=== PATIENT | female | born 1960 | race Caucasian/White ===

== ENCOUNTER 2019-02-22 15:35 | Emergency (ER) | payer BC ==
[2019-02-22] MEDS ORDERED: HYDROCODONE/APAP 5/325 MG TAB ONE (17:30)
[2019-02-22] MEDS ORDERED: DEXAMETHASONE 10 MG/ML VIAL ONE (17:30)
[2019-02-22] MEDS ORDERED: CYCLOBENZAPRINE 10 MG TAB ONE (17:30)
--- NOTE | 2019-02-22 18:08 | ER ---
Nurse's Notes [facility] Name: Nolberto Pérez Age: 58 yrs Sex: Female : 1960 Arrival Date: 02/22/2019 Time: 15:37 Bed 26 Private MD: Higinio Watters Diagnosis: Strain of muscle, fascia and tendon at neck level Presentation: 02/22 15:48 Presenting complaint: Patient states: i have a pain on my neck for few months now; hj denies trauma to the area; pain R now is getting worse and pain is shooting on the back of my skull;. Transition of care: patient was not received from another setting of care. Onset of symptoms was February 22, 2019. Risk Assessment: Do you want to hurt yourself or someone else? Patient reports no desire to harm self or others. Initial Sepsis Screen: Does the patient meet any 2 criteria? No. Patient's initial sepsis screen is negative. Does the patient have a suspected source of infection? No. Patient's initial sepsis screen is negative. Care prior to arrival: None. 15:48 Method Of Arrival: Ambulatory 15:48 Acuity: TIFFANIE 4 hj Historical: - Allergies: 15:50 No Known Drug Allergies; hj - PMHx: 15:50 Diabetes - NIDDM; Anxiety; hj - PSHx: 15:50 Appendectomy; Tubal ligation; hj - Immunization history:: Adult Immunizations up to date. - Social history:: Smoking status: Patient/guardian denies using tobacco. - Ebola Screening: : No symptoms or risks identified at this time. Screenin:00 Abuse screen: Denies threats or abuse. Denies injuries from another. Nutritional ca1 screening: No deficits noted. Tuberculosis screening: No symptoms or risk factors identified. Fall Risk None identified. Assessment: 17:00 General: Appears in no apparent distress. uncomfortable, Behavior is calm, cooperative, ca1 appropriate for age. Pain: Complains of pain in left trapezius and right trapezius Pain currently is 0 out of 10 on a pain scale. at worst was 10 out of 10 on a pain scale. Quality of pain is described as aching, Aggravated by repositioning, Noted to be refuses to move neck, and reports stiffness on neck. Neuro: Level of Consciousness is awake, alert, obeys commands, Oriented to person, place, time, situation. Cardiovascular: Heart tones S1 S2 present Capillary refill < 3 seconds Patient's skin is warm and dry. Respiratory: Airway is patent Respiratory effort is even, unlabored, Respiratory pattern is regular, symmetrical, Breath sounds are clear bilaterally. GI: No deficits noted. No signs and/or symptoms were reported involving the gastrointestinal system. : No deficits noted. No signs and/or symptoms were reported regarding the genitourinary system. EENT: No deficits noted. No signs and/or symptoms were reported regarding the EENT system. Derm: Skin is intact, is healthy with good turgor, Skin is pink, warm \T\ dry. Musculoskeletal: Circulation, motion, and sensation intact. Capillary refill < 3 seconds. 18:06 Reassessment: Patient appears in no apparent distress at this time. Patient and/or ca1 family updated on plan of care and expected duration. Pain level reassessed. Patient is alert, oriented x 3, equal unlabored respirations, skin warm/dry/pink. Pt reports feeling better. Pt able to turn head side to side, up and down and doesn't feel very stiff on her neck anymore. Patient states feeling better. Vital Signs: 15:51 BP 120 / 68; Pulse 76; Resp 18; Temp 97.8(TE); Pulse Ox 98% on R/A; Weight 91.63 kg; hj Height 5 ft. 6 in. (167.64 cm); Pain 8/10; 17:00 BP 110 / 68; Pulse 86; Resp 17 S; Temp 98(O); Pulse Ox 94% on R/A; ca1 18:06 BP 109 / 65; Pulse 86; Resp 17 S; Temp 98(O); Pulse Ox 94% on R/A; ca1 15:51 Body Mass Index 32.60 (91.63 kg, 167.64 cm) ED Course: 15:37 Patient arrived in ED. as 15:38 Higinio Watters DO is Private Physician. as 15:49 Triage completed. hj 15:51 Arm band placed on right wrist. hj 16:33 [facility] pm1 16:33 Jose Bloom MD is Attending Physician. pm1 17:00 Patient has correct armband on for positive identification. Placed in gown. Bed in low ca1 position. Call light in reach. Side rails up X 1. Pulse ox on. NIBP on. Warm blanket given. 17:14 Randa Durán, RN is Primary Nurse. ca1 18:09 No provider procedures requiring assistance completed. Patient did not have IV access ca1 during this emergency room visit. Administered Medications: 17:14 Drug: [place] 5 mg-325 mg 1 tabs Route: PO; ca1 18:08 Follow up: Response: No adverse reaction; Pain is decreased ca1 17:15 Drug: Flexeril 10 mg Route: PO; ca1 18:08 Follow up: Response: No adverse reaction; Pain is decreased ca1 17:20 Drug: Decadron 10 mg Route: IM; Site: right deltoid; ca1 18:08 Follow up: Response: No adverse reaction; Pain is decreased ca1 Outcome: 18:07 Discharge ordered by . pm1 18:18 Discharged to home ambulatory, with significant other. ca1 18:18 Condition: stable 18:18 Discharge instructions given to patient, Instructed on discharge instructions, follow up and referral plans. medication usage, Demonstrated understanding of instructions, follow-up care, medications, Prescriptions given X 3. 18:18 Patient left the ED. ca1 Signatures: Pebbles Bourgeois Henry, RN RN Bishop Godoy, [employer]CH[employer]ICIAN pm1 Randa Durán, LURDES RN ca1 Corrections: (The following items were deleted from the chart) 15:52 15:51 Resp 18bpm; Pulse Ox 98% RA; Temp 97.8F Temporal; 91.63 kg; Height 5 ft. 6 in.; hj BMI: 32.6; Pain 8/10; hj 15:52 15:51 Pulse 76bpm; Resp 18bpm; Pulse Ox 98% RA; Temp 97.8F Temporal; 91.63 kg; Height 5 hj ft. 6 in.; BMI: 32.6; Pain 8/10; hj
--- NOTE | 2019-02-22 18:08 | EDPHYS ---
Physician Documentation [facility] Name: Nolberto Pérez Age: 58 yrs Sex: Female : 1960 Arrival Date: 02/22/2019 Time: 15:37 Bed 26 Private MD: Higinio Watters ED Physician Jose Bloom HPI: 02/22 17:34 This 58 yrs old Female presents to ER via Ambulatory with complaints of Neck pm1 Pain, <24hrs Old. 17:34 The patient or guardian complains of pain, that is acute. The symptoms are located on pm1 the left trapezius. Onset: The symptoms/episode began/occurred On and of for the past three months but worse today. Usually resolves with the use of NSAIDs. Context: The problem was sustained at home, The neck injury/problem resulted from from unknown cause. Associated signs and symptoms: Pertinent negatives: fever, headache, nausea, numbness, tingling, vomiting, weakness. The pain does not radiate. Modifying factors: The symptoms are alleviated by OTC meds, remaining still, the symptoms are aggravated by movement. Severity of symptoms: in the emergency department the symptoms are actually worse. The patient has not experienced similar symptoms in the past. The patient has not recently seen a physician. Historical: - Allergies: 15:50 No Known Drug Allergies; hj - PMHx: 15:50 Diabetes - NIDDM; Anxiety; hj - PSHx: 15:50 Appendectomy; Tubal ligation; hj - Immunization history:: Adult Immunizations up to date. - Social history:: Smoking status: Patient/guardian denies using tobacco. - Ebola Screening: : No symptoms or risks identified at this time. ROS: 17:34 Constitutional: Negative for fever, chills, and weight loss, Eyes: Negative for injury, pm1 pain, redness, and discharge, ENT: Negative for injury, pain, and discharge, Cardiovascular: Negative for chest pain, palpitations, and edema, Respiratory: Negative for shortness of breath, cough, wheezing, and pleuritic chest pain, Abdomen/GI: Negative for abdominal pain, nausea, vomiting, diarrhea, and constipation, Back: Negative for injury and pain. 17:34 : Negative for injury, bleeding, discharge, and swelling, MS/Extremity: Negative for injury and deformity, Skin: Negative for injury, rash, and discoloration, Neuro: Negative for headache, weakness, numbness, tingling, and seizure. 17:34 Neck: Positive for pain with movement, Negative for mass, swollen nodes. Exam: 17:34 Constitutional: This is a well developed, well nourished patient who is awake, alert, pm1 and in no acute distress. Head/Face: Normocephalic, atraumatic. Eyes: Pupils equal round and reactive to light, extra-ocular motions intact. Lids and lashes normal. Conjunctiva and sclera are non-icteric and not injected. Cornea within normal limits. Periorbital areas with no swelling, redness, or edema. ENT: Nares patent. No nasal discharge, no septal abnormalities noted. Tympanic membranes are normal and external auditory canals are clear. Oropharynx with no redness, swelling, or masses, exudates, or evidence of obstruction, uvula midline. Mucous membranes moist. 17:34 Chest/axilla: Normal chest wall appearance and motion. Nontender with no deformity. No lesions are appreciated. Cardiovascular: Regular rate and rhythm with a normal S1 and S2. No gallops, murmurs, or rubs. Normal PMI, no JVD. No pulse deficits. Respiratory: Lungs have equal breath sounds bilaterally, clear to auscultation and percussion. No rales, rhonchi or wheezes noted. No increased work of breathing, no retractions or nasal flaring. Abdomen/GI: Soft, non-tender, with normal bowel sounds. No distension or tympany. No guarding or rebound. No evidence of tenderness throughout. Back: No spinal tenderness. No costovertebral tenderness. Full range of motion. Skin: Warm, dry with normal turgor. Normal color with no rashes, no lesions, and no evidence of cellulitis. MS/ Extremity: Pulses equal, no cyanosis. Neurovascular intact. Full, normal range of motion. 17:34 Neck: External neck: crepitus, is not appreciated, tenderness, of the left trapezius, C-spine: vertebral tenderness, is not appreciated. 17:34 Neuro: Orientation: is normal, Motor: is normal, moves all fours. Vital Signs: 15:51 BP 120 / 68; Pulse 76; Resp 18; Temp 97.8(TE); Pulse Ox 98% on R/A; Weight 91.63 kg; hj Height 5 ft. 6 in. (167.64 cm); Pain 8/10; 17:00 BP 110 / 68; Pulse 86; Resp 17 S; Temp 98(O); Pulse Ox 94% on R/A; ca1 18:06 BP 109 / 65; Pulse 86; Resp 17 S; Temp 98(O); Pulse Ox 94% on R/A; ca1 15:51 Body Mass Index 32.60 (91.63 kg, 167.64 cm) hj MDM: 16:50 Patient medically screened. pm1 17:14 Data reviewed: vital signs. Data interpreted: Pulse oximetry: on room air is 98 %. pm1 Interpretation: normal. Counseling: I had a detailed discussion with the patient and/or guardian regarding: the historical points, exam findings, and any diagnostic results supporting the discharge/admit diagnosis. Administered Medications: 17:14 Drug: [place] 5 mg-325 mg 1 tabs Route: PO; ca1 18:08 Follow up: Response: No adverse reaction; Pain is decreased ca1 17:15 Drug: Flexeril 10 mg Route: PO; ca1 18:08 Follow up: Response: No adverse reaction; Pain is decreased ca1 17:20 Drug: Decadron 10 mg Route: IM; Site: right deltoid; ca1 18:08 Follow up: Response: No adverse reaction; Pain is decreased ca1 Disposition: 02/23 06:56 Co-signature as Attending Physician, Jose Bloom MD I agree with the assessment and kdr plan of care. Disposition: 02/22/19 18:07 Discharged to Home. Impression: Strain of muscle, fascia and tendon at neck level. - Condition is Stable. - Discharge Instructions: Muscle Strain, Acute Torticollis, Adult. - Prescriptions for Tylenol- Codeine #3 300-30 mg Oral Tablet - take 2 tablets by ORAL route every 6 hours As needed; 20 tablet. Cyclobenzaprine 10 mg Oral Tablet - take 1 tablet by ORAL route every 8 hours As needed; 30 tablet. Medrol ([place]) 4 mg Oral Tablets, Dose Pack - take 1 tablet by ORAL route as directed - follow package instructions; 1 packet. - Medication Reconciliation Form, Thank You Letter, Antibiotic Education, Prescription Opioid Use form. - Follow up: Emergency Department; When: As needed; Reason: Worsening of condition. Follow up: Private Physician; When: 2 - 3 days; Reason: Recheck today's complaints, Continuance of care, Re-evaluation by your physician. - Problem is new. - Symptoms have improved. Signatures: Jose Bloom MD MD kdr Carrington Goodman, RN RN hj Bishop Godoy NP [employer] pm1 Leeanna, Randa RN RN ca1 Corrections: (The following items were deleted from the chart) 02/22 18:18 18:07 02/22/2019 18:07 Discharged to Home. Impression: Strain of muscle, fascia and ca1 tendon at neck level. Condition is Stable. Forms are Medication Reconciliation Form, Thank You Letter, Antibiotic Education, Prescription Opioid Use. Follow up: Emergency Department; When: As needed; Reason: Worsening of condition. Follow up: Private Physician; When: 2 - 3 days; Reason: Recheck today's complaints, Continuance of care, Re-evaluation by your physician. Problem is new. Symptoms have improved. pm1
[2019-02-22 18:50] VITALS: TEMP 98; O2SAT 94
[2019-02-22 18:52] VITALS: BP 109/65
== END 2019-02-22 18:18 | disposition home or self-care (01) ==
LOC: ER 15:35
DX: S16.1XXA Strain of muscle, fascia and tendon at neck level, initial encounter (principal); E11.9 Type 2 diabetes mellitus without complications; F41.9 Anxiety disorder, unspecified
CPT/HCPCS: 96372; 99283; J1100

== ENCOUNTER 2019-12-16 09:52 | Observation (INO) | payer BC ==
--- OUTSIDE RECORDS SUMMARY | 2019-12-16 09:55 | XMS REPORT ---
:1960 Author Organization [employer] Care Team Providers Name Role Phone Conor Danielle Provider Role Unavailable Allergies, Adverse Reactions, Alerts Substance Reaction Event Type N.K.D.A. Info Not Available Non Drug Allergy Problems Problem Type Condition Code Onset Dates Condition Status Problem Restless leg syndrome G25.81 Active Problem Environmental allergies Z91.09 Active Problem Facet hypertrophy of cervical M47.812 Active region Problem Chronic obstructive pulmonary J44.9 Active disease, unspecified COPD type Assessment Obesity (BMI 30.0-34.9) E66.9 Active Problem Hyperlipidemia, unspecified E78.5 Active hyperlipidemia type Assessment Urinary incontinence, unspecified R32 Active type Assessment Left leg pain M79.605 Active Problem Obesity (BMI 30.0-34.9) E66.9 Active Problem Uncontrolled type 2 diabetes E11.65 Active mellitus with hyperglycemia Problem Glaucoma of both eyes, unspecified H40.9 Active glaucoma type Problem Depression, unspecified depression F32.9 Active type Problem Urinary incontinence, unspecified R32 Active type Assessment Uncontrolled type 2 diabetes E11.65 Active mellitus with hyperglycemia Assessment Chronic obstructive pulmonary J44.9 Active disease, unspecified COPD type Assessment Hyperlipidemia, unspecified E78.5 Active hyperlipidemia type Problem COPD (chronic obstructive pulmonary J44.9 Active disease) with chronic bronchitis Problem Right kidney stone N20.0 Active Assessment Restless leg syndrome G25.81 Active Problem Pure hypercholesterolemia E78.00 Active Problem Neuropathy G62.9 Active Assessment Depression, unspecified depression F32.9 Active type Problem Depression F32.9 Active Problem Type 2 diabetes mellitus with E11.40 Active diabetic neuropathy, without long-term current use of insulin Medications Medication Code Code Instructions Start End Status Dosage System Date Date Albuterol [facility] [place] 46834482913 0.63 MG/3ML Active 3 ml as Sulfate Inhalation needed every 6 hrs Atorvastatin [facility] [place] 34123694200 10 mg Orally Active 1 tablet Calcium Once daily in evening Claritin [facility] [place] [address]-11 Active not defined Metformin HCl [facility] [place] 49925440199 1000 MG Orally Oct 18, Active 1 tablet Once daily 2018 with a meal Glucose testing [facility] [place] [id number] n/s Nov 07, Active as directed strips subcutaneous 2019 (dispense Test BS once testing daily strips formulary to insurance) Paxil [facility] [place] 86953989091 20 MG Orally Active 1 tablet in Once a day the morning Ropinirole HCl [facility] [place] [id number] 1 MG Orally Active 1 tablet 1 Once a day to 3 hours before bedtime Trelegy Ellipta [facility] [place] [id number] 100-62.5-25 Active 1 puff MCG/INH Inhalation Once a day ProAir HFA [facility] [place] [id number] 108 (90 Base) Active 1 puff as MCG/ACT needed Inhalation every 4 hrs Blood Glucose ND 0 as directed Nov 07, Active as directed Monitor Test BS once 2019 (DISPENSE daily BLOOD GLUCOSE MONITOR FORMULARY TO INSURANCE) Lancets [facility] [place] [id number] - as directed Nov 07, Active as directed Test BS once 2019 (dispense daily lancets formulary to insurance) Symbicort [facility] [place] [id number] 80-4.5 MCG/ACT Active 2 puffs Inhalation Twice a day Results No Known Results Summary Purpose [employer] Submission
--- NOTE | 2019-12-16 10:49 | EDPHYS ---
Physician Documentation [facility] Name: Nolberto Pérez Age: 59 yrs Sex: Female : 1960 Arrival Date: 12/16/2019 Time: 09:54 Bed 15 Private MD: Danielle Perdomo ED Physician Ceasar Yarbrough HPI: 12/15 10:44 This 59 yrs old Female presents to ER via Wheelchair with complaints of bre Shortness Of Breath. 10:44 The patient has shortness of breath at rest, with light activity. Onset: The bre symptoms/episode began/occurred 2 day(s) ago. Duration: The symptoms are continuous, and are steadily getting worse. The patient's shortness of breath has no apparent modifying factors. Associated signs and symptoms: Pertinent positives: non-productive cough, dizziness, fever. Severity of symptoms: At their worst the symptoms were. The patient has experienced similar episodes in the past, several times. Historical: - Allergies: 10:02 No Known Allergies; iw - Home Meds: 10:02 Claritin Oral once daily [Active]; Paxil 20 mg Oral tab 1 tab once daily [Active]; iw metformin 1,000 mg Oral TG24 1 tab 2 times per day [Active]; ropinirole oral oral once daily [Active]; atorvastatin oral oral [Active]; ProAir HFA inhalation inhalation [Active]; Albuterol Nebulizer [Active]; - PMHx: 10:02 Anxiety; Diabetes - NIDDM; COPD; Hyperlipidemia; iw - PSHx: 10:02 Appendectomy; Tubal ligation; iw - Immunization history:: Adult Immunizations up to date. - Social history:: Smoking status: Patient reports the use of cigarette tobacco products, smokes one pack cigarettes per day. ROS: 10:45 Constitutional: Negative for fever, chills, and weight loss, Eyes: Negative for injury, bre pain, redness, and discharge, ENT: Negative for injury, pain, and discharge, Neck: Negative for injury, pain, and swelling, Cardiovascular: Negative for chest pain, palpitations, and edema, Abdomen/GI: Negative for abdominal pain, nausea, vomiting, diarrhea, and constipation, Back: Negative for injury and pain, : Negative for injury, bleeding, discharge, and swelling, MS/Extremity: Negative for injury and deformity, Skin: Negative for injury, rash, and discoloration, Neuro: Negative for headache, weakness, numbness, tingling, and seizure, Psych: Negative for depression, anxiety, suicide ideation, homicidal ideation, and hallucinations, Allergy/Immunology: Negative for hives, rash, and allergies, Endocrine: Negative for neck swelling, polydipsia, polyuria, polyphagia, and marked weight changes, Hematologic/Lymphatic: Negative for swollen nodes, abnormal bleeding, and unusual bruising. 10:45 Respiratory: Positive for cough, shortness of breath, at rest. wheezing. Exam: 10:45 Constitutional: This is a well developed, well nourished patient who is awake, alert, bre and in no acute distress. Head/Face: Normocephalic, atraumatic. Eyes: Pupils equal round and reactive to light, extra-ocular motions intact. Lids and lashes normal. Conjunctiva and sclera are non-icteric and not injected. Cornea within normal limits. Periorbital areas with no swelling, redness, or edema. ENT: Nares patent. No nasal discharge, no septal abnormalities noted. Tympanic membranes are normal and external auditory canals are clear. Oropharynx with no redness, swelling, or masses, exudates, or evidence of obstruction, uvula midline. Mucous membranes moist. Neck: Trachea midline, no thyromegaly or masses palpated, and no cervical lymphadenopathy. Supple, full range of motion without nuchal rigidity, or vertebral point tenderness. No Meningismus. Chest/axilla: Normal chest wall appearance and motion. Nontender with no deformity. No lesions are appreciated. Cardiovascular: Regular rate and rhythm with a normal S1 and S2. No gallops, murmurs, or rubs. Normal PMI, no JVD. No pulse deficits. Abdomen/GI: Soft, non-tender, with normal bowel sounds. No distension or tympany. No guarding or rebound. No evidence of tenderness throughout. Back: No spinal tenderness. No costovertebral tenderness. Full range of motion. Female : Normal external genitalia. Skin: Warm, dry with normal turgor. Normal color with no rashes, no lesions, and no evidence of cellulitis. MS/ Extremity: Pulses equal, no cyanosis. Neurovascular intact. Full, normal range of motion. Neuro: Awake and alert, GCS 15, oriented to person, place, time, and situation. Cranial nerves II-XII grossly intact. Motor strength 5/5 in all extremities. Sensory grossly intact. Cerebellar exam normal. Normal gait. Psych: Awake, alert, with orientation to person, place and time. Behavior, mood, and affect are within normal limits. 10:45 Respiratory: mild respiratory distress is noted, Respirations: labored breathing, that is mild, Breath sounds: decreased breath sounds, rhonchi, wheezing: inspiratory expiratory Vital Signs: 09:58 BP 104 / 61; Pulse 92; Resp 22 S; Temp 98.9; Pulse Ox 94% on R/A; Weight 89.81 kg; iw Height 5 ft. 6 in. (167.64 cm); 10:30 Pulse Ox 86% on R/A; ca1 10:33 BP 92 / 56; Pulse 86; Resp 14; Pulse Ox 97% on 2 lpm NC; ca1 11:17 BP 104 / 47; Pulse 95; Resp 19; Temp 97.9(TE); Pulse Ox 94% on R/A; ca1 12:00 BP 101 / 58; Pulse 97; Resp 17 S; Pulse Ox 92% on 2 lpm NC; ca1 13:00 BP 105 / 52; Pulse 91; Resp 15 S; Pulse Ox 98% on 2 lpm NC; ca1 14:07 BP 96 / 59; Pulse 104; Resp 20; Temp 97.1(TE); Pulse Ox 95% on 2 lpm NC; ca1 09:58 Body Mass Index 31.96 (89.81 kg, 167.64 cm) iw MDM: 10:04 Patient medically screened. [facility] 10:46 Data reviewed: vital signs, nurses notes, lab test result(s), EKG, radiologic studies, [facility] CT scan, plain films. 12/15 10:44 Order name: Basic Metabolic Panel; Complete Time: 12:32 [facility] 12/15 10:44 Order name: CBC with Diff; Complete Time: 11:13 [facility] 12/15 10:44 Order name: LFT's; Complete Time: 12:32 [facility] 12/15 10:44 Order name: Magnesium; Complete Time: 12:32 [facility] 12/15 10:44 Order name: NT PRO-BNP; Complete Time: 12:32 [facility] 12/15 10:44 Order name: PT-INR; Complete Time: 11:13 [facility] 12/15 10:44 Order name: Troponin (emerg Dept Use Only); Complete Time: 12:32 [facility] 12/15 10:44 Order name: XRAY Chest (1 view); Complete Time: 12:32 [facility] 12/15 10:44 Order name: Blood Culture Adult (2) 12/15 10:44 Order name: Lactate; Complete Time: 12:32 [facility] 12/15 10:44 Order name: Procalcitonin; Complete Time: 12:32 [facility] 12/15 10:46 Order name: Flu; Complete Time: 12:32 [facility] 12/15 10:44 Order name: EKG; Complete Time: 10:45 [facility] 12/15 10:44 Order name: Cardiac monitoring; Complete Time: 10:55 [facility] 12/15 10:44 Order name: EKG - Nurse/Tech; Complete Time: 10:55 [facility] 12/15 10:44 Order name: IV Saline Lock; Complete Time: 10:55 [facility] 12/15 10:44 Order name: Labs collected and sent; Complete Time: 10:55 [facility] 12/15 10:44 Order name: O2 Per Protocol; Complete Time: 10:55 [facility] 12/15 10:44 Order name: O2 Sat Monitoring; Complete Time: 10:55 [facility] Administered Medications: 11:00 Drug: Albuterol - atroVENT (3:1) (2.5 mg - 0.5 mg) 3 ml Route: Nebulizer; ca1 12:09 Follow up: Response: No adverse reaction; Marked relief of symptoms ca1 11:00 Drug: NS 0.9% 1000 ml Route: IV; Rate: 1 bolus; Site: right antecubital; ca1 12:08 Follow up: Response: No adverse reaction; IV Status: Completed infusion ca1 11: Drug: SOLU-Medrol 125 mg Route: IVP; Site: right antecubital; ca1 12:09 Follow up: Response: No adverse reaction; Marked relief of symptoms ca1 11:03 Drug: Pepcid 20 mg Route: IVP; Site: right antecubital; ca1 12:09 Follow up: Response: No adverse reaction ca1 11:05 Drug: levofloxacin 750 mg Volume: 150 ml; Route: IVPB; Infused Over: 90 mins; Site: ca1 right antecubital; 12:35 Follow up: Response: No adverse reaction; IV Status: Completed infusion ca1 12: Drug: NS 0.9% 1000 ml Route: IV; Rate: 125 ml/hr; Site: right antecubital; ca1 12:10 Follow up: Response: No adverse reaction; IV Status: Infusion continued upon admission ca1 13:14 Drug: Albuterol 2.5 mg Route: Inhalation; ca1 Disposition: 12/16/19 10:49 Hospitalization ordered by Alcides Lam for Inpatient Admission. Preliminary diagnosis are Dyspnea, Chronic obstructive pulmonary disease with (acute) exacerbation, Hypoxemia, Elevated white blood cell count. - Bed requested for Telemetry/MedSurg (Inpatient). - Status is Inpatient Admission. ca1 - Condition is Fair. - Problem is new. - Symptoms have improved. Signatures: Dispatcher [employer] EDCeasar Witt MD MD cha Williams, Irene RN Gi Montero ms, Jose, RN RN ja1 Randa Durán RN RN ca1 Corrections: (The following items were deleted from the chart) 12:33 10:49 Hospitalization Ordered by Alcides Lam DO for Inpatient Admission. Preliminary [facility] diagnosis is Dyspnea; Chronic obstructive pulmonary disease with (acute) exacerbation; Hypoxemia. Bed requested for Telemetry/MedSurg (Inpatient). Status is Inpatient Admission. Condition is Fair. Problem is new. Symptoms have improved. [facility] 12:56 12:33 12/16/2019 10:49 Hospitalization Ordered by Alcides Lam DO for Inpatient ja1 Admission. Preliminary diagnosis is Dyspnea; Chronic obstructive pulmonary disease with (acute) exacerbation; Hypoxemia; Elevated white blood cell count. Bed requested for Telemetry/MedSurg (Inpatient). Status is Inpatient Admission. Condition is Fair. Problem is new. Symptoms have improved. [facility] 13:31 12:56 12/16/2019 10:49 Hospitalization Ordered by Alcides Lam DO for Inpatient ms Admission. Preliminary diagnosis is Dyspnea; Chronic obstructive pulmonary disease with (acute) exacerbation; Hypoxemia; Elevated white blood cell count. Bed requested for Telemetry/MedSurg (Inpatient). Status is Inpatient Admission. Condition is Fair. Problem is new. Symptoms have improved. ja1 14:17 13:31 12/16/2019 10:49 Hospitalization Ordered by Alcides Lam DO for Inpatient ca1 Admission. Preliminary diagnosis is Dyspnea; Chronic obstructive pulmonary disease with (acute) exacerbation; Hypoxemia; Elevated white blood cell count. Bed requested for Telemetry/MedSurg (Inpatient). Status is Inpatient Admission. Condition is Fair. Problem is new. Symptoms have improved. ms
--- NOTE | 2019-12-16 10:49 | ER ---
Nurse's Notes [facility] Name: Nolberto Pérez Age: 59 yrs Sex: Female : 1960 Arrival Date: 12/16/2019 Time: 09:54 Bed 15 Private MD: Danielle Perdomo Diagnosis: Dyspnea;Chronic obstructive pulmonary disease with (acute) exacerbation;Hypoxemia;Elevated white blood cell count Presentation: 12/15 09:58 Chief complaint: Patient states: difficulty breathing X 2-3 day, hx of COPD, O2 was low iw this morning was 74%, gave a breathing treatment up to 90's , does not use home O2 normally . + cough and low grade temp. Coronavirus screen: The patient has NOT traveled to [place] in the past 14 days. Proceed with normal triage procedures. Ebola Screen: Patient negative for fever greater than or equal to 101.5 degrees Fahrenheit, and additional compatible Ebola Virus Disease symptoms Patient denies exposure to infectious person. Patient denies travel to an Ebola-affected area in the 21 days before illness onset. No symptoms or risks identified at this time. Initial Sepsis Screen: Does the patient meet any 2 criteria? No. Patient's initial sepsis screen is negative. Does the patient have a suspected source of infection? No. Patient's initial sepsis screen is negative. Risk Assessment: Do you want to hurt yourself or someone else? Patient reports no desire to harm self or others. 09:58 Method Of Arrival: Wheelchair iw 09:58 Acuity: TIFFANIE 3 iw 10:30 Onset of symptoms was December 16, 2019. ca1 Triage Assessment: 14:10 Respiratory: Onset: The symptoms/episode began/occurred ca1 Historical: - Allergies: 10:02 No Known Allergies; iw - Home Meds: 10:02 Claritin Oral once daily [Active]; Paxil 20 mg Oral tab 1 tab once daily [Active]; iw metformin 1,000 mg Oral TG24 1 tab 2 times per day [Active]; ropinirole oral oral once daily [Active]; atorvastatin oral oral [Active]; ProAir HFA inhalation inhalation [Active]; Albuterol Nebulizer [Active]; - PMHx: 10:02 Anxiety; Diabetes - NIDDM; COPD; Hyperlipidemia; iw - PSHx: 10:02 Appendectomy; Tubal ligation; iw - Immunization history:: Adult Immunizations up to date. - Social history:: Smoking status: Patient reports the use of cigarette tobacco products, smokes one pack cigarettes per day. Screenin:30 Abuse screen: Denies threats or abuse. Denies injuries from another. Nutritional ca1 screening: No deficits noted. Tuberculosis screening: No symptoms or risk factors identified. Fall Risk IV access (20 points). Assessment: 10:30 General: Appears in no apparent distress. comfortable, Behavior is calm, cooperative, ca1 appropriate for age. Pain: Denies pain. Neuro: Level of Consciousness is awake, alert, obeys commands, Oriented to person, place, time, situation, Appropriate for age. Cardiovascular: Heart tones S1 S2 present Capillary refill < 3 seconds Patient's skin is warm and dry. Rhythm is sinus rhythm. Respiratory: Reports shortness of breath at rest since 2 days Airway is patent Respiratory effort is even, unlabored, Respiratory pattern is regular, symmetrical, Breath sounds with wheezes bilaterally. GI: Abdomen is round non-distended, Bowel sounds present X 4 quads. Abd is soft and non tender X 4 quads. : No signs and/or symptoms were reported regarding the genitourinary system. EENT: No signs and/or symptoms were reported regarding the EENT system. Derm: Skin is intact, is healthy with good turgor, Skin is pink, warm \T\ dry. Musculoskeletal: Circulation, motion, and sensation intact. Capillary refill < 3 seconds. 11:17 Reassessment: Patient appears in no apparent distress at this time. Patient and/or ca1 family updated on plan of care and expected duration. Pain level reassessed. Patient is alert, oriented x 3, equal unlabored respirations, skin warm/dry/pink. Dr. Lam at bedside. 12:30 Reassessment: Patient appears in no apparent distress at this time. Patient and/or ca1 family updated on plan of care and expected duration. Pain level reassessed. Patient is alert, oriented x 3, equal unlabored respirations, skin warm/dry/pink. 13:30 Reassessment: Patient appears in no apparent distress at this time. Patient and/or ca1 family updated on plan of care and expected duration. Pain level reassessed. Patient is alert, oriented x 3, equal unlabored respirations, skin warm/dry/pink. 13:49 Reassessment: Called for report. Was put on hold. Reassessment: Called for report. ca1 Nurse will call back. 14:07 Reassessment: Patient appears in no apparent distress at this time. Patient and/or ca1 family updated on plan of care and expected duration. Pain level reassessed. Patient is alert, oriented x 3, equal unlabored respirations, skin warm/dry/pink. Vital Signs: 09:58 BP 104 / 61; Pulse 92; Resp 22 S; Temp 98.9; Pulse Ox 94% on R/A; Weight 89.81 kg; iw Height 5 ft. 6 in. (167.64 cm); 10:30 Pulse Ox 86% on R/A; ca1 10:33 BP 92 / 56; Pulse 86; Resp 14; Pulse Ox 97% on 2 lpm NC; ca1 11:17 BP 104 / 47; Pulse 95; Resp 19; Temp 97.9(TE); Pulse Ox 94% on R/A; ca1 12:00 BP 101 / 58; Pulse 97; Resp 17 S; Pulse Ox 92% on 2 lpm NC; ca1 13:00 BP 105 / 52; Pulse 91; Resp 15 S; Pulse Ox 98% on 2 lpm NC; ca1 14:07 BP 96 / 59; Pulse 104; Resp 20; Temp 97.1(TE); Pulse Ox 95% on 2 lpm NC; ca1 09:58 Body Mass Index 31.96 (89.81 kg, 167.64 cm) iw ED Course: 09:54 Patient arrived in ED. rg4 09:55 Danielle Perdomo MD is Private Physician. rg4 10:00 Triage completed. iw 10:02 Patient placed. Arm band placed on right wrist. iw 10:04 Ceasar Yarbrough MD is Attending Physician. bre 10:05 Randa Durán, LURDES is Primary Nurse. ca1 10:20 EKG done, by ED staff, reviewed by Ceasar Yarbrough MD. kj1 10:30 Patient has correct armband on for positive identification. Placed in gown. Bed in low ca1 position. Call light in reach. Side rails up X2. crna on. Pulse ox on. NIBP on. Warm blanket given. 10:30 No provider procedures requiring assistance completed. Inserted saline lock: 20 gauge ca1 in right antecubital area, using aseptic technique. Blood collected. 10:30 Initial lab(s) drawn, by me, held in ED. First set of blood cultures drawn by me. ca1 10:46 Alcides Lam DO is Hospitalizing Provider. bre 10:54 Initial lab(s) drawn, sent to lab. ca1 11:00 Second set of blood cultures drawn by ED staff. ca1 11:10 XRAY Chest (1 view) In Process Unspecified. EDMS 14:09 Patient admitted, IV remains in place. ca1 Administered Medications: 11:00 Drug: Albuterol - atroVENT (3:1) (2.5 mg - 0.5 mg) 3 ml Route: Nebulizer; ca1 12:09 Follow up: Response: No adverse reaction; Marked relief of symptoms ca1 11:00 Drug: NS 0.9% 1000 ml Route: IV; Rate: 1 bolus; Site: right antecubital; ca1 12:08 Follow up: Response: No adverse reaction; IV Status: Completed infusion ca1 11:01 Drug: SOLU-Medrol 125 mg Route: IVP; Site: right antecubital; ca1 12:09 Follow up: Response: No adverse reaction; Marked relief of symptoms ca1 11:03 Drug: Pepcid 20 mg Route: IVP; Site: right antecubital; ca1 12:09 Follow up: Response: No adverse reaction ca1 11:05 Drug: levofloxacin 750 mg Volume: 150 ml; Route: IVPB; Infused Over: 90 mins; Site: ca1 right antecubital; 12:35 Follow up: Response: No adverse reaction; IV Status: Completed infusion ca1 12:09 Drug: NS 0.9% 1000 ml Route: IV; Rate: 125 ml/hr; Site: right antecubital; ca1 12:10 Follow up: Response: No adverse reaction; IV Status: Infusion continued upon admission ca1 13:14 Drug: Albuterol 2.5 mg Route: Inhalation; ca1 Outcome: 10:49 Decision to Hospitalize by Provider. bre 14:09 Admitted to Tele accompanied by tech, via wheelchair, room 430, with oxygen, with ca1 chart, Report called to LURDES Ruiz 14:10 Condition: stable ca1 14:10 Instructed on the need for admit. 14:17 Patient left the ED. ca1 Signatures: Dispatcher [employer] EDPA Ceasar Yarbrough MD MD cha Williams, Irene, RN RN iw Garcia, Rubi rg4 Randa Durán RN RN ca1 Aayush, Celina kj1
[2019-12-16 11:02] LABS: Basophils % 0.6 % (0-1.3); Hematocrit 42.5 % (36.0-45.0); Lymphocytes % 16.2 % (15.3-44.8); MPV 8.4 fL (7.6-11.3); RBC Red Blood Cell Count 4.59 M/uL (3.86-4.86)
[2019-12-16] MEDS ORDERED: METHYLPREDNISOLONE 125 MG INJ ONE (11:02)
[2019-12-16] MEDS ORDERED: IPRATROPIUM BROM 0.5MG/2.5ML ONE (11:03)
[2019-12-16] MEDS ORDERED: ALBUTEROL 2.5 MG/3 ML NEB SOL ONE ×2 (11:03→13:18)
[2019-12-16] MEDS ORDERED: FAMOTIDINE 20 MG/2 ML VIAL IV ONE (11:03)
[2019-12-16] MEDS ORDERED: NA CHLORIDE 0.9% 2,000 ML ONE (11:03)
[2019-12-16] MEDS ORDERED: Levofloxacin 750mg IV 750 MG/150 ML BAG IV ONE (11:03)
[2019-12-16 11:33] LABS: ALT/SGPT 12 U/L (12-78); AST/SGOT 10 U/L (15-37); Albumin 3.2 g/dL (3.4-5.0); Alkaline Phosphatase 81 U/L (45-117); BUN Blood Urea Nitrogen 11 mg/dL (7-18); Bicarbonate 28 mmol/L (21-32); Bilirubin Direct 0.1 mg/dL (0-0.2); Bilirubin Total 0.3 mg/dL (0.2-1.0); Glucose Level 103 mg/dL (74-106); Magnesium 1.9 mg/dL (1.8-2.4); NT PRO-BNP 175 pg/mL (<125); Potassium 3.7 mmol/L (3.5-5.1); Protein, Total 7.1 g/dL (6.4-8.2); Sodium Level 142 mmol/L (136-145); Troponin (Emerg Dept Use Only) < 0.02 ng/mL (0.0-0.045)
--- NOTE | 2019-12-16 11:48 | P.HP ---
Certification for Inpatient Patient admitted to: Observation With expected LOS: <2 Midnights Patient will require the following post-hospital care: Other (May require home O2) Practitioner: I am a practitioner with admitting privileges, knowledge of patient current condition, hospital course, and medical plan of care. Services: Services provided to patient in accordance with Admission requirements found in Title 42 Section 412.3 of the Code of Federal Regulations Patient History Date of Service: 12/16/19 Primary Care Provider: Dr. Perdomo; Pulmonary-Dr. Doran Reason for admission: Shortness of breath, cough History of Present Illness: 59-year-old female with history of COPD, diabetes, restless leg syndrome, hyperlipidemia, depression and tobacco abuse. Patient presented with increasing cough, shortness of breath and fever. Patient reported symptoms over the last 3 days. She called her traveling accountant yesterday who called in a prescription for prednisone. Overnite she continued to have fever, chills. Cough and congestion persisted. She came to the ER for further evaluation. She denied any sick contacts. No recent travel. In the ER patient was evaluated. Patient slightly tachypneic with mild hypoxia. White count 12.6, hemoglobin 11.9. Sodium 142, potassium 3.7. Troponin unremarkable. Flu unremarkable. Chest x-ray shows COPD changes no definitive pneumonia noted. Patient admitted for observation. When I saw the patient ER, she appeared much improved. Patient receiving breathing treatment. Patient also getting IV fluids. Allergies No Known Drug Allergies Allergy (Verified 04/13/16 06:51) none No Known Allergies Allergy (Uncoded 10/18/17 03:14) Unknown Home medications list reviewed: Yes Home Medications: ARIPiprazole [Abilify*] 2 mg PO DAILY 10/18/17 Mometasone/Formoterol [Dulera 200 Mcg/5 Mcg Inhaler] 2 puff IH BID #30 inhaler 10/18/17 PARoxetine HCl [Paxil*] 20 mg PO DAILY 10/18/17 Prednisone [Sterapred Ds] 10 mg PO BID #20 tab.ds.pk 10/18/17 - Past Medical/Surgical History Diabetic: Yes -: Diabetes mellitus type 2 [id number] -: Depression -: COPD -: Tobacco abuse -: Restless leg syndrome -: Hyperlipidemia -: Urinary incontinence -: Tubal ligation -: Appendectomy -: scar tissue removed abdomen Psychosocial/ Personal History: Patient is - Family History Father -: Cancer Notes: lung cancer Mother -: Hypertension, Diabetes Brother -: Cancer Notes: lung cancer - Social History Smoking Status: Heavy Tobacco smoker (>10 cigarettes/day) Counseled patient to stop smoking for: less than 10 minutes Smoking therapy provided: Yes Patient receptive to therapy: Yes Alcohol use: No CD- Drugs: No Caffeine use: Yes Place of Residence: Home Review of Systems General: Fever, Chills, As per HPI Eyes: Unremarkable ENT: Nose Congestion, As per HPI Respiratory: Cough, Shortness of Breath, Wheezing, As per HPI Cardiovascular: Unremarkable Gastrointestinal: Unremarkable Genitourinary: Incontinence, As per HPI Musculoskeletal: Unremarkable Integumentary: Unremarkable Neurological: Unremarkable Lymphatics: Unremarkable Physical Examination - Physical Exam General: Alert, In no apparent distress, Oriented x3, Cooperative HEENT: Atraumatic, Normocephalic, Other (Dry mucous membranes), EOMI Neck: Supple Respiratory: Expiratory wheezes (Wheezing bilateral) Cardiovascular: Normal pulses, Regular rate/rhythm Gastrointestinal: Normal bowel sounds, Soft and benign, Non-distended, No tenderness, No masses, No rebound, No guarding Musculoskeletal: No erythema, No tenderness, No warmth Integumentary: No tenderness/swelling, No erythema, No warmth, No cyanosis Neurological: Normal speech, Normal strength at 5/5 x4 extr, Normal tone, Normal affect - Studies Laboratory Data (last 24 hrs) 12/16/19 10:30: PT 11.8, INR 1.00 12/16/19 10:30: WBC 12.6 H, Hgb 13.9, Hct 42.5, Plt Count 286 12/16/19 10:30: Sodium 142, Potassium 3.7, BUN 11, Creatinine 0.58, Glucose 103 , Magnesium 1.9, Total Bilirubin 0.3, AST 10 L, ALT 12, Alkaline Phosphatase 81 Microbiology Data (last 24 hrs): 12/16/19 10:51 Nasopharnyx Influenza Type A Antigen Screen - Final 12/16/19 10:51 Nasopharnyx Influenza Type B Antigen Screen - Final Assessment and Plan - Plan Impression: Shortness of breath, cough secondary to COPD exacerbation Mild dehydration Diabetes mellitus type 2 [id number] Tobacco abuse Hyperlipidemia Restless leg syndrome Depression Urinary incontinence Chronic seasonal allergies Plan: Shortness of breath, cough secondary to COPD exacerbation: Patient admitted for further evaluation and observation. Will start prednisone, COPD medication. Maintain sats above 93%. Will wean off oxygen. Will reassess for possible home oxygen at discharge. Will provide IV fluids due to mild dehydration. Will provide medication for cough, congestion. Recheck chest x- ray tomorrow. Will consult her traveling accountant to further evaluate. Anticipate discharge tomorrow with clinical improvement. Mild dehydration: Continue IV fluids. Will monitor adjust closely. Electrolyte protocol in place. Diabetes mellitus type 2 [id number]: Will check A1c. Continue to monitor Accu-Cheks and provide sliding scale. Tobacco abuse: Tobacco cessation addressed in detail. Will provide nicotine patch. Hyperlipidemia: Restart home medication. Restless leg syndrome: Obtain and restart home medication. Depression: Obtain and restart home medication. Urinary incontinence: Patient has appointment to see gynecology to further evaluate on Tuesday. Chronic seasonal allergies: Restart Claritin. Will provide Flonase. Discharge Plan: Home Plan to discharge in: 24 Hours - Advance Directives Does patient have a Living Will: No Does patient have a Durable POA for Healthcare: No - Code Status/Comfort Care Code Status Assessed: Yes (Patient is full code) Time Spent Managing Pts Care (In Minutes): 55
--- NOTE | 2019-12-16 12:21 | RAD REPORT ---
EXAM DESCRIPTION: RAD - Chest Single View - 12/16/2019 11:09 am CLINICAL HISTORY: COPD;Cough Chest pain. COMPARISON: Chest Pa And Lat (2 Views) dated 10/02/2019; Chest Pa And Lat (2 Views) dated 07/13/2018; Chest Single View dated 10/17/2017; CHEST PA AND LAT 2 VIEW dated 07/16/2014; Lung Cancer Screening CT W/O dated 10/11/2019 FINDINGS: Portable technique limits examination quality. The lungs are grossly clear. The heart is normal in size. No displaced fractures. IMPRESSION: No acute intrathoracic process suspected.
[2019-12-16] MEDS ORDERED: ALBUTEROL 2.5 MG/3 ML NEB SOL NEB PRN (14:13)
[2019-12-16] MEDS ORDERED: BENZONATATE 100 MG CAP PO PRN (14:13)
[2019-12-16] MEDS ORDERED: ACETAMINOPHEN 500 MG TAB PO PRN (14:13)
[2019-12-16] MEDS ORDERED: IPRATROPIUM BROM 0.5MG/2.5ML NEB PRN (14:13)
[2019-12-16] MEDS ORDERED: ONDANSETRON 4 MG/2 ML VIAL IV PRN (14:13)
[2019-12-16 14:40] VITALS: BMI 31.9
[2019-12-16] MEDS: NICOTINE 21 MG/PAT TD SCH (15:15)
[2019-12-16] MEDS: NACHLORIDE 0.45% 1,000 ML IV SCH (15:15)
[2019-12-16] MEDS: INSULIN -REGULAR HUMAN 50 UNIT/0.5 ML ML SQ SCH ×2 (15:31→21:00)
[2019-12-16] MEDS: ENOXAPARIN 40 MG/0.4 ML SQ SCH (15:31)
[2019-12-16] MEDS ORDERED: ALBUTEROL 2.5 MG/3 ML NEB SOL IH PRN (19:32)
[2019-12-16] MEDS ORDERED: TEMAZEPAM 15 MG CAP PO PRN (20:29)
[2019-12-16] MEDS ORDERED: ATORVASTATIN 20 MG TAB PO SCH (21:00)
[2019-12-16] MEDS ORDERED: ROPINIROLE HCL 1 MG TAB PO SCH (21:00)
[2019-12-16] MEDS ORDERED: POTASSIUM CL SA 10 MEQ TAB PO ONE (21:00)
[2019-12-16] MEDS ORDERED: ATORVASTATIN 10 MG TAB PO SCH (21:00)
[2019-12-16] MEDS: DULERA 100/5 (MOMETASONE/FORMOTEROL) INHALER IH SCH (21:31)
[2019-12-16] MEDS: GUAIFENESIN 600 MG SA TAB PO SCH (21:33)
[2019-12-16] MEDS: predniSONE 20 MG TAB PO SCH (21:33)
[2019-12-17] MEDS: NACHLORIDE 0.45% 1,000 ML IV SCH ×2 (01:18→10:13)
[2019-12-17 05:09] LABS: Absolute Lymphocytes (CBC) 1.2 K/uL (0.7-4.9); Basophils % 0.3 % (0-1.3); Hematocrit 37.5 % (36.0-45.0); Lymphocytes % 9.3 % (15.3-44.8); MPV 8.1 fL (7.6-11.3); RBC Red Blood Cell Count 4.08 M/uL (3.86-4.86)
[2019-12-17 05:25] LABS: BUN Blood Urea Nitrogen 8 mg/dL (7-18); Bicarbonate 30 mmol/L (21-32); Glucose Level 132 mg/dL (74-106); Magnesium 2.2 mg/dL (1.8-2.4); Phosphorus 2.9 mg/dL (2.5-4.9); Potassium 4.4 mmol/L (3.5-5.1); Sodium Level 143 mmol/L (136-145)
[2019-12-17 06:50] LABS: Blood Morphology Comment NOT SEEN (NOT SEEN); Platelet Estimate ADEQ
--- NOTE | 2019-12-17 06:59 | RAD REPORT ---
EXAM DESCRIPTION: RAD - Chest Pa And Lat (2 Views) - 12/17/2019 6:16 am CLINICAL HISTORY: Follow up COPD Chest pain. COMPARISON: Chest Single View dated 12/16/2019; Chest Pa And Lat (2 Views) dated 10/02/2019; Chest Pa And Lat (2 Views) dated 07/13/2018; Chest Single View dated 10/17/2017 FINDINGS: The lungs are diffusely emphysematous but clear. The heart is normal in size. No displaced fractures. IMPRESSION: Mild diffuse COPD.
[2019-12-17] MEDS ORDERED: PANTOPRAZOLE 40MG TABLET PO SCH (07:30)
[2019-12-17] MEDS: INSULIN -REGULAR HUMAN 50 UNIT/0.5 ML ML SQ SCH ×2 (07:30→11:30)
[2019-12-17] MEDS: DULERA 100/5 (MOMETASONE/FORMOTEROL) INHALER IH SCH (07:51)
[2019-12-17] MEDS: ENOXAPARIN 40 MG/0.4 ML SQ SCH (07:52)
[2019-12-17] MEDS: NICOTINE 21 MG/PAT TD SCH (07:53)
[2019-12-17] MEDS: GUAIFENESIN 600 MG SA TAB PO SCH (07:53)
[2019-12-17] MEDS: predniSONE 20 MG TAB PO SCH (07:53)
[2019-12-17] MEDS ORDERED: ALBUTEROL INHALER 60 PUFF/8 GM IH PRN (08:00)
[2019-12-17] MEDS ORDERED: ASPIRIN EC 81 MG TAB PO SCH (09:00)
[2019-12-17] MEDS ORDERED: LORATADINE 10 MG TAB PO SCH ×2 (09:00)
[2019-12-17] MEDS ORDERED: PARoxetine HCL 10 MG TAB PO SCH ×2 (09:00→21:00)
[2019-12-17] MEDS ORDERED: METFORMIN ER 500 MG TAB PO SCH (09:00)
--- NOTE | 2019-12-17 09:21 | P.DS ---
Admission Date: 12/16/19 Discharge Date: 12/17/19 Primary Care Provider: Dr. Perdomo; Pulmonary-Dr. Doran Disposition: ROUTINE DISCHARGE Discharge Condition: GOOD Reason for Admission: Shortness of breath, cough Consultations: Pulmonary-Dr. Doran Procedures: CXR: FINDINGS: The lungs are diffusely emphysematous but clear. The heart is normal in size. No displaced fractures. IMPRESSION: Mild diffuse COPD. Medical Problem List: Shortness of breath, cough secondary to COPD exacerbation Mild dehydration Diabetes mellitus type 2 [id number] Tobacco abuse Hyperlipidemia Restless leg syndrome Depression Urinary incontinence Chronic seasonal allergies Brief History of Present Illness: 59-year-old female with history of COPD, diabetes, restless leg syndrome, hyperlipidemia, depression and tobacco abuse. Patient presented with increasing cough, shortness of breath and fever. Patient reported symptoms over the last 3 days. She called her swaging machine operator yesterday who called in a prescription for prednisone. Overnite she continued to have fever, chills. Cough and congestion persisted. She came to the ER for further evaluation. She denied any sick contacts. No recent travel. In the ER patient was evaluated. Patient slightly tachypneic with mild hypoxia. White count 12.6, hemoglobin 11.9. Sodium 142, potassium 3.7. Troponin unremarkable. Flu unremarkable. Chest x-ray shows COPD changes no definitive pneumonia noted. Patient admitted for observation. When I saw the patient ER, she appeared much improved. Patient receiving breathing treatment. Patient also getting IV fluids. Hospital Course: Patient presented with shortness of breath, cough secondary to COPD exacerbation. Strep test negative. Influenza test negative. Patient received COPD treatment with improvement. Patient seen by pulmonology. No further intervention was required. Patient also with mild dehydration. She did receive some fluids. Overall stable at discharge. At discharge she will finish with prednisone taper that was given by pulmonology the other day. She will also be provided Tessalon Perles 1 pill 3 times a day as needed for cough and Mucinex 600 mg twice daily as needed for congestion. Patient will continue with her COPD medication of Vescipi 2 puffs twice daily, Pro air 2 puffs 3 times a day as needed for shortness of breath. Flovent 1 puff twice daily will be added. Recommend follow up with pulmonology in 1-2 weeks to follow up this hospitalization. Patient with chronic allergies. At discharge she will continue with Flonase 1 spray per nostril twice daily and Claritin 10 mg daily. Patient with diabetes mellitus type 2 non-insulin dependent. This has remained stable. At discharge she will continue with metformin ER 1000 mg daily. Recommend to maintain blood sugars less 140 fasting and less than 200 after meals. Further adjustment can be done by her PCP. Patient with hyperlipidemia. At discharge she will continue with Lipitor 10 mg daily. Patient with tobacco abuse. Tobacco cessation addressed in detail. Will provide nicotine patch daily. Recommend follow up with pulmonology to help with cessation therapy. Patient with restless leg syndrome. This has remained stable. At discharge she will continue with Requip 2 mg at bedtime. Patient with depression. She will continue with Paxil 20 mg daily. Patient with urinary incontinence. Patient has appointment to see gynecology tomorrow to further monitor and address. Vital Signs/Physical Exam: Temp Pulse Resp BP Pulse Ox 98.0 F 73 18 145/68 H 98 12/17/19 08:00 12/17/19 08:00 12/17/19 08:00 12/17/19 08:00 12/17/19 08:00 General: Alert, In no apparent distress, Oriented x3, Cooperative HEENT: Atraumatic Neck: Supple Respiratory: Clear to auscultation bilaterally, Normal air movement Cardiovascular: Normal pulses, Regular rate/rhythm Gastrointestinal: Normal bowel sounds, Soft and benign, Non-distended, No tenderness, No masses, No rebound, No guarding Musculoskeletal: No erythema, No tenderness, No warmth Integumentary: No tenderness/swelling, No erythema, No warmth, No cyanosis Neurological: Normal speech, Normal strength at 5/5 x4 extr, Normal tone, Normal affect Laboratory Data at Discharge: WBC 12.4 K/uL (4.3-10.9) H 12/17/19 04:36 Hgb 12.5 g/dL (12.0-15.0) 12/17/19 04:36 Hct 37.5 % (36.0-45.0) 12/17/19 04:36 Plt Count 304 K/uL (152-406) 12/17/19 04:36 PT 11.8 SECONDS (9.5-12.5) 12/16/19 10:30 INR 1.00 12/16/19 10:30 Sodium 143 mmol/L (136-145) 12/17/19 04:36 Potassium 4.4 mmol/L (3.5-5.1) 12/17/19 04:36 BUN 8 mg/dL (7-18) 12/17/19 04:36 Creatinine 0.50 mg/dL (0.55-1.3) L 12/17/19 04:36 Glucose 132 mg/dL (74-106) H 12/17/19 04:36 Phosphorus Cancelled 12/17/19 05:00 Magnesium 2.2 mg/dL (1.8-2.4) 12/17/19 04:36 Total Bilirubin 0.3 mg/dL (0.2-1.0) 12/16/19 10:30 AST 10 U/L (15-37) L 12/16/19 10:30 ALT 12 U/L (12-78) 12/16/19 10:30 Alkaline Phosphatase 81 U/L (45-117) 12/16/19 10:30 Home Medications: RX: PARoxetine HCl [Paxil*] 20 mg PO DAILY 10/18/17 RX: Atorvastatin Calcium 10 mg PO BEDTIME 12/16/19 RX: Loratadine [Claritin*] 1 tab PO DAILY 12/16/19 RX: Metformin ER [Glucophage ER*] 1,000 mg PO DAILY 12/16/19 RX: Ropinirole HCl [Requip*] 2 mg PO BEDTIME 12/16/19 Fluticasone Propionate [Flovent Hfa] 1 puff IH BID #1 aer.w.adap 12/17/19 Fluticasone [Flonase 50mcg Nasal [place]] 1 sprays NS BID #1 btl 12/17/19 Guaifenesin [Mucinex] 600 mg PO BID PRN #15 tab.er.12h 12/17/19 RX: Albuterol Neb [Proventil 0.083% Neb Soln] 3 ml IH Q6HP PRN #90 amp 12/17/19 RX: Albuterol Sulfate [Proair Hfa] 2 puff IH TID PRN #1 hfa.aer.ad 12/17/19 RX: Benzonatate [Tessalon Perle*] 100 mg PO TID PRN #15 cap 12/17/19 RX: Nicotine [Nicoderm*] 21 mg TD DAILY #30 patch.td24 12/17/19 New Medications: Fluticasone Propionate [Flovent Hfa] 1 puff IH BID #1 aer.w.adap Fluticasone [Flonase 50mcg Nasal [place]] 1 sprays NS BID #1 btl Guaifenesin [Mucinex] 600 mg PO BID PRN #15 tab.er.12h PRN Reason: Cough RX: Albuterol Neb [Proventil 0.083% Neb Soln] 3 ml IH Q6HP PRN #90 amp PRN Reason: Shortness Of Breath RX: Albuterol Sulfate [Proair Hfa] 2 puff IH TID PRN #1 hfa.aer.ad PRN Reason: Shortness Of Breath RX: Benzonatate [Tessalon Perle*] 100 mg PO TID PRN #15 cap PRN Reason: Cough RX: Nicotine [Nicoderm*] 21 mg TD DAILY #30 patch.td24 Patient Discharge Instructions: 1. Recommend follow up with PCP in 1 week to follow up this hospitalization. 2. Patient presented with shortness of breath , cough secondary to COPD exacerbation. Strep test negative. Influenza test negative. Patient received COPD treatment with improvement. Patient seen by pulmonology. No further intervention was required. Patient also with mild dehydration. She did receive some fluids. Overall stable at discharge. At discharge she will finish with prednisone taper that was given by pulmonology the other day. She will also be provided Tessalon Perles 1 pill 3 times a day as needed for cough and Mucinex 600 mg twice daily as needed for congestion. Patient will continue with her COPD medication of Vescipi 2 puffs twice daily, Pro air 2 puffs 3 times a day as needed for shortness of breath. Flovent 1 puff twice daily will be added. Recommend follow up with pulmonology in 1-2 weeks to follow up this hospitalization. 3. Patient with chronic allergies. At discharge she will continue with Flonase 1 spray per nostril twice daily and Claritin 10 mg daily. 4. Patient with diabetes mellitus type 2 non-insulin dependent. This has remained stable. At discharge she will continue with metformin ER 1000 mg daily. Recommend to maintain blood sugars less 140 fasting and less than 200 after meals. Further adjustment can be done by her PCP. 5. Patient with hyperlipidemia. At discharge she will continue with Lipitor 10 mg daily. 6. Patient with tobacco abuse. Tobacco cessation addressed in detail. Will provide nicotine patch daily. Recommend follow up with pulmonology to help with cessation therapy. 7. Patient with restless leg syndrome. This has remained stable. At discharge she will continue with Requip 2 mg at bedtime. 8. Patient with depression. She will continue with Paxil 20 mg daily. 9. Patient with urinary incontinence. Patient has appointment to see gynecology tomorrow to further monitor and address. Diet: ADA Activity: Ad curt Time spent managing pt's care (in minutes): 55
[2019-12-17 11:36] VITALS: BP 106/42; TEMP 98.5; O2SAT 93
--- NOTE | 2019-12-17 12:19 | P.CNS ---
Date of Consult: 12/17/19 Primary Care Provider: Dr. Perdomo; Pulmonary-Dr. Doran Chief Complaint: Shortness of breath, cough History of Present Illness: Patient is 59 years of age with a history of COPD admitted with increasing cough congestion shortness of breath about 2 3 days continue to worsen despite taking higher doses steroids ended up in the hospital here is compliant with it inhalers doing much better since admission denies any fever chills Allergies No Known Drug Allergies Allergy (Verified 04/13/16 06:51) none No Known Allergies Allergy (Uncoded 10/18/17 03:14) Unknown Home Medications: PARoxetine HCl [Paxil*] 20 mg PO DAILY 10/18/17 Atorvastatin Calcium 10 mg PO BEDTIME 12/16/19 Loratadine [Claritin*] 1 tab PO DAILY 12/16/19 Metformin ER [Glucophage ER*] 1,000 mg PO DAILY 12/16/19 Ropinirole HCl [Requip*] 2 mg PO BEDTIME 12/16/19 Albuterol Neb [Proventil 0.083% Neb Soln] 3 ml IH Q6HP PRN #90 amp 12/17/19 Albuterol Sulfate [Proair Hfa] 2 puff IH TID PRN #1 hfa.aer.ad 12/17/19 Benzonatate [Tessalon Perle*] 100 mg PO TID PRN #15 cap 12/17/19 Fluticasone Propionate [Flovent Hfa] 1 puff IH BID #1 aer.w.adap 12/17/19 Fluticasone [Flonase 50mcg Nasal [place]] 1 sprays NS BID #1 btl 12/17/19 Glycopyrrolate/Formoterol Fum [Bevespi Aerosphere Inhaler] 2 puff IH BID Guaifenesin [Mucinex] 600 mg PO BID PRN #15 tab.er.12h 12/17/19 Nicotine [Nicoderm*] 21 mg TD DAILY #30 patch.td24 12/17/19 - Past Medical/Surgical History Diabetic: Yes -: Diabetes mellitus type 2 [id number] -: Depression -: COPD -: Tobacco abuse -: Restless leg syndrome -: Hyperlipidemia -: Urinary incontinence -: Tubal ligation -: Appendectomy -: scar tissue removed abdomen Psychosocial/ Personal History: Patient is - Family History Father Medical History: Cancer Notes: lung cancer Mother Medical History: Hypertension, Diabetes Brother Medical History: Cancer Notes: lung cancer - Social History Smoking Status: Current every day smoker Alcohol use: No CD- Drugs: No Caffeine use: Yes Place of Residence: Home Review of Systems Unremarkable Physical Examination Temp Pulse Resp BP Pulse Ox 98.5 F 83 18 106/42 L 93 12/17/19 11:34 12/17/19 11:34 12/17/19 11:34 12/17/19 11:34 12/17/19 11:34 General: Alert, Oriented x3 Respiratory: Expiratory wheezes Cardiovascular: No edema, Normal pulses, Regular rate/rhythm Gastrointestinal: Normal bowel sounds, Soft and benign - Problems (1) COPD with acute exacerbation Onset Date: 10/18/17 Status: Acute Plan: Patient is 59 years of age admitted with an exacerbation of COPD no evidence of infection chest x-ray COPD changes labs reviewed mildly elevated white count patient has Dulera and I recommend prescribing inhale steroids in addition to prednisone 10 mg twice a day vital signs satisfactory patient is stable for discharge follow up with me in 2 weeks patient was doing much better on trilogy
--- NOTE | 2019-12-17 15:35 | EKG ---
Test Date: 2019-12-16 Test Time: 10:21:50 Kerfer Machine Operator: JASVIR MEASUREMENT RESULTS: Intervals: Rate: 96 KS: 144 QRSD: 76 QT: 350 QTc: 442 [place]: P: 76 KS: 144 QRS: 94 T: 85 INTERPRETIVE STATEMENTS: Normal sinus rhythm Rightward axis Borderline ECG Compared to ECG 10/17/2017 23:46:23 Right-axis deviation now present Sinus tachycardia no longer present Electronically Signed On 12-17-19 15:35:03 FISH MACHINE FEEDER by Raheel Wellington
== END 2019-12-17 11:41 | disposition home or self-care (01) ==
LOC: ER 09:52 → ERHOLD 11:35 → 4TH 14:10
PROVIDERS: ADMIT Family Medicine; ATTEND Family Medicine
DX: J44.1 Chronic obstructive pulmonary disease with (acute) exacerbation (principal); E78.5 Hyperlipidemia, unspecified; E11.9 Type 2 diabetes mellitus without complications; G25.81 Restless legs syndrome; F17.200 Nicotine dependence, unspecified, uncomplicated; E86.0 Dehydration; R32 Unspecified urinary incontinence; F32.9 Major depressive disorder, single episode, unspecified; J30.2 Other seasonal allergic rhinitis
CPT/HCPCS: 96365; 93005; 87040 ×2; 87070; 85025 ×2; 80048 ×2; 36415; 83735 ×2; 84100; 85610; 82947 ×4; 80076; 87081; 83605; 83036; 84484; 84145; 83880; 87804 ×2; 71045; 71046; 94640 ×2; 96375; 99285; J1650 ×2; J7030; J2930; G0378 ×3; J7512; J7606

== ENCOUNTER 2020-12-07 02:58 | Emergency (ER) | payer BC ==
--- OUTSIDE RECORDS SUMMARY | 2020-12-07 03:02 | XMS REPORT | Clinical Summary ---
:1960 Author Organization [facility] Address [address] [place] [address] Care Team Providers Name Role Phone Asked, Pcp Primary Care Provider Unavailable Allergies No Known Active Allergies Medications Medication Sig Dispensed Refills Start Date End Date Status meloxicam (MOBIC) 15 Take 1 tablet (15 30 tablet 2 11/25/2020 11/25/2021 Active mg tablet mg total) by mouth daily. Take with food. Active Problems No known active problems Encounters Date Type Specialty Care Team Description 11/28/2020 Documentation Sports Medicine Valeriy Jones MD 11/25/2020 Office Visit Sports Medicine Valeriy Jones, Strain of gluteus medius of left lower extremity, initial encounter (Primary Dx); Pain in both lo wer extremities 11/25/2020 Travel 11/21/2020 Travel after 12/07/2019 Medical History Medical History Date Comments Arthritis 2016 COPD (chronic obstructive pulmonary disease) ([facility]) 2016 Diabetes ([facility]) 2016 Family History Medical History Relation Name Comments Cancer Brother Dannie Hurt Heart attack Brother Dannie Hurt Cancer Father Melvin Aguilera Diabetes Mother Shalini Espinosa Relation Name Status Comments Brother Dannie Hurt Father Melvin Aguilera Mother Shalini Espinosa Social History Tobacco Use Types Packs/Day Years Used Date Current Every Day Smoker Cigarettes 1 30 10/1976 - 11/17/2019 Smokeless Tobacco: Never Used Comments: I have quit on my own for a ye ar and 5 months. Alcohol Use Drinks/Week oz/Week Comments Not Currently 0 Glasses of wine 0.0 0 Cans of beer 0 Shots of liquor 0 Standard drinks or equivalent Sex Assigned at Date Recorded Female 11/24/2020 11:22 AM INTERN Job Start Date Occupation Industry Not on file Not on file Not on file COVID-19 Exposure Response Date Recorded In the last month, have you been in contact with No / Unsure 11/25/2020 9:17 AM INTERN someone who was confirmed or suspected to have Coronavirus / COVID-19? Last Filed Vital Signs Not on file Plan of Treatment Health Maintenance Due Date Last Done Comments DIABETES: RETINAL EYE EXAM 1970 DIABETIC FOOT EXAM 1970 URINE MICROALBUMIN 1970 COVID-19 VACCINE (1 of 2) 1976 HEPATITIS C SCREENING 1978 CERVICAL CANCER SCREENING 1981 BREAST CANCER SCREENING 2010 COLONOSCOPY SCREENING 2010 SHINGLES VACCINES (#1) 2010 INFLUENZA VACCINE 05/17/2020 10/18/2017, 10/13/2013 Procedures Procedure Name Priority Date/Time Associated Diagnosis Comme nts XR LUMBAR SPINE 2 Routine 11/25/2020 9:47 AM Pain in both low er Results for this OR 3 VW INTERN extremities procedure are i n the results section. after 12/07/2019 Results XR Lumbar Spine 2 Or 3 Vw (11/25/2020 9:47 AM INTERN) Specimen Narrative Performed At This result has an attachment that is no t available. 2 views of the lumbar spine show well-preserved disc spaces through the [facility] lumbar spine although there is endplate osteophytes an d disc space narrowing seen at T11/T12. There is grade 1 anteroli sthesis of L4. Normal lordosis is present. No fractures are seen. Impression: Grade 1 anterolisthesis of L4. 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 Performing Organization Address City/State/ZIP Code Phon e Number [facility] [id number] [facility] [place] [address] after 12/07/2019 Advance Directives For more information, please contact: [phone] Type Date Recorded Patient Reamer Hand Explanati on Advance Directives, Living Will and Medical Power of Lap Checker
--- OUTSIDE RECORDS SUMMARY | 2020-12-07 03:02 | XMS REPORT | Continuity of Care Document ---
:1960 Author Organization [facility] t Address [address] [place] [address] 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 [facility] Clinics Environmen Environmen Problem Active [facility] amrik amrik [facility] - allergies allergies Adair stephanie l Outpati ent Clinics Facet Facet Problem Active [facility] hypertroph hypertroph Kya kes - y of y of Memoria cervical cervical l region region Outpati ent Clinics COPD COPD Problem Active [facility] (chronic (chronic [facility] - obstructiv obstructiv Me moria e e l pulmonary pulmonary Outp ati disease) disease) ent with with Clinics chronic chronic bronchitis bronchitis Obesity Obesity Problem Active [facility] (BMI (BMI [facility] - 30.0-34.9) 30.0-34.9) Me moria l Outpati ent Clinics Hyperlipid Hyperlipid Problem Active [facility] emia, emia, Lukes - unspecifie unspecifie Me moria d d l hyperlipid hyperlipid Ou tpati emia type emia type ent Clinics Urinary Urinary Problem Active [facility] incontinen incontinen Kya kes - ce, ce, Memoria unspecifie unspecifie l d type d type Outpati ent Clinics Uncontroll Uncontroll Problem Active [facility] ed type 2 ed type 2 Luke s - diabetes diabetes Memori a mellitus mellitus l with with Outpati hyperglyce hyperglyce en t [facility] Clinics Glaucoma Glaucoma Problem Active [facility] of both of both [facility] - eyes, eyes, Memoria unspecifie unspecifie l d glaucoma d glaucoma Ou tpati type type ent Clinics Depression Depression Problem Active [facility] - Memoria l Outpati [facility] Clinics Right Right Problem Active [facility] kidney kidney [facility] - [place] Mem[facility] l Outpati ent Clinics Pure Pure Problem Active [facility] St hyperchole hyperchole Kya kes - sterolemia sterolemia Me moria l Outpati ent Clinics Neuropathy Neuropathy Problem Active [facility] - Mem[facility] l Out[facility]i ent Clinics Type 2 Type [address] [facility] [address] diabetes diabetes [facility] - mellitus mellitus Memori a with with l diabetic diabetic Outpat i neuropathy neuropathy en t , without , without Clin ics long-term long-term current current use of use of insulin insulin Breast Breast Diagnosis Active [facility] St cancer cancer [facility] - screening screening Adair stephanie by by l mammogram mammogram Outp at ent Clinics Allergies, Adverse Reactions, Alerts This patient has no known allergies or adverse reactions. Family History Family Member Diagnosis Comments Start Date Stop Date Source Natural brother Cancer Timi Ward ethodist Natural brother Heart attack Timi Lees Natural father Cancer [facility] thodi [facility] mother [facility] Social History Social Habit Start Date Stop Date Quantity Comments Source Sex Assigned At F Capellan ethodist Exposure to Not sure [facility] Metho dist SARS-CoV-2 (event) Cigarettes smoked 2020-11-25 2020-11-25 Timi Lees current (pack per 00:00:00 00:00:00 day) - Reported Cigarette 2020-11-25 2020-11-25 Timi Method ist pack-years 00:00:00 00:00:00 Tobacco use and 2020-11-25 2020-11-25 Never used Timi Ward ethodist exposure 00:00:00 00:00:00 Alcohol intake 2020-11-25 2020-11-25 Ex-drinker Capellan De thodist 00:00:00 00:00:00 (finding) Tobacco Comment 2020-11-25 2020-11-25 I have quit on [place] 00:00:00 00:00:00 my own for a year and 5 months. History of tobacco 1976-11-17 2019-11-17 Current every Carlos ston Bahai use 00:00:00 00:00:00 day smoker Smoking Status Start Date Stop Date Source Current every day smoker 2020-11-25 00:00:00 Carlos stogarcia Bahai Medications Ordered Filled Start Stop Current Ordering Indication Dosage Frequency Signature Comments Components Source Medication Medication Date Date Medication? Clinician (SIG) Name Name meloxicam 2021- Yes 15mg QD Take 1 [place] (MOBIC) 15 11-25 tablet (15 Me thodi mg tablet 00:00: 23:59 mg total) st 00 :00 by mouth daily. Take with food. Ondansetron Ondansetron Yes Danielle [address] [facility] HCl HCl 6-05 Millender as needed [facility] - 00:00: for Memoria 00 nausea[facility] l [facility] Meclizine Meclizine Yes Danielle [address] [facility] [address] HCl HCl 6-05 Millender as needed [facility] - 00:00: for Memoria 00 dizziness l [facility] Glucose Glucose 2019- Yes Danielle as [facility] testing testing 1-22 Millender directed [facility] - strips strips 00:00: (dispense Adair stephanie 00 testing l strips Outpati formulary ent to Clinics insurance) Blood Blood 2019- Yes Danielle as [facility] Glucose Glucose 1-22 Millender directed [facility] - Monitor Monitor 00:00: (DISPENSE Me moria 00 BLOOD l GLUCOSE Outpati MONITOR ent FORMULARY Clinics TO INSURANCE) Lancets Lancets 2019-0 Yes Danielle as [facility] 1-22 Millender directed [facility] - 00:00: (dispense Memoria 00 lancets l formulary Outpati to ent insurance) Clinics Metformin Metformin 2018-10 Yes Danielle [address] [facility] HCl HCl 0-18 Millender with a [facility] - 00:00: meal Memoria 00 l [facility] Albuterol Albuterol Yes Danielle 3 ml as [facility] Sulfate Sulfate Millender needed Kya kes - Memoria l [facility] Atorvastati Atorvastati Yes Danielle [address] [facility] n Calcium n Calcium Millender [facility] - Memoria l [facility] Claritin Claritin Yes Danielle not [facility] Millender defined [facility] - Memoria l [facility] Trelegy Trelegy Yes Danielle [address] [facility] Ellipta Ellipta [place] - Memoria l [facility] ProAir HFA ProAir HFA Yes Danielle [address] [facility] Millender needed [facility] - Memoria l [facility] Symbicort Symbicort Yes Danielle [address] Millender kes - Memoria l [facility] Ropinirole Ropinirole Yes Danielle as [facility] HCl HCl Millender directed [facility] - Memoria l [facility] Paxil Paxil Yes Danielle [address] [facility] Millender in the [facility]ukes - morning Memoria l [facility] Procedures Procedure Date / Time Performed Performing Clinician Sourc e XR LUMBAR SPINE 2 OR 3 2020-11-25 09:47:56 Vivian Jones Bahai VW Plan of Care Planned Activity Planned Date Details Comments Source Future Scheduled 2020-05-17 INFLUENZA VACCINE [place] [facility] Test 00:00:00 [code = INFLUENZA VACCINE] Future Scheduled 2010 BREAST CANCER [facility] Me thodist Test 00:00:00 SCREENING [code = BREAST CANCER SCREENING] Future Scheduled 2010 COLONOSCOPY SCREENING [place] Test 00:00:00 [code = COLONOSCOPY SCREENING] Future Scheduled 2010 SHINGLES VACCINES (#1) [place] Test 00:00:00 [code = SHINGLES VACCINES (#1)] Future Scheduled 1981 Screening for [facility]ist Test 00:00:00 malignant neoplasm of cervix (procedure) [code = 664118011] Future Scheduled 1978 Hepatitis C screening [place] Test 00:00:00 (procedure) [code = 958583178] Future Scheduled 1976 COVID-19 VACCINE (1 of [place] [facility] Test 00:00:00 2) [code = COVID-19 VACCINE (1 of 2)] Future Scheduled 1970 DIABETES: RETINAL EYE [place] Test 00:00:00 EXAM [code = DIABETES: RETINAL EYE EXAM] Future Scheduled 1970 DIABETIC FOOT EXAM [place] Test 00:00:00 [code = DIABETIC FOOT EXAM] Future Scheduled 1970 URINE MICROALBUMIN [place] Test 00:00:00 [code = URINE MICROALBUMIN] Encounters Start End Encounter Admission Attending Care Care Encounter Source Date/Time Date/Time Type Type Clinicians Facility Department ID 2020-11-25 2020-11-25 Outpatient [facility] [id number] [facility] 00:00:00 00:00:00 VIVIAN [address] 2020-11-25 2020-11-25 Outpatient [facility] [id number] [facility] 00:00:00 00:00:00 VIVIAN [address] 2020-06-17 2020-06-17 [facility] [id number] [facility] [address] 09:31:00 09:31:00 [facility] [place] [facility] Medicine Outpati ent Clinics 2020-05-14 2020-05-14 [facility] [id number] 10:00:00 10:00:00 [facility] Medicine Outpati ent Clinics 2020-03-24 2020-03-24 [facility] [id number] 00:38:00 00:38:00 [facility] l Medicine Outpati ent Clinics 2020-03-21 2020-03-21 [facility] [id number] 10:20:00 10:20:00 [facility] Medicine Outpati ent Clinics 2020-02-05 2020-02-05 [facility] [id number] 08:30:00 08:30:00 [facility] Medicine Outpati ent Clinics 2019-11-07 2019-11-07 [facility] [id number] [address] 09:00:00 09:00:00 [facility] Medicine Outpati ent Clinics Results This patient has no known results.
[2020-12-07 03:44] LABS: Absolute Lymphocytes (CBC) 2.7 K/uL (0.7-4.9); Basophils % 0.8 % (0-1.3); Hematocrit 41.6 % (36.0-45.0); MPV 8.4 fL (7.6-11.3); RBC Red Blood Cell Count 4.52 M/uL (3.86-4.86)
[2020-12-07] MEDS ORDERED: NA CHLORIDE 0.9% 1,000 ML ONE (03:47)
[2020-12-07] MEDS ORDERED: MORPHINE 2 MG/ML SYR ONE ×2 (03:47→05:56)
[2020-12-07] MEDS ORDERED: ONDANSETRON 4 MG/2 ML VIAL ONE (03:47)
[2020-12-07 04:14] LABS: ALT/SGPT 15 U/L (12-78); AST/SGOT 14 U/L (15-37); Albumin 3.2 g/dL (3.4-5.0); Alkaline Phosphatase 70 U/L (45-117); BUN Blood Urea Nitrogen 17 mg/dL (7-18); Bicarbonate 27 mmol/L (21-32); Bilirubin Direct < 0.1 mg/dL (0-0.2); Bilirubin Total 0.1 mg/dL (0.2-1.0); Glucose Level 109 mg/dL (74-106); Lipase 166 U/L (73-393); Potassium 4.5 mmol/L (3.5-5.1); Protein, Total 6.5 g/dL (6.4-8.2); Sodium Level 139 mmol/L (136-145)
[2020-12-07 04:37] LABS: Urine Blood TRACE (NEG); Urine Glucose NEGATIVE (NEG); Urine Protein NEGATIVE (NEG); Urine pH 5.5 (5.0-7.0)
--- NOTE | 2020-12-07 06:13 | EDPHYS ---
Physician Documentation [facility] Name: Nolberto Pérez Age: 60 yrs Sex: Female : 1960 Arrival Date: 12/07/2020 Time: 02:59 Bed 3 Private MD: ED Physician Finn Hough HPI: 12/07 03:31 This 60 yrs old Female presents to ER via Ambulatory with complaints of Lower mh7 LT Abdominal Pain, . 03:31 The patient presents with abdominal pain in the lower abdomen. Onset: The mh7 symptoms/episode began/occurred yesterday. The symptoms do not radiate. Associated signs and symptoms: Pertinent positives: nausea, Pertinent negatives: anorexia, blood in stools, chest pain, constipation, diarrhea, dysuria, fever, headache, hematuria, palpitations, shortness of breath, vaginal discharge, vomiting, vomiting blood. The symptoms are described as intermittent, vague, waxing/waning. Modifying factors: The symptoms are alleviated by nothing, the symptoms are aggravated by nothing. Severity of pain: At its worst the pain was moderate yesterday, in the emergency department the pain is unchanged. Historical: - Allergies: 03:14 No Known Allergies; rr5 - Home Meds: 03:14 Abilify 2 mg Oral tab [Active]; Albuterol Inhl [Active]; atorvastatin Oral [Active]; rr5 Claritin Oral once daily [Active]; metformin 1,000 mg Oral TG24 1 tab 2 times per day [Active]; ProAir HFA inhalation [Active]; Paxil 20 mg Oral tab 1 tab once daily [Active]; ropinirole Oral once daily [Active]; - PMHx: 03:14 Anxiety; COPD; Diabetes - NIDDM; Hyperlipidemia; rr5 - PSHx: 03:14 tubes tide; Appendectomy; throat surgery; rr5 - Immunization history:: Adult Immunizations up to date. - Social history:: Smoking status: Patient reports the use of cigarette tobacco products, smokes one-half pack cigarettes per day, Patient uses street drugs, marijuana, Patient/guardian denies using alcohol. ROS: 03:31 Constitutional: Negative for fever, chills, and weight loss, Eyes: Negative for injury, mh7 pain, redness, and discharge, ENT: Negative for injury, pain, and discharge, Neck: Negative for injury, pain, and swelling, Cardiovascular: Negative for chest pain, palpitations, and edema, Respiratory: Negative for shortness of breath, cough, wheezing, and pleuritic chest pain, Back: Negative for injury and pain, : Negative for injury, bleeding, discharge, and swelling, MS/Extremity: Negative for injury and deformity, Skin: Negative for injury, rash, and discoloration, Neuro: Negative for headache, weakness, numbness, tingling, and seizure, Psych: Negative for depression, anxiety, suicide ideation, homicidal ideation, and hallucinations, Allergy/Immunology: Negative for hives, rash, and allergies, Endocrine: Negative for neck swelling, polydipsia, polyuria, polyphagia, and marked weight changes, Hematologic/Lymphatic: Negative for swollen nodes, abnormal bleeding, and unusual bruising. Exam: 03:31 Head/Face: Normocephalic, atraumatic. Eyes: Pupils equal round and reactive to light, mh7 extra-ocular motions intact. Lids and lashes normal. Conjunctiva and sclera are non-icteric and not injected. Cornea within normal limits. Periorbital areas with no swelling, redness, or edema. Neck: Trachea midline, no thyromegaly or masses palpated, and no cervical lymphadenopathy. Supple, full range of motion without nuchal rigidity, or vertebral point tenderness. No Meningismus. Chest/axilla: Normal chest wall appearance and motion. Nontender with no deformity. No lesions are appreciated. Cardiovascular: Regular rate and rhythm with a normal S1 and S2. No gallops, murmurs, or rubs. Normal PMI, no JVD. No pulse deficits. Respiratory: Lungs have equal breath sounds bilaterally, clear to auscultation and percussion. No rales, rhonchi or wheezes noted. No increased work of breathing, no retractions or nasal flaring. 03:31 Back: No spinal tenderness. No costovertebral tenderness. Full range of motion. Skin: Warm, dry with normal turgor. Normal color with no rashes, no lesions, and no evidence of cellulitis. MS/ Extremity: Pulses equal, no cyanosis. Neurovascular intact. Full, normal range of motion. Neuro: Awake and alert, GCS 15, oriented to person, place, time, and situation. Cranial nerves II-XII grossly intact. Motor strength 5/5 in all extremities. Sensory grossly intact. Cerebellar exam normal. Normal gait. Psych: Awake, alert, with orientation to person, place and time. Behavior, mood, and affect are within normal limits. 03:31 Constitutional: The patient appears in no acute distress, alert, awake, uncomfortable. 03:31 Abdomen/GI: Inspection: abdomen appears normal, Bowel sounds: normal, in all quadrants, Palpation: moderate abdominal tenderness, in the suprapubic area, right lower quadrant and left lower quadrant, Rectal exam: the exam is deferred, because of patient request, Indicators: McBurney's point is not tender, Patton's sign is negative, Rovsing's sign is negative, Obturator sign is negative, Psoas sign is negative, Liver: no appreciated palpable abnormalities, Hernia: not appreciated. Vital Signs: 03:10 BP 107 / 75; Pulse 94; Resp 19; Temp 97.9; Pulse Ox 98% ; Weight 78.93 kg; Height 5 ft. rr5 6 in. (167.64 cm); Pain 8/10; 04:28 BP 105 / 67; Pulse 90; Resp 17; Pulse Ox 99% ; rr5 05:35 BP 109 / 66; Pulse 85; Resp 16; Pulse Ox 99% ; Pain 7/10; rr5 06:24 BP 110 / 60; Pulse 80; Resp 18; Temp 98; Pulse Ox 100% on R/A; mg2 03:10 Body Mass Index 28.08 (78.93 kg, 167.64 cm) rr5 MDM: 06:09 Differential diagnosis: bowel obstruction, diverticulitis, non-specific abd pain, mh7 pancreatitis, Ureterolithiasis, urinary tract infection. Data reviewed: vital signs, nurses notes, EMS record, lab test result(s), CBC, electrolytes, urinalysis, EKG, radiologic studies, CT scan. Data interpreted: Pulse oximetry: on room air is 99 %. Interpretation: normal. Counseling: I had a detailed discussion with the patient and/or guardian regarding: the historical points, exam findings, and any diagnostic results supporting the discharge/admit diagnosis, lab results, radiology results, the need for outpatient follow up, to return to the emergency department if symptoms worsen or persist or if there are any questions or concerns that arise at home. Response to treatment: the patient's symptoms have resolved after treatment, the patient's blood pressure is in an acceptable range, mental status has returned to baseline, the patient no longer shows bradycardia, the patient is not short of breath, the patient is not tachycardic, the patient's pain is gone, the patient's temperature has normalized. 06:12 Patient medically screened. [facility] 12/07 03:24 Order name: Basic Metabolic Panel; Complete Time: 05:21 [facility] 12/07 03:24 Order name: CBC with Diff; Complete Time: 04:03 [facility] 12/07 03:24 Order name: Hepatic Function; Complete Time: 05:21 [facility] 12/07 03:24 Order name: Lipase; Complete Time: 05:21 [facility] 12/07 04:35 Order name: Urine Dipstick--Ancillary (enter results) [facility] 12/07 04:36 Order name: Urine Dipstick-Ancillary; Complete Time: 05:21 [facility] 12/07 03:24 Order name: IV Saline Lock; Complete Time: 03:27 [facility] 12/07 03:24 Order name: Labs collected and sent; Complete Time: 03:27 [facility] 12/07 04:03 Order name: CT Abd/Pelvis - IV Contrast Only [facility] 12/07 03:24 Order name: Urine Dipstick-Ancillary (obtain specimen); Complete Time: 04:28 [facility] 12/07 03:27 Order name: EKG - Nurse/Tech; Complete Time: 03:27 mg2 Administered Medications: 03:30 Drug: NS 0.9% 1000 ml Route: IV; Rate: 1000 ml; Site: right forearm; rr5 05:00 Follow up: Response: No adverse reaction; IV Status: Completed infusion; IV Intake: rr5 1000ml 03:30 Drug: Zofran (Ondansetron) 4 mg Route: IVP; Site: right forearm; rr5 04:30 Follow up: Response: No adverse reaction rr5 03:32 Drug: morphine 2 mg {Note: rass 0.} Route: IVP; Site: right forearm; rr5 04:30 Follow up: Response: No adverse reaction; Pain is decreased; RASS: Alert and Calm (0) rr5 05:41 Drug: morphine 2 mg {Note: rass 0.} Route: IVP; Site: right forearm; rr5 06:24 Follow up: Response: No adverse reaction mg2 06:23 Drug: Ciprofloxacin 500 mg Route: PO; mg2 06:24 Follow up: Response: No adverse reaction; Medication administered at discharge. mg2 Disposition: 12/07/20 06:12 Discharged to Home. Impression: Lower abdominal pain, unspecified, Enteritis. - Condition is Stable. - Discharge Instructions: Viral Gastroenteritis, Adult, [id number], Abdominal Pain, Adult, [id number]. - Prescriptions for Zofran ODT 4 mg Oral tablet,disintegrating - place 1 tablet by TRANSLINGUAL route every 8 hours As needed; 6 tablet. Bentyl 20 mg Oral Tablet - take 1 tablet by ORAL route every 6 hours As needed; 20 tablet. Cipro 500 mg Oral Tablet - take 1 tablet by ORAL route every 12 hours for 5 days; 10 tablet. - Medication Reconciliation Form, Thank You Letter, Antibiotic Education, Prescription Opioid Use form. - Follow up: Private Physician; When: 1 - 2 days; Reason: Worsening of condition, Recheck today's complaints, Continuance of care, Re-evaluation by your physician. - Problem is new. - Symptoms have improved. Signatures: Dispatcher [employer] EDMS Igor Skinner RN RN mg2 Poncho Duncan RN RN rr5 Finn Hough MD MD mh7 Corrections: (The following items were deleted from the chart) 06:25 06:12 12/07/2020 06:12 Discharged to Home. Impression: Lower abdominal pain, mg2 unspecified; Enteritis. Condition is Stable. Forms are Medication Reconciliation Form, Thank You Letter, Antibiotic Education, Prescription Opioid Use. Follow up: Private Physician; When: 1 - 2 days; Reason: Worsening of condition, Recheck today's complaints, Continuance of care, Re-evaluation by your physician. Problem is new. Symptoms have improved. mh7
--- NOTE | 2020-12-07 06:13 | ER ---
Nurse's Notes [facility] Name: Nolberto Pérez Age: 60 yrs Sex: Female : 1960 Arrival Date: 12/07/2020 Time: 02:59 Bed 3 Private MD: Diagnosis: Lower abdominal pain, unspecified;Enteritis Presentation: 12/07 03:10 Chief complaint: Patient states: my right lower abdomen started to hurt around 4AM rr5 today and i feel nauseous. Coronavirus screen: Client denies travel out of the [place] in the last 14 days. At this time, the client does not indicate any symptoms associated with coronavirus-19. Ebola Screen: Patient negative for fever greater than or equal to 101.5 degrees Fahrenheit, and additional compatible Ebola Virus Disease symptoms Patient denies exposure to infectious person. Patient denies travel to an Ebola-affected area in the 21 days before illness onset. Initial Sepsis Screen: Does the patient meet any 2 criteria? No. Patient's initial sepsis screen is negative. Does the patient have a suspected source of infection? No. Patient's initial sepsis screen is negative. Risk Assessment: Do you want to hurt yourself or someone else? Patient reports no desire to harm self or others. Onset of symptoms was December 06, 2020 at 04:00. 03:10 Method Of Arrival: Ambulatory rr5 03:10 Acuity: TIFFANIE 3 rr5 Historical: - Allergies: 03:14 No Known Allergies; rr5 - Home Meds: 03:14 Abilify 2 mg Oral tab [Active]; Albuterol Inhl [Active]; atorvastatin Oral [Active]; rr5 Claritin Oral once daily [Active]; metformin 1,000 mg Oral TG24 1 tab 2 times per day [Active]; ProAir HFA inhalation [Active]; Paxil 20 mg Oral tab 1 tab once daily [Active]; ropinirole Oral once daily [Active]; - PMHx: 03:14 Anxiety; COPD; Diabetes - NIDDM; Hyperlipidemia; rr5 - PSHx: 03:14 tubes tide; Appendectomy; throat surgery; rr5 - Immunization history:: Adult Immunizations up to date. - Social history:: Smoking status: Patient reports the use of cigarette tobacco products, smokes one-half pack cigarettes per day, Patient uses street drugs, marijuana, Patient/guardian denies using alcohol. Screenin:31 Abuse screen: Denies threats or abuse. Denies injuries from another. Nutritional rr5 screening: No deficits noted. Tuberculosis screening: No symptoms or risk factors identified. Fall Risk IV access (20 points). Total Casas Fall Scale indicates No Risk (0-24 pts). Assessment: 03:20 General: Appears in no apparent distress. uncomfortable, ill, Behavior is calm, rr5 cooperative, appropriate for age. Pain: Complains of pain in right lower quadrant Pain does not radiate. Pain currently is 8 out of 10 on a pain scale. Quality of pain is described as aching, Pain began gradually. Neuro: Level of Consciousness is awake, alert, obeys commands, Oriented to person, place, time. Cardiovascular: Capillary refill < 3 seconds Patient's skin is warm and dry. Respiratory: Airway is patent Respiratory effort is even, unlabored, Respiratory pattern is regular, symmetrical. GI: Abdomen is round non-distended, Reports lower abdominal pain, nausea. : Denies pain. EENT: No signs and/or symptoms were reported regarding the EENT system. Derm: Skin is intact, is healthy with good turgor, Skin temperature is warm. Musculoskeletal: Capillary refill < 3 seconds. 04:00 Reassessment: Patient appears in no apparent distress at this time. Patient is alert, rr5 oriented x 3, equal unlabored respirations, skin warm/dry/pink. Patient states feeling better. Patient states symptoms have improved. 04:28 Reassessment: patient sent to ct via stretcher. mg2 05:40 Reassessment: Patient appears in no apparent distress at this time. complaints that the rr5 pain on her RLQ came back and legs, ED provider aware with order made and carried out. 06:25 Reassessment: Patient appears in no apparent distress at this time. Patient is alert, rr5 oriented x 3, equal unlabored respirations, skin warm/dry/pink. discharge instruction given and explained without complaints made. Vital Signs: 03:10 BP 107 / 75; Pulse 94; Resp 19; Temp 97.9; Pulse Ox 98% ; Weight 78.93 kg; Height 5 ft. rr5 6 in. (167.64 cm); Pain 8/10; 04:28 BP 105 / 67; Pulse 90; Resp 17; Pulse Ox 99% ; rr5 05:35 BP 109 / 66; Pulse 85; Resp 16; Pulse Ox 99% ; Pain 7/10; rr5 06:24 BP 110 / 60; Pulse 80; Resp 18; Temp 98; Pulse Ox 100% on R/A; mg2 03:10 Body Mass Index 28.08 (78.93 kg, 167.64 cm) rr5 ED Course: 02:59 Patient arrived in ED. cf2 03:03 Finn Hough MD is Attending Physician. mh7 03:10 Poncho Duncan RN is Primary Nurse. rr5 03:12 Triage completed. rr5 03:14 Arm band placed on right wrist. rr5 03:20 EKG done, by ED staff, reviewed by Finn Hough MD. rr5 03:26 Inserted saline lock: 20 gauge in right forearm, using aseptic technique. ,using rr5 aseptic technique. inserted by mya payne Blood collected. 03:31 Patient has correct armband on for positive identification. Placed in gown. Bed in low rr5 position. Call light in reach. Side rails up X2. classroom monitor on. Pulse ox on. NIBP on. 04:28 Urine collected: clean catch specimen, clear. rr5 04:50 CT Abd/Pelvis - IV Contrast Only In Process Unspecified. EDMS 06:25 No provider procedures requiring assistance completed. IV discontinued, intact, mg2 bleeding controlled, No redness/swelling at site. Pressure dressing applied. 06:25 Patient maintains SpO2 saturation greater than 95% on room air. mg2 Administered Medications: 03:30 Drug: NS 0.9% 1000 ml Route: IV; Rate: 1000 ml; Site: right forearm; rr5 05:00 Follow up: Response: No adverse reaction; IV Status: Completed infusion; IV Intake: rr5 1000ml 03:30 Drug: Zofran (Ondansetron) 4 mg Route: IVP; Site: right forearm; rr5 04:30 Follow up: Response: No adverse reaction rr5 03:32 Drug: morphine 2 mg {Note: rass 0.} Route: IVP; Site: right forearm; rr5 04:30 Follow up: Response: No adverse reaction; Pain is decreased; RASS: Alert and Calm (0) rr5 05:41 Drug: morphine 2 mg {Note: rass 0.} Route: IVP; Site: right forearm; rr5 06:24 Follow up: Response: No adverse reaction mg2 06:23 Drug: Ciprofloxacin 500 mg Route: PO; mg2 06:24 Follow up: Response: No adverse reaction; Medication administered at discharge. mg2 Intake: 05:00 IV: 1000ml; Total: 1000ml. rr5 Outcome: 06:12 Discharge ordered by . mh7 06:25 Discharged to home ambulatory. mg2 06:25 Condition: stable 06:25 Discharge instructions given to patient, Instructed on discharge instructions, follow up and referral plans. medication usage, Demonstrated understanding of instructions, follow-up care, medications, Prescriptions given X 3. 06:25 Patient left the ED. mg2 Signatures: Dispatcher [employer] EDMS Igor Skinner RN RN mg2 Poncho Duncan RN RN rr5 Jacob [place] 2 Finn Hough MD MD 7
[2020-12-07 06:36] VITALS: BP 110/60; TEMP 98; O2SAT 100
[2020-12-07] MEDS ORDERED: CIPROFLOXACIN HCL 500 MG TAB ONE (06:42)
--- NOTE | 2020-12-07 20:46 | RAD REPORT ---
EXAM DESCRIPTION: CT - Abdomen Pelvis W Contrast - 12/07/2020 6:12 am CLINICAL HISTORY: 60 years Female right lower abdominal pain with nausea for 24 hours, history of ap pendectomy and tubal ligation TECHNIQUE: Axial CT imaging of the abdomen and pelvis was performed following the administration of intravenous contrast.. Oral contrast was not administered. Sagittal and coronal reconstructed image s were then performed. The CT study is performed according to ALARA (as low as reasonably achievabl e) or ALARA/IMAGE GENTLY, with automatic adjustment of mA and/or kV according to patient size. Performed on: 12/07/2020 at 4:39 AM. COMPARISON: 01/21/2012 FINDINGS: Lung bases: The lung bases are clear. Liver: The liver is normal in size and configuration. No focal hepatic abnormalities are identified. Liver attenuation is within normal limits. The hepatic and portal veins are patent. Spleen: The spleen is normal is size, configuration and attenuation. Gallbladder and bile duct: The gallbladder is well distended and unremarkable. There is no biliary ductal dilatation. Pancreas: The pancreas is grossly normal in size and configuration. Adrenal Glands: The adrenal glands are normal in size and configuration. Kidneys: The kidneys are normal in size and configuration. There is no evidence of hydronephrosis. Th ere is no evidence of nephrolithiasis. No definite solid or cystic renal mass lesions are identified. Stomach: The stomach is grossly normal. There is no definite hiatal hernia. Bowel: The bowel gas pattern is non specific and non obstructive. There appears to be mild bowel wall thickening involving several small bowel loops in the left hemiabdomen. This finding is nonspecific. Inflammatory bowel disease is not entirely excluded. Appendix: The appendix is surgically absent. Free air: There is no evidence of free air. Free fluid: There is no evidence of free fluid. Vasculature: The aorta is normal in caliber and contour. The visceral branches are patent. The inferi or vena cava is grossly unremarkable. Lymphadenopathy: No pathologic lymphadenopathy is identified. Bladder: The bladder is well distended and smooth in contour. Reproductive: The uterus is grossly within normal limits. There has been prior tubal ligation. Bones: No acute osseous abnormalities are identified. There is stable trace anterolisthesis of L4-L5. Soft tissues: No acute soft tissue abnormalities are identified. IMPRESSION: 1. No evidence of acute intra-abdominal or intrapelvic pathology. There is no evidence o f acute gallbladder pathology or urinary tract obstruction. 2. There appears to be mild bowel wall thickening involving several small bowel loops in the left hem iabdomen. This finding is nonspecific. Inflammatory bowel disease is not entirely excluded. 3. Remote appendectomy and tubal ligation. Electronically signed by: Nurys Hargrove DO 12/07/2020 5:29 AM GENERAL PRACTICE Due to temporary technical issues with the PACS/Fluency reporting system, reports are being signed by the in house radiologists without review as a courtesy to insure prompt reporting. The interpreting radiologist is fully responsible for the content of the report.
== END 2020-12-07 06:25 | disposition home or self-care (01) ==
LOC: ER 02:58
DX: K52.9 Noninfective gastroenteritis and colitis, unspecified (principal); E11.9 Type 2 diabetes mellitus without complications; E78.5 Hyperlipidemia, unspecified; F41.9 Anxiety disorder, unspecified; F17.210 Nicotine dependence, cigarettes, uncomplicated
CPT/HCPCS: 96361; 93005; 85025; 80048; 36415; 80076; 81003; 83690; 74177; 96375; 96374; 99285; Q9967; J2270 ×2; J7030; J2405

== ENCOUNTER 2021-02-14 04:39 | Observation (INO) | payer BC ==
--- OUTSIDE RECORDS SUMMARY | 2021-02-14 04:42 | XMS REPORT | Continuity of Care Document ---
:1960 Author Organization [facility] t Address [address] [place] [address] Care Team Providers Name Role Phone Dawson BROWNING Primary Care Physician Mikayla Dimas MD Attending Clinician Jozef Mao MD Attending Clinician Rayshawn Kearney APRN Attending Clinician Zeus JAMES Attending Clinician Unavailable Mikayla BURDEN-Asa QUINTANILLA Attending Clinician Robert JOHNS, MRegine Attending Clinician BELINDA Admitting Clinician Unavailable Payers Payer Name Policy Type Policy Effective Date Expiration Date [facility] Number BCBSBCBS CHOICE [id number] 2020 [place] PPO/FEDERAL 00:00:00 [employer] EMPL [id number] 2020-Presen tPPO Problems Condition Condition Condition Status [...] chronic bronchitis bronchitis Obesity Obesity Problem Active [facility] (BMI (BMI [facility] - 30.0-34.9) 30.0-34.9) Me moria l Outpati ent Clinics Hyperlipid Hyperlipid Problem Active [facility] emia, emia, [facility] - unspecifie unspecifie Me moria d d l hyperlipid hyperlipid Ou tpati emia type emia type ent Clinics Urinary Urinary Problem Active [facility] St incontinen incontinen Kya kes - ce, ce, Memoria unspecifie unspecifie l d type d type Outpati ent Clinics Uncontroll Uncontroll Problem Active [facility] ed type 2 ed type 2 Luke s - diabetes diabetes Memori a mellitus mellitus l with with Outpati hyperglyce hyperglyce en t apple apple Clinics Glaucoma Glaucoma Problem [facility] - eyes, eyes, Memoria unspecifie unspecifie l d glaucoma d glaucoma Ou tpati type type ent Clinics Depression Depression Problem Active [facility] Clin[facility] Right Right Problem Active [facility] kidney kidney [facility] - [place] Mem[facility] l Out[facility] ent Clinics Pure Pure Problem Active [facility] St hyperchole hyperchole Kya kes - sterolemia sterolemia Me moria l Outpati ent Clinics Neuropathy Neuropathy Problem Active [facility] Type 2 Type 2 Problem Active [facility] diabetes diabetes [facility]ukes - mellitus mellitus Memori a with with l diabetic diabetic Outpat i neuropathy neuropathy en t , without , without Clin ics long-term long-term current current use of use of insulin insulin Breast Breast Diagnosis Active [facility] cancer cancer [facility] - screening screening [place] stephanie by by l mammogram mammogram Outp ati ent Clinics Allergies, Adverse Reactions, Alerts This patient has no known allergies or adverse reactions. Family History Family Member Diagnosis Comments Start Date Stop Date Source Natural brother Cancer [facility] M ethodist Natural brother Heart attack [facility] Natural father Cancer [place] [facility] thodist Natural father Heart attack [facility] Natural mother Asthma [place] [facility] Natural mother Diabetes [place] [facility] Natural mother Heart failure [facility] Social History Social Habit Start Date Stop Date Quantity Comments Source Exposure to Not sure [place] Metho dist SARS-CoV-2 (event) Cigarettes smoked 2021-02-04 2021-02-04 Timi Izquierdoist current (pack per 00:00:00 00:00:00 day) - Reported Cigarette 2021-02-04 2021-02-04 Timi Izquierdo ist pack-years 00:00:00 00:00:00 Tobacco use and 2021-02-04 2021-02-04 Never used Timi Ward ethodist exposure 00:00:00 00:00:00 Alcohol intake 2021-02-04 2021-02-04 Ex-drinker Timi Patrick thodist 00:00:00 00:00:00 (finding) Tobacco Comment 2020-11-25 2020-11-25 I have quit on [place] [facility] 00:00:00 00:00:00 my own for a year and 5 months. History of tobacco 1976-11-17 2019-11-17 Current every Carlos felix [facility] use 00:00:00 00:00:00 day smoker Sex [birth year] At [birth year] F Timi salas 00:00:00 00:00:00 Smoking Status Start Date Stop Date Source Current every day smoker 2021-02-04 00:00:00 [place] felix [facility] Medications Ordered Filled Start Stop Current Ordering Indication Dosage Frequency Signature Comments Components Source Medication Medication Date Date Medication? Clinician (SIG) Name Name ARIPiprazol Yes 2mg QD Take 2 mg [place] e (ABILIFY) 4-29 by mouth Meth dahlia 2 MG tablet 10:44: daily. st 03 ALPRAZolam 2020- No .5mg QD Take 1 [place] (Xanax) 0.5 4-20 04-27 tablet Metho di MG tablet 00:00: 23:59 (0.[address] 00 :00 total) by mouth nightly as needed for anxiety for up to 7 days. Trelegy Yes [facility] Ellipta 4-13 Methodi 100-62.5-25 00:00: st mcg blister 00 with device powder for inhalation meloxicam 2020- No 15mg QD Take 1 [place] (MOBIC) 15 2-09 03-09 tablet (15 Me thodi mg tablet 00:00: 00:00 mg total) st 00 :00 by mouth daily. Take with food. oxybutynin Yes 10mg Take 10 mg [place] XL 1-20 by mouth. [facility] (DITROPAN-X 00:00: st L) 10 MG 24 00 hr tablet aspirin 2019-10 No 81mg 81 mg. [facility] (Kelsie 2-02-12 [facility] Chewable 00:00: 00:00 st Aspirin) 81 00 :00 mg chewable tablet Ondansetron Ondansetron Yes Danielle [address] [facility] HCl HCl 6-05 [place] as needed [facility] - 00:00: for Memoria nausea/vom l iting Outpati ent Clinics Meclizine Meclizine Yes Danielle [address] [facility] [address] HCl HCl 6-05 [place] as needed [facility] - 00:00: for Memoria dizziness l Outpati ent Clinics PARoxetine Yes 15mg Take 15 mg [place] (PAXIL) 30 5-01 by mouth. Meth dahlia MG tablet 00:00: st 00 Glucose Glucose Yes Danielle as [facility] testing testing 1-22 [place] directed [facility] - strips strips 00:00: (dispense [place] stephanie 00 testing l strips Outpati formulary ent to Clinics insurance) Blood Blood 2019- Yes Danielle as [facility] Glucose Glucose 1-22 [place] directed [facility] - Monitor Monitor 00:00: (DISPENSE Me moria 00 BLOOD l GLUCOSE Outpati MONITOR ent FORMULARY Clinics TO INSURANCE) Lancets Lancets Yes Danielle as [facility] 1-22 [place] directed [facility] - 00:00: (dispense Memoria 00 lancets l formulary Outpati to ent insurance) Clinics atorvastati Yes 10mg Take 10 mg [facility] n (LIPITOR) 1- by mouth. Met hodi 10 mg 00:00: st tablet 00 Metformin Metformin 2018-10 Yes Danielle [address] [facility] HCl HCl 0-18 Millender with a Lukes - 00:00: meal Memoria 00 l Outpati ent Clinics ALBUTEROL, Yes [facility] BULK, MISC 8- [facility] 00:00: st 00 metFORMIN Yes 1000mg Take 1,000 [facility] (GLUCOPHAGE 2-01 mg by [facility] ) 1,000 mg 00:00: mouth. st tablet 00 loratadine 2016-0 Yes 1{tbl} 1 tablet. Timi (CLARITIN) 10-17 [facility] 10 mg 00:00: st tablet 00 Albuterol Albuterol Yes Danielle 3 ml as [facility] Sulfate Sulfate Millender needed Kya kes - [facility] Atorvastati Atorvastati Yes Danielle [address] [facility] n Calcium n Calcium Millender [facility] Claritin Claritin Yes Danielle not [facility] Millender defined [facility] Trelegy Trelegy Yes Danielle [address] [facility] Ellipta Ellipta Millender Luke s - [facility] ProAir HFA ProAir HFA Yes Danielle [address] [facility] Millender needed [facility] - [facility] Symbicort Symbicort Yes Danielle [address] Millender [facility] Ropinirole Ropinirole Yes Danielle as [facility] HCl HCl Millender directed [facility] Paxil Paxil Yes Danielle [address] Millender in the [facility]ukes - morning Memoria l [facility] ent Clinics Vital Signs Vital Name Observation Time Observation Value Comments Source Body height 2021-02-12 10:44:00 167.6 cm Timi Lees Body weight 2021-02-12 10:44:00 77.111 kg Timi Lees BMI 2021-02-12 10:44:00 27.44 kg/m2 Timi Lees Systolic blood 2021-02-02 09:08:00 112 mm[Hg] Sydto n [facility] pressure Diastolic blood 2021-02-02 09:08:00 55 mm[Hg] Sydt on [facility] pressure Heart rate 2021-02-02 09:08:00 89 /min Tmii Lees Body temperature 2021-02-02 09:08:00 36.5 Cheyanne Syd ton [facility] Respiratory rate 2021-02-02 09:08:00 15 /min Syd Lees Oxygen saturation in 2021-02-02 09:08:00 94 /min Timi Lees Arterial blood by Pulse oximetry Procedures Procedure Date / Time Performing Clinician Source Performed SURGICAL PATHOLOGY REQUEST 2021-02-02 10:29:00 Lobo Dimas POC GLUCOSE 2021-02-02 08:12:00 Lobo Dimas Md thodist MI AN ELECTIVE 2021-02-02 07:38:00 Devyn Koehler Meth odist ENDOTRACHEAL AIRWAY LARYNGOSCOPY, DIRECT 2021-02-02 07:26:00 Lobo Dimas on [facility] POC GLUCOSE 2021-02-02 06:39:00 Lobo Dimas Md thodist COVID-19 QUALITATIVE PCR 2021-01-28 14:28:00 Lobo Dimas ECG PRE/POST OP 2021-01-13 11:40:21 Karen Kearney HEMOGLOBIN A1C 2021-01-13 11:21:00 Karen Kearney PARTIAL THROMBOPLASTIN 2021-01-13 11:21:00 Karen Kearney TIME (PTT) PROTHROMBIN TIME WITH INR 2021-01-13 11:21:00 Karen Kearney COMPREHENSIVE METABOLIC 2021-01-13 11:21:00 Karen Kearney PANEL HC COMPLETE BLD COUNT 2021-01-13 11:21:00 Karen Kearney W/AUTO DIFF ESTIMATED GFR 2021-01-13 11:21:00 Karen Kearney XR LUMBAR SPINE 2 OR 3 VW 2020-11-25 09:47:56 Vivian Jones Plan of Care Planned Activity Planned Date Details Comments Source Future Scheduled 2021-05-17 INFLUENZA VACCINE Cristiano zelaya [facility] Test 00:00:00 [code = INFLUENZA VACCINE] Future Scheduled [address] [facility] thodist Test 00:00:00 SCREENING [code = BREAST CANCER SCREENING] Future Scheduled 2010 COLONOSCOPY SCREENING Ovidio Lees Test 00:00:00 [code = COLONOSCOPY SCREENING] Future Scheduled 2010 SHINGLES VACCINES (#1) Francia josue [facility] Test 00:00:00 [code = SHINGLES VACCINES (#1)] Future Scheduled [address] [facility] thodist Test 00:00:00 malignant neoplasm of cervix (procedure) [code = 793286946] Future Scheduled 1978 Hepatitis C screening [place] [facility] Test 00:00:00 (procedure) [code = 318455024] Future Scheduled 1976 COVID-19 VACCINE (1) Carlos ston [facility] Test 00:00:00 [code = COVID-19 VACCINE (1)] Future Scheduled 1970 DIABETES: RETINAL EYE [place] [facility] Test 00:00:00 EXAM [code = DIABETES: RETINAL EYE EXAM] Future Scheduled 1970 DIABETIC FOOT EXAM [place] [facility] Test 00:00:00 [code = DIABETIC FOOT EXAM] Future Scheduled 1970 URINE MICROALBUMIN [place] [facility] Test 00:00:00 [code = URINE MICROALBUMIN] Encounters Start End Encounter Admission Attending Care Care Encounter Source Date/Time Date/Time Type Type Clinicians Facility Department ID 2021-02-12 2021-02-12 Outpatient [facility] [id number] [place] 00:00:00 00:00:00 LOBO 629 Method i 2021-02-02 2021-02-02 [place] [id number] [place] 00:00:00 00:00:00 LOBO 583 Method i 2021-01-28 2021-01-28 Outpatient [facility] [id number] [place] 00:00:00 00:00:00 LOBO 964 Method i 2021-01-28 2021-01-28 Outpatient [facility] [id number] [place] 00:00:00 00:00:00 LOBO 033 Method i 2021-01-13 2021-01-13 Outpatient [facility] [id number] [place] 00:00:00 00:00:00 LOBO 863 Method i 2020-12-23 2020-12-23 Outpatient [facility] [id number] [place] 00:00:00 00:00:00 LOBO 028 Method i 2020-12-23 2020-12-23 Outpatient [facility] [id number] [place] 00:00:00 00:00:00 029 Method i 2020-11-25 2020-11-25 Outpatient [facility]ERT [facility] [id number] [place] 00:00:00 00:00:00 VIVIAN [address] 2020-11-25 2020-11-25 Outpatient ROBERT [facility] [id number] [place] 00:00:00 00:00:00 VIVIAN [address] 2020-06-17 2020-06-17 [facility] [id number] [facility] 09[facility]31:00 09:31:00 t Jim[facility] Medicine Outpati ent Clinics 2020-05-14 2020-05-14 [facility] [id number] [address] 10:00:00 10:00:00 [facility] Medicine Outpati ent Clinics 2020-03-24 2020-03-24 [facility] [id number] 00:38:00 00:38:00 [facility] Medicine Outpati ent Clinics 2020-03-21 2020-03-21 [facility] [id number] 10:20:00 10:20:00 [facility] Medicine Outpati ent Clinics 2020-02-05 2020-02-05 [facility] [id number] 08:30:00 08:30:00 [facility] Medicine Outpati ent Clinics 2019-11-07 2019-11-07 [facility] [id number] 09:00:00 09:00:00 [facility] Medicine Outpati ent Clinics Results Test Description Test Time Test Comments Results Result Comments Source Surgical pathology request 2021-02-03 21:14:54 Test Item Value Reference Range Interpretation Comme nts Case number (test code = [id number]) [id number] Surgical pathology report (test code = See link below for PDF Lab R eport 6563) Result status (test code = 9788130) This is Final Report for [id number] [id number] 07:38:00Devyn Koehler CRNA 02/02/2021 7:42 AMAirway Date/Time: 02/02/2021 7:38 AM Location: OR Performed by: SANDRO/AAAuthorized by: Robbie Mao MD Urgency: ElectiveDifficult Airway: No Preoxygenated with 100% O2: Yes C-spine Precautions Maintained Throughout: Yes Mask Ventilation: EasymaskFinal Airway Type: Endotracheal airwayFinal Endotracheal Airway: ETTCuffed: Yes Technique Used: Direct laryngoscopyDevices/Methods Used in Placement: Intubating styletInsertion Site: OralBlade Type: MillerLaryngoscope Blade/Videolaryngoscope Blade Size: 2ETT Size (mm): 5.0Cuff at minimum occlusion pressure: Yes Measured from: LipsETT to Lips (cm): 21Placement Verified by: CO2 detection, direct visualization and equal breath sounds Laryngoscopic view: Grade I - full view of glottisRapid Sequence Induction (RSI): No Modified RSI: No Number of Attempts at [facility]esCOVID-19 qualitative [id number] 19:26:42 Test Item Value Reference Range Interpretation Comments Interpretation (test Negative results do code = 7122008) not preclude 2019-nCoV infection and should not be used as the sole basis for treatment or other patient management decisions. Negative results must be combined with clinical observations, patient history, and epidemiological information. COVID-19 qualitative Not-Detected Not-Detected PCR result (test code = 78197-8) COVID-19 qualitative See link below for C ase Number: PCR (test code = PDF Lab Report [id number]) Timi Moreno Pre/Post [id number] 15:06:23 Test Item Value Reference Range Interpretation Comments Ventricular rate (test 67 code = 253) Atrial rate (test code = 67 255) MI interval (test code = 156 266) QRSD interval (test code 86 = 260) QT interval (test code = 394 264) QTC interval (test code 416 = 265) P axis 1 (test code = 75 267) QRS axis 1 (test code = 87 268) T wave axis (test code = 78 270) EKG impression (test Normal sinus code = 273) rhythm-Normal ECG-No previous ECGs available-Electronica lly Signed By Faza MD, Vivi ([id number]) on 01/13/2021 3:06:18 PM Timi Lees
[2021-02-14 05:18] LABS: Absolute Lymphocytes (CBC) 2.5 K/uL (0.7-4.9); Basophils % 1.1 % (0-1.3); Hematocrit 42.4 % (36.0-45.0); Lymphocytes % 30.2 % (15.3-44.8); MPV 7.8 fL (7.6-11.3); RBC Red Blood Cell Count 4.58 M/uL (3.86-4.86)
[2021-02-14] MEDS ORDERED: METHYLPREDNISOLONE 125 MG INJ ONE (05:18)
[2021-02-14] MEDS ORDERED: IPRATROPIUM BROM 0.5MG/2.5ML ONE ×2 (05:18→07:16)
[2021-02-14] MEDS ORDERED: ALBUTEROL 2.5 MG/3 ML NEB SOL ONE ×2 (05:18→07:16)
[2021-02-14 05:21] LABS: Protime INR 0.81
[2021-02-14 05:34] LABS: ALT/SGPT 22 U/L (12-78); AST/SGOT 14 U/L (15-37); Albumin 3.1 g/dL (3.4-5.0); Alkaline Phosphatase 84 U/L (45-117); BUN Blood Urea Nitrogen 20 mg/dL (7-18); Bicarbonate 29 mmol/L (21-32); Bilirubin Direct < 0.1 mg/dL (0-0.2); Bilirubin Total 0.2 mg/dL (0.2-1.0); Glucose Level 93 mg/dL (74-106); Magnesium 2.1 mg/dL (1.8-2.4); NT PRO-BNP 63 pg/mL (<125); Protein, Total 6.8 g/dL (6.4-8.2); Sodium Level 143 mmol/L (136-145); Troponin (Emerg Dept Use Only) < 0.02 ng/mL (0.0-0.045)
[2021-02-14 07:12] LABS: Arterial Blood Carboxyhemoglob 3.2 % (0-1.5); Blood Gas Oxyhemoglobin 84.7 % (94-97); Blood O2 Saturation 88.5 % (92-98.5)
--- NOTE | 2021-02-14 07:12 | EDPHYS ---
Physician Documentation [facility] Name: Nolberto Pérez Age: 60 yrs Sex: Female : 1960 Arrival Date: 02/14/2021 Time: 04:43 Bed 5 Private MD: ED Physician Fnin Hough HPI: 02/14 05:05 This 60 yrs old Female presents to ER via Wheelchair with complaints of mh7 Breathing Difficulty. 05:05 The patient has shortness of breath at rest. Onset: The symptoms/episode began/occurred mh7 2 day(s) ago. Duration: The symptoms are continuous, and are steadily getting worse. The patient's shortness of breath is aggravated by coughing, light activity, is alleviated by nebulizer treatment. Associated signs and symptoms: Pertinent positives: productive cough, fever, Pertinent negatives: chest pain, non-productive cough, diaphoresis, dizziness, hemoptysis, loss of consciousness, nausea, numbness in extremities, visual changes, vomiting. Severity of symptoms: At their worst the symptoms were moderate last night, in the emergency department the symptoms are unchanged. Historical: - Allergies: 05:00 No Known Allergies; iw - Home Meds: 05:00 trelegy [Active]; Albuterol Nebulizer [Active]; Abilify 2 mg Oral tab daily [Active]; iw aspirin 81 mg Oral TbEC 1 tab once daily [Active]; Claritin 10 mg oral tab once daily [Active]; Paxil 15 mg Oral tab 1 tab once daily [Active]; oxybutynin chloride 10 mg Oral tr24 1 tab once daily [Active]; metformin 1,000 mg Oral tab 1 tab 2 times per day [Active]; atorvastatin 10 mg oral tab once daily [Active]; 05:00 Albuterol Inhl [Active]; metformin 1,000 mg Oral TG24 1 tab 2 times per day [Active]; rr5 - PMHx: 05:00 Anxiety; COPD; Diabetes - NIDDM; Hyperlipidemia; iw - PSHx: 05:00 Appendectomy; throat biopsy; Tubal ligation; iw - Immunization history:: Adult Immunizations up to date, Client reports receiving the 2nd dose of the Covid vaccine. - Social history:: Smoking status: Patient reports the use of cigarette tobacco products, smokes one pack cigarettes per day. ROS: 05:05 Eyes: Negative for injury, pain, redness, and discharge, Neck: Negative for injury, mh7 pain, and swelling, Cardiovascular: Negative for chest pain, palpitations, and edema, Abdomen/GI: Negative for abdominal pain, nausea, vomiting, diarrhea, and constipation, Back: Negative for injury and pain, : Negative for injury, bleeding, discharge, and swelling, MS/Extremity: Negative for injury and deformity, Skin: Negative for injury, rash, and discoloration, Neuro: Negative for headache, weakness, numbness, tingling, and seizure, Psych: Negative for depression, anxiety, suicide ideation, homicidal ideation, and hallucinations, Allergy/Immunology: Negative for hives, rash, and allergies, Endocrine: Negative for neck swelling, polydipsia, polyuria, polyphagia, and marked weight changes, Hematologic/Lymphatic: Negative for swollen nodes, abnormal bleeding, and unusual bruising. Exam: 05:05 Head/Face: Normocephalic, atraumatic. Eyes: Pupils equal round and reactive to light, mh7 extra-ocular motions intact. Lids and lashes normal. Conjunctiva and sclera are non-icteric and not injected. Cornea within normal limits. Periorbital areas with no swelling, redness, or edema. Neck: Trachea midline, no thyromegaly or masses palpated, and no cervical lymphadenopathy. Supple, full range of motion without nuchal rigidity, or vertebral point tenderness. No Meningismus. Chest/axilla: Normal chest wall appearance and motion. Nontender with no deformity. No lesions are appreciated. Cardiovascular: Regular rate and rhythm with a normal S1 and S2. No gallops, murmurs, or rubs. Normal PMI, no JVD. No pulse deficits. 05:05 Abdomen/GI: Soft, non-tender, with normal bowel sounds. No distension or tympany. No guarding or rebound. No evidence of tenderness throughout. Back: No spinal tenderness. No costovertebral tenderness. Full range of motion. Skin: Warm, dry with normal turgor. Normal color with no rashes, no lesions, and no evidence of cellulitis. MS/ Extremity: Pulses equal, no cyanosis. Neurovascular intact. Full, normal range of motion. Neuro: Awake and alert, GCS 15, oriented to person, place, time, and situation. Cranial nerves II-XII grossly intact. Motor strength 5/5 in all extremities. Sensory grossly intact. Cerebellar exam normal. Normal gait. Psych: Awake, alert, with orientation to person, place and time. Behavior, mood, and affect are within normal limits. 05:05 Constitutional: The patient appears in no acute distress, alert, awake, comfortable, uncomfortable. 05:05 Respiratory: the patient does not display signs of respiratory distress, Respirations: prolonged exhalation, that is moderate, Breath sounds: rhonchi, that are mild, are scattered, wheezing: expiratory that is moderate, is heard diffusely, Respiratory rate: 20 Vital Signs: 04:55 BP 109 / 72; Pulse 83; Resp 20 S; Temp 98.2(O); Pulse Ox 89% on R/A; iw 05:30 Pulse Ox 96% on 2 lpm NC; rr5 06:30 BP 116 / 75; Pulse 80; Resp 19; Pulse Ox 95% on 2 lpm NC; rr5 11:46 BP 103 / 54; Pulse 82; Resp 16; Temp 98.4(O); Pulse Ox 93% on 2 lpm NC; mh5 MDM: 07:09 Differential diagnosis: Anemia Anxiety Reaction asthma, Bronchitis CHF exacerbation, mh7 Chronic Obstructive Pulmonary Disease Myocardial Infarction pneumonia, Pneumothorax Psychogenic pulmonary edema, reactive airway disease. Data reviewed: vital signs, nurses notes, old medical records, lab test result(s), cardiac enzymes, CBC, electrolytes, EKG, radiologic studies, plain films. Data interpreted: Pulse oximetry: on 4L(s) per nasal canula, is 92 %. Interpretation: normal. Counseling: I had a detailed discussion with the patient and/or guardian regarding: the historical points, exam findings, and any diagnostic results supporting the discharge/admit diagnosis, lab results, radiology results, the need for further work-up and treatment in the hospital. 07:11 Patient medically screened. [facility] 02/14 04:53 Order name: Basic Metabolic Panel [facility] 02/14 04:53 Order name: CBC with Diff 02/14 04:53 Order name: LFT's [facility] 02/14 04:53 Order name: Magnesium [facility] 02/14 04:53 Order name: NT PRO-BNP; Complete Time: 06:18 [facility] 02/14 04:53 Order name: PT-INR; Complete Time: 06:18 [facility] 02/14 04:53 Order name: Troponin (emerg Dept Use Only); Complete Time: 06:18 [facility] 02/14 04:53 Order name: Basic Metabolic Panel; Complete Time: 06:18 [facility] 02/14 04:53 Order name: CBC with Automated Diff; Complete Time: 06:18 [facility] 02/14 04:53 Order name: Liver (Hepatic) Function; Complete Time: 06:18 [facility] 02/14 04:53 Order name: Magnesium; Complete Time: 06:18 [facility] 02/14 04:56 Order name: Blood Culture Adult (2) [facility] 02/14 06:42 Order name: Arterial Blood Gas [facility] 02/14 06:42 Order name: ABG Arterial Blood Gas [facility] 02/14 04:53 Order name: XRAY Chest (1 view) [facility] 02/14 04:53 Order name: EKG; Complete Time: 04:53 [facility] 02/14 04:53 Order name: Cardiac monitoring; Complete Time: 05:01 [facility] 02/14 04:53 Order name: EKG - Nurse/Tech; Complete Time: 05:01 [facility] 02/14 04:53 Order name: IV Saline Lock; Complete Time: 05:08 [facility] 02/14 04:53 Order name: Labs collected and sent; Complete Time: 05:08 [facility] 02/14 04:53 Order name: O2 Per Protocol; Complete Time: 05:09 [facility] 02/14 04:53 Order name: O2 Sat Monitoring; Complete Time: 05:09 [facility] 02/14 08:51 Order name: COVID-19 : Document "Date of Symptom Onset" if Symptomatic. 5 02/14 09:01 Order name: Diet Regular; Complete Time: 09: 02/14 11:10 Order name: CORONAVIRUS [facility] 02/14 11:50 Order name: SARS-COV-2 RT PCR EDMS Administered Medications: 05:08 Drug: Albuterol - atroVENT (ipratropium) (3:1) (2.5 mg - 0.5 mg) 3 ml Route: Nebulizer; rr5 06:00 Follow up: Response: No adverse reaction rr5 05:08 Drug: SOLU-Medrol (methylPrednisoLONE) 125 mg Route: IVP; Site: right forearm; rr5 06:00 Follow up: Response: No adverse reaction rr5 07:52 Drug: AtroVENT (ipratropium) Aerosol 0.5 mg Route: Inhalation; 07:53 Drug: Albuterol 2.5 mg Route: Inhalation; Disposition: 02/14/21 07:11 Hospitalization ordered by Alcides Lam for Inpatient Admission. Preliminary diagnosis is COPD Exacerbation. - Bed requested for Telemetry/MedSurg (Inpatient). - Status is Inpatient Admission. ca1 - Condition is Stable. - Problem is an acute exacerbation. - Symptoms have improved. Signatures: Dispatcher [employer] EDMS Annika Braun, RN RN Dorota Almaraz RN RN Charlotte Caldwell Raymond, RN RN rr5 Randa Durán RN RN ca1 Finn Hough MD MD 7 Corrections: (The following items were deleted from the chart) 12:04 07:11 Hospitalization Ordered by Alcides Lam DO for Inpatient Admission. Preliminary eb diagnosis is COPD Exacerbation. Bed requested for Telemetry/MedSurg (Inpatient). Status is Inpatient Admission. Condition is Stable. Problem is an acute exacerbation. Symptoms have improved. [facility] 13:07 12:04 02/14/2021 07:11 Hospitalization Ordered by Alcides Lam DO for Inpatient ca1 Admission. Preliminary diagnosis is COPD Exacerbation. Bed requested for Telemetry/MedSurg (Inpatient). Status is Inpatient Admission. Condition is Stable. Problem is an acute exacerbation. Symptoms have improved. eb
--- NOTE | 2021-02-14 07:12 | ER ---
Nurse's Notes [facility] Name: Nolberto Pérez Age: 60 yrs Sex: Female : 1960 Arrival Date: 02/14/2021 Time: 04:43 Bed 5 Private MD: Diagnosis: COPD Exacerbation Presentation: 02/14 04:55 Chief complaint: Patient states: has been SOB for past 2 days, recently diagnosed with iw sinus infection, has a lot of congestion , O2 sat was in 80's at home, hx of COPD, had low grade fever earlier this week, has been on steroids for 5 days and using her inhaler and neb treatments , sees Dr. Doran, does not normally use home O2. Coronavirus screen: congestion, cough unrelated to allergies. Ebola Screen: Patient negative for fever greater than or equal to 101.5 degrees Fahrenheit, and additional compatible Ebola Virus Disease symptoms Patient denies exposure to infectious person. Patient denies travel to an Ebola-affected area in the 21 days before illness onset. No symptoms or risks identified at this time. Initial Sepsis Screen: Does the patient meet any 2 criteria? No. Patient's initial sepsis screen is negative. Does the patient have a suspected source of infection? No. Patient's initial sepsis screen is negative. Risk Assessment: Do you want to hurt yourself or someone else? Patient reports no desire to harm self or others. Onset of symptoms was February 12, 2021. 04:55 Method Of Arrival: Wheelchair 04:55 Acuity: TIFFANIE 3 iw Historical: - Allergies: 05:00 No Known Allergies; iw - Home Meds: 05:00 trelegy [Active]; Albuterol Nebulizer [Active]; Abilify 2 mg Oral tab daily [Active]; iw aspirin 81 mg Oral TbEC 1 tab once daily [Active]; Claritin 10 mg oral tab once daily [Active]; Paxil 15 mg Oral tab 1 tab once daily [Active]; oxybutynin chloride 10 mg Oral tr24 1 tab once daily [Active]; metformin 1,000 mg Oral tab 1 tab 2 times per day [Active]; atorvastatin 10 mg oral tab once daily [Active]; 05:00 Albuterol Inhl [Active]; metformin 1,000 mg Oral TG24 1 tab 2 times per day [Active]; rr5 - PMHx: 05:00 Anxiety; COPD; Diabetes - NIDDM; Hyperlipidemia; iw - PSHx: 05:00 Appendectomy; throat biopsy; Tubal ligation; iw - Immunization history:: Adult Immunizations up to date, Client reports receiving the 2nd dose of the Covid vaccine. - Social history:: Smoking status: Patient reports the use of cigarette tobacco products, smokes one pack cigarettes per day. Screenin:10 Abuse screen: Denies threats or abuse. Denies injuries from another. Nutritional rr5 screening: No deficits noted. Tuberculosis screening: No symptoms or risk factors identified. Fall Risk IV access (20 points). Total Casas Fall Scale indicates No Risk (0-24 pts). Assessment: 05:00 General: Appears in no apparent distress. uncomfortable, Behavior is calm, cooperative, rr5 appropriate for age. Pain: Denies pain. Neuro: Level of Consciousness is awake, alert, obeys commands, Oriented to person, place, time, situation. Cardiovascular: Reports shortness of breath, Capillary refill < 3 seconds Patient's skin is warm and dry. Rhythm is regular. Respiratory: Reports shortness of breath cough that is Airway is patent Respiratory effort is even, unlabored, Respiratory pattern is regular, symmetrical, tachypnea the patient has mild shortness of breath. GI: No signs and/or symptoms were reported involving the gastrointestinal system. : No signs and/or symptoms were reported regarding the genitourinary system. EENT: No signs and/or symptoms were reported regarding the EENT system. Derm: Skin is intact, is healthy with good turgor, Skin temperature is warm. Musculoskeletal: Capillary refill < 3 seconds. 06:05 Reassessment: Patient appears in no apparent distress at this time. Patient is alert, rr5 oriented x 3, equal unlabored respirations, skin warm/dry/pink. Patient states symptoms have improved. 07:15 General: Appears comfortable, Behavior is calm, cooperative, Reports feeling better/ ss symptoms improved. Pain: Denies pain. Neuro: Level of Consciousness is awake, alert, obeys commands, Oriented to person, place, time, situation. Respiratory: Airway is patent Respiratory effort is even, unlabored, Respiratory pattern is regular, symmetrical, Breath sounds are clear bilaterally. Derm: Skin is intact, is healthy with good turgor, Skin is dry, Skin is pink, warm \T\ dry. normal. 08:00 Reassessment: Dr. Lam at bedside assessing patient at this time. Pt is aware of ss admission for further evaluation and treatment. 09:30 Reassessment: Diet tray ordered. Pt ambulated to restroom with steady gait. Denies SOB ss at this time. Awaiting COVID results prior to receiving room assignment. Pt verbalizes understanding. 10:43 Reassessment: Patient appears in no apparent distress at this time. Patient and/or ss family updated on plan of care and expected duration. Pain level reassessed. Awaiting for COVID results prior to receiving room assignment. Pt is resting at this time. Eyes closed. Respirations remain even and unlabored. 12:07 Reassessment: Spoke with LURDES Jimenez on second floor. Attempted to call report. Nurse ss unavailable and will call back soon. 12:31 Reassessment: Report given to LURDES Vargas. Vital Signs: 04:55 BP 109 / 72; Pulse 83; Resp 20 S; Temp 98.2(O); Pulse Ox 89% on R/A; iw 05:30 Pulse Ox 96% on 2 lpm NC; rr5 06:30 BP 116 / 75; Pulse 80; Resp 19; Pulse Ox 95% on 2 lpm NC; rr5 11:46 BP 103 / 54; Pulse 82; Resp 16; Temp 98.4(O); Pulse Ox 93% on 2 lpm NC; mh5 ED Course: 04:43 Patient arrived in ED. es 04:44 Poncho Duncan RN is Primary Nurse. rr5 04:47 Finn Hough MD is Attending Physician. mh7 04:55 Inserted saline lock: 18 gauge in right forearm, using aseptic technique. Blood rr5 collected. 04:55 First set of blood cultures drawn by il. rr5 04:57 Triage completed. iw 05:00 Arm band placed on. iw 05:00 EKG done, by ED staff, reviewed by Finn Hough MD. rr5 05:10 Patient has correct armband on for positive identification. Placed in gown. Bed in low rr5 position. Call light in reach. Side rails up X2. media monitor on. Pulse ox on. NIBP on. 05:44 XRAY Chest (1 view) In Process Unspecified. EDMS 06:15 No provider procedures requiring assistance completed. rr5 06:15 Second set of blood cultures drawn by me. rr5 07:10 Alcides Lam DO is Hospitalizing Provider. 7 11:52 Warm blanket given. Pillow given. Diet: Patient given a regular meal tray. Tolerated mh5 well. 13:06 Patient admitted, IV remains in place. ca1 Administered Medications: 05:08 Drug: Albuterol - atroVENT (ipratropium) (3:1) (2.5 mg - 0.5 mg) 3 ml Route: Nebulizer; rr5 06:00 Follow up: Response: No adverse reaction rr5 05:08 Drug: SOLU-Medrol (methylPrednisoLONE) 125 mg Route: IVP; Site: right forearm; rr5 06:00 Follow up: Response: No adverse reaction rr5 07:52 Drug: AtroVENT (ipratropium) Aerosol 0.5 mg Route: Inhalation; ss 07:53 Drug: Albuterol 2.5 mg Route: Inhalation; Outcome: 07:11 Decision to Hospitalize by Provider. [facility] 13:06 Admitted to Med/surg via wheelchair, room 206, with chart. ca1 13:06 Condition: stable 13:06 Instructed on the need for admit. 13:07 Patient left the ED. ca1 Signatures: Dispatcher [employer] Deyanira Ingram Irene, RN RN iw Smirch, Shelby, RN RN ss Martinez, [facility] Poncho Duncan RN RN rr5 Acob, Cheryl, RN RN ca1 Finn Hough MD MD [facility]
--- NOTE | 2021-02-14 07:49 | P.HP ---
Certification for Inpatient Patient admitted to: Observation With expected LOS: <2 Midnights Patient will require the following post-hospital care: None Practitioner: I am a practitioner with admitting privileges, knowledge of patient current condition, hospital course, and medical plan of care. Services: Services provided to patient in accordance with Admission requirements found in Title 42 Section 412.3 of the Code of Federal Regulations Patient History Date of Service: 02/14/21 Primary Care Provider: None; Pulmonary-Dr. Doran Reason for admission: Shortness of breath History of Present Illness: 60-year-old female with history of COPD, tobacco abuse, diabetes mellitus type 2, hyperlipidemia, and depression with anxiety. Patient reports increasing shortness of breath over the past week. Over the last 2 days she has been having increasing wheezing, cough and shortness of breath. She was given prednisone 10 mg daily by her director of curriculum and instruction recently for COPD flareups. She recently started to use the medication without any relief. Patient had a procedure to her voicebox at [facility] recently. Since that time she is not been able to use her COPD medicationTrelegy due to irritation. In the ER patient was evaluated. Oxygen saturations were in the low 80s on room air. Patient required neb treatments. Chest x-ray showed COPD changes. CBC, BMP unremarkable. Patient admitted for observation. Allergies No Known Drug Allergies Allergy (Verified 04/13/16 06:51) none No Known Allergies Allergy (Uncoded 10/18/17 03:14) Unknown Home medications list reviewed: Yes Home Medications: PARoxetine HCL [Paxil*] 20 mg PO DAILY 10/18/17 Atorvastatin Calcium 10 mg PO BEDTIME 12/16/19 Loratadine [Claritin*] 1 tab PO DAILY 12/16/19 Metformin ER [Glucophage ER*] 1,000 mg PO DAILY 12/16/19 Ropinirole HCl [Requip*] 2 mg PO BEDTIME 12/16/19 Albuterol Neb [Proventil 0.083% Neb Soln] 3 ml IH Q6HP PRN #90 amp 12/17/19 Albuterol Sulfate [Proair Hfa] 2 puff IH TID PRN #1 hfa.aer.ad 12/17/19 Benzonatate [Tessalon Perle*] 100 mg PO TID PRN #15 cap 12/17/19 Fluticasone Propionate [Flovent Hfa] 1 puff IH BID #1 aer.w.adap 12/17/19 Fluticasone [Flonase 50mcg Nasal Lehr] 1 sprays NS BID #1 btl 12/17/19 Glycopyrrolate/Formoterol Fum [Bevespi Aerosphere Inhaler] 2 puff IH BID 12/17/19 Guaifenesin [Mucinex] 600 mg PO BID PRN #15 tab.er.12h 12/17/19 Nicotine [Nicoderm*] 21 mg TD DAILY #30 patch.td24 12/17/19 - Past Medical/Surgical History Diabetic: Yes -: Diabetes mellitus type 2 [id number] -: Depression -: COPD -: Tobacco abuse -: Restless leg syndrome -: Hyperlipidemia -: Urinary incontinence -: Tubal ligation -: Appendectomy -: scar tissue removed abdomen Psychosocial/ Personal History: Patient is - Family History Father -: Cancer Notes: lung cancer Mother -: Hypertension, Diabetes Brother -: Cancer Notes: lung cancer - Social History Smoking Status: Light Tobacco smoker (1-9 cigarettes/day) Counseled patient to stop smoking for: less than 10 minutes Smoking therapy provided: Yes Patient receptive to therapy: Yes Alcohol use: No CD- Drugs: No Caffeine use: Yes Place of Residence: Home Review of Systems General: As per HPI Eyes: Unremarkable ENT: Nose Congestion, Other (Throat irritation with her COPD medication) Respiratory: Shortness of Breath, SOB with Excertion, Wheezing, As per HPI Cardiovascular: Unremarkable Gastrointestinal: Unremarkable Genitourinary: Unremarkable Musculoskeletal: Unremarkable Integumentary: Unremarkable Neurological: Unremarkable Lymphatics: Unremarkable Physical Examination - Physical Exam General: Alert, In no apparent distress, Oriented x3, Cooperative HEENT: Atraumatic, Normocephalic, Mucous membr. moist/pink Neck: Supple Respiratory: Expiratory wheezes (Mild wheezing bilateral) Cardiovascular: Normal pulses, Regular rate/rhythm Gastrointestinal: Normal bowel sounds, Soft and benign, Non-distended, No tenderness, No masses, No rebound, No guarding Musculoskeletal: No erythema, No tenderness, No warmth Integumentary: No tenderness/swelling, No erythema, No warmth, No cyanosis Neurological: Normal speech, Normal strength at 5/5 x4 extr, Normal tone, Normal affect - Studies Laboratory Data (last 24 hrs) 02/14/21 04:55: PT 9.3 L, INR 0.81 02/14/21 04:55: WBC 8.30, Hgb 14.0, Hct 42.4, Plt Count 272 02/14/21 04:55: Sodium 143, Potassium 4.0, BUN 20 H, Creatinine 0.48 L, Glucose 93, Magnesium 2.1, Total Bilirubin 0.2, AST 14 L, ALT 22, Alkaline Phosphatase 84 Assessment and Plan - Plan Impression: Dyspnea secondary to COPD exacerbation with hypoxia Diabetes mellitus type 2 [id number] Hyperlipidemia Depression with anxiety Urinary incontinence Seasonal allergies Plan: Dyspnea secondary to COPD exacerbation with hypoxia: Patient will be admitted for further evaluation and treatment. We will start IV Solu-Medrol and COPD medication. Patient reports not been able to use her medicationtrilogy due to throat irritation. Patient recently had biopsy of her voicebox at [facility]. Patient prefers other medication. Patient requiring oxygen. We will continue to wean off. We will have respiratory evaluate for home oxygen. Stephy ent also desires new nebulizer machine. We will try to arrange for home oxygen, new nebulizer machine, and medicationBrovana, albuterol, and Atrovent nebs at discharge. Will discuss with pulmonology who will be consulted and who currently sees patient as an outpatient. Anticipate discharge in the next 24 hours. Diabetes mellitus type 2 [id number]: Restart Metformin. Accu-Cheks in place. Hyperlipidemia: Continue Lipitor Depression with anxiety: Continue Paxil and Abilify Urinary incontinence: Continue oxybutynin Seasonal allergies: Continue Claritin Discharge Plan: Home Plan to discharge in: 24 Hours - Advance Directives Does patient have a Living Will: No Does patient have a Durable POA for Healthcare: No - Code Status/Comfort Care Code Status Assessed: Yes (Patient is full code) Time Spent Managing Pts Care (In Minutes): 55
--- NOTE | 2021-02-14 10:44 | RAD REPORT ---
EXAM DESCRIPTION: RAD - Chest Single View - 02/14/2021 5:44 am CLINICAL HISTORY: Cough;SOB COMPARISON: December 2019 TECHNIQUE: AP portable chest image was obtained 02/14/2021 5:44 am . FINDINGS: No peripheral mass or consolidation. Interstitial pattern is prominent but not clearly dif ferent from comparison. Heart and vasculature are normal. No measurable pleural effusion and no pneum othorax. No acute bony abnormality seen. No acute aortic findings suspected. IMPRESSION: No acute cardiopulmonary process. Chronic interstitial pattern matches the December 2019 study.
[2021-02-14] MEDS: ARFORMOTEROL TARTRATE 15 MCG/2 ML VIAL.NEB NEB SCH ×2 (13:27→20:20)
[2021-02-14] MEDS ORDERED: ACETAMINOPHEN 500 MG TAB PO PRN (13:27)
[2021-02-14] MEDS ORDERED: ALBUTEROL 2.5 MG/3 ML NEB SOL NEB PRN (13:27)
[2021-02-14] MEDS ORDERED: ONDANSETRON 4 MG/2 ML VIAL IV PRN (13:27)
[2021-02-14] MEDS ORDERED: IPRATROPIUM BROM 0.5MG/2.5ML NEB PRN (13:27)
[2021-02-14] MEDS: INSULIN -REGULAR HUMAN 50 UNIT/0.5 ML ML SQ SCH ×3 (13:27→20:36)
[2021-02-14 14:34] VITALS: BMI 27.6
[2021-02-14] MEDS: ASPIRIN EC 81 MG TAB PO SCH (14:48)
[2021-02-14] MEDS: METHYLPREDNISOLONE 125 MG INJ IV SCH (14:49)
[2021-02-14] MEDS: LORATADINE 10 MG TAB PO SCH (14:49)
[2021-02-14] MEDS: NICOTINE 21 MG/PAT TD SCH (14:50)
[2021-02-14] MEDS: ENOXAPARIN 40 MG/0.4 ML SQ SCH (14:50)
[2021-02-14] MEDS: OXYBUTYNIN ER 5 MG TAB PO SCH (14:50)
[2021-02-14] MEDS: PARoxetine HCL 10 MG TAB PO SCH (14:54)
[2021-02-14] MEDS ORDERED: METFORMIN HCL 500 MG TAB PO SCH ×2 (17:00)
[2021-02-14] MEDS: BENZONATATE 100 MG CAP PO PRN (20:37)
[2021-02-14] MEDS ORDERED: ATORVASTATIN 10 MG TAB PO SCH (21:00)
[2021-02-14] MEDS ORDERED: ARIPiprazole 5 MG TAB PO SCH (21:00)
[2021-02-14 21:05] VITALS: O2SAT 96
[2021-02-14] MEDS ORDERED: MELATONIN 5 MG TABLET PO PRN (22:21)
[2021-02-14 23:49] LABS: Urine Appearance CLEAR (Clear); Urine Bilirubin NEGATIVE (Negataive); Urine Blood NEGATIVE (Negative); Urine Color YELLOW (Yellow); Urine Glucose 1+ (Negative); Urine Protein NEGATIVE (Negative); Urine Urobilinogen 0.2 mg/dL (0.2-1.0); Urine pH 6.5 (5.0-7.0)
[2021-02-14 23:50] LABS: Urine Microscopic Reflex NO UMIC
[2021-02-15] MEDS: METHYLPREDNISOLONE 125 MG INJ IV SCH ×2 (00:35→07:56)
[2021-02-15] MEDS: BENZONATATE 100 MG CAP PO PRN (05:58)
--- NOTE | 2021-02-15 07:05 | P.DS ---
Admission Date: 02/14/21 Discharge Date: 02/15/21 Primary Care Provider: None; Rex Doran Disposition: ROUTINE DISCHARGE Discharge Condition: GOOD Reason for Admission: Shortness of breath Consultations: Pulmonary-Dr. Doran Procedures: COVID: Negative CXR: COMPARISON: December 2019 TECHNIQUE: AP portable chest image was obtained 02/14/2021 5:44 am . FINDINGS: No peripheral mass or consolidation. Interstitial pattern is prominent but not clearly different from comparison. Heart and vasculature are normal. No measurable pleural effusion and no pneumothorax. No acute bony abnormality seen. No acute aortic findings suspected. IMPRESSION: No acute cardiopulmonary process. Chronic interstitial pattern matches the December 2019 study. Medical Problem List: Dyspnea secondary to COPD exacerbation with hypoxia Diabetes mellitus type 2 [id number] Hyperlipidemia Depression with anxiety Urinary incontinence Seasonal allergies Brief History of Present Illness: 60-year-old female with history of COPD, tobacco abuse, diabetes mellitus type 2, hyperlipidemia, and depression with anxiety. Patient reports increasing shortness of breath over the past week. Over the last 2 days she has been having increasing wheezing, cough and shortness of breath. She was given prednisone 10 mg daily by her water analyst recently for COPD flareups. She recently started to use the medication without any relief. Patient had a procedure to her voicebox at [facility] recently. Since that time she is not been able to use her COPD medicationTrelegy due to irritation. In the ER patient was evaluated. Oxygen saturations were in the low 80s on room air. Patient required neb treatments. Chest x-ray showed COPD changes. CBC, BMP unremarkable. Patient admitted for observation. Hospital Course: Patient presented with dyspnea secondary to COPD exacerbation with hypoxia. Patient responded well to IV steroids and breathing treatments. Patient currently takes Trelegy at home. She has not been able to use it due to throat irritation after recent biopsy of her voicebox at [facility]. Patient did well during the course of her stay. No significant chest pain, shortness of breath at discharge. Chest x-ray shows no pneumonia. At discharge the patient will continue with prednisone 20 mg 1 pill twice daily for 7 days then 1 pill once daily for 7 days. Patient qualified for home oxygen. Currently on 2 L per nasal cannula. At discharge she will continue with oxygen to maintain sats above 93%. At discharge we will recommend the patient to continue with Trelegy 1 puff daily and albuterol 2 puffs 3 times a day as needed for shortness of breath. I sent information to [employer] to arrange for her to get a new nebulizer machine. Recommend follow-up with pulmonology early this week to consider switching her from Trelogy to Brovana 1 unit dose twice daily and albuterol/Atrovent nebs. COPD education provided. As mentioned above recommend follow-up with pulmonology to further address her condition. Patient with diabetes mellitus type 2. At discharge she may continue with her medication Metformin. Recommend to maintain blood sugars less than 140 fasting and less than 200 after meals. Further adjustment can be done by her PCP. Recommend recheck A1c every 3 months to monitor her progress. Recommend follow- up with her PCP to further monitor and adjust medication. Patient with hyperlipidemia. At discharge patient will continue with Lipitor. Patient with depression with anxiety. At discharge patient will continue with Paxil and Abilify. Patient with urinary incontinence. At discharge patient will continue with oxybutynin as directed. Patient with seasonal allergies. Recommend to continue with Claritin daily. Also recommend Flonase 1 spray per nostril twice daily. Vital Signs/Physical Exam: Temp Pulse Resp BP Pulse Ox 97.2 F 68 18 111/60 94 02/15/21 04:00 02/15/21 04:00 02/15/21 04:00 02/15/21 04:00 02/15/21 04:00 General: Alert, In no apparent distress, Oriented x3, Cooperative HEENT: Atraumatic Neck: Supple Respiratory: Clear to auscultation bilaterally, Normal air movement Cardiovascular: Normal pulses, Regular rate/rhythm Gastrointestinal: Normal bowel sounds, No tenderness, No masses, No rebound, No guarding Integumentary: No tenderness/swelling Neurological: Normal speech, Normal strength at 5/5 x4 extr, Normal tone, Normal affect Laboratory Data at Discharge: WBC 8.30 K/uL (4.3-10.9) 02/14/21 04:55 Hgb 14.0 g/dL (12.0-15.0) 02/14/21 04:55 Hct 42.4 % (36.0-45.0) 02/14/21 04:55 Plt Count 272 K/uL (152-406) 02/14/21 04:55 PT 9.3 SECONDS (9.5-12.5) L 02/14/21 04:55 INR 0.81 02/14/21 04:55 Sodium 143 mmol/L (136-145) 02/14/21 04:55 Potassium 4.0 mmol/L (3.5-5.1) 02/14/21 04:55 BUN 20 mg/dL (7-18) H 02/14/21 04:55 Creatinine 0.48 mg/dL (0.55-1.3) L 02/14/21 04:55 Glucose 93 mg/dL (74-106) 02/14/21 04:55 Magnesium 2.1 mg/dL (1.8-2.4) 02/14/21 04:55 Total Bilirubin 0.2 mg/dL (0.2-1.0) 02/14/21 04:55 AST 14 U/L (15-37) L 02/14/21 04:55 ALT 22 U/L (12-78) 02/14/21 04:55 Alkaline Phosphatase 84 U/L (45-117) 02/14/21 04:55 Home Medications: Atorvastatin Calcium 10 mg PO BEDTIME 12/16/19 Aripiprazole [Abilify] 2 mg PO BEDTIME 02/14/21 Metformin HCl 1,000 mg PO BEDTIME 02/14/21 Oxybutynin Chloride [Oxybutynin Chloride ER] 10 mg PO BEDTIME 02/14/21 PARoxetine HCL [Paxil*] 15 mg PO BEDTIME 02/14/21 Albuterol Inhaler [Ventolin Inhaler*] 2 puff IH Q6H PRN #1 hfa.aer.ad 02/15/21 Fluticasone/Umeclidin/Vilanter [Trelegy Ellipta 100-62.5-25] 1 each IH DAILY #1 blst.w.dev 02/15/21 predniSONE [Prednisone*] 20 mg PO SEECOM #21 tab 02/15/21 New Medications: predniSONE [Prednisone*] 20 mg PO SEECOM #21 tab Fluticasone/Umeclidin/Vilanter [Trelegy Ellipta 100-62.5-25] 1 each IH DAILY #1 blst.w.dev Albuterol Inhaler [Ventolin Inhaler*] 2 puff IH Q6H PRN #1 hfa.aer.ad PRN Reason: Shortness Of Breath Physician Discharge Instructions: Patient presented with dyspnea secondary to COPD exacerbation with hypoxia. Patient responded well to IV steroids and breathing treatments. Patient currently takes Trelegy at home. She has not been able to use it due to throat irritation after recent biopsy of her voicebox at [facility]. Patient did well during the course of her stay. No significant chest pain, shortness of breath at discharge. Chest x-ray shows no pneumonia. At discharge the patient will continue with prednisone 20 mg 1 pill twice daily for 7 days then 1 pill once daily for 7 days. Patient qualified for home oxygen. Currently on 2 L per nasal cannula. At discharge she will continue with oxygen to maintain sats above 93%. At discharge we will recommend the patient to continue with Trelegy 1 puff daily and albuterol 2 puffs 3 times a day as needed for shortness of breath. I sent information to [employer] to arrange for her to get a new nebulizer machine. Recommend follow-up with pulmonology early this week to consider switching her from Trelogy to Brovana 1 unit dose twice daily and albuterol/Atrovent nebs. COPD education provided. As mentioned above recommend follow-up with pulmonology to further address her condition. Patient with diabetes mellitus type 2. At discharge she may continue with her m edication Metformin. Recommend to maintain blood sugars less than 140 fasting and less than 200 after meals. Further adjustment can be done by her PCP. Recommend recheck A1c every 3 months to monitor her progress. Recommend follow- up with her PCP to further monitor and adjust medication. Patient with hyperlipidemia. At discharge patient will continue with Lipitor. Patient with depression with anxiety. At discharge patient will continue with Paxil and Abilify. Patient with urinary incontinence. At discharge patient will continue with oxybutynin as directed. Patient with seasonal allergies. Recommend to continue with Claritin daily. Also recommend Flonase 1 spray per nostril twice daily. Diet: ADA Activity: Ad curt Followup: NONE,NONE [Primary Care Provider] - Time spent managing pt's care (in minutes): 55
[2021-02-15] MEDS: INSULIN -REGULAR HUMAN 50 UNIT/0.5 ML ML SQ SCH (07:30)
[2021-02-15] MEDS: ASPIRIN EC 81 MG TAB PO SCH (07:55)
[2021-02-15] MEDS: PARoxetine HCL 10 MG TAB PO SCH (07:55)
[2021-02-15] MEDS: LORATADINE 10 MG TAB PO SCH (07:56)
[2021-02-15] MEDS: NICOTINE 21 MG/PAT TD SCH (07:56)
[2021-02-15] MEDS: ENOXAPARIN 40 MG/0.4 ML SQ SCH (07:57)
[2021-02-15] MEDS: OXYBUTYNIN ER 5 MG TAB PO SCH (07:57)
[2021-02-15 14:18] VITALS: BP 103/55; TEMP 98.7
--- NOTE | 2021-02-16 09:23 | EKG ---
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
== END 2021-02-15 08:39 | disposition home or self-care (01) ==
LOC: ER 04:39 → ERHOLD 07:33 → 2ND 12:36
PROVIDERS: ADMIT Family Medicine; ATTEND Family Medicine
DX: J44.1 Chronic obstructive pulmonary disease with (acute) exacerbation (principal); R09.02 Hypoxemia; E11.9 Type 2 diabetes mellitus without complications; E78.5 Hyperlipidemia, unspecified; F41.8 Other specified anxiety disorders; R32 Unspecified urinary incontinence; J30.2 Other seasonal allergic rhinitis; G25.81 Restless legs syndrome; F17.210 Nicotine dependence, cigarettes, uncomplicated; Z20.822 Contact with and (suspected) exposure to COVID-19; Z98.51 Tubal ligation status; Z80.1 Family history of malignant neoplasm of trachea, bronchus and lung; Z82.49 Family history of ischemic heart disease and other diseases of the circulatory system; Z83.3 Family history of diabetes mellitus
CPT/HCPCS: 93005; 87040 ×2; 85025; 80048; 36415; 83735; 85610; 82947 ×4; 80076; 81003; 84484; 83880; 71045; 94640; 82805; 96374; 99285; U0003; J1650; J7605; J2930 ×4; G0378 ×3

== ENCOUNTER 2021-02-28 08:39 | Observation (INO) | payer BC ==
--- OUTSIDE RECORDS SUMMARY | 2021-02-28 08:43 | XMS REPORT | Continuity of Care Document ---
:[address] [facility] t Address [address] [place] [address] Care Team Providers Name Role Phone Dawson BROWNING Primary Care Physician Mikayla Dimas MD Attending Clinician Jozef Mao MD Attending Clinician Rayshawn Kearney APRN Attending Clinician Zeus JAMES Attending Clinician Unavailable Mikayla BURDEN-Asa QUINTANILLA Attending Clinician Robert JOHNS, MRegine Attending Clinician BELINDA Admitting Clinician Unavailable Payers Payer Name Policy Type Policy Effective Date Expiration Date [facility] Number BCBSBCBS CHOICE [id number] 2020 [place] PPO/FEDERAL 00:00:00 [employer] EMPL [id number] 2020-Presen tPPO Problems Condition Condition Condition Status [...] chronic bronchitis bronchitis Obesity Obesity Problem Active [facility] (BMI (BMI [facility] - 30.0-34.9) 30.0-34.9) Me moria l Outpati ent Clinics Hyperlipid Hyperlipid Problem Active [facility] emia, emia, [facility] - unspecifie unspecifie Me moria d d l hyperlipid hyperlipid Ou tpati emia type emia type ent Clinics Urinary Urinary Problem Active [facility] St incontinen incontinen Kya kes - ce, [...] Outpati ent Clinics Right Right Problem Active [facility] kidney kidney [facility]ics Pure Pure Problem Active [facility] St hyperchole hyperchole Kya kes - sterolemia sterolemia Me moria l Outpati ent Clinics Neuropathy Neuropathy Problem Active [facility] Type 2 Type 2 Problem Active [facility] diabetes diabetes [facility] - mellitus mellitus Memori a with with l diabetic diabetic Outpat i neuropathy neuropathy en t , without , without Clin ics long-term long-term current current use of use of insulin insulin Breast Breast Diagnosis Active [facility] cancer cancer [facility] - screening screening Adair stephanie by by l mammogram mammogram Outp ati ent Clinics Allergies, Adverse Reactions, Alerts This patient has no known allergies or adverse reactions. Family History Family Member Diagnosis Comments Start Date Stop Date Source Natural brother Cancer [place] M ethodist Natural brother Heart attack [facility] Natural father Cancer [place] [facility]ist Natural father Heart attack [facility] Natural mother Asthma [place] [facility] Natural mother Diabetes [place] [facility] Natural mother Heart failure [facility] Social History Social Habit Start Date Stop Date Quantity Comments Source Exposure to Not sure [place] [facility] dist SARS-CoV-2 (event) Cigarettes smoked 2021-02-04 2021-02-04 Timi Izquierdoist current (pack per 00:00:00 00:00:00 day) - Reported Cigarette 2021-02-04 2021-02-04 Timi Izquierdo ist pack-years 00:00:00 00:00:00 Tobacco use and 2021-02-04 2021-02-04 Never used Timi Ward ethodist exposure 00:00:00 00:00:00 Alcohol intake 2021-02-04 2021-02-04 Ex-drinker Timi Patrick thodist 00:00:00 00:00:00 (finding) Tobacco Comment 2020-11-25 2020-11-25 I have quit on [place] [facility] 00:00:00 00:00:00 my own for a year and 5 months. History of tobacco 1976-11-17 2019-11-17 Current every Carlos felix [facility] use 00:00:00 00:00:00 day smoker Sex [birth year] At [birth year] F Timi salas 00:00:00 00:00:00 Smoking Status Start Date Stop Date Source Current every day smoker 2021-02-04 00:00:00 Carlos felix [facility] Medications Ordered Filled Start Stop Current Ordering [...] Millender needed Kya kes [facility] Atorvastati Atorvastati Yes Danielle [address] [facility] Calcium n Calcium Millender [facility] Claritin Claritin Yes Danielle not [facility] Millender defined [facility] Trelegy Trelegy Yes Danielle [address] [facility] Ellipta Ellipta Millender [facility] ProAir HFA ProAir HFA Yes Danielle [address] [facility] [address] Millender needed [facility] Symbicort Symbicort Yes Danielle [address] Millender [facility] Ropinirole Ropinirole Yes Danielle as [facility] HCl HCl Millender directed [facility] Paxil Paxil Yes Danielle [address] [facility] Millender in the [facility] - morning [facility]oria l [facility] ent Clinics Vital Signs Vital Name Observation Time Observation Value Comments Source Body height 2021-02-12 10:44:00 167.6 cm Timi Lees Body weight 2021-02-12 10:44:00 77.111 kg Timi Lees BMI 2021-02-12 10:44:00 27.44 kg/m2 Timi Lees Systolic blood 2021-02-02 09:08:00 112 mm[Hg] Sydto n Y[facility]ism pressure Diastolic blood 2021-02-02 09:08:00 55 mm[Hg] ySdt on Yazdanism pressure Heart rate 2021-02-02 09:08:00 89 /min Timi Lees Body temperature 2021-02-02 09:08:00 36.5 [place] ton [facility] Respiratory rate 2021-02-02 09:08:00 15 /min Syd Lees Oxygen saturation in 2021-02-02 09:08:00 94 /min Timi Lees Arterial blood by Pulse oximetry Procedures Procedure Date / Time Performing Clinician Source Performed SURGICAL PATHOLOGY REQUEST 2021-02-02 10:29:00 Lobo Dimas POC GLUCOSE 2021-02-02 08:12:00 Lobo Dimas Id thodist [place] AN ELECTIVE 2021-02-02 07:38:00 Devyn Koehler Meth odist ENDOTRACHEAL AIRWAY LARYNGOSCOPY, DIRECT 2021-02-02 07:26:00 Lobo Dimas on [facility] POC GLUCOSE 2021-02-02 06:39:00 Lobo Dimas Id thodist COVID-19 QUALITATIVE PCR 2021-01-28 14:28:00 Lobo [...] Future Scheduled 2021-05-17 INFLUENZA VACCINE Cristiano zelaya [facility] Test 00:00:00 [code = INFLUENZA VACCINE] Future Scheduled 2010 BREAST CANCER [facility] thodist Test 00:00:00 SCREENING [code = BREAST CANCER SCREENING] Future Scheduled 2010 COLONOSCOPY SCREENING Ovidio Lees Test 00:00:00 [code = COLONOSCOPY SCREENING] Future Scheduled 2010 SHINGLES VACCINES (#1) Francia josue [facility] Test 00:00:00 [code = SHINGLES VACCINES (#1)] Future Scheduled 1981 Screening for [facility] thodist Test 00:00:00 malignant neoplasm of cervix (procedure) [code = 530046937] Future Scheduled 1978 Hepatitis C screening [place] [facility] Test 00:00:00 (procedure) [code = 983192552] Future Scheduled 1976 COVID-19 VACCINE (1) Carlos ston [facility] Test 00:00:00 [code = COVID-19 VACCINE (1)] Future Scheduled 1970 DIABETES: RETINAL EYE [place] [facility] Test 00:00:00 EXAM [code = DIABETES: RETINAL EYE EXAM] Future Scheduled 1970 DIABETIC FOOT EXAM [place] [facility] Test 00:00:00 [code = DIABETIC FOOT EXAM] Future Scheduled 1970 URINE MICROALBUMIN [place] [facility] Test 00:00:00 [code = URINE MICROALBUMIN] Encounters Start End Encounter Admission Attending Care Care Encounter Source Date/Time Date/Time Type Type Clinicians Facility Department ID 2021-02-12 2021-02-12 Outpatient [facility] [id number] [place] 00:00:00 00:00:00 LOBO 629 Method i 2021-02-02 2021-02-02 [place] [id number] [place] 00:00:00 00:00:00 LOBO 583 Method i 2021-01-28 2021-01-28 [facility] [id number] [place] 00:00:00 00:00:00 LOBO 964 Method i 2021-01-28 2021-01-28 [facility] [id number] [place] 00:00:00 00:00:00 LOBO 033 Method i 2021-01-13 2021-01-13 [facility] [id number] [place] 00:00:00 00:00:00 LOBO 863 Method i 2020-12-23 2020-12-23 [facility] [id number] [place] 00:00:00 00:00:00 LOBO 028 Method i 2020-12-23 2020-12-23 Outpatient [facility] [id number] [place] 00:00:00 00:00:00 029 Method i 2020-11-25 2020-11-25 Outpatient ROBERT [facility] [id number] 1960 [place] 00:00:00 00:00:00 VIVIAN [address] 2020-11-25 2020-11-25 Outpatient ROBERT [facility] [id number] [place] 00:00:00 00:00:[address] VIVIAN [address] 2020-06-17 2020-06-17 [facility] [id number] [facility] 09[facility]31:00 09:31:00 t Flipiture [facility] Medicine Outpati ent Clinics 2020-05-14 2020-05-14 [facility] [id number] 10:00:00 10:00:00 [facility] Medicine Outpati ent Clinics 2020-03-24 2020-03-24 [facility] [id number] 00:38:00 00:38:00 [facility] Medicine Outpati ent Clinics 2020-03-21 2020-03-21 [facility] [id number] 10:20:00 10:20:00 [facility] Medicine Outpati ent Clinics 2020-02-05 2020-02-05 [facility] [id number] 08:30:00 08:30:00 [facility] Medicine Outpati ent Clinics 2019-11-07 2019-11-07 [facility] [id number] [address] 09:00:00 09:00:00 [facility] Medicine Outpati ent Clinics Results Test Description Test Time Test Comments Results Result Comments Source Surgical pathology request 2021-02-03 21:14:54 Test Item Value Reference Range Interpretation Comme nts Case number (test code = 8605616) [id number] Surgical pathology report (test code = See link below for PDF Lab R eport 0599) Result status (test code = 5905087) This is Final Report for [id number] [id number] 07:38:00Devyn Koehler CRNA 02/02/2021 7:42 AMAirway Date/Time: [...] RSI: No Number of Attempts at [facility] Lees[facility]OVID-19 qualitative [id number] 19:26:42 Test Item Value Reference Range Interpretation Comments Interpretation (test Negative results do code = 7556976) not preclude 2019-nCoV infection and should not be used as the sole basis for treatment or other patient management decisions. Negative results must be combined with clinical observations, patient history, and epidemiological information. COVID-19 qualitative Not-Detected Not-Detected PCR result (test code = 31318-8) COVID-19 qualitative See link below for C ase Number: PCR (test code = PDF Lab Report [id number]) Timi Moreno Pre/Post [id number] 15:06:23 Test Item Value Reference Range Interpretation Comments Ventricular rate (test 67 code = 253) Atrial rate (test code = 67 255) [place] interval (test code = 156 266) QRSD [...] available-Electronica lly Signed By Faza MD, Vivi ([id number]) on 01/13/2021 3:06:18 PM Timi Lees
[2021-02-28] MEDS ORDERED: NA CHLORIDE 0.9% 1,000 ML ONE (09:25)
[2021-02-28 09:35] LABS: Absolute Lymphocytes (CBC) 1.1 K/uL (0.7-4.9); Basophils % 0.4 % (0-1.3); Hematocrit 44.1 % (36.0-45.0); MPV 7.7 fL (7.6-11.3); RBC Red Blood Cell Count 4.83 M/uL (3.86-4.86)
[2021-02-28 09:37] LABS: Protime INR 1.02
--- NOTE | 2021-02-28 09:50 | RAD REPORT ---
EXAM DESCRIPTION: Lillian Single View02/28/2021 9:28 am CLINICAL HISTORY: Cough COMPARISON: February 14, 2021 FINDINGS: The lungs are mildly to moderately hyperaerated. The lungs appear clear of acute infiltrate. The heart is normal size IMPRESSION: No acute abnormalities displayed
[2021-02-28] MEDS ORDERED: NA CHLORIDE 0.9% 2,000 ML ONE (10:00)
[2021-02-28] MEDS ORDERED: ACETAMINOPHEN 325 MG TABLET ONE (10:00)
[2021-02-28] MEDS ORDERED: METHYLPREDNISOLONE 125 MG INJ ONE (10:00)
[2021-02-28] MEDS ORDERED: IPRATROPIUM BROM 0.5MG/2.5ML ONE (10:00)
[2021-02-28] MEDS ORDERED: FAMOTIDINE 20 MG/2 ML VIAL IV ONE (10:01)
[2021-02-28] MEDS ORDERED: PIPER/TAZO/NS 3.375gm 3.375 GM/100 ML BAG ONE (10:01)
--- NOTE | 2021-02-28 10:01 | EDPHYS ---
Physician Documentation [facility] Name: Nolberto Pérez Age: 60 yrs Sex: Female : 1960 Arrival Date: 02/28/2021 Time: 08:41 Bed 7 Private MD: ED Physician Ceasar Yarbrough HPI: 02/28 09:20 This 60 yrs old Female presents to ER via Unassigned with complaints of bre Palpitations, Shortness Of Breath, Cough, Headache, Fever. 09:20 The patient presents with a history of irregular heart beat, heart racing. Context: The bre symptoms occur at rest. - Immunization history:: Adult Immunizations up to date. - Family history:: not pertinent. - Social history:: Smoking status: unknown. ROS: 09:22 Eyes: Negative for injury, pain, redness, and discharge, ENT: Negative for injury, bre pain, and discharge, Neck: Negative for injury, pain, and swelling, Cardiovascular: Negative for chest pain, palpitations, and edema, Abdomen/GI: Negative for abdominal pain, nausea, vomiting, diarrhea, and constipation, Back: Negative for injury and pain, : Negative for injury, bleeding, discharge, and swelling, MS/Extremity: Negative for injury and deformity, Skin: Negative for injury, rash, and discoloration, Psych: Negative for depression, anxiety, suicide ideation, homicidal ideation, and hallucinations, Allergy/Immunology: Negative for hives, rash, and allergies, Endocrine: Negative for neck swelling, polydipsia, polyuria, polyphagia, and marked weight changes, Hematologic/Lymphatic: Negative for swollen nodes, abnormal bleeding, and unusual bruising. 09:22 Constitutional: Positive for fatigue, fever, malaise. 09:22 Respiratory: Positive for cough, shortness of breath, wheezing, expiratory. 09:22 Neuro: Positive for weakness. Exam: 09:22 Constitutional: This is a well developed, well nourished patient who is awake, alert, bre and in no acute distress. Head/Face: Normocephalic, atraumatic. Eyes: Pupils equal round and reactive to light, extra-ocular motions intact. Lids and lashes normal. Conjunctiva and sclera are non-icteric and not injected. Cornea within normal limits. Periorbital areas with no swelling, redness, or edema. ENT: Nares patent. No nasal discharge, no septal abnormalities noted. Tympanic membranes are normal and external auditory canals are clear. Oropharynx with no redness, swelling, or masses, exudates, or evidence of obstruction, uvula midline. Mucous membranes moist. Neck: Trachea midline, no thyromegaly or masses palpated, and no cervical lymphadenopathy. Supple, full range of motion without nuchal rigidity, or vertebral point tenderness. No Meningismus. Chest/axilla: Normal chest wall appearance and motion. Nontender with no deformity. No lesions are appreciated. Abdomen/GI: Soft, non-tender, with normal bowel sounds. No distension or tympany. No guarding or rebound. No evidence of tenderness throughout. Back: No spinal tenderness. No costovertebral tenderness. Full range of motion. Female : Normal external genitalia. Skin: Warm, dry with normal turgor. Normal color with no rashes, no lesions, and no evidence of cellulitis. MS/ Extremity: Pulses equal, no cyanosis. Neurovascular intact. Full, normal range of motion. Neuro: Awake and alert, GCS 15, oriented to person, place, time, and situation. Cranial nerves II-XII grossly intact. Motor strength 5/5 in all extremities. Sensory grossly intact. Cerebellar exam normal. Normal gait. Psych: Awake, alert, with orientation to person, place and time. Behavior, mood, and affect are within normal limits. 09:22 Cardiovascular: Rate: tachycardic, Rhythm: regular, Pulses: Pulses are 4+ in bilateral radial, brachial, femoral, popliteal, posterior tibial and and dorsalis pedis arteries.. Heart sounds: murmur, not appreciated, Edema: is not appreciated, JVD: is not appreciated. 09:22 ECG was reviewed by the Attending Physician. 09:22 Respiratory: mild respiratory distress is noted, Respirations: labored breathing, that is mild, Breath sounds: bronchial sounds, that are mild, are scattered, decreased breath sounds, that are mild, are located in both bases, rhonchi, that are mild, are scattered, wheezing: expiratory is heard diffusely. 09:22 Musculoskeletal/extremity: DVT Exam: No signs of deep vein thrombosis. no pain, no swelling, no tenderness, negative Homans' sign noted on exam, no appreciated bluish discoloration, no erythema, no increased warmth. Vital Signs: 10:26 BP 95 / 55; Pulse 90; Resp 18; Temp 98.7; Pulse Ox 98% on 2 lpm NC; tr6 11:19 BP 100 / 87; Pulse 86; Resp 18; Pulse Ox 95% 2 lpm ; tr6 MDM: 08:59 Patient medically screened. [facility] 09:25 Differential diagnosis: asthma, Bronchitis CHF exacerbation, Chronic Obstructive bre Pulmonary Disease bronchitis, flu, URI. Antibiotic administration: zithromax/zosyn. The patient's Wells Deep Vein Thrombosis Score was calculated as follows: Heart Rate >100 BPM (1.5 Pts) Total Score: 0-2 Pts- Low Risk. The patient's pulmonary embolism risk score was calculated as follows: the patients heart rate is greater than 100 beats per minute (1.5 Pts) Total Score: 0-2 points. This patient was found to be at low risk for a pulmonary embolism by using the Well's assessment criteria. Immunization status: Influenza vaccine: Data reviewed: vital signs, nurses notes, lab test result(s), EKG, radiologic studies, plain films. Data interpreted: potline monitor: rate is 104 beats/min, rhythm is regular. Test interpretation: by ED physician or midlevel provider: ECG, plain radiologic studies. Counseling: I had a detailed discussion with the patient and/or guardian regarding: the historical points, exam findings, and any diagnostic results supporting the discharge/admit diagnosis, lab results, radiology results, the need for further work-up and treatment in the hospital. 02/28 09:18 Order name: Basic Metabolic Panel; Complete Time: 11:41 [facility] 02/28 09:18 Order name: CBC with Diff; Complete Time: 09:54 [facility] 02/28 09:18 Order name: LFT's; Complete Time: 11:41 [facility] 02/28 09:18 Order name: Magnesium; Complete Time: 11:41 [facility] 02/28 09:18 Order name: NT PRO-BNP; Complete Time: 11:41 [facility] 02/28 09:18 Order name: PT-INR; Complete Time: 10:09 [facility] 02/28 09:18 Order name: Troponin (emerg Dept Use Only); Complete Time: 11:41 [facility] 02/28 09:18 Order name: Lipase; Complete Time: 11:41 [facility] 02/28 09:18 Order name: Blood Culture Adult (2) [facility] 02/28 09:18 Order name: Influenza Screen (a \\T\\ B) [facility] 02/28 09:18 Order name: COVID-19 : Document "Date of Symptom Onset" if Symptomatic. [facility] 02/28 09:18 Order name: Lactate; Complete Time: 10:09 [facility] 02/28 12:57 Order name: COVID-19/FLU A+B [facility] 02/28 13:01 Order name: Procalcitonin [facility] 02/28 09:18 Order name: XRAY Chest (1 view); Complete Time: 09:54 [facility] 02/28 09:18 Order name: EKG; Complete Time: 09:19 [facility] 02/28 09:18 Order name: Cardiac monitoring; Complete Time: 10:04 [facility] 02/28 09:18 Order name: EKG - Nurse/Tech; Complete Time: 10:40 [facility] 02/28 13:31 Order name: Blood Culture [facility] 02/28 14:40 Order name: Group A Streptococcus Rapid Sc [facility] 02/28 15:13 Order name: Urinalysis [facility] 02/28 09:18 Order name: IV Saline Lock; Complete Time: 09:21 [facility] 02/28 09:18 Order name: Labs collected and sent; Complete Time: 09:21 [facility] 02/28 09:18 Order name: O2 Per Protocol; Complete Time: 10:04 [facility] 02/28 09:18 Order name: O2 Sat Monitoring; Complete Time: 10:04 [facility] EC:22 Rate is 104 beats/min. Rhythm is regular. QRS [place] is Normal. MA interval is normal. [facility] QRS interval is normal. QT interval is normal. No Q waves. T waves are Normal. No ST changes noted. Clinical impression: Sinus tachycardia and No evidence of ischemia. Interpreted by me. Reviewed by me. Administered Medications: 10:02 Drug: SOLU-Medrol (methylPrednisoLONE) 125 mg Route: IVP; Site: right antecubital; tr6 10:26 Follow up: Response: No adverse reaction tr6 10:03 Drug: NS 0.9% 1000 ml Route: IV; Rate: 1 bolus; Site: right antecubital; tr6 10:40 Follow up: Response: No adverse reaction; IV Status: Completed infusion; IV Intake: tr6 1000ml 10:03 Drug: Pepcid (famotidine) 20 mg Route: IVP; Site: right antecubital; tr6 10:26 Follow up: Response: No adverse reaction tr6 10:03 Drug: Zosyn (piperacillin-tazobactam) 3.375 grams Route: IVPB; Infused Over: 60 mins; tr6 Site: right antecubital; 10:25 Follow up: Response: No adverse reaction; IV Status: Completed infusion; IV Intake: tr6 250ml 10:19 Drug: Zithromax (azithromycin) 500 mg Route: IVPB; Infused Over: 1 hrs; Site: right tr6 antecubital; 10:20 Drug: Tylenol 650 mg Route: PO; tr6 10:26 Follow up: Response: No adverse reaction; Pain is decreased tr6 12:57 Drug: NS 0.9% 1000 ml Route: IV; Rate: 125 ml/hr; Site: right antecubital; tr6 12:59 Drug: AtroVENT (ipratropium) Aerosol 0.5 mg Route: Inhalation; tr6 Disposition: 02/28/21 10:00 Hospitalization ordered by Alcides Lam for Inpatient Admission. Preliminary diagnosis are Palpitations, Fever, unspecified, Chronic obstructive pulmonary disease with (acute) exacerbation, Hypoxemia, Hypotension - resolved. - Bed requested for Telemetry/MedSurg (Inpatient). - Status is Inpatient Admission. tr6 - Condition is Fair. - Problem is new. - Symptoms have improved. Signatures: Dispatcher [employer] EDMS Ceasar Yarbrough MD MD cha Martinez, Eric em1 Tiffani Dotson RN RN tr6 Corrections: (The following items were deleted from the chart) 13:58 10:00 Hospitalization Ordered by Alcides Lam DO for Inpatient Admission. Preliminary em1 diagnosis is Palpitations; Fever, unspecified; Chronic obstructive pulmonary disease with (acute) exacerbation; Hypoxemia; Hypotension - resolved. Bed requested for Telemetry/MedSurg (Inpatient). Status is Inpatient Admission. Condition is Fair. Problem is new. Symptoms have improved. bre 16:07 13:58 02/28/2021 10:00 Hospitalization Ordered by Alcides Lam DO for Inpatient tr6 Admission. Preliminary diagnosis is Palpitations; Fever, unspecified; Chronic obstructive pulmonary disease with (acute) exacerbation; Hypoxemia; Hypotension - resolved. Bed requested for Telemetry/MedSurg (Inpatient). Status is Inpatient Admission. Condition is Fair. Problem is new. Symptoms have improved. em1
--- NOTE | 2021-02-28 10:01 | ER ---
Nurse's Notes [facility] Name: Nolberto Pérez Age: 60 yrs Sex: Female : 1960 Arrival Date: 02/28/2021 Time: 08:41 Bed 7 Private MD: Diagnosis: Palpitations;Fever, unspecified;Chronic obstructive pulmonary disease with (acute) exacerbation;Hypoxemia;Hypotension-resolved Presentation: 02/28 10:27 Acuity: TIFFANIE 2 tr6 10:41 Risk Assessment: Do you want to hurt yourself or someone else? Patient reports no tr6 desire to harm self or others. 10:42 Chief complaint: Patient states: fever, headache, productive cough, and increase O2 use tr6 at home x2days. Coronavirus screen: Client denies travel out of the [place] in the last 14 days. Ebola Screen: Patient negative for fever greater than or equal to 101.5 degrees Fahrenheit, and additional compatible Ebola Virus Disease symptoms Patient denies exposure to infectious person. Patient denies travel to an Ebola-affected area in the 21 days before illness onset. Initial Sepsis Screen: Does the patient meet any 2 criteria? Temp <36.0*C (96.8*F)) or > 38.3*C (100.9*F). Systolic BP < 90 mmHg. Mean Arterial Pressure (MAP) < 65. HR > 90 bpm. Initial Sepsis Screen: Does the patient have a suspected source of infection? No. Patient's initial sepsis screen is negative. Onset of symptoms was February 26, 2021. 10:42 Method Of Arrival: Ambulatory tr6 Triage Assessment: 10:40 General: Appears see initial assessment. tr6 10:41 General: Behavior is calm, cooperative, appropriate for age. tr6 10:44 Respiratory: Reports cough that is Onset: The symptoms/episode began/occurred tr6 gradually, the patient has moderate shortness of breath. - Immunization history:: Adult Immunizations up to date. - Family history:: not pertinent. - Social history:: Smoking status: unknown. Screenin:27 Abuse screen: Denies threats or abuse. Denies injuries from another. Nutritional tr6 screening: No deficits noted. Tuberculosis screening: No symptoms or risk factors identified. Fall Risk None identified. Assessment: 09:11 Reassessment: MD Yarbrough at bedside. tr6 10:22 Reassessment: MD Lam at bedside. tr6 10:27 Pain: Complains of pain in pt c/o generalized body aches. Cardiovascular: Rhythm is tr6 initial assessment pt was ST. currently pt is NSR 80s. Respiratory: Airway. Respiratory: Airway is patent Trachea midline Respiratory effort is even, unlabored, Respiratory pattern is regular, RLL rhonchi. Respiratory: Parent/caregiver reports the patient having cough that is productive, persistent pain with cough pt normally wear 2L NC O2 at home. GI: No deficits noted. : No deficits noted. EENT:. Derm: No deficits noted. Musculoskeletal: No deficits noted. 10:39 Neuro: No deficits noted. tr6 Vital Signs: 10:26 BP 95 / 55; Pulse 90; Resp 18; Temp 98.7; Pulse Ox 98% on 2 lpm NC; tr6 11:19 BP 100 / 87; Pulse 86; Resp 18; Pulse Ox 95% 2 lpm ; tr6 ED Course: 08:41 Patient arrived in ED. as 08:59 Ceasar Yarbrough MD is Attending Physician. bre 09:11 Tiffani Dotson, LURDES is Primary Nurse. tr6 09:20 Inserted saline lock: 20 gauge in right antecubital area, using aseptic technique. mt Blood collected. 09:28 XRAY Chest (1 view) In Process Unspecified. EDMS 09:55 Alcides Lam DO is Hospitalizing Provider. bre 10:04 COVID-19 : Document "Date of Symptom Onset" if Symptomatic. Sent. tr6 10:27 Triage completed. tr6 10:41 No provider procedures requiring assistance completed. tr6 10:41 Inserted saline lock: 20 gauge in right wrist, using aseptic technique. ,using aseptic tr6 technique. BY RN Blood collected. 10:41 Arm band placed on right wrist. tr6 10:43 Patient has correct armband on for positive identification. Fall risk band placed. Bed tr6 in low position. Call light in reach. Side rails up X 1. cardiac monitor on. Pulse ox on. NIBP on. 16:06 Inserted Accessed Missed attempt(s): Patient admitted, IV remains in place. tr6 Administered Medications: 10:02 Drug: SOLU-Medrol (methylPrednisoLONE) 125 mg Route: IVP; Site: right antecubital; tr6 10:26 Follow up: Response: No adverse reaction tr6 10:03 Drug: NS 0.9% 1000 ml Route: IV; Rate: 1 bolus; Site: right antecubital; tr6 10:40 Follow up: Response: No adverse reaction; IV Status: Completed infusion; IV Intake: tr6 1000ml 10:03 Drug: Pepcid (famotidine) 20 mg Route: IVP; Site: right antecubital; tr6 10:26 Follow up: Response: No adverse reaction tr6 10:03 Drug: Zosyn (piperacillin-tazobactam) 3.375 grams Route: IVPB; Infused Over: 60 mins; tr6 Site: right antecubital; 10:25 Follow up: Response: No adverse reaction; IV Status: Completed infusion; IV Intake: tr6 250ml 10:19 Drug: Zithromax (azithromycin) 500 mg Route: IVPB; Infused Over: 1 hrs; Site: right tr6 antecubital; 10:20 Drug: Tylenol 650 mg Route: PO; tr6 10:26 Follow up: Response: No adverse reaction; Pain is decreased tr6 12:57 Drug: NS 0.9% 1000 ml Route: IV; Rate: 125 ml/hr; Site: right antecubital; tr6 12:59 Drug: AtroVENT (ipratropium) Aerosol 0.5 mg Route: Inhalation; tr6 Intake: 10:25 IV: 250ml; Total: 250ml. tr6 10:40 IV: 1000ml; Total: 1250ml. tr6 Outcome: 10:00 Decision to Hospitalize by Provider. bre 16:04 Admitted to Med/surg accompanied by edwina, via wheelchair, room 215, with oxygen, with tr6 chart, Report called to colt CHATMAN 16:04 Condition: good 16:07 Patient left the ED. tr6 Signatures: Dispatcher [employer] EDCeasar Witt MD MD cha Martinez, Amelia as Thompson, Moriah mt Ramnanan, Tiffany, RN RN tr6 Corrections: (The following items were deleted from the chart) 10:50 10:26 BP 95 / 55; Pulse 90bpm; Pulse Ox 98% 2 lpm Nasal Cannula; Temp 98.7F; tr6 tr6
[2021-02-28] MEDS ORDERED: NA CHLORIDE 0.9% 250 ML ONE (10:04)
[2021-02-28] MEDS ORDERED: AZITHROMYCIN 500 MG INJ IVPB ONE (10:04)
[2021-02-28] MEDS ORDERED: LEVALBUTEROL 1.25 MG/3 ML NEB ONE (10:04)
--- NOTE | 2021-02-28 11:05 | P.HP ---
Certification for Inpatient Patient admitted to: Observation With expected LOS: <2 Midnights Patient will require the following post-hospital care: None Practitioner: I am a practitioner with admitting privileges, knowledge of patient current condition, hospital course, and medical plan of care. Services: Services provided to patient in accordance with Admission requirements found in Title 42 Section 412.3 of the Code of Federal Regulations Patient History Date of Service: 02/28/21 Primary Care Provider: Mtizy Osman NP; Pulmonary-Dr. Doran Reason for admission: Fever, cough and shortness of breath History of Present Illness: 60-year-old female with history of COPD on chronic oxygen, hyperlipidemia, bipolar disorder and diabetes. Patient presented with increased fever, cough and shortness of breath. Patient takes her COPD medication. She was recently discharged for COPD exacerbation. Patient admits not using her oxygen at times. She denied any nausea, vomiting. Some headaches noted. Over the last day she has not been eating very well. Poor oral intake noted. She reports last week she did have a viral gastroenteritis. In the ER patient was evaluated. Chest x-ray unremarkable. Patient on 2 L per nasal cannula. White count 11.4, hemoglobin 14.6. Lactic acid normal. Lab-BMP pending. Patient admitted for observation. When I saw the patient ER, patient appeared stable. Blood pressures were low but she normally runs low blood pressures. She was given IV fluid bolus in the emergency room. No sick contacts noted. Allergies No Known Drug Allergies Allergy (Verified 04/13/16 06:51) none Home medications list reviewed: Yes Home Medications: Atorvastatin Calcium 10 mg PO BEDTIME 12/16/19 Aripiprazole [Abilify] 2 mg PO BEDTIME 02/14/21 Metformin HCl 1,000 mg PO BEDTIME 02/14/21 Oxybutynin Chloride [Oxybutynin Chloride ER] 10 mg PO BEDTIME 02/14/21 PARoxetine HCL [Paxil*] 15 mg PO BEDTIME 02/14/21 Albuterol Inhaler [Ventolin Inhaler*] 2 puff IH Q6H PRN #1 hfa.aer.[email or web address] 02/15/21 Fluticasone/Umeclidin/Vilanter [Trelegy Ellipta 100-62.5-25] 1 each IH DAILY #1 blst.w.dev 05/02/21 predniSONE [Prednisone*] 20 mg PO SEECOM #21 tab 02/15/21 - Past Medical/Surgical History Diabetic: Yes -: Diabetes mellitus type 2 [id number] -: Depression -: COPD -: Tobacco abuse -: Restless leg syndrome -: Hyperlipidemia -: Urinary incontinence -: Tubal ligation -: Appendectomy -: scar tissue removed abdomen -: voice box biopsy Psychosocial/ Personal History: Patient is - Family History Father -: Cancer Notes: lung cancer Mother -: Hypertension, Diabetes Brother -: Heart disease, Cancer Notes: lung cancer - Social History Smoking Status: Former smoker Alcohol use: No CD- Drugs: No Caffeine use: Yes Place of Residence: Home Review of Systems General: Fever, Weakness, Malaise, As per HPI Eyes: Unremarkable ENT: Unremarkable Respiratory: Cough, Shortness of Breath, As per HPI Cardiovascular: Unremarkable Gastrointestinal: As per HPI Genitourinary: Unremarkable Musculoskeletal: Unremarkable Integumentary: Unremarkable Neurological: Unremarkable Lymphatics: Unremarkable Physical Examination - Physical Exam General: Alert, In no apparent distress, Oriented x3, Cooperative HEENT: Atraumatic Neck: Supple Respiratory: Clear to auscultation bilaterally, Normal air movement Cardiovascular: Normal pulses, Regular rate/rhythm Gastrointestinal: Normal bowel sounds, Soft and benign, Non-distended Integumentary: Other (Dry scan) Neurological: Normal speech, Normal strength at 5/5 x4 extr, Normal tone, Normal affect - Studies Laboratory Data (last 24 hrs) 02/28/21 09:15: PT 11.7, INR 1.02 02/28/21 09:15: WBC 11.40 H, Hgb 14.6, Hct 44.1, Plt Count 297 Assessment and Plan - Plan Impression: Fever, cough suspect viral bronchitis with underlying COPD Dehydration with recent viral gastroenteritis Diabetes mellitus type 2 Hyperlipidemia Bipolar disorder Plan: Fever, cough suspect viral bronchitis with underlying COPD: Patient admitted for further evaluation and treatment. Will check coded tests an for influenza, strep. Will start Rocephin and Zithromax empirically. Continue IV fluids. Patient given IV fluid bolus in the emergency room. DVT prophylaxis in place- Lovenox. Continue COPD medication. Will recheck chest x-ray tomorrow. Recheck again tomorrow. Patient uses home oxygen, compliance addressed in detail. Anticipate improvement with possible discharge. Dehydration with recent viral gastroenteritis: Patient given IV fluid bolus. Continue IV fluids. Electrolyte protocol in place. Diabetes mellitus type 2: Continue Accu-Cheks. Sliding scale in place. Hyperlipidemia: Continue home medication Bipolar disorder: continue home medication. Discharge Plan: Home Plan to discharge in: 48 Hours - Advance Directives Does patient have a Living Will: No Does patient have a Durable POA for Healthcare: No - Code Status/Comfort Care Code Status Assessed: Yes (Patient is full code) Time Spent Managing Pts Care (In Minutes): 55
[2021-02-28 11:20] LABS: ALT/SGPT 13 U/L (12-78); AST/SGOT 9 U/L (15-37); Albumin 2.7 g/dL (3.4-5.0); Alkaline Phosphatase 54 U/L (45-117); BUN Blood Urea Nitrogen 15 mg/dL (7-18); Bicarbonate 29 mmol/L (21-32); Bilirubin Direct 0.1 mg/dL (0-0.2); Bilirubin Total 0.5 mg/dL (0.2-1.0); Glucose Level 114 mg/dL (74-106); Lipase 83 U/L (73-393); Magnesium 2.2 mg/dL (1.8-2.4); NT PRO-BNP 65 pg/mL (<125); Potassium 3.6 mmol/L (3.5-5.1); Protein, Total 6.2 g/dL (6.4-8.2); Sodium Level 138 mmol/L (136-145); Troponin (Emerg Dept Use Only) < 0.02 ng/mL (0.0-0.045)
[2021-02-28 12:57] LABS: SARS-COV-2 RT PCR NEGATIVE (NEGATIVE)
[2021-02-28 13:19] VITALS: BMI 27.4
[2021-02-28] MEDS: NA CHLORIDE 0.9% 1,000 ML IV SCH ×2 (13:27→16:06)
[2021-02-28] MEDS ORDERED: ONDANSETRON 4 MG/2 ML VIAL IV PRN (13:27)
[2021-02-28] MEDS ORDERED: ACETAMINOPHEN 500 MG TAB PO PRN (13:27)
[2021-02-28 14:52] LABS: Urine Appearance CLEAR (Clear); Urine Bilirubin NEGATIVE (Negataive); Urine Blood 1+ (Negative); Urine Color YELLOW (Yellow); Urine Glucose NEGATIVE (Negative); Urine Protein NEGATIVE (Negative); Urine Specific Gravity <=1.005 (1.005-1.030); Urine Urobilinogen 0.2 mg/dL (0.2-1.0); Urine pH 5.5 (5.0-7.0)
[2021-02-28 15:13] LABS: Urine Microscopic Reflex ORDER UMIC
[2021-02-28 15:14] LABS: Urine Bacteria <20 /HPF (<20); Urine RBC <5 /HPF (NONE SEEN)
[2021-02-28] MEDS ORDERED: POTASSIUM CL SA 10 MEQ TAB PO ONE (17:00)
[2021-02-28] MEDS ORDERED: ATORVASTATIN 10 MG TAB PO SCH (21:00)
[2021-02-28] MEDS ORDERED: ARIPiprazole 5 MG TAB PO SCH (21:00)
[2021-02-28] MEDS: ALBUTEROL 2.5 MG/3 ML NEB SOL NEB PRN (21:25)
[2021-02-28] MEDS: IPRATROPIUM BROM 0.5MG/2.5ML NEB PRN (21:25)
[2021-02-28] MEDS: ARFORMOTEROL TARTRATE 15 MCG/2 ML VIAL.NEB NEB SCH (21:25)
[2021-02-28] MEDS ORDERED: D50W 25 GM/50 ML SYRINGE IV PRN (22:53)
[2021-02-28] MEDS ORDERED: GLUCAGON 1 MG/VIAL IM PRN (22:53)
[2021-02-28] MEDS ORDERED: METFORMIN HCL 500 MG TAB PO SCH (23:45)
[2021-03-01] MEDS: NA CHLORIDE 0.9% 1,000 ML IV SCH (02:34)
[2021-03-01] MEDS ORDERED: LORazepam 2 MG/ML VIAL IV ONE (02:51)
[2021-03-01 05:01] LABS: Absolute Lymphocytes (CBC) 0.9 K/uL (0.7-4.9); Basophils % 0.4 % (0-1.3); Lymphocytes % 10.8 % (15.3-44.8); RBC Red Blood Cell Count 4.13 M/uL (3.86-4.86)
[2021-03-01 05:24] LABS: BUN Blood Urea Nitrogen 11 mg/dL (7-18); Bicarbonate 28 mmol/L (21-32); Glucose Level 130 mg/dL (74-106); Sodium Level 138 mmol/L (136-145)
[2021-03-01 05:27] LABS: Magnesium 2.3 mg/dL (1.8-2.4); Potassium 4.6 mmol/L (3.5-5.1)
[2021-03-01] MEDS ORDERED: INSULIN -REGULAR HUMAN 50 UNIT/0.5 ML ML SQ SCH (07:30)
--- NOTE | 2021-03-01 07:52 | RAD REPORT ---
EXAM DESCRIPTION: RAD - Chest Pa And Lat (2 Views) - 03/01/2021 6:02 am CLINICAL HISTORY: follow up COPD/Bronchitis COMPARISON: Portable February 28 move, two view chest December 16 TECHNIQUE: Frontal and lateral views of the chest were obtained. FINDINGS: The lungs are fibrotic as a baseline. Interstitial pattern is increased slightly from comp arison but no consolidation is seen. Diaphragm is flattened. No focal mass or consolidations seen. Heart size is normal and central vasculature is within normal limits. No pleural effusion or pneumot horax seen. No acute bony finding noted. No aortic abnormality. IMPRESSION: Increased interstitial opacification above the baseline fibrotic appearance. Finding is consistent with the bronchitis history. No finding to suggest bacterial pneumonia. Pattern appear slightly worse than February 28 study. Follow-up can be obtained as warranted.
--- NOTE | 2021-03-01 07:53 | P.DS ---
Admission Date: 02/28/21 Discharge Date: 03/01/21 Primary Care Provider: Mitzy Osman NP; Pulmonary-Dr. Doran Disposition: ROUTINE DISCHARGE Discharge Condition: GOOD Reason for Admission: Fever, cough and shortness of breath Consultations: none Procedures: COVID: Negative CXR: COMPARISON: Portable February 28 move, two view chest December 16 TECHNIQUE: Frontal and lateral views of the chest were obtained. FINDINGS: The lungs are fibrotic as a baseline. Interstitial pattern is increased slightly from comparison but no consolidation is seen. Diaphragm is flattened. No focal mass or consolidations seen. Heart size is normal and central vasculature is within normal limits. No pleural effusion or pneumothorax seen. No acute bony finding noted. No aortic abnormality. IMPRESSION: Increased interstitial opacification above the baseline fibrotic appearance. Finding is consistent with the bronchitis history. No finding to suggest bacterial pneumonia. Pattern appear slightly worse than February 28 study. Follow-up can be obtained as warranted. Medical Problem List: Fever, cough suspect bronchitis complicated with COPD on chronic oxygen and sinusitis Dehydration with recent viral gastroenteritis Diabetes mellitus type 2 Hyperlipidemia Bipolar disorder Urinary incontinence Chronic seasonal allergies Brief History of Present Illness: 60-year-old female with history of COPD on chronic oxygen, hyperlipidemia, bipolar disorder and diabetes. Patient presented with increased fever, cough and shortness of breath. Patient takes her COPD medication. She was recently discharged for COPD exacerbation. Patient admits not using her oxygen at times. She denied any nausea, vomiting. Some headaches noted. Over the last day she has not been eating very well. Poor oral intake noted. She reports last week she did have a viral gastroenteritis. In the ER patient was evaluated. Chest x-ray unremarkable. Patient on 2 L per nasal cannula. White count 11.4, hemoglobin 14.6. Lactic acid normal. Lab-BMP pending. Patient admitted for observation. When I saw the patient ER, patient appeared stable. Blood pressures were low but she normally runs low blood pressures. She was given IV fluid bolus in the emergency room. No sick contacts noted. Hospital Course: Patient presented with fever, cough. This x-ray unremarkable. Over the past several weeks patient has been hospitalized for COPD exacerbation. She also had a recent biopsy of the voicebox at [facility]. This was benign and thought to have been viral related. The patient also reported an episode of viral gastroenteritis last week. The patient was admitted for further evaluation and treatment of suspected bronchitis, sinusitis and dehydration. This was complicated with her underlying COPD on chronic oxygen. Patient received IV fluids with empiric antibiotics. Patient has improved. Chest x-ray shows no evidence of bacterial pneumonia but bronchitis noted with COPD. At discharge patient has done well. She is back to her baseline. No significant shortness of breath noted. At discharge she will continue with oxygen to maintain sats above 93%. Currently patient on 2 L per nasal cannula. At discharge the patient will continue with Augmentin 500 mg twice daily for 7 days. She will also be provided lactobacillus 1 pill 3 times a day and Diflucan 100 mg 1 pill x 1. At discharge she will continue with Trelegy 1 puff daily and albuterol 2 puffs 3 times a day as needed for shortness of breath for her COPD. As for her sinusitis patient will also continue with Flonase 1 sprays per nostril twice daily. Patient may do some Netipot sinus flushes with normal saline at home to help relieve some of the congestion in her sinuses. Recommend follow-up with pulmonology to further address her COPD. Recommend follow-up with ENT in the next week to follow-up her sinusitis and recent biopsy of the voicebox. Recommend to follow-up with PCP within 1 week to follow-up hospitalization and continued care. Patient with diabetes mellitus type 2. This has remained stable. Recent A1c in December was 5.9. Blood sugars are well controlled. At discharge she may continue with her medication Metformin. Recommend to maintain blood sugars less than 140 fasting and less than 200 after meals. Further adjustment can be done by her PCP. Recommend recheck A1c every 3 months to monitor her progress. Recommend follow-up with her PCP to further monitor and adjust medication. Patient with hyperlipidemia. At discharge patient will continue with Lipitor. Patient with depression with anxiety. At discharge patient will continue with P axil and Abilify. Patient with urinary incontinence. At discharge patient will continue with oxybutynin as directed. Vital Signs/Physical Exam: Temp Pulse Resp BP Pulse Ox 97.3 F 81 18 103/55 L 96 03/01/21 04:00 03/01/21 04:00 03/01/21 04:00 03/01/21 04:00 03/01/21 04:00 General: Alert, In no apparent distress, Oriented x3, Cooperative HEENT: Atraumatic, Mucous membr. moist/pink, Other (some sinus congestion to the left max. sinus) Neck: Supple Respiratory: Clear to auscultation bilaterally, Normal air movement Cardiovascular: Normal pulses, Regular rate/rhythm Gastrointestinal: Normal bowel sounds, No tenderness, No masses, No rebound, No guarding Musculoskeletal: No erythema, No tenderness, No warmth Integumentary: No tenderness/swelling Neurological: Normal speech, Normal strength at 5/5 x4 extr, Normal tone, Normal affect Laboratory Data at Discharge: WBC 8.10 K/uL (4.3-10.9) D 03/01/21 04:19 Hgb 13.0 g/dL (12.0-15.0) 03/01/21 04:19 Hct 38.0 % (36.0-45.0) 03/01/21 04:19 Plt Count 271 K/uL (152-406) 03/01/21 04:19 PT 11.7 SECONDS (9.5-12.5) 02/28/21 09:15 INR 1.02 02/28/21 09:15 Sodium 138 mmol/L (136-145) 03/01/21 04:19 Potassium 4.6 mmol/L (3.5-5.1) 03/01/21 04:19 BUN 11 mg/dL (7-18) 03/01/21 04:19 Creatinine 0.48 mg/dL (0.55-1.3) L 03/01/21 04:19 Glucose 130 mg/dL (74-106) H 03/01/21 04:19 Magnesium 2.3 mg/dL (1.8-2.4) 03/01/21 04:19 Total Bilirubin 0.5 mg/dL (0.2-1.0) 02/28/21 10:52 AST 9 U/L (15-37) L 02/28/21 10:52 ALT 13 U/L (12-78) 02/28/21 10:52 Alkaline Phosphatase 54 U/L (45-117) 02/28/21 10:52 Lipase 83 U/L (73-393) 02/28/21 10:52 Home Medications: Atorvastatin Calcium 10 mg PO BEDTIME 12/16/19 Aripiprazole [Abilify] 2 mg PO BEDTIME 02/14/21 Metformin HCl 1,000 mg PO BEDTIME 02/14/21 Oxybutynin Chloride [Oxybutynin Chloride ER] 10 mg PO BEDTIME 02/14/21 PARoxetine HCL [Paxil*] 15 mg PO BEDTIME 02/14/21 Albuterol Inhaler [Ventolin Inhaler*] 2 puff IH Q6H PRN #1 hfa.aer.ad 02/15/21 Fluticasone/Umeclidin/Vilanter [Trelegy Ellipta 100-62.5-25] 1 each IH BID 02/28/21 Amoxicillin/Potassium Clav [Augmentin 500-125 Tablet] 1 each PO BID #14 tablet 03/01/21 Fluconazole [Diflucan] 100 mg PO DAILY #1 tablet 03/01/21 Fluticasone [Flonase 50mcg Nasal [place]] 1 sprays NS BID #1 btl 03/01/21 Lactobacillus Acidophilus [Acidophilus Lactobacilli] 1 each PO TID #30 capsule 03/01/21 New Medications: Lactobacillus Acidophilus [Acidophilus Lactobacilli] 1 each PO TID #30 capsule Amoxicillin/Potassium Clav [Augmentin 500-125 Tablet] 1 each PO BID #14 tablet Fluconazole [Diflucan] 100 mg PO DAILY #1 tablet Fluticasone [Flonase 50mcg Nasal [place]] 1 sprays NS BID #1 btl Physician Discharge Instructions: Patient presented with fever, cough. This x-ray unremarkable. Over the past several weeks patient has been hospitalized for COPD exacerbation. She also had a recent biopsy of the voicebox at [facility]. This was benign and thought to have been viral related. The patient also reported an episode of viral gastroenteritis last week. The patient was admitted for further evaluatio n and treatment of suspected bronchitis, sinusitis and dehydration. This was complicated with her underlying COPD on chronic oxygen. Patient received IV fluids with empiric antibiotics. Patient has improved. Chest x-ray shows no evidence of bacterial pneumonia but bronchitis noted with COPD. At discharge patient has done well. She is back to her baseline. No significant shortness of breath noted. At discharge she will continue with oxygen to maintain sats above 93%. Currently patient on 2 L per nasal cannula. At discharge the patient will continue with Augmentin 500 mg twice daily for 7 days. She will also be provided lactobacillus 1 pill 3 times a day and Diflucan 100 mg 1 pill x 1. At discharge she will continue with Trelegy 1 puff daily and albuterol 2 puffs 3 times a day as needed for shortness of breath for her COPD. As for her sinusitis patient will also continue with Flonase 1 sprays per nostril twice daily. Patient may do some Netipot sinus flushes with normal saline at home to help relieve some of the congestion in her sinuses. Recommend follow-up with pulmonology to further address her COPD. Recommend follow-up with ENT in the next week to follow-up her sinusitis and recent biopsy of the voicebox. Recommend to follow-up with PCP within 1 week to follow-up hospitalization and continued care. Patient with diabetes mellitus type 2. This has remained stable. Recent A1c in December was 5.9. Blood sugars are well controlled. At discharge she may continue with her medication Metformin. Recommend to maintain blood sugars less than 140 fasting and less than 200 after meals. Further adjustment can be done by her PCP. Recommend recheck A1c every 3 months to monitor her progress. Recommend follow-up with her PCP to further monitor and adjust medication. Patient with hyperlipidemia. At discharge patient will continue with Lipitor. Patient with depression with anxiety. At discharge patient will continue with Paxil and Abilify. Patient with urinary incontinence. At discharge patient will continue with oxybutynin as directed. Diet: ADA Activity: Ad curt Followup: Sondra Topete PAC [Primary Care Provider] - Time spent managing pt's care (in minutes): 55
[2021-03-01] MEDS: ARFORMOTEROL TARTRATE 15 MCG/2 ML VIAL.NEB NEB SCH (08:20)
[2021-03-01] MEDS: ALBUTEROL 2.5 MG/3 ML NEB SOL NEB PRN (08:20)
[2021-03-01] MEDS: IPRATROPIUM BROM 0.5MG/2.5ML NEB PRN (08:20)
[2021-03-01] MEDS ORDERED: PARoxetine HCL 10 MG TAB PO SCH (09:00)
[2021-03-01] MEDS ORDERED: CEFTRIAXONE/SWI 1gm 1 GM/10 ML SYR IVP SCH (09:00)
[2021-03-01] MEDS ORDERED: OXYBUTYNIN ER 5 MG TAB PO SCH (09:00)
[2021-03-01] MEDS ORDERED: ASPIRIN EC 81 MG TAB PO SCH (09:00)
[2021-03-01] MEDS ORDERED: ENOXAPARIN 40 MG/0.4 ML SQ SCH (09:00)
[2021-03-01] MEDS ORDERED: AZITHROMYCIN IV 500 MG in NA CHLORIDE 0.9% 250 ML IVPB SCH (09:00)
[2021-03-01 09:08] VITALS: BP 102/61; TEMP 97.8
[2021-03-01 09:37] VITALS: O2SAT 95
[2021-03-01] MEDS ORDERED: HOME MED 1 EA UNK (Metformin Hcl [Metformin Hcl] 1,000 MG Tablet) PO SCH (21:00)
[2021-03-01] MEDS ORDERED: METFORMIN HCL 500 MG TAB PO SCH (21:00)
== END 2021-03-01 09:00 | disposition home or self-care (01) ==
LOC: ER 08:39 → ERHOLD 10:35 → 2ND 15:11
PROVIDERS: ADMIT Family Medicine; ATTEND Family Medicine
DX: R50.9 Fever, unspecified (principal); J44.9 Chronic obstructive pulmonary disease, unspecified; Z99.81 Dependence on supplemental oxygen; Z20.822 Contact with and (suspected) exposure to COVID-19; E86.0 Dehydration; E11.9 Type 2 diabetes mellitus without complications; E78.5 Hyperlipidemia, unspecified; F31.9 Bipolar disorder, unspecified; R32 Unspecified urinary incontinence; J30.2 Other seasonal allergic rhinitis; Z79.84 Long term (current) use of oral hypoglycemic drugs; F41.8 Other specified anxiety disorders; G25.81 Restless legs syndrome; Z87.891 Personal history of nicotine dependence
CPT/HCPCS: 0240U; 36415; 71045; 71046; 80048; 80076; 81003; 81015; 82947; 83605; 83690; 83735; 83880; 84145; 84484; 85025; 85610; 87040; 87070; 87081; 93005; 96365; 96375; 99285; G0378; J0456; J0696; J1650; J2543; J2930; J7030; J7050; J7605

== ENCOUNTER 2021-12-10 10:19 | Inpatient (IN) | payer BC ==
--- OUTSIDE RECORDS SUMMARY | 2021-12-10 10:23 | XMS REPORT | Continuity of Care Document ---
:1960 Author Organization [facility] t Address [address] [place] [address] [address] [place] [address] Care Team Providers Name Role Phone Wade Attending Clinician Unavailable Conor Attending Clinician Unavailable BELINDA Attending Clinician Unavailable MD Mikayla TREVINO Attending Clinician Unavailable SHRAVAN Attending Clinician Unavailable BELINDA Admitting Clinician Unavailable MD Mikayla TREVINO Admitting Clinician Unavailable Problems Condition Condition Condition Status Onset Resolution [...] with Outpati hyperglyce hyperglyce en t [facility] Clinics Glaucoma Glaucoma Problem [facility] Clinics Pure Pure Problem Active [facility] hyperchole hyperchole Kya kes - sterolemia sterolemia [facility] Neuropathy Neuropathy Problem [facility] Type 2 Type [address] [facility] diabetes diabetes [facility] mellitus mellitus [facility] a with with l diabetic diabetic Outpat i neuropathy neuropathy en t , without , without Clin ics long-term long-term current current use of use of insulin insulin Breast Breast Diagnosis Active [facility] St cancer cancer [facility] - screening screening Adair stephanie by by l mammogram mammogram Outp at ent Clinics Allergies, Adverse Reactions, Alerts This patient has no known allergies or adverse reactions. Medications Ordered Filled Start Stop Current Ordering Indication Dosage Frequency Signature Comments Components Source Medication Medication Date Date Medication? Clinician (SIG) Name Name Ondansetron Ondansetron 0 Yes Danielle [address] [facility] HCl HCl 6-05 [place] as needed [facility]: for [facility] nausea/vom l [facility]ing [facility] Meclizine Meclizine 2019- Yes Danielle [address] [facility] HCl HCl 6-05 [place] as needed [facility] - [facility]: for [facility] 00 dizziness l Outpati ent Clinics Glucose Glucose 2019- Yes Danielle [...] ent FORMULARY Clinics TO INSURANCE) Lancets Lancets 2019- Yes Danielle as [facility] 1-22 [facility] directed [facility] - [facility]: (dispense Memoria 00 lancets l formulary Outpati to ent insurance) Clinics Metformin Metformin 2018-10 Yes Danielle [address] [facility] HCl HCl 0-18 [place] with a [facility] - 00:[facility]: meal [facility] 00 l [facility] Albuterol Albuterol Yes Danielle [address] ml [address] [facility] Sulfate Sulfate Mill[place] needed Kya kes - [facility]oria l Outpati ent Clinics Atorvastati Atorvastati Yes Danielle [address] [facility] n Calcium n Calcium Millender [facility] Claritin Claritin Yes Danielle not [facility] Millender defined [facility] Trelegy Trelegy Yes Danielle [address] [facility] Ellipta Ellipta Millender [facility] ent Clinics ProAir HFA ProAir HFA Yes Danielle [address] [facility] Millender needed [facility] Symbicort Symbicort Yes Danielle [address] [facility] Ropinirole Ropinirole Yes Danielle as [facility] HCl HCl [facility] directed [facility] Paxil Paxil Yes Danielle [address] [facility] Millender in the [facility] morning [facility] Out[facility] ent Clinics Procedures This patient has no known procedures. Encounters Start End Encounter Admission Attending Care Care Encounter Source Date/Time Date/Time Type Type Clinicians Facility Department ID 2021-11-11 Outpatient Alex Wade [facility] [id number] [facility] 11:58:51 [id number] [facility] 2021-11-11 Outpatient MADAY Perdomo [facility] [id number] 11:[facility] Danielle [id number] [facility] 2021-11-11 Outpatient Conor [facility] [id number] 11:[facility]:09 Danielle [id number] [facility] 2021-11-11 Outpatient Conor [facility] [id number] 11:[facility]18 Danielle [id number] [facility] 2021-02-12 2021-02-12 [facility] [id number] [place] 00:00:00 00:00:00 LOBO [address] 2021-02-02 2021-02-02 Outpatient [facility] [id number] [place] 00:00:00 00:00:00 LOBO [address] 2021-01-28 2021-01-28 Outpatient LEONIDI, [facility] [id number] [place] 00:00:00 00:00:00 LOBO 964 [facility] 2021-01-28 2021-01-28 Outpatient BELINDA, [facility] [id number] [place] 00:00:00 00:00:00 LOBO 033 [facility] 2021-01-13 2021-01-13 Outpatient LEONIDI, [facility] [id number] [place] 00:00:00 00:00:00 LOBO 863 [facility] 2020-12-23 2020-12-23 Outpatient BELINDA, [facility] [id number] [place] 00:00:00 00:00:00 LOBO 028 [facility] 2020-12-23 2020-12-23 Outpatient [facility] [id number] [place] 00:00:00 00:00:00 029 [facility] 2020-11-25 2020-11-25 Outpatient SHRAVAN, [facility] [id number] [place] 00:00:00 00:00:00 VIVIAN 660 [facility] 2020-11-25 2020-11-25 Outpatient SHRAVAN, [facility] [id number] [place] 00:00:00 00:00:00 VIVIAN 059 [facility] 2020-06-17 2020-06-17 [facility] [id number] [address] 09:31:00 09:31:00 t [facility] Medicine l Medicine Outpati ent Clinics 2020-05-14 2020-05-14 [facility] [id number] [address] 10:00:00 10:00:[address] [facility] Medicine l Medicine Outpati ent Clinics 2020-03-24 2020-03-24 [facility] [id number] 00:38:00 00:38:00 t [employer] [facility] Medicine l Medicine Outpati ent Clinics 2020-03-21 2020-03-21 [facility] [id number] 10:20:00 10:20:[address] [facility] 2020-02-05 2020-02-05 [facility] [id number] [address] 08:30:00 08:30:00 [facility] 2019-11-07 2019-11-07 [facility] [id number] 09:00:00 09:00:00 [facility] ent Clinics Results Test Description Test Time Test Comments Results Result Comments Source SARS-CoV-2 (COVID-19) RNA [Presence] in Respiratory sp ecimen by 2021-01-28 19:25:56 HANNAH with probe detection Test Item Value Reference Range Interpretation Comme nts SARS-CoV-2 (COVID-19) RNA [Presence] in Respiratory Not detected No t-Detected specimen by HANNAH with probe detection (test code = 02370-5)
[2021-12-10] MEDS ORDERED: IPRATROPIUM BROM 0.5MG/2.5ML ONE (12:01)
[2021-12-10] MEDS ORDERED: ALBUTEROL 2.5 MG/3 ML NEB SOL ONE ×2 (12:02→12:09)
[2021-12-10 12:04] LABS: Absolute Lymphocytes (CBC) 2.4 K/uL (0.7-4.9); Hematocrit 42.7 % (36.0-45.0); Lymphocytes % 35.2 % (15.3-44.8); MPV 7.1 fL (7.6-11.3); RBC Red Blood Cell Count 4.61 M/uL (3.86-4.86)
[2021-12-10 12:32] LABS: ALT/SGPT 13 U/L (12-78); AST/SGOT 9 U/L (15-37); Albumin 3.2 g/dL (3.4-5.0); Alkaline Phosphatase 72 U/L (45-117); BUN Blood Urea Nitrogen 13 mg/dL (7-18); Bicarbonate 33 mmol/L (21-32); Bilirubin Total 0.2 mg/dL (0.2-1.0); Glucose Level 98 mg/dL (74-106); Magnesium 2.3 mg/dL (1.8-2.4); NT PRO-BNP 48 pg/mL (<125); Protein, Total 6.7 g/dL (6.4-8.2); Sodium Level 139 mmol/L (136-145)
[2021-12-10 12:33] LABS: Bilirubin Direct < 0.1 mg/dL (0-0.2)
[2021-12-10 12:36] LABS: Protime INR 0.89
--- NOTE | 2021-12-10 12:40 | RAD REPORT ---
EXAM DESCRIPTION: RAD - Chest Single View - 12/10/2021 12:29 pm CLINICAL HISTORY: SOB COMPARISON: Chest Pa And Lat (2 Views) dated 03/01/2021; Chest Single View dated 02/28/2021; Chest Sin gle View dated 02/14/2021; Chest Pa And Lat (2 Views) dated 12/17/2019 FINDINGS: Lines: None. Lungs: No evidence of edema or pneumonia. Pleural: No significant pleural effusions or pneumothorax. Cardiac: The heart size is within normal limits. Bones: No acute fractures. Other: IMPRESSION: No acute cardiopulmonary disease.
--- NOTE | 2021-12-10 14:25 | EDPHYS ---
Physician Documentation [facility] Name: Nolberto Pérez Age: 61 yrs Sex: Female : 1960 Arrival Date: 12/10/2021 Time: 10:21 Bed 6 Private MD: Sondra Osman; Danis Doran K ED Physician Jose Bloom HPI: 12/10 17:58 This 61 yrs old Female presents to ER via Ambulatory with complaints of COPD kdr Exacerbation. 17:53 The patient has shortness of breath at rest, with light activity. Onset: The kdr symptoms/episode began/occurred gradually, 2 week(s) ago. Duration: The symptoms are continuous, and are steadily getting worse. The patient's shortness of breath is aggravated by coughing, exertion, light activity, walking. Associated signs and symptoms: Pertinent positives: non-productive cough, diaphoresis, fever, nausea. Severity of symptoms: At their worst the symptoms were moderate severe just prior to arrival, in the emergency department the symptoms are unchanged. The patient has experienced similar episodes in the past, multiple times. The patient has been recently seen by a physician: Dr. Doran. Patient has had upper respiratory illness for about 2 weeks. She has been following with Dr. Nielsen who has had her on multiple treatments as an outpatient. Patient despite this continues to not improve. Patient complains of persistent and significant shortness of breath with palpitations and cough.. Historical: - Allergies: 10:35 No Known Allergies; ab2 - Home Meds: 14:19 Abilify 2 mg Oral tab daily [Active]; Albuterol Inhl [Active]; aspirin 81 mg Oral TbEC burt 1 tab once daily [Active]; atorvastatin 10 mg Oral tab once daily [Active]; Claritin 10 mg Oral tab once daily [Active]; metformin 1,000 mg Oral TG24 1 tab 2 times per day [Active]; metformin 1,000 mg Oral tab 1 tab 2 times per day [Active]; oxybutynin chloride 10 mg Oral tr24 1 tab once daily [Active]; Paxil 15 mg Oral tab 1 tab once daily [Active]; ProAir HFA inhalation [Active]; ropinirole Oral once daily [Active]; trelegy [Active]; - PMHx: 10:35 Anxiety; COPD; Diabetes - NIDDM; Hyperlipidemia; ab2 - PSHx: 10:35 Appendectomy; ab2 - Immunization history:: Adult Immunizations up to date. - Social history:: Smoking status: Patient/guardian denies using tobacco, Stopped _ months ago 3. ROS: 17:53 Constitutional: Negative for fever, chills, and weight loss, Eyes: Negative for injury, kdr pain, redness, and discharge, ENT: Negative for injury, pain, and discharge, Neck: Negative for injury, pain, and swelling, Cardiovascular: Negative for chest pain, palpitations, and edema, Abdomen/GI: Negative for abdominal pain, nausea, vomiting, diarrhea, and constipation, Back: Negative for injury and pain, : Negative for injury, bleeding, discharge, and swelling, MS/Extremity: Negative for injury and deformity, Skin: Negative for injury, rash, and discoloration, Neuro: Negative for headache, weakness, numbness, tingling, and seizure activity. Psych: Negative for depression, anxiety, suicide ideation, homicidal ideation, and hallucinations, Allergy/Immunology: Negative for hives, rash, and allergies, Endocrine: Negative for neck swelling, polydipsia, polyuria, polyphagia, and marked weight changes, Hematologic/Lymphatic: Negative for swollen nodes, abnormal bleeding, and unusual bruising. 17:53 Respiratory: Positive for cough, "sounds productive", dyspnea on exertion, orthopnea, pleurisy, shortness of breath. Exam: 12:26 ECG was reviewed by the Attending Physician. kdr 17:53 Constitutional: This is a well developed, well nourished patient who is awake, alert, kdr and in no acute distress. Head/Face: Normocephalic, atraumatic. Eyes: Pupils equal round and reactive to light, extra-ocular motions intact. Lids and lashes normal. Conjunctiva and sclera are non-icteric and not injected. Cornea within normal limits. Periorbital areas with no swelling, redness, or edema. Neck: Trachea midline, no thyromegaly or masses palpated, and no cervical lymphadenopathy. Supple, full range of motion without nuchal rigidity, or vertebral point tenderness. No Meningismus. Chest/axilla: Normal chest wall appearance and motion. Nontender with no deformity. No lesions are appreciated. Cardiovascular: Regular rate and rhythm with a normal S1 and S2. No gallops, murmurs, or rubs. Normal PMI, no JVD. No pulse deficits. Abdomen/GI: Soft, non-tender, with normal bowel sounds. No distension or tympany. No guarding or rebound. No evidence of tenderness throughout. Back: No spinal tenderness. No costovertebral tenderness. Full range of motion. Skin: Warm, dry with normal turgor. Normal color with no rashes, no lesions, and no evidence of cellulitis. MS/ Extremity: Pulses equal, no cyanosis. Neurovascular intact. Full, normal range of motion. Neuro: Awake and alert, GCS 15, oriented to person, place, time, and situation. Cranial nerves II-XII grossly intact. Motor strength 5/5 in all extremities. Sensory grossly intact. Cerebellar exam normal. Normal gait. Psych: Awake, alert, with orientation to person, place and time. Behavior, mood, and affect are within normal limits. 17:53 Respiratory: mild respiratory distress is noted, moderate respiratory distress is noted, Respirations: no acute changes, Breath sounds: rales, bronchial sounds, rhonchi. Vital Signs: 10:31 BP 104 / 64; Pulse 89; Resp 22; Temp 99.0(TE); Pulse Ox 93% on R/A; Weight 82.55 kg; ab2 Height 5 ft. 6 in. (167.64 cm); Pain 2/10; 12:04 BP 110 / 73; Pulse 83; Resp 20; Pulse Ox 100% on R/A; burt 13:00 BP 108 / 62; Pulse 77; Resp 20 S; Pulse Ox 93% on 2 lpm NC; jg9 13:30 BP 106 / 59; Pulse 74; Resp 20 S; Pulse Ox 92% on 2 lpm NC; jg9 14:04 BP 97 / 64; Pulse 96; Resp 18; Pulse Ox 95% on 2 lpm NC; burt 15:00 BP 103 / 68; Pulse 72; Resp 17 S; Pulse Ox 97% on R/A; jg9 10:31 Body Mass Index 29.38 (82.55 kg, 167.64 cm) ab2 MDM: 14:24 Patient medically screened. kdr 17:53 Data reviewed: vital signs, nurses notes, EMS record. Counseling: I had a detailed kdr discussion with the patient and/or guardian regarding: the historical points, exam findings, and any diagnostic results supporting the discharge/admit diagnosis, radiology results, the need for outpatient follow up, the need to transfer to another facility. 12/10 11:50 Order name: Basic Metabolic Panel; Complete Time: 14: 12/10 11:50 Order name: CBC with Diff; Complete Time: 14: 12/10 11:50 Order name: LFT's; Complete Time: 14: 12/10 11:50 Order name: Magnesium; Complete Time: 14: 12/10 11:50 Order name: NT PRO-BNP; Complete Time: 14: 12/10 11:50 Order name: PT-INR; Complete Time: 14: 12/10 11:50 Order name: Troponin HS; Complete Time: : 12/10 11:50 Order name: XRAY Chest (1 view); Complete Time: : 12/10 11:54 Order name: SARS-COV-2 RT PCR (Document "Date of Onset" if Symptomatic); Complete Time: 12/10 14:26 Order name: Sputum Culture [facility] 12/10 14:27 Order name: Chest Single View [facility] 12/10 14:28 Order name: ABG Arterial Blood Gas [facility] 12/10 11:50 Order name: EKG; Complete Time: 11: 12/10 11:50 Order name: Cardiac monitoring; Complete Time: 12/10 11:50 Order name: EKG - Nurse/Tech; Complete Time: 12/10 11:50 Order name: IV Saline Lock; Complete Time: 12/10 11:50 Order name: Labs collected and sent; Complete Time: 12/10 11:50 Order name: O2 Per Protocol; Complete Time: 12/10 11:50 Order name: O2 Sat Monitoring; Complete Time: 12/10 14:27 Order name: Chest Single View [facility] 12/10 14:27 Order name: Chest Angio [facility] 12/10 14:28 Order name: Regular EDWV 12/10 14:28 Order name: Echo with Doppler EDMS EC: Rate is 78 beats/min. Rhythm is regular, Normal Sinus Rhythm with No ectopy. QRS [place] kdr is Normal. OK interval is normal. QRS interval is normal. Clinical impression: Normal ECG. Administered Medications: 12:05 Drug: DuoNeb (albuterol 2.5 mg, ipratropium 0.5 mg) (3:1) (2.5 mg - 0.5 mg) 3 ml Route: jg9 Nebulizer; 13:51 Follow up: Response: No adverse reaction; Wheezing diminished jg9 Disposition Summary: 12/10/21 14:24 Hospitalization Ordered Hospitalization Status: Inpatient Admission kdr Provider: Danis Doran kdr Location: Telemetry/MedSurg (Inpatient) kdr Condition: Fair kdr Problem: an acute exacerbation kdr Symptoms: have improved kdr Bed/Room Type: Standard kdr Room Assignment: 213(12/10/21 15:57) dw Diagnosis - COPD/ Chronic obstructive pulmonary disease with (acute) exacerbation kdr - Acute respiratory failure with hypoxia - 87% kdr Forms: - Medication Reconciliation Form kdr - SBAR form kdr Signatures: Dispatcher [employer] EDMS Leslie Gonzalez RN Jose Butts MD MD kdr Williams, Irene, RN RN iw Gilmore, Jennifer, RN RN jg9 Katerin Bang RN Balaji Prado Corrections: (The following items were deleted from the chart) 14:28 14:26 Lipid Profile ordered. EDMS EDMS 14:28 14:26 Lipid Profile ordered. EDMS EDMS 15:57 14:24 kdr dw
--- NOTE | 2021-12-10 14:25 | ER ---
Nurse's Notes [facility] Name: Nolberto Pérez Age: 61 yrs Sex: Female : 1960 Arrival Date: 12/10/2021 Time: 10:21 Bed 6 Private MD: Sondra Osman; Danis Doran K Diagnosis: COPD/ Chronic obstructive pulmonary disease with (acute) exacerbation;Acute respiratory failure with hypoxia-87% Presentation: 12/10 10:31 Chief complaint: Patient states: "[place] been sick for about [address] Doran ab2 wanted me to come to get tests done." Pt c/o cough, SOB and palpitations. Coronavirus screen: Vaccine status: Patient reports receiving the 2nd dose of the covid vaccine. Client denies travel out of the [place] in the last 14 days. congestion, cough unrelated to allergies, difficulty breathing, headache, Client presents with at least one sign or symptom that may indicate coronavirus-19. Standard/surgical mask placed on the client. Provider contacted for isolation considerations. Ebola Screen: Patient negative for fever greater than or equal to 101.5 degrees Fahrenheit, and additional compatible Ebola Virus Disease symptoms Patient denies exposure to infectious person. Patient denies travel to an Ebola-affected area in the 21 days before illness onset. No symptoms or risks identified at this time. Initial Sepsis Screen: Does the patient meet any 2 criteria? No. Patient's initial sepsis screen is negative. Does the patient have a suspected source of infection? No. Patient's initial sepsis screen is negative. Risk Assessment: Do you want to hurt yourself or someone else? Patient reports no desire to harm self or others. Onset of symptoms is unknown. 10:31 Method Of Arrival: Ambulatory ab2 10:31 Acuity: TIFFANIE 3 ab2 Triage Assessment: 10:35 General: Appears in no apparent distress. comfortable, Behavior is calm, cooperative, ab2 appropriate for age. Pain: Complains of pain in head Pain currently is 2 out of 10 on a pain scale. Historical: - Allergies: 10:35 No Known Allergies; ab2 - Home Meds: 14:19 Abilify 2 mg Oral tab daily [Active]; Albuterol Inhl [Active]; aspirin 81 mg Oral TbEC burt 1 tab once daily [Active]; atorvastatin 10 mg Oral tab once daily [Active]; Claritin 10 mg Oral tab once daily [Active]; metformin 1,000 mg Oral TG24 1 tab 2 times per day [Active]; metformin 1,000 mg Oral tab 1 tab 2 times per day [Active]; oxybutynin chloride 10 mg Oral tr24 1 tab once daily [Active]; Paxil 15 mg Oral tab 1 tab once daily [Active]; ProAir HFA inhalation [Active]; ropinirole Oral once daily [Active]; trelegy [Active]; - PMHx: 10:35 Anxiety; COPD; Diabetes - NIDDM; Hyperlipidemia; ab2 - PSHx: 10:35 Appendectomy; ab2 - Immunization history:: Adult Immunizations up to date. - Social history:: Smoking status: Patient/guardian denies using tobacco, Stopped _ months ago 3. Screenin:06 Abuse screen: Denies threats or abuse. Denies injuries from another. Nutritional jg9 screening: No deficits noted. Tuberculosis screening: No symptoms or risk factors identified. Fall Risk None identified. Assessment: 14:16 Reassessment: pt got up to go to the restroom as she came back to the room she was burt short of breath. on RA pt stats at 88%. put pt back on O2 NC 2L and stats went up to 95-96. 14:18 General: Appears in no apparent distress. distressed, Behavior is calm, cooperative. burt Respiratory: Reports shortness of breath labored breathing Breath sounds are clear Breath sounds are diminished bilaterally. Vital Signs: 10:31 BP 104 / 64; Pulse 89; Resp 22; Temp 99.0(TE); Pulse Ox 93% on R/A; Weight 82.55 kg; ab2 Height 5 ft. 6 in. (167.64 cm); Pain 2/10; 12:04 BP 110 / 73; Pulse 83; Resp 20; Pulse Ox 100% on R/A; burt 13:00 BP 108 / 62; Pulse 77; Resp 20 S; Pulse Ox 93% on 2 lpm NC; jg9 13:30 BP 106 / 59; Pulse 74; Resp 20 S; Pulse Ox 92% on 2 lpm NC; jg9 14:04 BP 97 / 64; Pulse 96; Resp 18; Pulse Ox 95% on 2 lpm NC; burt 15:00 BP 103 / 68; Pulse 72; Resp 17 S; Pulse Ox 97% on R/A; jg9 10:31 Body Mass Index 29.38 (82.55 kg, 167.64 cm) ab2 ED Course: 10:21 Patient arrived in ED. as 10:21 Jose Bloom MD is Attending Physician. kdr 10:22 Danis Doran MD is Private Physician. as 10:22 Sondra Osman is Private Physician. as 10:35 Triage completed. ab2 10:36 Arm band placed on right wrist. ab2 11:10 Oxygen administration via nasal cannula \\T\\ 2L/min. jg9 11:59 Inserted saline lock: 20 gauge in right antecubital area, using aseptic technique. ab2 Blood collected. 11:59 SARS-COV-2 RT PCR (Document "Date of Onset" if Symptomatic) Sent. ab2 11:59 Basic Metabolic Panel Sent. ab2 11:59 CBC with Diff Sent. ab2 11:59 LFT's Sent. ab2 11:59 Magnesium Sent. ab2 11:59 NT PRO-BNP Sent. ab2 11:59 PT-INR Sent. ab2 11:59 Troponin HS Sent. ab2 12:06 Patient has correct armband on for positive identification. Bed in low position. Call jg9 light in reach. Side rails up X 1. 12:29 XRAY Chest (1 view) In Process Unspecified. EDMS 13:51 No apparent distress. Appears to be sleeping. jg9 14:18 No provider procedures requiring assistance completed. Inserted saline lock:. burt 14:22 Danis Doran MD is Hospitalizing Provider. kdr 15:31 No apparent distress. Resting quietly. Awaiting bed assignment. jg9 16:08 Inserted saline lock: in left antecubital area, using aseptic technique. burt Administered Medications: 12:05 Drug: DuoNeb (albuterol 2.5 mg, ipratropium 0.5 mg) (3:1) (2.5 mg - 0.5 mg) 3 ml Route: jg9 Nebulizer; 13:51 Follow up: Response: No adverse reaction; Wheezing diminished jg9 Outcome: 14:24 Decision to Hospitalize by Provider. kdr 16:07 Transferred by ground EMS to [facility]. burt 16:07 Condition: stable 16:07 Instructed on the need for transfer. 16:34 Patient left the ED. burt Signatures: Dispatcher [employer] Jose Harris MD MD kdr Martinez, Amelia as Gilmore, Jennifer RN RN jg9 Aziaz-StagerKaterin RN RN ha Bleininger, Alexis ab2
--- NOTE | 2021-12-10 14:29 | P.HP ---
Certification for Inpatient With expected LOS: >2 Midnights Practitioner: I am a practitioner with admitting privileges, knowledge of patient current condition, hospital course, and medical plan of care. Services: Services provided to patient in accordance with Admission requirements found in Title 42 Section 412.3 of the Code of Federal Regulations Patient History Date of Service: 12/11/21 Reason for admission: Respiratory distress COPD exacerbation History of Present Illness: Patient is 61 years of age with a history of moderate COPD failed outpatient therapy for exacerbation of underlying COPD by treatment with prednisone 10 mg twice a day doxycycline levofloxacin and maximal use of bronchodilators I evaluated the patient in my office she was significantly worse coughing spitting up yellow phlegm headaches wheezing hoarseness and was admitted from the emergency room Allergies No Known Drug Allergies Allergy (Verified 04/13/16 06:51) none Home Medications: Albuterol Neb [Proventil 0.083% Neb Soln] 1 amp NEB Q6H PRN 12/10/21 Aripiprazole [Abilify] 1 tab PO DAILY 12/10/21 Atorvastatin Calcium 1 tab PO DAILY 12/10/21 Cetirizine HCl [Zyrtec] 10 mg PO BEDTIME 12/10/21 Metformin HCl 1 tab PO DAILY 12/10/21 Oxybutynin Chloride [Oxybutynin Chloride ER] 1 tab PO DAILY 12/10/21 PARoxetine HCl [Paxil] 1 tab PO DAILY 12/10/21 - Past Medical/Surgical History Diabetic: Yes -: Diabetes mellitus type 2 [id number] -: Depression -: COPD -: Tobacco abuse -: Restless leg syndrome -: Hyperlipidemia -: Urinary incontinence -: Tubal ligation -: Appendectomy -: scar tissue removed abdomen -: voice box biopsy Psychosocial/ Personal History: Patient is - Family History Father -: Cancer Notes: lung cancer Mother -: Hypertension, Diabetes Brother -: Heart disease, Cancer Notes: lung cancer - Social History Alcohol use: No CD- Drugs: No Caffeine use: Yes Review of Systems 10-point ROS is otherwise unremarkable General: Weakness Respiratory: Cough, Shortness of Breath Physical Examination - Vital Signs Temperature: 99 F Blood Pressure: 110/57 Pulse: 86 Respirations: 19 Pulse Ox (%): 94 (On 2 L) - Physical Exam General: Alert, Moderate distress Neck: Supple Respiratory: Expiratory wheezes Cardiovascular: No edema, Regular rate/rhythm Gastrointestinal: Normal bowel sounds, Soft and benign Musculoskeletal: No clubbing, No swelling Integumentary: No rashes, No breakdown Neurological: Normal speech, Normal strength at 5/5 x4 extr, Cranial nerves 3-12 intact - Studies Laboratory Data (last 24 hrs) 12/10/21 12:20: PT 10.2, INR 0.89 12/10/21 11:55: WBC 6.90, Hgb 14.1, Hct 42.7, Plt Count 336 12/10/21 11:55: Sodium 139, Potassium 4.0, BUN 13, Creatinine 0.44 L, Glucose 98, Magnesium 2.3, Total Bilirubin 0.2, AST 9 L, ALT 13, Alkaline Phosphatase 72 Assessment and Plan - Problems (Diagnosis) (1) COPD with acute exacerbation Onset Date: 10/18/17 Current Visit: No Status: Acute Plan: Patient is 61 years of age with a history of COPD failed outpatient therapy with steroids dual antibiotics and bronchodilators was admitted with respiratory distress and hypoxemia CT pulmonary angiogram is negative for PE she does have centrilobular emphysema labs unremarkable he has some mild hypoxemia and hypercapnia mid to the hospital optimize bronchodilators steroids possible discharge in 2 days - Advance Directives Does patient have a Living Will: No Does patient have a Durable POA for Healthcare: No
--- NOTE | 2021-12-10 14:59 | RAD REPORT ---
EXAM DESCRIPTION: CT - Chest Angio - 12/10/2021 2:39 pm CLINICAL HISTORY: RO PE COMPARISON: Lung Cancer Screening CT W/O dated 10/11/2019; Ct Low Dose Chest Screening dated 11/29/19 18; CTANGIO CHEST dated 05/29/2009; THORAX WO CONTRAST dated 07/05/2005 FINDINGS: Chest Wall: No suspicious thyroid nodules or pathologic lymphadenopathy. Lungs: No acute abnormality. Centrilobular and paraseptal emphysema. Pleura: No significant effusions or pneumothorax. Mediastinum/ryan: No pathologic lymphadenopathy. Pulmonary arteries/Aorta: No filling defect identified. No aortic aneurysm. Heart: No significant pericardial effusion. Normal heart size. Upper abdomen: No acute abnormality. Bones: No acute abnormality. All CT scans are performed using dose optimization technique as appropriate and may include automated exposure control or mA/KV adjustment according to patient size. IMPRESSION: Negative for pulmonary embolism. No other acute findings within the chest. Emphysema.
[2021-12-10] MEDS ORDERED: ENOXAPARIN 40 MG/0.4 ML SQ SCH (15:00)
[2021-12-10] MEDS ORDERED: Levofloxacin 750mg IV 750 MG/150 ML BAG IV SCH ×2 (15:00→17:00)
[2021-12-10 15:51] LABS: Arterial Blood Carboxyhemoglob 0.8 % (0-1.5); Blood Gas Oxyhemoglobin 89.5 % (94-97); Blood O2 Saturation 91.1 % (92-98.5)
[2021-12-10] MEDS ORDERED: MORPHINE 2 MG/ML SYR IV PRN (16:45)
[2021-12-10] MEDS ORDERED: ONDANSETRON 4 MG/2 ML VIAL IV PRN (16:45)
[2021-12-10] MEDS ORDERED: ACETAMINOPHEN 500 MG TAB PO PRN (16:45)
[2021-12-10] MEDS: ENOXAPARIN 40 MG/0.4 ML SQ SCH (17:05)
[2021-12-10] MEDS: METHYLPREDNISOLONE 40 MG INJ IV SCH (17:05)
[2021-12-10 17:23] VITALS: BMI 29.3
[2021-12-10] MEDS: IPRATROPIUM BROM 0.5MG/2.5ML NEB SCH (19:35)
[2021-12-10] MEDS: ALBUTEROL 2.5 MG/3 ML NEB SOL NEB PRN (19:35)
[2021-12-11] MEDS: METHYLPREDNISOLONE 40 MG INJ IV SCH ×3 (01:07→16:35)
[2021-12-11] MEDS: IPRATROPIUM BROM 0.5MG/2.5ML NEB SCH ×4 (01:30→19:22)
[2021-12-11] MEDS: ALBUTEROL 2.5 MG/3 ML NEB SOL NEB PRN ×2 (01:30→19:22)
--- NOTE | 2021-12-11 07:53 | RAD REPORT ---
EXAM DESCRIPTION: Lillian Single View12/11/2021 5:21 am CLINICAL HISTORY: Shortness breath COMPARISON: December 10 FINDINGS: Lungs are moderately hyperaerated. The lungs appear clear of acute infiltrate. The heart is normal size IMPRESSION: COPD without visualization acute abnormality
[2021-12-11] MEDS: ENOXAPARIN 40 MG/0.4 ML SQ SCH (09:06)
--- NOTE | 2021-12-11 10:03 | P.PN ---
Subjective Date of Service: 12/11/21 Chief Complaint: Respiratory distress COPD exacerbation Subjective: Improving (Patient is improving still has significant cough and congestion) Review of Systems General: Weakness Respiratory: Cough, Shortness of Breath Physical Examination - Vital Signs Temperature: 99 F Blood Pressure: 110/57 Pulse: 86 Respirations: 19 Pulse Ox (%): 94 (On 2 L) - Physical Exam General: Alert, Oriented x3, Mild distress Respiratory: Expiratory wheezes Cardiovascular: No edema, Normal S1 S2 - Studies Laboratory Data (last 24 hrs) 12/10/21 12:20: PT 10.2, INR 0.89 12/10/21 11:55: WBC 6.90, Hgb 14.1, Hct 42.7, Plt Count 336 12/10/21 11:55: Sodium 139, Potassium 4.0, BUN 13, Creatinine 0.44 L, Glucose 98, Magnesium 2.3, Total Bilirubin 0.2, AST 9 L, ALT 13, Alkaline Phosphatase 72 Assessment And Plan - Current Problems (Diagnosis) (1) COPD with acute exacerbation Onset Date: 10/18/17 Current Visit: No Status: Acute Plan: Patient is improving still short of breath labs reviewed still remains mildly hypoxic continue with bronchodilator therapy add p.o. Zithromax changed to p.o. cefuroxime decrease Solu-Medrol to IV every 8 hours possible discharge tomorrow
[2021-12-11] MEDS: AZITHROMYCIN 250 MG TAB PO SCH (11:58)
[2021-12-11] MEDS: FLUTICASONE 50MCG NASAL SPRAY NAS SCH (11:58)
[2021-12-11] MEDS: CEFUROXIME 250 MG TAB PO SCH (20:31)
[2021-12-11] MEDS ORDERED: METFORMIN HCL 500 MG TAB PO SCH (21:00)
[2021-12-11] MEDS ORDERED: PARoxetine HCL 10 MG TAB PO SCH (21:00)
[2021-12-11] MEDS ORDERED: ATORVASTATIN 10 MG TAB PO SCH (21:00)
[2021-12-11] MEDS ORDERED: OXYBUTYNIN ER 5 MG TAB PO SCH (21:00)
[2021-12-12] MEDS: ALBUTEROL 2.5 MG/3 ML NEB SOL NEB PRN ×2 (01:40→07:48)
[2021-12-12] MEDS: IPRATROPIUM BROM 0.5MG/2.5ML NEB SCH ×2 (01:40→07:48)
[2021-12-12] MEDS: METHYLPREDNISOLONE 40 MG INJ IV SCH ×2 (01:53→09:00)
[2021-12-12] MEDS ORDERED: METFORMIN HCL 500 MG TAB PO SCH (08:00)
[2021-12-12 08:18] VITALS: BP 103/53; TEMP 97.8
[2021-12-12] MEDS: FLUTICASONE 50MCG NASAL SPRAY NAS SCH (08:59)
[2021-12-12] MEDS: CEFUROXIME 250 MG TAB PO SCH (09:00)
[2021-12-12] MEDS ORDERED: levoFLOXacin 750 MG TAB PO SCH (09:00)
[2021-12-12] MEDS ORDERED: PARoxetine HCL 10 MG TAB PO SCH (09:00)
[2021-12-12] MEDS: AZITHROMYCIN 250 MG TAB PO SCH (09:00)
[2021-12-12] MEDS ORDERED: HOME MED 1 EA UNK (Metformin Hcl [Metformin Hcl] 1,000 MG Tablet) PO SCH (09:00)
[2021-12-12] MEDS ORDERED: HOME MED 1 EA UNK (Oxybutynin Chloride [Oxybutynin Chloride Er] 10 MG Tab.Er.24) PO SCH (09:00)
[2021-12-12] MEDS ORDERED: HOME MED 1 EA UNK (Aripiprazole [Abilify] 2 MG Tablet) PO SCH (09:00)
[2021-12-12] MEDS ORDERED: OXYBUTYNIN ER 5 MG TAB PO SCH (09:00)
[2021-12-12] MEDS: ENOXAPARIN 40 MG/0.4 ML SQ SCH (09:00)
--- NOTE | 2021-12-12 10:50 | P.DS ---
Admission Date: 12/10/21 Discharge Date: 12/12/21 Disposition: ROUTINE DISCHARGE Discharge Condition: GOOD Reason for Admission: Respiratory distress COPD exacerbation - Problems (1) COPD with acute exacerbation Onset Date: 10/18/17 Current Visit: No Status: Acute Brief History of Present Illness: Patient is 61 years of age with a history of moderate COPD failed outpatient therapy for exacerbation of underlying COPD by treatment with prednisone 10 mg twice a day doxycycline levofloxacin and maximal use of bronchodilators I evaluated the patient in my office she was significantly worse coughing spitting up yellow phlegm headaches wheezing hoarseness and was admitted from the emergency room Hospital Course: Patient is 60 patient is 61 years of age admitted with COPD exacerbation failure to respond to outpatient therapy with steroids and antibiotics CT pulmonary angiogram and just shows evidence of centrilobular emphysema otherwise she did well with high doses of steroids and bronchodilators at the time of discharge patient was ambulating doing well discharged home on just doxycycline DC levofloxacin complaining of thrush also ordered some Diflucan/labs unremarkable labs unremarkable blood gases shows mild hypoxemia with hypercapnia patient does not qualify for home O2 Vital Signs/Physical Exam: Temp Pulse Resp BP Pulse Ox 97.8 F 82 18 103/53 L 96 12/12/21 08:00 12/12/21 08:00 12/12/21 08:00 12/12/21 08:00 12/12/21 08:00 Laboratory Data at Discharge: WBC 6.90 K/uL (4.3-10.9) 12/10/21 11:55 Hgb 14.1 g/dL (12.0-15.0) 12/10/21 11:55 Hct 42.7 % (36.0-45.0) 12/10/21 11:55 Plt Count 336 K/uL (152-406) 12/10/21 11:55 PT 10.2 SECONDS (9.5-12.5) 12/10/21 12:20 INR 0.89 12/10/21 12:20 Sodium 139 mmol/L (136-145) 12/10/21 11:55 Potassium 4.0 mmol/L (3.5-5.1) 12/10/21 11:55 BUN 13 mg/dL (7-18) 12/10/21 11:55 Creatinine 0.44 mg/dL (0.55-1.3) L 12/10/21 11:55 Glucose 98 mg/dL (74-106) 12/10/21 11:55 Magnesium 2.3 mg/dL (1.8-2.4) 12/10/21 11:55 Total Bilirubin 0.2 mg/dL (0.2-1.0) 12/10/21 11:55 AST 9 U/L (15-37) L 12/10/21 11:55 ALT 13 U/L (12-78) 12/10/21 11:55 Alkaline Phosphatase 72 U/L (45-117) 12/10/21 11:55 Home Medications: Albuterol Neb [Proventil 0.083% Neb Soln] 1 amp NEB Q6H PRN 12/10/21 Aripiprazole [Abilify] 1 tab PO DAILY 12/10/21 Atorvastatin Calcium 1 tab PO DAILY 12/10/21 Cetirizine HCl [Zyrtec] 10 mg PO BEDTIME 12/10/21 Metformin HCl 1 tab PO DAILY 12/10/21 Oxybutynin Chloride [Oxybutynin Chloride ER] 1 tab PO DAILY 12/10/21 PARoxetine HCl [Paxil] 1 tab PO DAILY 12/10/21 Fluconazole [Diflucan] 200 mg PO DAILY #7 tablet 12/12/21 New Medications: Fluconazole [Diflucan] 200 mg PO DAILY #7 tablet Physician Discharge Instructions: Patient take prednisone 10 mg twice a day and then 10 once a day, patient to stop taking levofloxacin and just resume her doxycycline at home follow-up with me in 2 weeks Diflucan first Diflucan for 7 days have been sent to her pharmacy Diet: Regular Activity: Ad curt Followup: Danis Doran MD [Primary Care Provider] -
[2021-12-12 11:11] VITALS: O2SAT 96
--- NOTE | 2021-12-14 07:00 | ECHO ---
HEIGHT: 5 ft 6 in WEIGHT: 181 lb 15.866 oz DATE OF STUDY: 12/11/[address]: Danis Doran MD 2-DIMENSIONAL: YES M.MODE: YES DOPPLER: YES COLOR FLOW: YES TDS: YES PORTABLE: NO DEFINITY: NO BUBBLE STUDY: NO DIAGNOSIS: RESPIRATORY FAILURE CARDIAC HISTORY: CATHERIZATION: SURGERY: PROSTHETIC VALVE: PACEMAKER: MEASUREMENTS (cm) DIASTOLIC (NORMALS) SYSTOLIC (NORMALS) IVSd 1.0 (0.6-1.2) LA Diam 2.5 (1.9-4.0) LVEF 60-65% LVIDd 4.5 (3.5-5.7) LVIDs 2.4 (2.0-3.5) %FS 46% LVPWd 0.9 (0.6-1.2) Ao Diam 2.7 (2.0-3.7) 2 DIMENSIONAL ASSESSMENT: RIGHT ATRIUM: NORMAL LEFT ATRIUM: NORMAL RIGHT VENTRICLE: NORMAL LEFT VENTRICLE: NORMAL TRICUSPID VALVE: NORMAL MITRAL VALVE: NORMAL PULMONIC VALVE: NORMAL AORTIC VALVE: NORMAL PERICARDIAL EFFUSION: NONE AORTIC ROOT: NORMAL LEFT VENTRICULAR WALL MOTION: NORMAL DOPPLER/COLOR FLOW: NORMAL COMMENTS: NORMAL LEFT VENTRICULAR EJECTION FRACTION 60-65%. NORMAL WALL MOTION. MILD DIASTOLIC DYSFUNCTION. TECHNOLOGIST: Bee GUPTA
== END 2021-12-12 11:41 | disposition home or self-care (01) | DRG 190 ==
LOC: ER 10:19 → SUPCPDRO 10:19 → ERHOLD 14:22 → 2ND 16:19
PROVIDERS: ADMIT Internal Medicine Sleep Medicine; ATTEND Internal Medicine Sleep Medicine
DX: J43.2 Centrilobular emphysema (principal); J96.01 Acute respiratory failure with hypoxia; E78.5 Hyperlipidemia, unspecified; E11.9 Type 2 diabetes mellitus without complications; Z79.82 Long term (current) use of aspirin; Z79.84 Long term (current) use of oral hypoglycemic drugs; Z79.899 Other long term (current) drug therapy; Z98.51 Tubal ligation status; Z20.822 Contact with and (suspected) exposure to COVID-19
CPT/HCPCS: 36415; 71045; 71275; 80048; 80076; 82805; 83735; 83880; 84484; 85025; 85610; 87070; 87205; 93306; 94640; 99285; J1650; J2920; Q9967; U0003

== ENCOUNTER 2022-04-27 10:17 | Emergency (ER) | payer BC ==
--- NOTE | 2022-04-27 11:39 | RAD REPORT ---
EXAM DESCRIPTION: Lillian Single View04/27/2022 11:24 am CLINICAL HISTORY: Cough COMPARISON: November 2021 FINDINGS: Lungs are mildly to moderately hyperaerated. The lungs appear clear of acute infiltrate. The heart is normal size IMPRESSION: No acute abnormalities displayed
[2022-04-27] MEDS ORDERED: NA CHLORIDE 0.9% 1,000 ML ONE (13:13)
[2022-04-27] MEDS ORDERED: ACETAMINOPHEN 500 MG TAB ONE ×2 (13:13→13:18)
[2022-04-27 13:38] LABS: Absolute Lymphocytes (CBC) 0.4 K/uL (0.7-4.9); Hematocrit 43.7 % (36.0-45.0); Lymphocytes % 7.2 % (15.3-44.8); MCV 89.9 fL (80-100); MPV 7.5 fL (7.6-11.3); RBC Red Blood Cell Count 4.86 M/uL (3.86-4.86)
[2022-04-27 13:40] LABS: Protime INR 0.97
--- NOTE | 2022-04-27 15:05 | ER ---
Nurse's Notes [facility] Name: Nolberto Pérez Age: 62 yrs Sex: Female : 1960 Arrival Date: 04/27/2022 Time: 10:20 Bed 20 Private MD: Diagnosis: Coronavirus infection, unspecified Presentation: 04/27 10:49 Chief complaint: Patient states: she believes she has COVID. Patient reports getting a ap3 reading of 86% SpO2 at home prior to arriving to the ED. Patient also reports cough, fever, body aches and fatigue. Patient states these symptoms began yesterday. Coronavirus screen: Client presents with at least one sign or symptom that may indicate coronavirus-19. Ebola Screen: No symptoms or risks identified at this time. Initial Sepsis Screen: Does the patient meet any 2 criteria? HR > 90 bpm. Does the patient have a suspected source of infection? No. Patient's initial sepsis screen is negative. Risk Assessment: Do you want to hurt yourself or someone else? Patient reports no desire to harm self or others. Onset of symptoms was April 26, 2022. 10:49 Method Of Arrival: Ambulatory ap3 10:49 Acuity: TIFFANIE 3 ap3 Triage Assessment: 10:52 General: Appears uncomfortable, Behavior is calm, cooperative, appropriate for age. ap3 Pain: Complains of pain in generalized body aches. Neuro: Level of Consciousness is awake, alert, obeys commands, Oriented to person, place, time, situation. Cardiovascular: Patient's skin is warm and dry. Respiratory: Reports cough that is Airway is patent Respiratory effort is even, unlabored, Respiratory pattern is regular, symmetrical. Historical: - Allergies: 10:51 No Known Allergies; ap3 - PMHx: 10:51 Anxiety; COPD; Diabetes - NIDDM; Hyperlipidemia; ap3 - Immunization history:: Client reports receiving the 2nd dose of the Covid vaccine. - Social history:: Smoking status: Patient/guardian denies using tobacco, Stopped _ months ago 4. Screenin:52 Abuse screen: Denies threats or abuse. Nutritional screening: No deficits noted. ap3 Tuberculosis screening: No symptoms or risk factors identified. 13:02 Fall Risk None identified. tw2 Assessment: 12:50 Reassessment: Patient and/or family updated on plan of care and expected duration. Pain tw2 level reassessed. Patient is alert, oriented x 3, equal unlabored respirations, skin warm/dry/pink. pt c/o "headache behind eyes 06/26" Patient states symptoms have not improved. Neuro: Bee Agitation-Sedation Scale (RASS): 0 - Alert and Calm Level of Consciousness is awake, alert, obeys commands, Oriented to person, place, time, situation. Respiratory: Airway is patent Respiratory effort is even, unlabored, Respiratory pattern is regular, symmetrical. Derm: Skin is intact, is healthy with good turgor. 13:02 Reassessment: provider at bedside. tw2 13:57 Reassessment: No changes from previously documented assessment. Patient and/or family tw2 updated on plan of care and expected duration. Pain level reassessed. Patient is alert, oriented x 3, equal unlabored respirations, skin warm/dry/pink. 14:46 Reassessment: Patient and/or family updated on plan of care and expected duration. Pain tw2 level reassessed. Patient is alert, oriented x 3, equal unlabored respirations, skin warm/dry/pink. Patient states feeling better. Patient states symptoms have improved. 14:51 Reassessment: pt asking "How much longer will it be". tw2 15:07 Reassessment: pt reports "my blood pressure always runs low", provider notified. tw2 15:14 Reassessment: Patient appears in no apparent distress at this time. Patient and/or tw2 family updated on plan of care and expected duration. Pain level reassessed. Patient is alert, oriented x 3, equal unlabored respirations, skin warm/dry/pink. Patient states feeling better. Vital Signs: 10:49 Pulse 115; Resp 19; Temp 98.6; Pulse Ox 94% on R/A; Weight 85.73 kg; Height 5 ft. 6 in. ap3 (167.64 cm); 10:52 BP 104 / 63; ap3 13:03 BP 87 / 56 Supine; Pulse 95; Resp 17; Pulse Ox 95% on R/A; Pain 9/10; tw2 13:20 Temp 99.5(TE); tw2 13:58 BP 99 / 48 Supine; Pulse 94; Resp 19; Pulse Ox 91% on R/A; tw2 14:01 Pain 5/10; tw2 14:46 BP 90 / 45 Supine; Pulse 92; Resp 19; Pulse Ox 96% on 1 lpm NC; tw2 14:51 Temp 98.2(TE); Pulse Ox 96% on R/A; tw2 15:06 BP 96 / 54 Sitting; Pulse 93; Resp 19; Pulse Ox 100% on R/A; tw2 10:49 Body Mass Index 30.51 (85.73 kg, 167.64 cm) ap3 13:03 "headache tw2 13:58 pt placed on 1L nc at this time, provider notified. tw2 ED Course: 10:20 Patient arrived in ED. rg4 10:33 Ritika Looney FNP-C is PHCP. kb 10:33 Zackary Monge MD is Attending Physician. kb 10:51 Triage completed. ap3 10:52 Arm band placed on right wrist. ap3 11:26 Chest Single View XRAY In Process Unspecified. EDMS 12:54 Michelle Singh, LURDES is Primary Nurse. tw2 13:02 Bed in low position. Call light in reach. Adult w/ patient. Pulse ox on. NIBP on. tw2 13:18 Inserted saline lock: 20 gauge in left antecubital area, using aseptic technique. Blood tw2 collected. 15:13 No provider procedures requiring assistance completed. tw2 15:14 IV discontinued, intact, bleeding controlled, No redness/swelling at site. Pressure tw2 dressing applied. Administered Medications: 13:15 Drug: Tylenol 500 mg Route: PO; tw2 14:01 Follow up: Pain 5/10 Adult; Response: No adverse reaction; Pain is decreased tw2 13:18 Drug: NS 0.9% 1000 ml Route: IV; Rate: 1000 ml; Site: left antecubital; tw2 14:01 Follow up: Response: No adverse reaction; IV Status: Completed infusion; IV Intake: tw2 1000ml Medication: 13:03 VIS not applicable for this client. tw2 Intake: 14:01 IV: 1000ml; Total: 1000ml. tw2 Outcome: 15:04 Discharge ordered by . kb 15:14 Discharged to home ambulatory, with significant other. tw2 15:14 Condition: stable 15:14 Discharge instructions given to patient, significant other, Instructed on discharge instructions, follow up and referral plans. Demonstrated understanding of instructions, follow-up care. 15:14 Patient left the ED. tw2 Signatures: Dispatcher [employer] EDMS Ritika Looney, HERSON-C PROGRAM DIRECTOR AIR TALENT-Michelle Haq RN RN tw2 Traci Valentine rg4 Karen Hernandez RN RN ap3 Corrections: (The following items were deleted from the chart) 14:01 13:58 BP 99 / 48; Pulse 94bpm; Resp 19bpm; Pulse Ox 91% RA; pt placed on 2L nc at this tw2 time, provider notified.; tw2 14:46 13:03 BP 87 / 56; Pulse 95bpm; Resp 17bpm; Pulse Ox 95% RA; Pain 9/10; "headache; tw2 tw2 14:46 13:58 BP 99 / 48; Pulse 94bpm; Resp 19bpm; Pulse Ox 91% RA; pt placed on 1L nc at this tw2 time, provider notified.; tw2
--- NOTE | 2022-04-27 15:05 | EDPHYS ---
Physician Documentation [facility] Name: Nolberto Pérez Age: 62 yrs Sex: Female : 1960 Arrival Date: 04/27/2022 Time: 10:20 Bed 20 Private MD: ED Physician Zackary Monge HPI: 04/27 14:03 This 62 yrs old Female presents to ER via Ambulatory with complaints of Covid Symptoms. kb 14:03 Onset: The symptoms/episode began/occurred yesterday. Severity of symptoms: At their kb worst the symptoms were moderate, in the emergency department the symptoms are unchanged. Modifying factors: The symptoms are alleviated by nothing, the symptoms are aggravated by nothing. Associated signs and symptoms: Pertinent positives: fever, Pertinent negatives: chest pain, diarrhea, ear ache, nausea, rhinorrhea, sore throat, vomiting. The patient has not experienced similar symptoms in the past. The patient has not recently seen a physician. 14:17 The patient or guardian reports cough, that is intermittent, described as mild, flu kb symptoms, low-grade fever, myalgias. Pt reports fever, bodyaches, fatigue, malaise, and cough that started yesterday. STates oxygen level was low at home. Historical: - Allergies: 10:51 No Known Allergies; ap3 - PMHx: 10:51 Anxiety; COPD; Diabetes - NIDDM; Hyperlipidemia; ap3 - Immunization history:: Client reports receiving the 2nd dose of the Covid vaccine. - Social history:: Smoking status: Patient/guardian denies using tobacco, Stopped _ months ago 4. ROS: 13:59 Cardiovascular: Negative for chest pain, palpitations, and edema. kb 13:59 Constitutional: Positive for body aches, chills, fatigue, fever, malaise. 13:59 Respiratory: Positive for cough, Negative for dyspnea on exertion, hemoptysis, orthopnea, pleurisy, shortness of breath, sputum production, wheezing. 13:59 Neuro: Positive for headache. 13:59 All other systems are negative. Exam: 13:58 Constitutional: This is a well developed, well nourished patient who is awake, alert, kb and in no acute distress. Head/Face: Normocephalic, atraumatic. ENT: Moist Mucous membranes Cardiovascular: Regular rate and rhythm with a normal S1 and S2. No gallops, murmurs, or rubs. No pulse deficits. Respiratory: Respirations even and unlabored. No increased work of breathing. Talking in full sentences Abdomen/GI: Soft, non-tender. No distention Skin: Warm, dry with normal turgor. Normal color. MS/ Extremity: Pulses equal, no cyanosis. Neurovascular intact. Full, normal range of motion. Neuro: Awake and alert, GCS 15, oriented to person, place, time, and situation. Moves all extremities. Normal gait. Psych: Awake, alert, with orientation to person, place and time. Behavior, mood, and affect are within normal limits. 13:58 ECG was reviewed by the Attending Physician. Vital Signs: 10:49 Pulse 115; Resp 19; Temp 98.6; Pulse Ox 94% on R/A; Weight 85.73 kg; Height 5 ft. 6 in. ap3 (167.64 cm); 10:52 BP 104 / 63; ap3 13:03 BP 87 / 56 Supine; Pulse 95; Resp 17; Pulse Ox 95% on R/A; Pain 9/10; tw2 13:20 Temp 99.5(TE); tw2 13:58 BP 99 / 48 Supine; Pulse 94; Resp 19; Pulse Ox 91% on R/A; tw2 14:01 Pain 5/10; tw2 14:46 BP 90 / 45 Supine; Pulse 92; Resp 19; Pulse Ox 96% on 1 lpm NC; tw2 14:51 Temp 98.2(TE); Pulse Ox 96% on R/A; tw2 15:06 BP 96 / 54 Sitting; Pulse 93; Resp 19; Pulse Ox 100% on R/A; tw2 10:49 Body Mass Index 30.51 (85.73 kg, 167.64 cm) ap3 13:03 "headache tw2 13:58 pt placed on 1L nc at this time, provider notified. tw2 MDM: 10:53 Patient medically screened. kb 13:00 Data reviewed: vital signs, nurses notes. Data interpreted: Pulse oximetry: on room air kb is 94 %. Interpretation: normal. 15:04 Counseling: I had a detailed discussion with the patient and/or guardian regarding: the kb historical points, exam findings, and any diagnostic results supporting the discharge/admit diagnosis, lab results, radiology results, the need for outpatient follow up, a family practitioner, to return to the emergency department if symptoms worsen or persist or if there are any questions or concerns that arise at home. ED course: Pt states she is feeling better and wants to go home. Will return for worsening symptoms or other concerns. . 07 10:52 Order name: Flu; Complete Time: 11:38 kb 04/27 10:52 Order name: COVID-19 SARS RT PCR (Document "Date of Onset" if Symptomatic); Complete kb Time: 13:00 04/27 13:01 Order name: CBC with Diff; Complete Time: 13:41 kb 04/27 13:01 Order name: Basic Metabolic Panel; Complete Time: 13:55 kb 04/27 13:01 Order name: D-Dimer; Complete Time: 13:41 kb 04/27 13:01 Order name: Protime (+inr); Complete Time: 13:41 kb 04/27 10:52 Order name: Chest Single View XRAY; Complete Time: 11:58 kb 04/27 13:01 Order name: Ptt, Activated; Complete Time: 13:41 kb 04/27 13:01 Order name: IV Start; Complete Time: 13:20 kb 04/27 13:01 Order name: EKG; Complete Time: 13:01 kb 04/27 13:01 Order name: EKG - Nurse/Tech; Complete Time: 13:36 kb EC:58 Rate is 86 beats/min. Rhythm is regular. QRS [place] is Normal. [place] interval is normal at kb 160 msec. QRS interval is normal at 82 msec. QT interval is normal at 421 msec. Administered Medications: 13:15 Drug: Tylenol 500 mg Route: PO; tw2 14:01 Follow up: Pain 5/10 Adult; Response: No adverse reaction; Pain is decreased tw2 13:18 Drug: NS 0.9% 1000 ml Route: IV; Rate: 1000 ml; Site: left antecubital; tw2 14:01 Follow up: Response: No adverse reaction; IV Status: Completed infusion; IV Intake: tw2 1000ml Disposition: 18:49 Co-signature as Attending Physician, Zackary Monge MD. rn Disposition Summary: 04/27/22 15:04 Discharge Ordered Location: Home kb Condition: Stable kb Diagnosis - Coronavirus infection, unspecified kb Followup: kb - With: Emergency Department - When: As needed - Reason: Worsening of condition Followup: kb - With: Private Physician - When: 2 - 3 days - Reason: Recheck today's complaints, Continuance of care, Re-evaluation by your physician Discharge Instructions: - Discharge Summary Sheet kb - Viral Respiratory Infection, [id number] kb - COVID-19 kb Forms: - Medication Reconciliation Form kb - Thank You Letter kb - Antibiotic Education kb - Prescription Opioid Use kb Signatures: Dispatcher [employer] EDRitika Cho, HERSON-C HERSON-Zackary Partida MD MD rn Wise, Tara RN RN tw2 Karen Hernandez RN RN ap3
[2022-04-27 15:56] VITALS: TEMP 98.2
[2022-04-27 15:57] VITALS: BP 96/54; O2SAT 100
--- NOTE | 2022-04-28 07:50 | EKG ---
Test Date: 2022-04-27 Test Time: 13:27:33 Eligibility Technician: HAYDE MEASUREMENT RESULTS: Intervals: Rate: 86 AR: 160 QRSD: 82 QT: 352 QTc: 421 [place]: P: 81 AR: 160 QRS: 81 T: 79 INTERPRETIVE STATEMENTS: Normal sinus rhythm Normal ECG Compared to ECG 12/10/2021 11:57:19 No significant changes Electronically Signed On 04-28-22 07:48:26 CDT by Alton Garg
== END 2022-04-27 15:14 | disposition home or self-care (01) ==
LOC: ER 10:17
DX: R50.9 Fever, unspecified (principal); R05.9 Cough, unspecified; U07.1 COVID-19; R07.9 Chest pain, unspecified; R19.7 Diarrhea, unspecified; R07.1 Chest pain on breathing; J44.9 Chronic obstructive pulmonary disease, unspecified; E11.8 Type 2 diabetes mellitus with unspecified complications; E78.2 Mixed hyperlipidemia
CPT/HCPCS: 93005; 85025; 80048; 36415; 85610; 85379; 85730; 87804 ×2; 71045; U0003; J7030; 96360; 99284

== ENCOUNTER 2022-05-04 21:28 | Observation (INO) | payer BC ==
[2022-05-04] MEDS ORDERED: METHYLPREDNISOLONE 125 MG INJ ONE (22:33)
[2022-05-04] MEDS ORDERED: LEVALBUTEROL 1.25 MG/3 ML NEB ONE (22:33)
[2022-05-04] MEDS ORDERED: NA CHLORIDE 0.9% 1,000 ML ONE (22:34)
[2022-05-04 22:45] LABS: Hematocrit 38.8 % (36.0-45.0); Lymphocytes % 31.1 % (15.3-44.8); MCV 88.1 fL (80-100); MPV 7.3 fL (7.6-11.3)
[2022-05-04 22:47] LABS: Protime INR 0.89
[2022-05-04 22:55] LABS: ALT/SGPT 16 U/L (12-78); AST/SGOT 11 U/L (15-37); Albumin 3.3 g/dL (3.4-5.0); Alkaline Phosphatase 69 U/L (45-117); BUN Blood Urea Nitrogen 19 mg/dL (7-18); Bicarbonate 24 mmol/L (21-32); Bilirubin Total 0.2 mg/dL (0.2-1.0); C-Reactive Protein 6.87 mg/L (<3.00); Ferritin 104.5 ng/mL (8-388); Glomerular Filtration Rate 99 ml/min (=/>90); Glucose Level 98 mg/dL (74-106); Potassium 4.2 mmol/L (3.5-5.1); Sodium Level 141 mmol/L (136-145)
[2022-05-04 23:00] LABS: Bilirubin Direct < 0.1 mg/dL (0-0.2); Troponin High Sensitivity < 3.0 pg/mL (<58.9)
--- NOTE | 2022-05-04 23:25 | ER ---
Nurse's Notes [facility] Name: Nolberto Pérez Age: 62 yrs Sex: Female : 1960 Arrival Date: 05/04/2022 Time: 21:31 Bed 25 Private MD: Diagnosis: COPD/ Chronic obstructive pulmonary disease with (acute) exacerbation;SARS-associated coronavirus as the cause of diseases classified elsewhere;Hypoxemia Presentation: 05/04 21:32 Chief complaint: Worsening SOB over the last week. Seen in ED for same s/s, COVID hb POSITIVE 04/27. Reports home SpO2 low 80s. Respirations labored in triage. Coronavirus screen: Client presents with at least one sign or symptom that may indicate coronavirus-19. Standard/surgical mask placed on the client. Provider contacted for isolation considerations. Client reports previous positive COVID test result. Date of collection: April 27, 2022. Ebola Screen: No symptoms or risks identified at this time. Risk Assessment: Do you want to hurt yourself or someone else? Patient reports no desire to harm self or others. Onset of symptoms was April 26, 2022. 21:32 Method Of Arrival: Ambulatory hb 21:32 Acuity: TIFFANIE 2 hb Historical: - Allergies: 21:35 No Known Drug Allergies; hb - PMHx: 21:35 Anxiety; COPD; Diabetes - NIDDM; Hyperlipidemia; hb - PSHx: 21:35 Appendectomy; hb - Immunization history:: Client reports receiving the 2nd dose of the Covid vaccine. - Social history:: Smoking status: Patient denies any tobacco usage or history of. - Family history:: not pertinent. - Hospitalizations: : No recent hospitalization is reported. Vital Signs: 21:32 BP 116 / 67; Pulse 89; Resp 32; Temp 98.1; Pulse Ox 91% on R/A; Weight 85.73 kg; Height hb 5 ft. 6 in. (167.64 cm); Pain 6/10; 21:32 Body Mass Index 30.51 (85.73 kg, 167.64 cm) hb ED Course: 21:31 Patient arrived in ED. ja2 21:35 Triage completed. hb 21:36 Arm band placed on. hb 21:51 Zackary Monge MD is Attending Physician. rn 21:55 Slawson, [place], RN is Primary Nurse. as6 22:14 CXR XRAY In Process Unspecified. EDMS 22:39 Inserted saline lock: 20 gauge in right antecubital area, using aseptic technique. Blood collected. 22:40 BMP Sent. zm 22:40 Blood Culture Adult (2) Sent. zm 22:40 CBC with Diff Sent. zm 22:40 D-Dimer Sent. zm 22:40 Ferritin Sent. zm 22:40 LFT's Sent. zm 22:40 Lactate Sent. zm 22:40 PT-INR Sent. zm 22:40 Procalcitonin Sent. zm 22:40 Ptt, Activated Sent. zm 22:40 Troponin HS Sent. zm 23:24 Poncho Monge MD is Hospitalizing Provider. rn Administered Medications: 22:36 Drug: SOLU-Medrol (methylPrednisoLONE) 125 mg Route: IVP; Site: right antecubital; kd3 22:36 Drug: Xopenex (levalbuterol) (3) 1.25 mg Route: Inhalation; kd3 22:36 Drug: NS 0.9% 1000 ml Route: IV; Rate: 1000 ml; Site: right antecubital; kd3 Outcome: 23:24 Decision to Hospitalize by Provider. rn 05/05 05:58 Patient left the ED. mw2 Signatures: Dispatcher [employer] EDMS Zackary Monge MD MD rn Baxter, Heather RN Katja Clemons mw2 Naomi Wild Ash[place], RN RN as6 Risa Kendrick RN RN kd3 Pallavi Bourgeois Corrections: (The following items were deleted from the chart) 05/04 22:42 22:40 C-REACTIVE PROTEIN+C.LAB.BRZ drawn and sent. EDMS
--- NOTE | 2022-05-04 23:25 | EDPHYS ---
Physician Documentation [facility] Name: Nolberto Pérez Age: 62 yrs Sex: Female : 1960 Arrival Date: 05/04/2022 Time: 21:31 Bed 25 Private MD: ED Physician Zackary Monge HPI: 05/04 22:18 This 62 yrs old Female presents to ER via Ambulatory with complaints of Breathing rn Difficulty, Cough, Headache. 22:18 The patient has shortness of breath at rest, with light activity. Onset: The rn symptoms/episode began/occurred 1 week(s) ago. Duration: The symptoms are continuous. The patient's shortness of breath is aggravated by coughing, exertion, light activity, is alleviated by nothing. Associated signs and symptoms: Pertinent positives: non-productive cough, Pertinent negatives: hemoptysis, loss of consciousness. Severity of symptoms: At their worst the symptoms were moderate in the emergency department the symptoms are unchanged. The patient has experienced similar episodes in the past. The patient has not recently seen a physician. Pt reports COVID + for almost 1 week, has COPD, worsening sob. Not on home O2. No hx of DVT/PE. No abd pain. NO chest pain. . Historical: - Allergies: 21:35 No Known Drug Allergies; hb - PMHx: 21:35 Anxiety; COPD; Diabetes - NIDDM; Hyperlipidemia; hb - PSHx: 21:35 Appendectomy; hb - Immunization history:: Client reports receiving the 2nd dose of the Covid vaccine. - Social history:: Smoking status: Patient denies any tobacco usage or history of. - Family history:: not pertinent. - Hospitalizations: : No recent hospitalization is reported. ROS: 22:18 Constitutional: Negative for fever, chills, and weight loss, Eyes: Negative for injury, rn pain, redness, and discharge, Neck: Negative for injury, pain, and swelling, Cardiovascular: Negative for chest pain, palpitations, and edema, Respiratory: + sob and wheezing Abdomen/GI: Negative for abdominal pain, nausea, vomiting, diarrhea, and constipation, Back: Negative for injury and pain, : Negative for injury, bleeding, discharge, and swelling, MS/Extremity: Negative for injury and deformity, Skin: Negative for injury, rash, and discoloration, Neuro: Negative for headache, numbness, tingling, and seizure. Exam: 22:18 Constitutional: This is a well developed, well nourished patient who is awake, alert, rn mild tachypnea Head/Face: Normocephalic, atraumatic. Eyes: Periorbital areas with no swelling, redness, or edema. Cardiovascular: Regular rate and rhythm. No pulse deficits. Respiratory: + mild tachypnea, coarse bilateral breath sounds with wheezing, no retractions Abdomen/GI: Soft, non-tender Skin: Warm, dry MS/ Extremity: Pulses equal, no cyanosis. Neuro: Awake and alert, GCS 15 05/05 01:22 ECG was reviewed by the Attending Physician. rn Vital Signs: 05/04 21:32 BP 116 / 67; Pulse 89; Resp 32; Temp 98.1; Pulse Ox 91% on R/A; Weight 85.73 kg; Height hb 5 ft. 6 in. (167.64 cm); Pain 6/10; 21:32 Body Mass Index 30.51 (85.73 kg, 167.64 cm) hb MDM: 21:51 Patient medically screened. rn 23:23 Differential diagnosis: Chronic Obstructive Pulmonary Disease pneumonia, Pneumothorax rn pulmonary edema, reactive airway disease, Sepsis. Data reviewed: vital signs, nurses notes, lab test result(s), EKG, radiologic studies, plain films, and as a result, I will admit patient. Counseling: I had a detailed discussion with the patient and/or guardian regarding: the historical points, exam findings, and any diagnostic results supporting the discharge/admit diagnosis, lab results, radiology results, the need for further work-up and treatment in the hospital. Response to treatment: the patient's symptoms have mildly improved after treatment, and as a result, I will admit patient. Admission orders: after a detailed discussion of the patient's condition and case, the admit orders are written by me. 05/04 21:52 Order name: BMP; Complete Time: 23:16 rn 05/04 21:52 Order name: Blood Culture Adult (2) rn 05/04 21:52 Order name: CBC with Diff; Complete Time: 23:16 rn 05/04 21:52 Order name: D-Dimer; Complete Time: 23:16 rn 05/04 21:52 Order name: Ferritin; Complete Time: 23:16 rn 05/04 21:52 Order name: LFT's; Complete Time: 23:16 rn 05/04 21:52 Order name: Lactate; Complete Time: 23:16 rn 05/04 21:52 Order name: PT-INR; Complete Time: 23:16 rn 05/04 21:52 Order name: Procalcitonin rn 05/04 21:52 Order name: Ptt, Activated; Complete Time: 23:16 05/04 21:52 Order name: Troponin HS; Complete Time: 23:16 rn 05/04 22:42 Order name: C-Reactive Protein; Complete Time: 23:16 EDUT 05/05 00:01 Order name: COVID-19 SARS RT PCR (Document "Date of Onset" if Symptomatic) 3 05/04 21:52 Order name: CXR XRAY rn 05/04 21:52 Order name: EKG; Complete Time: 21:55 rn 05/04 21:52 Order name: Cardiac monitoring; Complete Time: 22:14 05/04 21:52 Order name: Droplet/Contact Precautions; Complete Time: 22:14 05/04 21:52 Order name: EKG - Nurse/Tech; Complete Time: 22:15 rn 05/04 21:52 Order name: IV Start; Complete Time: 22:40 rn 05/04 21:52 Order name: Labs collected and sent; Complete Time: 22:40 rn 05/04 21:52 Order name: O2 Per Protocol; Complete Time: 21:58 rn 05/04 21:52 Order name: O2 Sat Monitoring; Complete Time: 21:58 rn 05/05 05:26 Order name: CBC with Automated Diff EDMS 05/05 05:41 Order name: Basic Metabolic Panel EDMS EC/20 01:22 Rate is 86 beats/min. Rhythm is regular. QRS Marlin is Normal. HI interval is normal. QRS rn interval is normal. QT interval is normal. No Q waves. T waves are Normal. No ST changes noted. Clinical impression: Normal ECG. Interpreted by me. Reviewed by me. Administered Medications: 05/04 22:36 Drug: SOLU-Medrol (methylPrednisoLONE) 125 mg Route: IVP; Site: right antecubital; kd3 22:36 Drug: Xopenex (levalbuterol) (3) 1.25 mg Route: Inhalation; kd3 22:36 Drug: NS 0.9% 1000 ml Route: IV; Rate: 1000 ml; Site: right antecubital; kd3 Disposition Summary: 05/04/22 23:24 Hospitalization Ordered Hospitalization Status: Inpatient Admission rn Provider: Poncho Monge rn Condition: Stable rn Problem: an acute exacerbation rn Symptoms: have improved rn Bed/Room Type: Standard rn Location: [facility] ER HOLD(05/04/22 23:25) tw5 Room Assignment: ERHOLD-(05/04/22 23:25) tw5 Diagnosis - COPD/ Chronic obstructive pulmonary disease with (acute) exacerbation rn - SARS-associated coronavirus as the cause of diseases classified elsewhere rn - Hypoxemia rn Forms: - Medication Reconciliation Form rn - SBAR form rn Signatures: Dispatcher [employer] EDMS Zackary Monge MD MD rn Attema, Lee, INDOOR LANDSCAPE ARCHITECT-C INDOOR LANDSCAPE ARCHITECT-Cla1 Katerin Smith RN RN Tiffani Ulloa tw5 Risa Kendrick RN RN kd3 Corrections: (The following items were deleted from the chart) 22:42 22:12 C-REACTIVE PROTEIN+C.LAB.BRZ ordered. EDUT EDUT 23:25 23:24 Telemetry/MedSurg (Inpatient) rn tw5 23:25 23:24 rn tw5
[2022-05-05] MEDS ORDERED: BENZONATATE 100 MG CAP PO PRN (00:10)
[2022-05-05] MEDS ORDERED: ONDANSETRON 4 MG/2 ML VIAL IV PRN (00:10)
--- NOTE | 2022-05-05 00:10 | P.HP ---
Certification for Inpatient Patient admitted to: Observation With expected LOS: <2 Midnights Patient will require the following post-hospital care: None Practitioner: I am a practitioner with admitting privileges, knowledge of patient current condition, hospital course, and medical plan of care. Services: Services provided to patient in accordance with Admission requirements found in Title 42 Section 412.3 of the Code of Federal Regulations <DanielleGibran Jane - Last Filed: 05/05/22 00:07> Patient History Date of Service: 05/05/22 Reason for admission: COPD exacerbation History of Present Illness: 62-year-old female with history of COPD, diabetes mellitus type [id number], hyperlipidemia presents to the emergency department for shortness of breath. She reports that she tested positive for COVID on 04/27/2022, she is vaccinated against COVID. She reports increasing shortness of breath over the course of the last few days, reports her saturations have been in the high 80s at home she was evaluated here in the emergency department found to have expiratory wheezing on exam, tachypnea mild hypoxia with room air saturation around 90%. She was given nebulizer treatments and IV steroids in the emergency department she has had some improvement with her saturations increasing to around 94 to 95% but still with expiratory wheezing and shortness of breath. ED prior wishes to admit for further evaluation and management of COPD exacerbation. Chest x-ray is unremarkable CRP relatively low 6.8 D-dimer is negative. Suspect this is more likely related to COPD exacerbation rather than COVID-pneumonia. - Past Medical/Surgical History Diabetic: Yes -: Diabetes mellitus type 2 [id number] -: Depression -: COPD -: Tobacco abuse -: Restless leg syndrome -: Hyperlipidemia -: Urinary incontinence -: Tubal ligation -: Appendectomy -: scar tissue removed abdomen -: voice box biopsy Psychosocial/ Personal History: Patient is - Family History Father -: Cancer Notes: lung cancer Mother -: Hypertension, Diabetes Brother -: Heart disease, Cancer Notes: lung cancer - Social History Smoking Status: Former smoker Alcohol use: No CD- Drugs: No Caffeine use: Yes Place of Residence: Home <Gibran Santos - Last Filed: 05/05/22 00:07> Date of Service: 05/05/22 <Poncho Monge - Last Filed: 05/05/22 21:10> Allergies No Known Drug Allergies Allergy (Verified 04/13/16 06:51) none Home Medications: Albuterol Neb [Proventil 0.083% Neb Soln] 1 amp NEB Q6H PRN 12/10/21 Aripiprazole [Abilify] 1 tab PO DAILY 12/10/21 Atorvastatin Calcium 1 tab PO DAILY 12/10/21 Cetirizine HCl [Zyrtec] 10 mg PO BEDTIME 12/10/21 Metformin HCl 1 tab PO DAILY 12/10/21 Oxybutynin Chloride [Oxybutynin Chloride ER] 1 tab PO DAILY 12/10/21 PARoxetine HCl [Paxil] 1 tab PO DAILY 12/10/21 Fluconazole [Diflucan] 200 mg PO DAILY #7 tablet 12/12/21 Review of Systems 10-point ROS is otherwise unremarkable Respiratory: Cough, Dry, Shortness of Breath, SOB with Excertion, Wheezing <Gibran Santos - Last Filed: 05/05/22 00:07> Physical Examination - Physical Exam General: Alert, In no apparent distress, Oriented x3 HEENT: Atraumatic, PERRLA, Mucous membr. moist/pink, EOMI, Sclerae nonicteric Neck: Supple, 2+ carotid pulse no bruit, No LAD, Without JVD or thyroid abnormality Respiratory: Diminished, Expiratory wheezes Cardiovascular: Regular rate/rhythm, Normal S1 S2 Gastrointestinal: Normal bowel sounds, No tenderness Musculoskeletal: No tenderness Integumentary: No rashes Neurological: Normal gait, Normal speech, Normal strength at 5/5 x4 extr, Normal tone, Normal affect Lymphatics: No axilla or inguinal lymphadenopathy - Studies Laboratory Data (last 24 hrs) 05/04/22 22:20: PT 9.8, INR 0.89, APTT 33.5 05/04/22 22:20: WBC 6.3, Hgb 12.9, Hct 38.8, Plt Count 283 05/04/22 22:20: Sodium 141, Potassium 4.2, BUN 19 H, Creatinine 0.65, Glucose 98, Total Bilirubin 0.2, AST 11 L, ALT 16, Alkaline Phosphatase 69 <Gibran Santos - Last Filed: 05/05/22 00:07> - Studies Laboratory Data (last 24 hrs) 05/04/22 22:20: PT 9.8, INR 0.89, APTT 33.5 05/04/22 22:20: WBC 6.3, Hgb 12.9, Hct 38.8, Plt Count 283 05/04/22 22:20: Sodium 141, Potassium 4.2, BUN 19 H, Creatinine 0.65, Glucose 98, Total Bilirubin 0.2, AST 11 L, ALT 16, Alkaline Phosphatase 69 <Poncho Monge - Last Filed: 05/05/22 21:10> Assessment and Plan - Plan Assessment: COPD with exacerbation Diabetes mellitus type [id number] Hyperlipidemia COVID-19 positive Plan: COPD with exacerbation: Scheduled nebs, IV steroids, ICS, daily room air saturations. Pulmonology consult in place. Diabetes mellitus type [id number]: ACH S Accu-Chek, sliding scale insulin. Hyperlipidemia: Continue medications once verified COVID-19 positive: First tested + 04/27/2022, patient is vaccinated has not taken any other medications to treat COVID CRP, D-dimer levels are low no pneumonia chest x-ray. Continue to monitor, appreciate pulmonology input. DVT PPX: Lovenox Code status: Full Discharge Plan: Home Plan to discharge in: 24 Hours - Advance Directives Does patient have a Living Will: No Does patient have a Durable POA for Healthcare: No - Code Status/Comfort Care Code Status Assessed: Yes (Full code) Critical Care: No Time Spent Managing Pts Care (In Minutes): 70 <Gibran Santos - Last Filed: 05/05/22 00:07> - Plan Agree with plan of care as noted above. UPDATE: Paged by RN early this morning, patient wanting to leave AMA. Patient reported feeling better and ready to go home. Oxygen saturation 89-90% on room air. Discussed would recommend continued treatment and observation in hospital. Re- eval later in the day for possible discharge if stable / improving. Discussed potential risks of worsening symptoms /disease process, and even risk of ., Patient did not want to wait any longer and signed out AMA. She reported having nebs at home and a prescription for steroids that she will take. Discussed to follow up with PCP and Dr. Doran in a few days. Return to ED if worsening. <Poncho Monge - Last Filed: 05/05/22 21:10>
[2022-05-05] MEDS ORDERED: METHYLPREDNISOLONE 40 MG INJ ONE (00:25)
[2022-05-05] MEDS ORDERED: METHYLPREDNISOLONE 40 MG INJ IV SCH (01:00)
[2022-05-05] MEDS: IPRATROPIUM BROM 0.5MG/2.5ML NEB SCH ×2 (01:52→08:00)
[2022-05-05] MEDS: ALBUTEROL 2.5 MG/3 ML NEB SOL NEB SCH ×2 (01:52→08:00)
[2022-05-05] MEDS ORDERED: ALBUTEROL 2.5 MG/3 ML NEB SOL ONE (01:53)
[2022-05-05] MEDS ORDERED: IPRATROPIUM BROM 0.5MG/2.5ML ONE (01:53)
[2022-05-05 05:14] LABS: Absolute Lymphocytes (CBC) 0.8 K/uL (0.7-4.9); Hematocrit 37.3 % (36.0-45.0); Lymphocytes % 11.7 % (15.3-44.8); MCV 89.4 fL (80-100); MPV 7.4 fL (7.6-11.3); Potassium 4.1 mmol/L (3.5-5.1); RBC Red Blood Cell Count 4.18 M/uL (3.86-4.86)
--- NOTE | 2022-05-05 07:20 | EKG ---
Test Date: 2022-05-04 Test Time: 22:01:44 [facility]: [facility] MEASUREMENT RESULTS: Intervals: Rate: 86 TX: 146 QRSD: 78 QT: 344 QTc: 411 [place]: P: 76 TX: 146 QRS: 86 T: 78 INTERPRETIVE STATEMENTS: Normal sinus rhythm Normal ECG Compared to ECG 04/27/2022 13:27:33 No significant changes Electronically Signed On 05-05-22 07:20:24 CDT by Alton Garg
[2022-05-05] MEDS ORDERED: INSULIN -REGULAR HUMAN 50 UNIT/0.5 ML ML SQ SCH (07:30)
--- NOTE | 2022-05-05 08:44 | P.CNS ---
Date of Consult: 05/05/22 Reason for Consult: Coronavirus positive Chief Complaint: COPD exacerbation History of Present Illness: Patient is 62 years of age with a history of COPD metabolic syndrome has been sick for a week tested positive for COVID planing of some diarrhea weakness cu rrently stable notes of breath and some coughing Allergies No Known Drug Allergies Allergy (Verified 04/13/16 06:51) none Home Medications: Albuterol Neb [Proventil 0.083% Neb Soln] 1 amp NEB Q6H PRN 12/10/21 Aripiprazole [Abilify] 1 tab PO DAILY 12/10/21 Atorvastatin Calcium 1 tab PO DAILY 12/10/21 Cetirizine HCl [Zyrtec] 10 mg PO BEDTIME 12/10/21 Metformin HCl 1 tab PO DAILY 12/10/21 Oxybutynin Chloride [Oxybutynin Chloride ER] 1 tab PO DAILY 12/10/21 PARoxetine HCl [Paxil] 1 tab PO DAILY 12/10/21 Fluconazole [Diflucan] 200 mg PO DAILY #7 tablet 12/12/21 - Past Medical/Surgical History Diabetic: Yes -: Diabetes mellitus type 2 [id number] -: Depression -: COPD -: Tobacco abuse -: Restless leg syndrome -: Hyperlipidemia -: Urinary incontinence -: Tubal ligation -: Appendectomy -: scar tissue removed abdomen -: voice box biopsy Psychosocial/ Personal History: Patient is - Family History Father Medical History: Cancer Notes: lung cancer Mother Medical History: Hypertension, Diabetes Brother Medical History: Heart disease, Cancer Notes: lung cancer - Social History Smoking Status: Current every day smoker Alcohol use: No CD- Drugs: No Caffeine use: Yes Place of Residence: Home Review of Systems General: Weakness Respiratory: Cough, Shortness of Breath Physical Examination Temp Pulse Resp BP Pulse Ox 99.2 F 89 18 110/66 96 05/05/22 00:26 05/04/22 21:32 05/05/22 00:26 05/05/22 00:26 05/05/22 00:26 General: Alert Respiratory: Diminished, Expiratory wheezes Cardiovascular: No edema, Regular rate/rhythm Capillary refill: >2 Seconds Gastrointestinal: Soft and benign Laboratory Data (last 24 hrs) 05/04/22 22:20: PT 9.8, INR 0.89, APTT 33.5 05/04/22 22:20: WBC 6.3, Hgb 12.9, Hct 38.8, Plt Count 283 05/04/22 22:20: Sodium 141, Potassium 4.2, BUN 19 H, Creatinine 0.65, Glucose 98, Total Bilirubin 0.2, AST 11 L, ALT 16, Alkaline Phosphatase 69 - Problems (1) COPD with acute exacerbation Onset Date: 10/18/17 Current Visit: No Status: Acute Plan: Patient is 62 years of age admitted with COPD exacerbation also tested positive for COVID/labs reviewed continue with present therapy
[2022-05-05] MEDS ORDERED: ENOXAPARIN 40 MG/0.4 ML SQ SCH (09:00)
[2022-05-05] MEDS ORDERED: DULERA 200/5 (MOMETASONE/FORMOTEROL) INHALER IH SCH (09:00)
[2022-05-05 09:01] VITALS: O2SAT 89
[2022-05-05 09:11] VITALS: BP 108/64; TEMP 97.8
--- NOTE | 2022-05-05 12:23 | RAD REPORT ---
EXAM DESCRIPTION: Chest Single View CLINICAL HISTORY: 2 years Female, COVID, hypoxemia COMPARISON: Chest radiograph dated 04/27/2022 IMPRESSION: No pulmonary opacities identified. Please note that chest radiographs have low sensitivi ty for subtle groundglass opacities. Bibasilar atelectasis or scarring. No pleural effusion. No pneumothorax. Cardiomediastinal silhouette is within normal limits. No acute osseous abnormality. Electronically signed by: Lawrence Cowan DO 05/04/2022 11:02 PM CDT Due to temporary technical issues with the PACS/Fluency reporting system, reports are being signed by the in house radiologists without review as a courtesy to insure prompt reporting. The interpreting radiologist is fully responsible for the content of the report.
--- OUTSIDE RECORDS SUMMARY | 2022-05-06 14:56 | XMS REPORT | Continuity of Care Document ---
:1960 Author Organization [facility] Address [address] [place] [address] [address]. [address] [place] [address] Care Team Providers Name Role Phone Wade Attending Clinician Unavailable Conor Attending Clinician Unavailable BELINDA Attending Clinician Unavailable MD Mikayla TREVINO Attending Clinician Unavailable SHRAVAN Attending Clinician Unavailable BELINDA Admitting Clinician Unavailable MD Mikayla TREVINO Admitting Clinician Unavailable Problems Condition Condition Condition Status Onset Resolution Last Treating Co mments Source Name Details Category Date Date Treatment Clinician Date Restless Restless Problem Active Commo n leg leg Spirit syndrome syndrome - [facility] Environmen Environmen Problem Active C ommon amrik amrik Spirit allergies allergies - CH I [facility] Facet Facet Problem Active Common hypertroph hypertroph Sp teri y of y of - CHI cervical cervical St region region [facility] COPD COPD Problem Active Common (chronic (chronic Spirit obstructiv obstructiv - CHI e e pulmonary pulmonary Lu s disease) disease) Medica l with with Center chronic chronic bronchitis bronchitis Obesity Obesity Problem Active Common (BMI (BMI Spirit 30.0-34.9) 30.0-34.9) - [facility] Hyperlipid Hyperlipid Problem Active C ommon emia, emia, Spirit unspecifie unspecifie - [facility]I d d St hyperlipid hyperlipid Kya ke emia type emia type [facility] Center Urinary Urinary Problem Active Common incontinen incontinen Sp teri ce, ce, - CHI unspecifie unspecifie St d type d [facility] Uncontroll Uncontroll Problem Active C ommon ed type 2 ed type 2 Spir it diabetes diabetes - CHI mellitus mellitus St with with [facility] hyperglyce hyperglyce Me dical [facility] Center Glaucoma Glaucoma Problem Active Commo n of both of both Spirit eyes, eyes, - [facility]I unspecifie unspecifie St d glaucoma d glaucoma Kya kes type type Medical [facility] Depression Depression Problem Active C ommon Spirit - [facility] Right Right Problem Active Common kidney kidney Spirit stone stone - [facility] Pure Pure Problem Active Common hyperchole hyperchole Sp teri sterolemia sterolemia - [facility] Neuropathy Neuropathy Problem Active C ommon Spirit - [facility] Type 2 Type 2 Problem Active Common diabetes diabetes Spirit mellitus mellitus - [facility] with with St diabetic diabetic [facility] neuropathy neuropathy Me dical , without , without Cent er long-term long-term current current use of use of insulin insulin Breast Breast Diagnosis Active Common cancer cancer [facility] screening screening - I by by mammogram mammogram [facility] Allergies, Adverse Reactions, Alerts This patient has no known allergies or adverse reactions. Medications Ordered Filled Start Stop Current Ordering Indication Dosage Frequency Signature Comments Components Source Medication Medication Date Date Medication? Clinician (SIG) Name Name Ondansetron Ondansetron 2020-0 Yes Danielle 1 tablet Common HCl HCl 6-05 [place] as needed Spiri t 00:00: for - CHI nausea/vom [facility] Meclizine Meclizine 2019-0 Yes Danielle 1 tablet Common HCl HCl 6-05 [place] as needed Spiri t 00:00: for - CHI 00 dizziness [facility] Glucose Glucose 2020-0 Yes Danielle as Common testing testing 1-22 Millender directed Spirit strips strips 00:00: (dispense - I [address] [facility] Medical to [place] insurance) Blood Blood 2020-0 Yes Danielle as Common Glucose Glucose 1-22 [place] directed Spirit Monitor Monitor 00:00: (DISPENSE - CHI 00 BLOOD GLUCOSE [facility] MONITOR Medical [facility] TO INSURANCE) Lancets Lancets 2020-0 Yes Danielle as Common 1-22 [place] directed Spirit 00:00: (dispense - CHI 00 lancets [facility] to Medical insurance) Center Metformin Metformin 2018-10 Yes Danielle 1 tablet Common HCl HCl 0-18 [place] with a Spirit 00:00: meal - CHI 00 [facility] Albuterol Albuterol Yes Danielle 3 ml as C ommon Sulfate Sulfate [place] needed Sp teri - [facility] Atorvastati Atorvastati Yes Danielle 1 tablet Common n Calcium n Calcium [place] Spirit - [facility] Claritin Claritin Yes Danielle not Common Millender defined [facility] Trelegy Trelegy Yes Danielle 1 puff Common Ellipta Ellipta Millender Spir [facility] ProAir HFA ProAir HFA Yes Danielle 1 puff as Common Millender needed [facility] Symbicort Symbicort Yes Danielle 2 puffs C ommon Millender [facility] Ropinirole Ropinirole Yes Danielle as Co mmon HCl HCl Millender directed [facility] Paxil Paxil Yes Danielle 1 tablet Common [facility] in [facility] Procedures This patient has no known procedures. Encounters Start End Encounter Admission Attending Care Care Encounter Source Date/Time Date/Time Type Type Clinicians Facility Department ID 2021-11-11 Outpatient Alex Wade [facility] [id number] Common 11:58:51 [id number] [facility] 2021-11-11 Outpatient Conor STLMLC [facility] [id number] Common 11:33:26 Danielle [id number] [facility] 2021-11-11 Outpatient Conor STLML[facility] [id number] Common 11:33:09 Danielle [id number] [facility] 2021-11-11 Outpatient Conor STLMLC [facility] [id number] Common 11:02:18 Danielle [id number] [facility] 2021-02-12 2021-02-12 Outpatient [facility] [id number] [place] 00:00:00 00:00:00 LOBO 629 Method i 2021-02-02 2021-02-02 Outpatient [facility] [id number] [place] 00:00:00 00:00:00 LOBO 583 Method i 2021-01-28 2021-01-28 Outpatient [facility] [id number] [place] 00:00:00 00:00:00 LOBO 964 Method i 2021-01-28 2021-01-28 Outpatient [facility] [id number] [place] 00:00:00 00:00:00 LOBO 033 Method i 2021-01-13 2021-01-13 Outpatient BELINDA, [facility] [id number] [place] 00:00:00 00:00:00 LOBO 863 Method i 2020-12-23 2020-12-23 Outpatient BELINDA, [facility] [id number] [place] 00:00:00 00:00:00 LOBO 028 Method i 2020-12-23 2020-12-23 Outpatient [facility] [id number] [place] 00:00:00 00:00:00 029 Method i 2020-11-25 2020-11-25 Outpatient SHRAVAN, [facility] [id number] [place] 00:00:00 00:00:00 VIVIAN 660 Method i 2020-11-25 2020-11-25 Outpatient SHRAVAN, [facility] [id number] [place] 00:00:00 00:00:00 VIVIAN 059 Method i 2020-06-17 2020-06-17 [facility] [id number] Common 09:31:00 09:31:[address] [facility] 2020-05-14 2020-05-14 Out[facility] [id number] Common 10:00:00 10:00:[address] [facility] 2020-03-24 2020-03-24 Outpatient [facility] [id number] Common 00:38:00 00:38:[address] [facility] 2020-03-21 2020-03-21 Outpatient [facility] [id number] Common 10:20:00 10:20:[address] [facility] 2020-02-05 2020-02-05 Outpatient [facility] [id number] Common 08:30:00 08:30:[address] [facility] 2019-11-07 2019-11-07 Out[facility] [id number] Common 09:00:00 09:00:[address] [facility] Results Test Description Test Time Test Comments Results Result Comments Source SARS-CoV-2 (COVID-19) RNA [Presence] in Respiratory sp ecimen by 2021-01-28 19:25:56 HANNAH with probe detection Test Item Value Reference Range Interpretation Comme nts SARS-CoV-2 (COVID-19) RNA [Presence] in Respiratory Not detected No t-Detected specimen by HANNAH with probe detection (test code = 15223-3)
== END 2022-05-05 09:48 | disposition left against medical advice (07) ==
LOC: ER 21:28 → ERHOLD 05-05 00:04 → 4TH 05-05 05:47
PROVIDERS: ADMIT Hospitalist; ATTEND Hospitalist
DX: J44.1 Chronic obstructive pulmonary disease with (acute) exacerbation (principal); U07.1 COVID-19; Z53.29 Procedure and treatment not carried out because of patient's decision for other reasons; E11.9 Type 2 diabetes mellitus without complications; R09.02 Hypoxemia; E78.5 Hyperlipidemia, unspecified; E88.81 Metabolic syndrome and other insulin resistance; G25.81 Restless legs syndrome; F32.A Depression, unspecified; R32 Unspecified urinary incontinence; Z79.899 Other long term (current) drug therapy; Z79.84 Long term (current) use of oral hypoglycemic drugs; Z87.891 Personal history of nicotine dependence; Z98.51 Tubal ligation status; Z83.3 Family history of diabetes mellitus; Z80.1 Family history of malignant neoplasm of trachea, bronchus and lung; Z82.49 Family history of ischemic heart disease and other diseases of the circulatory system
CPT/HCPCS: 93005; 87040 ×2; 85025 ×2; 80048 ×2; 36415; 85610; 82947; 85379; 80076; 83605; 85730; 84484; 82728; 84145; 86140; 71045; 94640 ×2; 96374; 99284; U0003; J7030; J2930; J2920; G0378 ×2; J3535

== ENCOUNTER 2023-06-16 06:37 | Emergency (ER) | payer BC ==
--- OUTSIDE RECORDS SUMMARY | 2023-06-16 06:41 | XMS REPORT | Continuity of Care Document ---
:1960 Author Organization [facility] t Address [address] [place] [address] Care Team Providers Name Role Phone Sondra Klein Primary Care Physician Alex Wade Attending Clinician Unavailable Danielle Perdomo Attending Clinician Unavailable Edilson Terrell MD Attending Clinician [phone] Ramon Ruth MD Attending Clinician Leticia Martinez Attending Clinician Nurys Jasso MA Attending Clinician Unavailable Naz Rodriguez MA Attending Clinician Unavailable Yesi Burdick MA Attending Clinician Unavailable Marito Lawson MD Attending Clinician LOBO TREVINO Attending Clinician Unavailable MD LOBO TREVINO Attending Clinician Unavailable VIVIAN CHENEY Attending Clinician Unavailable EDILSON TERRELL Admitting Clinician Unavailable LOBO TREVINO Admitting Clinician Unavailable MD LOBO TREVINO Admitting Clinician Unavailable Payers Payer Name Policy Type Policy Number Effective Date Expiration Date S ource Problems Condition Condition Condition Status Onset Resolution Last Treating Co mments Source Name Details Category Date Date Treatment Clinician Date Family Family Disease Active Overview: Method i history of history of 5-[address] complicati complicati 00:00: g of this Hospita on of on note l anesthesia anesthesia might be different from the original. Mother-PRADHAN RD TO WAKE UP. Stress Stress Disease Active Methodi incontinen incontinen 5-04 st ce ce 00:00: Hospita 00 l Restless Restless Problem Active Commo n leg leg Spirit syndrome syndrome - [facility] Environmen Environmen Problem Active C jannet amrik amrik Spirit allergies allergies - CH I [facility] Facet Facet Problem Active Common hypertroph hypertroph Sp teri y of y of - cervical cervical St region region [facility] COPD COPD Problem Active Common (chronic (chronic Spirit obstructiv obstructiv - e e pulmonary pulmonary [facility] disease) disease) Medica l with with Center chronic chronic bronchitis bronchitis Obesity Obesity Problem Active Common (BMI (BMI Spirit 30.0-34.9) 30.0-34.9) - [facility] Hyperlipid Hyperlipid Problem Active C ommon emia, emia, Spirit unspecifie unspecifie - d d hyperlipid hyperlipid [facility] emia type emia type [facility] Urinary Urinary Problem Active Common incontinen incontinen Sp teri ce, ce, - unspecifie unspecifie St d type d [facility] Uncontroll Uncontroll Problem Active C ommon ed type 2 ed type 2 Spir it diabetes diabetes - mellitus mellitus St with with [facility] hyperglyce hyperglyce Me dical apple [facility] Glaucoma Glaucoma Problem Active Commo n of both of both [facility] eyes, eyes, - unspecifie unspecifie d glaucoma d glaucoma [facility] Depression Depression Problem Active [facility] Right Right Problem Active Common kidney kidney Spirit stone stone - [facility] Pure Pure Problem Active Common hyperchole hyperchole Sp teri sterolemia sterolemia - [facility] Neuropathy Neuropathy Problem Active C ommon Spirit [facility] Type 2 Type 2 Problem Active Common diabetes diabetes [facility] mellitus mellitus - with with St diabetic diabetic [facility] neuropathy neuropathy Me dical , without , without Cent er long-term long-term current current use of use of insulin insulin Breast Breast Diagnosis Active Common cancer cancer [facility] screening screening - I by by St mammogram mammogram [facility] Allergies, Adverse Reactions, Alerts This patient has no known allergies or adverse reactions. Family History Family Member Diagnosis Comments Start Date Stop Date Source Natural brother Cancer [facility] Natural brother Heart attack [facility] father Cancer [facility] Natural father Heart attack [facility] Natural mother Asthma [facility] Natural mother Diabetes [facility] Natural mother Heart failure [facility] Social History Social Habit Start Date Stop Date Quantity Comments Source Gender identity 2020-11-24 Identifies as Method ist 11:22:30 female gender [facility] (finding) Sexual orientation 2020-11-24 Heterosexual Meth odist 11:22:30 (finding) Hospital Alcohol intake 2023-05-18 2023-05-18 Ex-drinker [facility] 00:00:00 00:00:00 (finding) Hospital History of Social 2023-05-18 2023-05-[address] function 00:00:00 00:00:00 Hospital Cigarettes smoked 2023-03-01 2023-03-[address] current (pack per 00:00:00 00:00:00 Hospita l day) - Reported Cigarette 2023-03-01 2023-03-01 [facility] pack-years 00:00:00 00:00:00 Hospital Tobacco use and 2023-03-01 2023-03-01 Smokeless tobacco [facility] exposure 00:00:00 00:00:00 non-user Hospital Tobacco Comment 2022-11-25 2022-11-25 I have quit on my Me thodist 00:00:00 00:00:00 own for a year and Hospit al 5 months. History of tobacco 1976-11-17 2022-07-07 Current smoker Me thodist use 00:00:00 00:00:00 [facility] Sex Assigned At [birth year] F [facility]arian 00:00:00 00:00:00 Hospital Smoking Status Start Date Stop Date Source Ex-smoker 2023-03-01 00:00:00 2023-03-01 00:00:00 [facility] Medications Ordered Filled Start Stop Current Ordering Indication Dosage Frequency Signature Comments Components Source Medication Medication Date Date Medication? Clinician (SIG) Name Name budesonide- Yes 2{puff} Inhale 2 Methodi formoteroL 8-[address] (Symbicort) 16:03: Hospit a 80-4.5 30 l mcg/actuati on inhaler loteprednol Yes INSTILL 1 M ethodi (LOTEMAX) 7-[address] 0.5 % 00:00: BOTH EYES Hospita ophthalmic 00 TWICE l suspension DAILY FOR 2 WEEK rosuvastati 2022-0 Yes Method i n (CRESTOR) 6-23 st 20 mg 00:00: Hospita tablet 00 l fluconazole 2022-0 Yes 200mg Take 1 Met hodi (DIFLUCAN) 6-[address] 200 MG 00:00: (200 mg Hospita tablet 00 total) by l mouth. levoFLOXaci 2022-0 Yes TAKE 1 Meth dahlia n 6-[address] (LEVAQUIN) 00:00: MOUTH Hospit a 500 MG 00 EVERY 24 l tablet HOURS FOR 7 DAYS ARIPiprazol 2022-0 Yes 2mg QD Take 1 Meth dahlia e (ABILIFY) 5-25 tablet (2 st 2 MG tablet 11:13: mg total) H ospita 01 by mouth l daily. predniSONE 2022-0 Yes 10mg QD Take 1 Metho di (DELTASONE) 5-25 tablet (10 st 10 mg 11:13: mg total) Hospita tablet 01 by mouth l daily. acetaminoph 2022-0 Yes [id number] 1{tbl} Q6H Take 1 M ethodi en-codeine 5-[address] (TYLENOL 00:00: mouth Hospita WITH 00 every 6 l CODEINE #3) (six) 300-30 mg hours as per tablet needed for moderate pain .acute pain. cephalexin 2022-0 2023- No 500mg Q.5D Take 1 Met hodi (Keflex) 5-25 05-[address] 500 MG 00:00: 04:59 (500 mg Hospita capsule 00 :00 total) by l mouth 2 (two) times a day for 5 days. estradioL 2022-0 2025- No 1g Q.5W Insert 1 g M ethodi (ESTRACE) 5- 10-[address] 0.01 % (0.1 00:00: 04:59 vagina 2 H ospita mg/gram) 00 :00 (two) l vaginal times a cream week. Use nightly for the first 2 weeks semaglutide 2022-0 2023- No .5mg Q7D Inject 0.5 Methodi (Ozempic) 5-04 08-[address] 0.25 mg or 00:00: 04:59 the skin Ho spita 0.5 mg(2 00 :00 once a l mg/1.5 mL) week. subcutaneou s pen Breztri Yes 2{puff} Q.5D Inhale 2 Met hodi Aerosphere 3-[address] 160-9-4.8 00:00: (two) Hospita mcg/actuati 00 times a l on HFA day. aerosol inhaler buPROPion Yes 300mg QD Take 1 Metho di XL 3-[address] (WELLBUTRIN 00:00: (300 mg Hos alyssa XL) 300 MG 00 total) by l 24 hr mouth tablet daily. levothyroxi Yes TAKE 1 Meth dahlia ne 3-[address] (SYNTHROID) 00:00: MOUTH Hospi ta 50 mcg 00 EVERY l tablet MORNING ON AN EMPTY STOMACH FOR THYROID budesonide- Yes 2{puff} Q.5D Inhale 2 Methodi glycopyr-fo 3-[address] rmoterol 00:00: (two) Hospita (Breztri 00 times a l Aerosphere) day. 160-9-4.8 mcg/actuati on inhaler rosuvastati 2022- No 20mg QD Take 1 Met hodi n (CRESTOR) 3-20 06-19 tablet (20 s t 20 mg 00:00: 04:59 mg total) Hospit a tablet 00 :00 by mouth l daily. Trelegy 2022- No Methodi Ellipta 4-13 05-16 st 100-62.5-25 00:00: 00:00 Hospi ta mcg blister 00 :00 l with device powder for inhalation oxybutynin 2022- No 10mg Take 1 Meth dahlia XL 1-20 05-03 tablet (10 st (DITROPAN-X 00:00: 00:00 mg total) Hospita L) 10 MG 24 00 :00 by mouth. l hr tablet meclizine Yes 25mg Take 1 Method i (ANTIVERT) 6-05 tablet (25 st 25 mg 00:00: mg total) Hospita tablet 00 by mouth l as needed. Ondansetron Ondansetron Yes Danielle 1 tablet Common HCl HCl 6-05 Millender as needed Spiri t 00:00: for - CHI nausea/vom [facility] Meclizine Meclizine 0 Yes Danielle 1 tablet Common HCl HCl 6-05 Millender as needed Spiri t 00:00: for - CHI dizziness [facility] PARoxetine Yes 30mg QD Take 1 Metho di (PAXIL) 30 - tablet (30 st MG tablet 00:00: mg total) Hos alyssa 00 by mouth l every morning. Glucose Glucose Yes Danielle as Common testing testing 1-22 Millender directed Spirit strips strips 00:00: (dispense - I [address] strips [facility] Medical to [place] insurance) Blood Blood Yes Danielle as Common Glucose Glucose 1-22 Millender directed Spirit Monitor Monitor 00:00: (DISPENSE - CHI BLOOD St GLUCOSE [facility] MONITOR Medical FORMULARY [place] TO INSURANCE) Lancets Lancets Yes Danielle as Common -22 Millender directed Spirit 00:00: (dispense - CHI [address] formulary [facility] to Medical insurance) [place] atorvastati 2022- No 10mg Take 10 mg Methodi n (LIPITOR) 10-17 05-[address] 10 mg 00:00: 00:00 Hospita tablet 00 :00 l Metformin Metformin 2018-10 Yes Danielle 1 tablet Common HCl HCl 0-18 Millender with a Spirit 00:00: meal - [facility] ALBUTEROL, Yes 1{puff} Inhale 1 Methodi BULK, MISC 8- puff as st 00:00: needed. Hospita 00 l metFORMIN Yes 1000mg QD Take 1 Meth dahlia (GLUCOPHAGE 2-[address] ) 1,000 mg 00:00: (1,000 mg Ho spita tablet 00 total) by l mouth nightly. loratadine Yes 10mg 1 tablet Met hodi (CLARITIN) 10-17 ([address] 10 mg 00:00: total). Hospita tablet 00 l Albuterol Albuterol Yes Danielle 3 ml as C ommon Sulfate Sulfate Millender needed Sp teri - CHI [facility] Atorvastati Atorvastati Yes Danielle 1 tablet Common n Calcium n Calcium Millender [facility] Claritin Claritin Yes Danielle not Common Millender defined [facility] Trelegy Trelegy Yes Danielle 1 puff Common Ellipta Ellipta Millender Spir [facility] ProAir HFA ProAir HFA Yes Danielle 1 puff as Common Millender needed [facility] Symbicort Symbicort Yes Danielle 2 puffs C ommon Millender [facility] Ropinirole Ropinirole Yes Danielle as Co mmon HCl HCl Millender directed [facility] Paxil Paxil Yes Danielle 1 tablet Common Millender in the [facility] Immunizations Ordered Immunization Filled Immunization Date Status Commen ts Source Name Name [place] [id number] 2021-01-09 Completed Methodis MRNA VACCINATION 00:00:00 [place] [id number] 2020-12-12 [facility]:00 Hospital Vital Signs Vital Name Observation Time Observation Value Comments Source Systolic blood 2023-03-10 16:00:00 110 mm[Hg] [facility] pressure Diastolic blood 2023-03-10 16:00:00 59 mm[Hg] [facility] pressure Heart rate 2023-03-10 16:00:00 82 /min [facility] Body temperature 2023-03-10 16:00:00 36.39 [place] [facility] Respiratory rate 2023-03-10 16:00:00 16 /min [facility] Oxygen saturation in 2023-03-10 16:00:00 95 /min [facility] Arterial blood by Pulse oximetry Body weight 2023-03-10 11:34:00 94.348 kg [facility] BMI 2023-03-10 11:34:00 33.57 kg/m2 [facility] Body height 2023-03-01 14:53:00 167.6 cm [facility] Procedures Procedure Date / Time Performing Clinician Source Performed [id number] 2023-05-18 21:05:03 Edilson Terrell Ho spital [place] POC URINALYSIS DIPSTICK 2023-05-18 [facility]04[facility] 2023-03-10 13:37:[address] [facility] ANESTHESIA INTUBATION 2023-03-10 12:35:00 Samantha Ahn [facility] PLACEMENT, SLING, 2023-03-10 12:27:00 [facility] POLYPROPYLENE MESH POC GLUCOSE 2023-03-10 11:29:[address] [facility] URINALYSIS, AUTOMATED 2023-03-01 16:10:00 [facility] URINE CULTURE 2023-03-01 15:57:00 [facility] POC URINALYSIS DIPSTICK 2023-03-01 15:56:20 [facility] CBC WITH PLATELET AND 2023-03-01 15:18:00 [facility] DIFFERENTIAL [facility] COMPREHENSIVE METABOLIC 2023-03-01 15:18:00 [facility] PANEL [facility] PROTHROMBIN TIME WITH INR 2023-03-01 15:18[facility] 2023-03-01 15:18:00 [facility] HEMOGLOBIN A1C 2023-03-01 15:18:00 Irvin, Leticia [facility] ospital ESTIMATED GFR 2023-03-01 15:18:00 Edilson Terrell [facility] ECG PRE/POST OP 2023-03-01 14:22:39 Irvin, Leticia [facility] H ospital Plan of Care Planned Activity Planned Date Details Comments Source Future Scheduled 2023-06-12 Screening for [facility] Test 13:43:30 malignant neoplasm of colon (procedure) [code = 407224054] Future Scheduled 2023-06-12 Screening for [facility] Test 13:43:30 malignant neoplasm of colon (procedure) [code = 890602061] Future Scheduled 2023-06-12 Pneumococcal Vaccine: [facility] Test 13:43:30 Pediatrics (0 to 5 Years) and At-Risk Patients (6 to 64 Years) (1 - PCV) [code = Pneumococcal Vaccine: Pediatrics (0 to 5 Years) and At-Risk Patients (6 to 64 Years) (1 - PCV)] Future Scheduled 2023-06-12 Hepatitis C screening [facility] Test 13:43:30 (procedure) [code = 177818655] Future Scheduled 2023-06-12 Screening for [facility] Test 13:43:30 malignant neoplasm of cervix (procedure) [code = 715969959] Future Scheduled 2023-06-12 BREAST CANCER [facility] Test 13:43:30 SCREENING [code = BREAST CANCER SCREENING] Future Scheduled 2023-06-12 Screening for [facility] Test 13:43:30 malignant neoplasm of colon (procedure) [code = 665771625] Future Scheduled 2023-06-12 SHINGLES VACCINES (1 Met [facility] Test 13:43:30 of 2) [code = SHINGLES VACCINES (1 of 2)] Future Scheduled 2023-06-12 COVID-19 VACCINE (3 - [facility] Test 13:43:30 Moderna series) [code = COVID-19 VACCINE (3 - Moderna series)] Future Scheduled 2023-06-12 Screening for [facility] Test 13:43:30 malignant neoplasm of colon (procedure) [code = 006517637] Future Scheduled 2023-06-12 Screening for [facility] Test 13:43:30 malignant neoplasm of colon (procedure) [code = 765053658] Future Scheduled 2023-06-12 INFLUENZA VACCINE (#1) [facility] Test 13:43:30 [code = INFLUENZA VACCINE (#1)] Encounters Start End Encounter Admission Attending Care Care Encounter Source Date/Time Date/Time Type Type Clinicians Facility Department ID 2021-11-11 Outpatient Alex Wade [facility] [id number] Common 11:58:51 [id number] [facility] 2021-11-11 Outpatient Conor, [facility] Common 11:33:26 Danielle [id number] [facility] 2021-11-11 Outpatient Conor, [facility] Common 11:33:09 Danielle [id number] [facility] 2021-11-11 Outpatient Conor, [facility] [id number] Common 11:02:18 Danielle [id number] Spirit - [facility] 2023-05-18 2023-05-18 Office Xander, 1.2.840.1 [id number] Methodi 15:00:00 15:25:17 Visit Edilson 50926.1.[address] [place] 3.430.2.7 Hosp pastro .3.698509 l .8 2023-05-18 2023-05-18 [facility] [id number] [place] 00:00:00 00:00:00 EDILSON [address] 2023-03-15 2023-03-15 Telephone Xander, 1.2.840.1 [id number] Methodi 00:00:00 00:00:[address] [place] 3.430.2.7 Hosp pastor .3.826287 l .8 2023-03-10 2023-03-10 Hospital Xander, 1.2.840.1 [id number] Methodi 05:33:00 11:10:00 Encounter Edislon 19297.1.[address] [place] 3.430.2.7 Hosp pastor .3.777745 l .8 2023-03-10 2023-03-10 Surgery Xander, 1.2.840.1 [id number] Methodi 07:30:00 09:20:[address] [place] 3.430.2.7 Hosp pastor .3.261549 l .8 2023-03-10 2023-03-10 Anesthesia Ramon Ruth 1.2.840.1 [id number] Methodi 07:22:00 08:38:00 Event Leticia Bryan 41593.1.[address] 3.430.2.7 Hospit a .3.233581 l .8 2023-03-10 2023-03-10 [id number] [place] 00:00:00 00:00:00 EDILSON [address] 2023-03-01 2023-03-01 Pre-Admiss Xander, 1.2.840.1 [id number] Methodi 10:00:00 11:00:00 ion Edilson 82220.1.[address] [facility] 3.430.2.7 Hosp pastor .3.460507 l .8 2023-03-01 2023-03-01 Clinical 1.2.840.1 [id number] Methodi 09:30:00 09:30:[address] 3.430.2.7 Hospit a .3.780457 l .8 2023-03-01 2023-03-01 Orders Romero, 1.2.840.1 [id number] Methodi 00:00:00 00:00:00 Only Nurys 66923.1.[address] 3.430.2.7 Hospit a .3.068001 l .8 2023-03-01 2023-03-01 Travel 1.2.840.1 1.2.142.597 [id number] [id number] Methodi 00:00:00 00:00:[address] 3.430.2.7 0.2.7.3.698 Ho spita .3.712719 084.8 l .8 2023-03-01 2023-03-01 Orders Jasso, 1.2.840.1 [id number] Methodi 00:00:00 00:00:00 Only Nurys 28877.1.[address] 3.430.2.7 Hospit a .3.190532 l .8 2023-03-01 2023-03-01 Outpatient [facility] [id number] [place] 00:00:00 00:00:[address] 2023-03-01 2023-03-01 Outpatient XANDER [facility] [id number] [place] 00:00:00 00:00:00 EDILSON [address] 2023-02-22 2023-02-22 Travel 1.2.840.1 1.2.976.779 [id number] Methodi 00:00:00 00:00:[address] 3.430.2.7 0.2.7.3.698 Ho spita .3.503746 084.8 l .8 2023-02-22 2023-02-22 Telephone Rodriguez, 1.2.840.1 [id number] Methodi 00:00:00 00:00:[address] 3.430.2.7 Hospit a .3.382575 l .8 2023-02-22 2023-02-22 Telephone Burdick, 1.2.840.1 [id number] Methodi 00:00:00 00:00:[address] 3.430.2.7 Hospit a .3.228432 l .8 2023-02-17 2023-02-17 Prep for Burdick, 1.2.840.1 [id number] [id number] Methodi 00:00:00 00:00:00 Surgery Yesi 38021.1.[address] 3.430.2.7 Hospit a .3.827783 l .8 2023-02-16 2023-02-16 Office Xander 1.2.840.1 [id number] Methodi 09:30:00 10:18:17 Visit Edilson 31088.1.[address] [facility] 3.430.2.7 Hosp pastor .3.019989 l .8 2023-02-16 2023-02-16 Travel 1.2.840.1 1.2.906.193 [id number] Methodi 00:00:00 00:00:[address] 3.430.2.7 0.2.7.3.698 Ho spita .3.761833 084.8 l .8 2023-02-16 2023-02-16 [facility] [id number] [place] 00:00:00 00:00:00 EDILSON [address] 2023-01-27 2023-01-27 Office Marito Lawson 1.2.840.1 [id number] Methodi 14:15:00 16:29:15 Visit Trace. 62217.1.[address] 3.430.2.7 Hospit a .3.489119 l .8 2023-01-27 2023-01-27 Travel 1.2.840.1 1.2.469.206 [id number] Methodi 00:00:00 00:00:[address] 3.430.2.7 0.2.7.3.698 Ho spita .3.486203 084.8 l .8 2023-01-27 2023-01-27 Outpatient MARITO LAWSON [facility] [id number] [place] 00:00:00 00:00:[address] 2022-11-25 2022-11-25 Office Marito Lawson 1.2.840.1 [id number] Methodi 10:30:00 11:26:14 Visit Aly 42087.1.[address] 3.430.2.7 Hospit a .3.595259 l .8 2022-11-25 2022-11-25 Travel 1.2.840.1 1.2.615.376 [id number] Methodi 00:00:00 00:00:[address] 3.430.2.7 0.2.7.3.698 Ho spita .3.313830 084.8 l .8 2022-11-25 2022-11-25 Outpatient MARITO SOSA [facility] [id number] [place] 00:00:00 00:00:[address] 2021-02-12 2021-02-12 Outpatient [facility] [id number] [place] 00:00:00 00:00:00 LOBO [address] 2021-02-02 2021-02-02 Outpatient [facility] [id number] [place] 00:00:00 00:00:00 LOBO 583 Method i 2021-01-28 2021-01-28 Outpatient LEONIDI, [facility] [id number] [place] 00:00:00 00:00:00 LOBO 964 Method i 2021-01-28 2021-01-28 Outpatient THEMARILUI, [facility] [id number] [place] 00:00:00 00:00:00 LOBO 033 Method i 2021-01-13 2021-01-13 Outpatient THEMARILUI, [facility] [id number] [place] 00:00:00 00:00:00 LOBO 863 Method i 2020-12-23 2020-12-23 Outpatient LEONIDI, [facility] [id number] [place] 00:00:00 00:00:00 LOBO 028 Method i 2020-12-23 2020-12-23 Outpatient [facility] [id number] [place] 00:00:00 00:00:00 029 Method i 2020-11-25 2020-11-25 Outpatient SHRAVAN, [facility] [id number] [place] 00:00:00 00:00:00 VIVIAN 660 Method i 2020-11-25 2020-11-25 Outpatient SHRAVAN, [facility] [id number] [place] 00:00:00 00:00:00 VIVIAN 059 Method i 2020-06-17 2020-06-17 Outpatient [facility] [id number] Common 09:31:00 09:31:00 t [employer] [facility] [address] [facility] 2020-05-14 2020-05-14 Outpatient [facility] [id number] Common 10:00:00 10:00:00 t [facility] [address] [facility] 2020-03-24 2020-03-24 Outpatient [facility] [id number] Common 00:38:00 00:38:00 t [facility] [facility] it [address] [facility] 2020-03-21 2020-03-21 Outpatient [facility] [id number] Common 10:20:00 10:20:00 t [facility] it [facility] 2020-02-05 2020-02-05 Outpatient [facility] [id number] Common 08:30:00 08:30:00 [facility] 2019-11-07 2019-11-07 Outpatient [facility] 28 [id number] Common 09:00:00 09:00:00 [facility] Results Test Description Test Time Test Comments Results Result Comments Source POC BLADDER SCAN/PVR 2023-05-18 21:05:03 Test Item Value Reference Range Interpretation Comme nts Total volume (test code = 2336) 53 [facility] urinalysis [id number] 21:04:14 Test Item Value Reference Range Interpretation Comments Color urine, POC (test Yellow code = 3129414) Clarity urine, POC (test Clear code = 2767502) Glucose urine, POC (test Negative Negative code = 0868242) Bilirubin urine, POC Negative Negative (test code = 4025183) Ketones urine, POC (test Negative Negative code = 2514-8) Specific gravity urine, 1.010 1.005-1.030 POC (test code = 5811-5) Blood urine, POC (test Trace Negative A code = 3828666) pH urine, POC (test code 6.0 See_Comment [A utomated message] = 5803-2) The system Shogetheric h generated this result transmitted ref erence range: 5.0, 5.5 , 6.0, 6.5, 7.0, 7.5, 8.0, 8.5. The refere nce range was not u sed to interpret this result as normal/abnor mal. Protein urine, POC (test Negative Negative code = 99903-1) Urobilinogen urine, POC <2.0 See_Comment [Au tomated message] (test code = 32702-9) The sy stem which generated this result transmitted ref erence range: <=2.0. T he reference range was not used to int erpret this result as normal/abnormal . Nitrite urine, POC (test Negative Negative code = 5802-4) Leukocyte esterase Small Negative A urine, POC (test code = 3341978) Lab Interpretation (test Abnormal code = 58995-2) [facility] [id number] 13:39:00 Test Item Value Reference Range Interpretation Comments POC glucose (test 95 mg/dL 65-99 Associate Loan Officer N samantha: Rafael code = 92730-0) [place] D: [id number] able: RN Notified [facility] [id number] 05:44:00 Test Item Value Reference Range Interpretation Comments Urine culture SEE NOTE CULTURE, URIN E, (test code = ROUTINE Micro 630-4) Number: [id number] Test Status: Fi nal Specimen Source : Not given Speci men Quality: [place] te Result: Less th an 10,000 CFU/mL o f single Gram positive organi sm isolated. No further testing will be perform ed. If clinically indicated, recollection us ing a method to minimize contamination, with prompt transfer to Urine Culture Transport Tube, is recommended. RAC (test code Performing = RAC) Organization Information: Site ID: RGA Name: [facility] Address: [address] [place] [id number] Director: Kota Ledbetter [facility], automated with [id number] 10:39:00 Test Item Value Reference Range Interpretation Comments Color, UA (test YELLOW YELLOW code = 5778-6) Appearance (test CLEAR CLEAR code = 5767-9) Specific gravity, 1.004 1.001-1.035 urine (test code = 5811-5) pH, urine (test 7.0 5.0-8.0 code = 5803-2) Glucose, urine NEGATIVE NEGATIVE (test code = 18817-0) Bilirubin, UA NEGATIVE NEGATIVE (test code = 5770-3) Ketones, UA (test NEGATIVE NEGATIVE code = 2514-8) Occult blood, NEGATIVE NEGATIVE urine (test code = 5794-3) Protein, UA (test NEGATIVE NEGATIVE code = 52811-8) Nitrite, UA (test NEGATIVE NEGATIVE code = 5802-4) Leukocyte NEGATIVE NEGATIVE esterase, UA (test code = 5799-2) WBC, UA (test NONE SEEN See_Comment [Automated code = 5821-4) message] The system which generated this result transmit nadeem reference range : < OR = 5 /HPF. Th e reference range was not used to interpret this result as normal/abnormal . RBC, UA (test NONE SEEN See_Comment [Automated code = 90788-2) message] The system which generated this result transmit nadeem reference range : < OR = 2 /HPF. Th e reference range was not used to interpret this result as normal/abnormal . Squamous NONE SEEN See_Comment [Automated epithelial cells, message] T he UA (test code = system which 32570-3) generated this result transmit nadeem reference range : < OR = 5 /HPF. Th e reference range was not used to interpret this result as normal/abnormal . Bacteria, UA NONE SEEN NONE SEEN /HPF (test code = 5769-5) Hyaline casts, UA NONE SEEN NONE SEEN /LPF (test code = 5796-8) Note: (test code This urine was = 8251-1) analyzed for th e presence of WBC , RBC, bacteria, casts, and othe r formed elements . Only those elements seen w ere reported. RAC (test code = Performing RAC) Organization Information: Site ID: RGA Name: [facility] Address: [address] [place] [phone] Director: Kota Ledbetter [facility] Pre/Post [id number] 04:54:14 Test Item Value Reference Range Interpretation Comments Ventricular rate (test 88 code = 253) Atrial rate (test code 88 = 255) NM interval (test code 146 = 266) QRSD interval (test 84 code = 260) QT interval (test code 356 = 264) QTC interval (test code 430 = 265) P axis 1 (test code = 63 267) QRS axis 1 (test code = 82 268) T wave axis (test code 74 = 270) EKG impression (test Normal sinus code = 273) rhythm-Normal ECG-In automated comparison with ECG of 13-JAN-2021 11:40,-No significant [facility] [Presence] in Respiratory specimen by HANNAH with probe [id number] 19:25:56 Test Item Value Reference Range Interpretation Comments SARS-CoV-2 (COVID-19) RNA Not detected Not-Detected [Presence] in Respiratory specimen by HANNAH with probe detection (test code = 96040-0) WILLEM TREVIZO
[2023-06-16 07:22] LABS: Absolute Lymphocytes (CBC) 1.6 K/uL (0.7-4.9); Hematocrit 37.6 % (36.0-45.0); Lymphocytes % 17.2 % (15.3-44.8); MCV 88.1 fL (80-100); MPV 7.1 fL (7.6-11.3); Platelets 327 thou/uL (152-406); RBC Red Blood Cell Count 4.27 M/uL (3.86-4.86)
[2023-06-16] MEDS ORDERED: PROMETHAZINE 25 MG TABLET ONE (07:30)
[2023-06-16] MEDS ORDERED: CYCLOBENZAPRINE 10 MG TAB ONE (07:30)
[2023-06-16] MEDS ORDERED: HYDROCODONE/APAP 10/325 TAB ONE (07:30)
[2023-06-16] MEDS ORDERED: IBUPROFEN 400 MG TAB ONE (07:31)
[2023-06-16 07:33] LABS: Albumin 3.3 g/dL (3.4-5.0); Bilirubin Total 0.2 mg/dL (0.2-1.0); Potassium 4.2 mEq/L (3.5-5.1); Protein, Total 7.1 g/dL (6.4-8.2); Uric Acid 3.9 mg/dL (2.6-6.0)
--- NOTE | 2023-06-16 08:30 | RAD REPORT ---
EXAM DESCRIPTION: RAD - Foot Right 3 View - 06/16/2023 8:05 am CLINICAL HISTORY: Right foot pain FINDINGS: No fracture or dislocation is seen Large plantar calcaneal spur
--- NOTE | 2023-06-16 08:35 | EDPHYS ---
Physician Documentation [facility] Name: Nolberto Pérez Age: 63 yrs Sex: Female : 1960 Arrival Date: 06/16/2023 Time: 06:37 Bed 6 Private MD: ED Physician Zackary Monge HPI: 06/16 06:58 This 63 yrs old Female presents to ER via Unassigned with complaints of Foot sp4 Pain. 06:58 63-year-old female presents with a cute onset of right foot pain which is moderate to sp4 severe at the site of the Achilles tendon attachment. Pain started yesterday and has intensified this morning. Patient states that she is not able to put weight on the right foot secondary to moderate to severe pain at the site of Achilles tendon attachment. Patient suspects that she may have had an insect venom or spider there. Historical: - Allergies: 06:59 No Known Allergies; jw7 - Home Meds: 06:59 Abilify 2 mg Oral tab daily [Active]; metformin 1,000 mg Oral tab 1 tab 2 times per day jw7 [Active]; Paxil 15 mg Oral tab 1 tab once daily [Active]; ropinirole Oral once daily [Active]; - PMHx: 08:28 Anxiety; COPD; Diabetes - NIDDM; Hyperlipidemia; ld1 - PSHx: 08:28 Appendectomy; ld1 - Immunization history:: Adult Immunizations up to date, Client reports receiving the 2nd dose of the Covid vaccine, moderna. - Social history:: Smoking status: Patient denies any tobacco usage or history of. - Family history:: not pertinent. ROS: 06:58 Constitutional: Negative for fever, chills, and weight loss, MS/Extremity: Negative for sp4 injury and deformity, positive right foot pain, right heel pain, positive pain with ambulation. 06:58 All other systems are negative. Exam: 06:58 Constitutional: This is a well developed, well nourished patient who is awake, alert, sp4 and in no acute distress. Head/Face: Normocephalic, atraumatic. Eyes: Pupils equal round and reactive to light, extra-ocular motions intact. Lids and lashes normal. Conjunctiva and sclera are not injected. Cornea within normal limits. Periorbital areas with no swelling, redness, or edema. ENT: Nares patent. No nasal discharge, no septal abnormalities noted. Tympanic membranes are normal and external auditory canals are clear. Oropharynx with no redness, swelling, or masses, exudates, or evidence of obstruction, uvula midline. Mucous membranes moist. Neck: Trachea midline, no thyromegaly or masses palpated, and no cervical lymphadenopathy. Supple, full range of motion without nuchal rigidity, or vertebral point tenderness. Chest/axilla: Normal chest wall appearance and motion. Nontender with no deformity. No lesions are appreciated. Cardiovascular: Regular rate and rhythm with a normal S1 and S2. No gallops, murmurs, or rubs. Normal PMI, no JVD. No pulse deficits. Respiratory: Lungs have equal breath sounds bilaterally, clear to auscultation and percussion. No rales, rhonchi or wheezes noted. No increased work of breathing, no retractions or nasal flaring. Abdomen/GI: Soft, non-tender, with normal bowel sounds. No distension or tympany. No guarding or rebound. No evidence of tenderness throughout. Back: No spinal tenderness. No costovertebral tenderness. Skin: Warm, dry with normal turgor. Normal color with no rashes, no lesions, and no evidence of cellulitis. MS/ Extremity: Pulses equal, no cyanosis. Neurovascular intact. Full, normal range of motion. Positive right heel pain, right posterior heel tenderness, pain at the site of Achilles tendon attachment. Mild redness and swelling. Intact neurovascular status. Neuro: Awake and alert, GCS 15, oriented to person, place, time, and situation. Cranial nerves II-XII grossly intact. Motor strength 5/5 in all extremities. Sensory grossly intact. Psych: Awake, alert, with orientation to person, place and time. Behavior, mood, and affect are within normal limits Vital Signs: 06:57 BP 108 / 73 LA Sitting (auto/reg); Pulse 91; Resp 18 S; Temp 97.6(O); Pulse Ox 98% on jw7 R/A; Weight 88.9 kg; Height 5 ft. 6 in. ; Pain 6/10; 07:22 BP 103 / 71; Pulse 80; Resp 18; Pulse Ox 93% on R/A; Pain 8/10; ld1 08:28 BP 98 / 60; Pulse 74; Resp 18; Pulse Ox 98% on R/A; ld1 06:57 Body Mass Index 31.63 (88.90 kg, 167.64 cm) jw7 06:57 Pain Scale: Adult jw7 07:22 Pain Scale: Adult ld1 MDM: 06:58 Differential diagnosis: sprain, foreign body, arthritis, gout, cellulitis. Data sp4 reviewed: vital signs, nurses notes. Transition of care: After a detail discussion of the patient's case, care is transferred to Zackary Monge MD. 07:02 Patient medically screened. rn 08:01 ED course: Patient signed out to me by night physician, evaluation shows asymmetric rn erythema along the medial side of the ankle. No evidence of bite. No fluctuance. No foreign body. Patient denies any trauma. More tender with palpation and movement. No calf tenderness. No bony tenderness or swelling. Waiting on x-ray results but anticipate discharge home with antibiotics and return precautions.. 08:34 Counseling: I had a detailed discussion with the patient and/or guardian regarding the rn historical points, exam findings, and any diagnostic results supporting the discharge/admit diagnosis, lab results, radiology results, the need for outpatient follow up, to return to the emergency department if symptoms worsen or persist or if there are any questions or concerns that arise at home. Special discussion: I discussed with the patient/guardian in detail that at this point there is no indication for admission to the hospital. It is understood, however, that if the symptoms persist or worsen the patient needs to return immediately for re-evaluation. 08:34 Independent interpretation of the following test(s) in the Emergency Department X-Ray: rn My interpretation is Xray foot neg for acute fracture or foreign body per my interpretation. 06/16 06:56 Order name: Uric Acid; Complete Time: 07:57 sp4 06/16 06:56 Order name: CBC with Diff; Complete Time: 07:57 sp4 06/16 06:56 Order name: CMP; Complete Time: 07:57 sp4 06/16 06:54 Order name: Foot Right 3 View XRAY; Complete Time: 08:31 sp4 Administered Medications: 07:21 Drug: Cyclobenzaprine PO 10 mg Route: PO; ld1 07:22 Drug: [place] PO 10 mg-325 mg 1 tabs Route: PO; ld1 07:22 Drug: Ibuprofen PO 800 mg Route: PO; ld1 07:22 Drug: Promethazine PO 25 mg Route: PO; ld1 Disposition Summary: 06/16/23 08:35 Discharge Ordered Location: Home rn Problem: new rn Symptoms: have improved rn Condition: Stable rn Diagnosis - Pain in right foot rn - Cellulitis of left lower limb rn Followup: rn - With: Private Physician - When: As needed - Reason: Recheck today's complaints, Re-evaluation by your physician Discharge Instructions: - Discharge Summary Sheet rn - Cellulitis, Adult rn - Foot Pain rn Forms: - Medication Reconciliation Form rn - Thank You Letter rn - 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
--- NOTE | 2023-06-16 08:35 | ER ---
Nurse's Notes [facility] Name: Nolberto Pérez Age: 63 yrs Sex: Female : 1960 Arrival Date: 06/16/2023 Time: 06:37 Bed 6 Private MD: Diagnosis: Pain in right foot;Cellulitis of left lower limb Presentation: 06/16 06:57 Chief complaint: Patient states: pain to posterior right heel/ankle that started 2 days jw7 ago. Coronavirus screen: At this time, the client does not indicate any symptoms associated with coronavirus-19. Ebola Screen: No symptoms or risks identified at this time. Initial Sepsis Screen: Does the patient meet any 2 criteria? No. Patient's initial sepsis screen is negative. Does the patient have a suspected source of infection? No. Patient's initial sepsis screen is negative. Risk Assessment: Do you want to hurt yourself or someone else? Patient reports no desire to harm self or others. Onset of symptoms was June 14, 2023. 06:57 Method Of Arrival: Ambulatory [facility] 06:57 Acuity: TIFFANIE 4 jw7 Triage Assessment: 06:59 General: Appears in no apparent distress. uncomfortable, Behavior is calm, cooperative. jw7 Pain: Complains of pain in right ankle and right Achilles Pain does not radiate. Pain currently is 6 out of 10 on a pain scale. Quality of pain is described as throbbing, Pain began 2-3 days ago. Is continuous. EENT: No deficits noted. No signs and/or symptoms were reported regarding the EENT system. Neuro: No deficits noted. Bee Agitation-Sedation Scale (RASS): 0 - Alert and Calm Level of Consciousness is awake, alert, obeys commands, Oriented to person, place, time, situation. Cardiovascular: No deficits noted. Capillary refill < 3 seconds Clubbing of nail beds is absent JVD is absent Patient's skin is warm and dry. Respiratory: No deficits noted. Airway is patent Trachea midline Respiratory effort is even, unlabored, Respiratory pattern is regular, symmetrical. GI: No deficits noted. No signs and/or symptoms were reported involving the gastrointestinal system. Abdomen is round non-distended. : No deficits noted. No signs and/or symptoms were reported regarding the genitourinary system. Derm: Skin is intact, is healthy with good turgor, Skin is dry, Skin is normal, Skin temperature is warm Reports redness and swelling to right ankle. Musculoskeletal: Circulation, motion, and sensation intact. Range of motion: limited in right ankle. Historical: - Allergies: :59 No Known Allergies; jw7 - Home Meds: :59 Abilify 2 mg Oral tab daily [Active]; metformin 1,000 mg Oral tab 1 tab 2 times per day jw7 [Active]; Paxil 15 mg Oral tab 1 tab once daily [Active]; ropinirole Oral once daily [Active]; - PMHx: 08:28 Anxiety; COPD; Diabetes - NIDDM; Hyperlipidemia; ld1 - PSHx: 08:28 Appendectomy; ld1 - Immunization history:: Adult Immunizations up to date, Client reports receiving the 2nd dose of the Covid vaccine, moderna. - Social history:: Smoking status: Patient denies any tobacco usage or history of. - Family history:: not pertinent. Screenin:03 [facility] ED Fall Risk Assessment (Adult) History of falling in the last 3 months, jw7 including since admission No falls in past 3 months (0 pts) Score/Fall Risk Level 0 - 2 = Low Risk. Abuse screen: Denies threats or abuse. Denies injuries from another. Nutritional screening: No deficits noted. Tuberculosis screening: No symptoms or risk factors identified. Assessment: 07:22 General: Appears in no apparent distress. uncomfortable, Behavior is cooperative, ld1 appropriate for age, crying. Pain: Complains of pain in right leg and right Achilles and right ankle Pain does not radiate. Pain currently is 8 out of 10 on a pain scale. Quality of pain is described as throbbing. Neuro: Level of Consciousness is awake, alert, obeys commands, Oriented to person, place, time, situation. Cardiovascular: Capillary refill < 3 seconds Patient's skin is warm and dry. Respiratory: Airway is patent Respiratory effort is even, unlabored. GI: Abdomen is round non-distended. : No signs and/or symptoms were reported regarding the genitourinary system. EENT: No signs and/or symptoms were reported regarding the EENT system. Derm: No signs and/or symptoms reported regarding the dermatologic system. Musculoskeletal: No signs and/or symptoms reported regarding the musculoskeletal system. 08:28 Reassessment: Patient appears in no apparent distress at this time. No changes from ld1 previously documented assessment. Patient is alert, oriented x 3, equal unlabored respirations, skin warm/dry/pink. Patient states feeling better. Patient states symptoms have improved. Vital Signs: 06:57 BP 108 / 73 LA Sitting (auto/reg); Pulse 91; Resp 18 S; Temp 97.6(O); Pulse Ox 98% on jw7 R/A; Weight 88.9 kg; Height 5 ft. 6 in. ; Pain 6/10; 07:22 BP 103 / 71; Pulse 80; Resp 18; Pulse Ox 93% on R/A; Pain 8/10; ld1 08:28 BP 98 / 60; Pulse 74; Resp 18; Pulse Ox 98% on R/A; ld1 06:57 Body Mass Index 31.63 (88.90 kg, 167.64 cm) jw7 06:57 Pain Scale: Adult jw7 07:22 Pain Scale: Adult ld1 ED Course: 06:41 Patient arrived in ED. ag3 06:54 Vidal Garg MD is Attending Physician. sp4 06:59 Triage completed. jw7 07:02 Attending Physician role handed off by Vidal Garg MD rn 07:02 Zackary Monge MD is Attending Physician. rn 07:03 Patient has correct armband on for positive identification. Bed in low position. Call jw7 light in reach. 07:04 Arm band placed on. jw7 07:08 Inserted saline lock: 20 gauge in right antecubital area, using aseptic technique. oe Blood collected. 07:09 CMP Sent. oe 07:09 CBC with Diff Sent. oe 07:09 Uric Acid Sent. oe 07:22 Bibi Olguin, RN is Primary Nurse. ld1 07:22 Pulse ox on. NIBP on. Door closed. Noise minimized. Warm blanket given. ld1 07:22 Uric Acid Sent. ld1 07:22 CBC with Diff Sent. ld1 07:22 CMP Sent. ld1 07:22 No provider procedures requiring assistance completed. ld1 08:07 Foot Right 3 View XRAY In Process Unspecified. EDMS 08:48 IV discontinued, intact, bleeding controlled, No redness/swelling at site. ld1 Administered Medications: 07:21 Drug: Cyclobenzaprine PO 10 mg Route: PO; ld1 07:22 Drug: [place] PO 10 mg-325 mg 1 tabs Route: PO; ld1 07:22 Drug: Ibuprofen PO 800 mg Route: PO; ld1 07:22 Drug: Promethazine PO 25 mg Route: PO; ld1 Medication: 07:22 VIS not applicable for this client. ld1 Outcome: 08:35 Discharge ordered by . rn 08:48 Discharged to home ambulatory, with family. ld1 08:48 Condition: stable 08:48 Discharge instructions given to patient, family, Instructed on discharge instructions, follow up and referral plans. medication usage, Demonstrated understanding of instructions, follow-up care, medications, Prescriptions given X 1. 08:48 Patient left the ED. ld1 Signatures: Dispatcher [employer] EDMS Zackary Monge MD MD rn Espinosa, Orlando oe Gomez, Alice ag3 Bibi Olguin RN RN ld1 Daina Mendoza RN RN jw7 Vidal Garg MD MD sp4
[2023-06-16 08:58] VITALS: TEMP 97.6
[2023-06-16 09:09] VITALS: BP 98/60; O2SAT 98
== END 2023-06-16 08:48 | disposition home or self-care (01) ==
LOC: ER 06:37
DX: L03.115 Cellulitis of right lower limb (principal); E11.9 Type 2 diabetes mellitus without complications; J44.9 Chronic obstructive pulmonary disease, unspecified; F41.9 Anxiety disorder, unspecified
CPT/HCPCS: 85025; 36415; 84550; 80053; 73630; 99284; Q0169

== ENCOUNTER 2024-10-11 10:01 | Emergency (ER) | payer BC ==
[2024-10-11 11:41] LABS: Absolute Basophils 0.1 K/uL (0-0.5); Absolute Eosinophils 0.3 K/uL (0-0.5); Absolute Lymphocytes (CBC) 1.5 K/uL (0.7-4.9); Absolute Monocytes 0.5 K/uL (0.1-1.3); Absolute Neutrophil 5.3 K/uL (1.8-8.0); Basophils % 1.1 % (0-1.3); Eosinophils % 3.6 % (0-4.4); Hematocrit 38.5 % (36.0-45.0); Hemoglobin 12.1 g/dL (12.0-15.0); Lymphocytes % 20.1 % (15.3-44.8); MCH 28.6 pg (27.0-35.0); MCHC 31.4 g/dL (32.0-36.0); MCV 91.1 fL (80-100); MPV 7.6 fL (7.6-11.3); Neutrophils % 69.2 % (41.7-73.7); Platelets 282 thou/uL (152-406); RBC Red Blood Cell Count 4.22 M/uL (3.86-4.86); Red Cell Distribution Width 13.8 % (12.1-15.2)
--- NOTE | 2024-10-11 11:45 | RAD REPORT ---
EXAMINATION: US LEFT LOWER EXTREMITY VENOUS DOPPLER CLINICAL INDICATION: [facility] LLE eval for LLE DVT Bed Name: 17 N TECHNIQUE: Complete bilateral duplex sonography of the LEFT lower extremity veins was performed. The examination included compression for vein patency, color Doppler imaging and flow augmentation in response to distal compression of the distal external iliac, common femoral, femoral, popliteal, tibi al, and great and small saphenous veins. COMPARISON: No prior exam. FINDINGS: Duplex sonography testing of the veins of the LEFT lower extremity was performed. Color flow imaging shows all veins to be compressible with [id number] color filling. Pulsatile and phasic flow is present within all lower extremity deep and superficial veins examined. Complex 4.1 cm cyst in the le ft popliteal fossa. IMPRESSION: No evidence of deep venous thrombosis. Complex 4.1 cm Kang's cyst.
--- NOTE | 2024-10-11 11:46 | ER ---
Nurse's Notes [facility] Name: Nolberto Pérez Age: 64 yrs Sex: Female : 1960 Arrival Date: 10/11/2024 Time: 10:01 Bed 17 Private MD: Diagnosis: Synovial cyst of popliteal space [Kang], left knee Presentation: 10/11 10:05 Chief complaint: Patient states: left leg and foot is swollen since yesterday , had iw knee surgery last with Dr. Gregorio. Coronavirus screen: At this time, the client does not indicate any symptoms associated with coronavirus-19. Ebola Screen: No symptoms or risks identified at this time. Initial Sepsis Screen: Does the patient meet any 2 criteria? No. Patient's initial sepsis screen is negative. Does the patient have a suspected source of infection? No. Patient's initial sepsis screen is negative. Risk Assessment: Do you want to hurt yourself or someone else? Patient reports no desire to harm self or others. Onset of symptoms was October 10, 2024. 10:05 Method Of Arrival: Ambulatory iw 10:05 Acuity: ITFFANIE 3 iw Historical: - Allergies: 10:07 No Known Allergies; iw - PMHx: 10:07 Anxiety; COPD; Diabetes - NIDDM; Hyperlipidemia; iw - PSHx: 10:07 Appendectomy; iw - Immunization history:: Adult Immunizations up to date. - Infectious Disease History:: Denies. - Social history:: Smoking status: Patient denies any tobacco usage or history of. Screenin:10 [facility] ED Fall Risk Assessment (Adult) History of falling in the last 3 months, rs5 including since admission No falls in past 3 months (0 pts) Confusion or Disorientation No (0 pts) Intoxicated or Sedated No (0 pts) Impaired Gait Yes (1 pt) Mobility Assist Device Used Yes (1 pt) Altered Elimination No (0 pt) Score/Fall Risk Level 0 - 2 = Low Risk Oriented to surroundings, Maintained a safe environment. Abuse screen: Denies threats or abuse. Nutritional screening: No deficits noted. Tuberculosis screening: No symptoms or risk factors identified. Assessment: 10:10 General: Appears in no apparent distress. uncomfortable, Behavior is calm, cooperative. rs5 Pain: Complains of pain in left knee Pain currently is 3 out of 10 on a pain scale. Quality of pain is described as aching, Is continuous. 10:10 Neuro: Level of Consciousness is awake, alert, obeys commands, Oriented to person, rs5 place, time, situation. Cardiovascular: Patient's skin is warm and dry. Respiratory: Airway is patent Respiratory effort is even, unlabored, Respiratory pattern is regular, symmetrical. Respiratory: GI: Abdomen is round non-distended, Abd is soft and non tender X 4 quads. : No signs and/or symptoms were reported regarding the genitourinary system. EENT: No signs and/or symptoms were reported regarding the EENT system. Derm: Skin is intact, Skin is pink, warm \T\ dry. Musculoskeletal: Range of motion: limited in left knee Swelling present in left knee. 11:15 Reassessment: Patient and/or family updated on plan of care and expected duration. Pain rs5 level reassessed. Patient is alert, oriented x 3, equal unlabored respirations, skin warm/dry/pink. 12:12 Reassessment: Patient and/or family updated on plan of care and expected duration. Pain rs5 level reassessed. Patient is alert, oriented x 3, equal unlabored respirations, skin warm/dry/pink. Vital Signs: 10:05 BP 106 / 63; Pulse 91; Resp 16; Temp 97.9; Pulse Ox 96% on R/A; Weight 93.44 kg; Height iw 5 ft. 6 in. ; Pain 6/10; 12:12 BP 110 / 66; Pulse 77; Resp 17; Pulse Ox 99% on R/A; rs5 10:05 Body Mass Index 33.25 (93.44 kg, 167.64 cm) iw 10:05 Pain Scale: Adult iw ED Course: 10:03 Patient arrived in ED. mr 10:07 Triage completed. iw 10:08 Arm band placed on. iw 10:10 Patient has correct armband on for positive identification. Placed in gown. Bed in low rs5 position. Call light in reach. Side rails up X2. 10:10 No provider procedures requiring assistance completed. rs5 10:22 [place], LURDES is Primary Nurse. rs5 10:24 Vance Bey MD is Attending Physician. ec2 11:25 Extremity Venous Uni Ltd US In Process Unspecified. EDMS 12:27 Provided Education on: POC. Verbalized understanding.. me1 12:27 IV discontinued, intact, bleeding controlled, No redness/swelling at site. Pressure me1 dressing applied. Administered Medications: No medications were administered Medication: 11:15 VIS not applicable for this client. rs5 Outcome: 11:46 Discharge ordered by MD. ec2 12:27 Discharged to home ambulatory, me1 12:27 Condition: stable 12:27 Discharge instructions given to patient, Instructed on discharge instructions, follow up and referral plans. Demonstrated understanding of instructions, follow-up care, 12:27 Patient left the ED. me1 Signatures: Dispatcher [employer] EDMS Tete Meyer, Reg Reg mr Annika Braun, RN RN iw [place]an [place] RN RN rs5 Myrna Luu RN RN me1 Vance Bey MD MD ec2 Corrections: (The following items were deleted from the chart) 10:08 10:05 Pulse 91bpm; Resp 16bpm; Pulse Ox 96% RA; Temp 97.9F; 93.44 kg; Height 5 ft. 6 iw in.; BMI: 33.2; Pain 6/10, Adult; iw 10:08 10:07 Allergies: Aspirin; iw iw
--- NOTE | 2024-10-11 11:46 | EDPHYS ---
Physician Documentation [facility] Name: Nolberto Pérez Age: 64 yrs Sex: Female : 1960 Arrival Date: 10/11/2024 Time: 10:01 Bed 17 Private MD: ED Physician Vance Bey HPI: 10/11 10:57 This 64 yrs old Female presents to ER via Ambulatory with complaints of Left ec2 knee swelling, Feet Swelling. 10:57 Patient arrives today for evaluation of left lower extremity swelling. Recent meniscus ec2 surgery, states that she is having swelling. Denies any significant pain or fevers or chills or any other concerns.. Historical: - Allergies: 10:07 No Known Allergies; iw - PMHx: 10:07 Anxiety; COPD; Diabetes - NIDDM; Hyperlipidemia; iw - PSHx: 10:07 Appendectomy; iw - Immunization history:: Adult Immunizations up to date. - Infectious Disease History:: Denies. - Social history:: Smoking status: Patient denies any tobacco usage or history of. ROS: 10:57 Constitutional: as per hpi ec2 Exam: 10:57 Constitutional: GEN: NAD Head: atraumatic Eyes: EOMI Ears: External ears are ec2 normal. CV: regular rate LUNGS: no respiratory distress ABD: non-distended SKIN: no evidence of rashes, left lower extremity with trace swelling appreciated from the foot to the knee MSK: no evidence of trauma Vital Signs: 10:05 BP 106 / 63; Pulse 91; Resp 16; Temp 97.9; Pulse Ox 96% on R/A; Weight 93.44 kg; Height iw 5 ft. 6 in. ; Pain 6/10; 12:12 BP 110 / 66; Pulse 77; Resp 17; Pulse Ox 99% on R/A; rs5 10:05 Body Mass Index 33.25 (93.44 kg, 167.64 cm) iw 10:05 Pain Scale: Adult iw MDM: 10:27 Medical Screening Exam initiated ec2 10:57 Data reviewed: vital signs, nurses notes. ED course: Patient arrives today for left ec2 lower extremity swelling. Examination yields left lower extremity findings as above. Will obtain lab work and ultrasound. Differential includes Kang's cyst, DVT, does not appear cellulitic. 11:45 ED course: Ultrasound shows Kang's cyst. Will discharge home. Return precautions ec2 given.. 10/11 10:52 Order name: CBC with Diff; Complete Time: 11:45 ec2 10/11 10:52 Order name: BMP; Complete Time: 11:59 ec2 10/11 10:52 Order name: PT-INR; Complete Time: 11:59 ec2 10/11 10:52 Order name: Ptt, Activated; Complete Time: 11:59 ec2 10/11 10:52 Order name: Extremity Venous Uni Ltd US; Complete Time: 11:45 ec2 Administered Medications: No medications were administered Disposition Summary: 10/11/24 11:46 Discharge Ordered Notes: Location: Home ec2 Condition: Stable ec2 Diagnosis - Synovial cyst of popliteal space [Kang], left knee ec2 Followup: ec2 - With: Private Physician - When: - Reason: Recheck today's complaints Discharge Instructions: - Discharge Summary Sheet ec2 - Kang Cyst ec2 Forms: - Medication Reconciliation Form ec2 - Antibiotic Education ec2 - Prescription Opioid Use ec2 - Patient Portal Instructions ec2 - Leadership Thank You Letter ec2 Signatures: Dispatcher [employer] Annika Ingram, LURDES RN Vance Becerra MD MD ec2 Corrections: (The following items were deleted from the chart) 10:08 10:07 Allergies: Aspirin; cristine colunga
[2024-10-11 11:47] LABS: PT Prothrombin Time 10.6 SECONDS (9.4-12.5); PTT, Activated Partial Thromb 35.4 SECONDS (24.3-36.9); Protime INR 0.94
[2024-10-11 11:57] LABS: Anion Gap 5.6 mEq/L (5.0-15.0); Potassium 3.6 mEq/L (3.5-5.1)
[2024-10-11 12:40] VITALS: TEMP 97.9
[2024-10-11 12:41] VITALS: BP 110/66; O2SAT 99
== END 2024-10-11 12:27 | disposition home or self-care (01) ==
LOC: ER 10:01
DX: M71.22 Synovial cyst of popliteal space [Baker], left knee (principal)
CPT/HCPCS: 36415; 80048; 85025; 85610; 85730; 93971; 99283

== ENCOUNTER 2025-02-05 12:28 | Inpatient (IN) | payer BC ==
--- NOTE | 2025-02-05 13:32 | RAD REPORT ---
EXAM: Right upper quadrant ultrasound. CLINICAL HISTORY: ABD PAIN COMPARISON: None. FINDINGS: Gallbladder: Normal. Bile ducts: No intrahepatic or extrahepatic biliary dilatation. Common bile duct measures 2 mm. Limited imaging of the liver shows no concerning finding. IMPRESSION: Unremarkable exam.
--- NOTE | 2025-02-05 13:40 | RAD REPORT ---
EXAMINATION: ONE VIEW CHEST XR CLINICAL INDICATION: ABDOMINAL DISTENTION TECHNIQUE: Frontal chest projection is submitted. Examination is limited by patient positioning and t echnique. COMPARISON: 09/11/2024 FINDINGS: The lungs are diffusely emphysematous but grossly clear. The heart is upper limit of normal in size. No displaced fractures identified. IMPRESSION: COPD without an acute process suspected.
[2025-02-05 14:00] LABS: Absolute Eosinophils 0.2 K/uL (0-0.5); Absolute Lymphocytes (CBC) 1.7 K/uL (0.7-4.9); Absolute Monocytes 0.5 K/uL (0.1-1.3); Absolute Neutrophil 6.4 K/uL (1.8-8.0); Basophils % 0.6 % (0-1.3); Eosinophils % 1.8 % (0-4.4); Hematocrit 40.4 % (36.0-45.0); Hemoglobin 13.6 g/dL (12.0-15.0); Lymphocytes % 19.4 % (15.3-44.8); MCH 29.8 pg (27.0-35.0); MCHC 33.7 g/dL (32.0-36.0); MCV 88.4 fL (80-100); MPV 7.6 fL (7.6-11.3); Monocytes % 5.4 % (3.3-12.3); Neutrophils % 72.8 % (41.7-73.7); Nucleated Red Blood Cells % 0.1 % (0-0); Platelets 288 thou/uL (152-406); RBC Red Blood Cell Count 4.57 M/uL (3.86-4.86)
[2025-02-05] MEDS ORDERED: ONDANSETRON 4 MG/2 ML VIAL ONE (14:02)
[2025-02-05] MEDS ORDERED: NA CHLORIDE 0.9% 1,000 ML ONE ×2 (14:03→16:29)
[2025-02-05] MEDS ORDERED: FAMOTIDINE 20 MG/2 ML VIAL IV ONE (14:03)
[2025-02-05] MEDS ORDERED: MORPHINE 4 MG/ML SYR ONE ×2 (14:03→16:28)
[2025-02-05 14:05] LABS: PT Prothrombin Time 10.9 SECONDS (10-13.0); Protime INR 0.95
[2025-02-05 14:20] LABS: ALT/SGPT 19 U/L (13-56); AST/SGOT 13 U/L (15-37); Albumin 3.8 g/dL (3.4-5.0); Albumin/Globulin Ratio 1.1 (1.1-1.8); Alkaline Phosphatase 76 U/L (45-117); Anion Gap 6.8 mEq/L (5.0-15.0); BUN Blood Urea Nitrogen 8 mg/dL (7-18); Bicarbonate 28 mEq/L (21-32); Bilirubin Total 0.3 mg/dL (0.2-1.0); Globulin 3.5 g/dL (2.3-3.5); Glomerular Filtration Rate 100 ml/min (=/>90); Glucose Level 115 mg/dL (74-106); Lipase 77 U/L (13-75); Magnesium 2.2 mg/dL (1.6-2.4); NT PRO-BNP 63 pg/mL (<125); Potassium 3.8 mEq/L (3.5-5.1); Protein, Total 7.3 g/dL (6.4-8.2); Sodium Level 138 mEq/L (136-145)
[2025-02-05 14:28] LABS: Bilirubin Direct < 0.2 mg/dL (0-0.2); Bilirubin Indirect, Calculated 0.1 mg/dL (0.2-0.8); Troponin High Sensitivity < 3.0 pg/mL (<58.9)
--- NOTE | 2025-02-05 15:40 | RAD REPORT ---
EXAMINATION: CTA CHEST PE CLINICAL INDICATION: Chest pain;Dyspnea TECHNIQUE: This examination was performed according to an angiographic protocol with 3D post-processi ng. This involves 3D reconstructions, MIPs, volume rendered images and/or shaded surface rendering. One or more of the following dose reduction techniques were used: Automated exposure control, adjustm ent of the mA and/or kV according to patient size, and/or iterative reconstruction. Unless otherwise specified, incidental findings do not require dedicated imaging follow-up. COMPARISON: No prior exam. FINDINGS: PULMONARY ARTERIES: Normal caliber. No evidence of pulmonary emboli to the subsegmental level. THORACIC AORTA: Normal caliber and configuration. LUNGS: No evidence of airspace or interstitial process. No nodules. Mild emphysema. PLEURA: No pleural effusion. No pneumothorax. MEDIASTINUM AND LYMPH NODES: No mediastinal mass or fluid collection. Normal size mediastinal, hilar, and axillary lymph nodes. OSSEOUS STRUCTURES AND CHEST WALL: Intact. UPPER ABDOMEN: No significant abnormalities. IMPRESSION: No evidence of pulmonary emboli to the subsegmental level. Mild emphysema.
--- NOTE | 2025-02-05 15:43 | RAD REPORT ---
EXAMINATION: CT ABDOMEN AND PELVIS WITH CONTRAST CLINICAL INDICATION: ABD PAIN TECHNIQUE: CT abdomen and pelvis was performed, after the administration of IV contrast, [facility]. Axial, sagittal and coronal reconstructions were obtained. One or more of the following dose reduction techniques were used: Automated exposure control, adjustment of the mA and k V according to patient size, and iterative reconstruction. Unless otherwise specified, incidental findings do not require dedicated imaging follow-up. COMPARISON: No prior exam. FINDINGS: LOWER CHEST: The visualized lung bases are clear. LIVER: Normal in size and contour. No focal lesion. Grossly unremarkable gallbladder. SPLEEN: Normal size. No focal lesion. PANCREAS: No mass, ductal dilation, or raffy-pancreatic fluid. ADRENALS: Normal; no mass. KIDNEYS: Normal size and contour. No hydronephrosis. GASTROINTESTINAL TRACT: There is a markedly dilated small bowel central abdomen measuring up to 4.3 c m. No evidence of free intraperitoneal air or free fluid. APPENDIX: Appendix not visualized, but no inflammatory changes in region of appendix. LYMPH NODES: No lymphadenopathy. MUSCULOSKELETAL: Mild anterolisthesis L4 on 5. IMPRESSION: Significantly dilated small bowel loop in the central abdomen measuring up to 4.3 cm in dimension com patible with partial mechanical obstruction, internal hernia/closed-loop obstruction is a possibility.
--- NOTE | 2025-02-05 16:21 | EDPHYS ---
Physician Documentation [facility] Name: Nolberto Pérez Age: 64 yrs Sex: Female : 1960 Arrival Date: 02/05/2025 Time: 12:28 Bed 19 Private MD: DANY Physician Ceasar Yarbrough HPI: 02/05 15:10 This 64 yrs old Female presents to ER via Ambulatory with complaints of [facility] Abdominal Pain. 15:10 The patient or guardian reports chest pain that is located primarily in the anterior bre chest wall, right. Onset: 3 day(s) ago. The patient presents with abdominal pain in the right upper quadrant, abdominal distention in the upper abdomen, in the lower abdomen. Onset: The symptoms/episode began/occurred 3 day(s) ago. The pain does not radiate. The symptoms do not radiate. Modifying factors: The symptoms are alleviated by remaining still, the symptoms are aggravated by coughing, breathing deeply, movement, pressure. The chest pain is described as a pressure, sharp. Historical: - Allergies: 12:41 No Known Allergies; cm10 - PMHx: 12:41 Anxiety; COPD; Diabetes - NIDDM; Hyperlipidemia; cm10 - PSHx: 12:41 Appendectomy; cm10 - Immunization history:: Adult Immunizations up to date. - Infectious Disease History:: Denies. - Social history:: Smoking status: Patient/guardian denies using tobacco, the patient reports quitting approximately 5 years ago. - Hospitalizations: : No recent hospitalization is reported. ROS: 15:10 Constitutional: Negative for fever, chills, and weight loss, Eyes: Negative for injury, bre pain, redness, and discharge, ENT: Negative for injury, pain, and discharge, Neck: Negative for injury, pain, and swelling, Cardiovascular: Negative for chest pain, palpitations, and edema, Back: Negative for injury and pain, : Negative for injury, bleeding, discharge, and swelling, MS/Extremity: Negative for injury and deformity, Skin: Negative for injury, rash, and discoloration, Neuro: Negative for headache, weakness, numbness, tingling, and seizure, Psych: Negative for depression, anxiety, suicide ideation, homicidal ideation, and hallucinations, Allergy/Immunology: Negative for hives, rash, and allergies, Endocrine: Negative for neck swelling, polydipsia, polyuria, polyphagia, and marked weight changes, Hematologic/Lymphatic: Negative for swollen nodes, abnormal bleeding, and unusual bruising, 15:10 Respiratory: Positive for cough, with no reported sputum, 15:10 Abdomen/GI: Positive for abdominal pain, of the epigastric area and right upper quadrant, Exam: 15:10 Constitutional: This is a well developed, well nourished patient who is awake, alert, bre and in no acute distress. Head/Face: Normocephalic, atraumatic. Eyes: Pupils equal round and reactive to light, extra-ocular motions intact. Lids and lashes normal. Conjunctiva and sclera are non-icteric and not injected. Cornea within normal limits. Periorbital areas with no swelling, redness, or edema. ENT: Nares patent. No nasal discharge, no septal abnormalities noted. Tympanic membranes are normal and external auditory canals are clear. Oropharynx with no redness, swelling, or masses, exudates, or evidence of obstruction, uvula midline. Mucous membranes moist. Neck: Trachea midline, no thyromegaly or masses palpated, and no cervical lymphadenopathy. Supple, full range of motion without nuchal rigidity, or vertebral point tenderness. No Meningismus. Chest/axilla: Normal chest wall appearance and motion. Nontender with no deformity. No lesions are appreciated. Cardiovascular: Regular rate and rhythm with a normal S1 and S2. No gallops, murmurs, or rubs. Normal PMI, no JVD. No pulse deficits. Respiratory: Lungs have equal breath sounds bilaterally, clear to auscultation and percussion. No rales, rhonchi or wheezes noted. No increased work of breathing, no retractions or nasal flaring. Back: No spinal tenderness. No costovertebral tenderness. Full range of motion. Female : Normal external genitalia. Skin: Warm, dry with normal turgor. Normal color with no rashes, no lesions, and no evidence of cellulitis. MS/ Extremity: Pulses equal, no cyanosis. Neurovascular intact. Full, normal range of motion., bilateral aka Neuro: Awake and alert, GCS 15, oriented to person, place, time, and situation. Cranial nerves II-XII grossly intact. Motor strength 5/5 in all extremities. Sensory grossly intact. Cerebellar exam normal. Normal gait. Psych: Awake, alert, with orientation to person, place and time. Behavior, mood, and affect are within normal limits. 15:10 ECG was reviewed by the Attending Physician. 15:10 Abdomen/GI: Inspection: distension, that is mild, Bowel sounds: normal, Palpation: mild abdominal tenderness, moderate abdominal tenderness, in the epigastric area and right upper quadrant, Vital Signs: 12:39 BP 138 / 65; Pulse 84; Resp 17; Temp 98.4; Pulse Ox 94% on R/A; Weight 90.72 kg; Height cm10 5 ft. 6 in. ; Pain 7/10; 14:20 BP 105 / 63; Pulse 72; Resp 18; Pulse Ox 100% on R/A; Pain 8/10; ld1 15:00 BP 119 / 65; Pulse 75; Resp 17; Pulse Ox 96% on R/A; ld1 16:43 BP 132 / 77; Pulse 85; Resp 18; Pulse Ox 99% ; ld1 12:39 Body Mass Index 32.28 (90.72 kg, 167.64 cm) cm10 12:39 Pain Scale: Adult cm10 14:20 Pain Scale: Adult ld1 MDM: 12:34 Medical Screening Exam initiated bre 15:12 Differential diagnosis: abnormal EKG, acute myocardial infarction, anxiety, coronary bre artery disease chest wall pain, Cholelithiasis costochondritis, hiatal hernia, pancreatitis, peptic ulcer disease, pneumothorax, thoracic aortic disection. HEART Score: History: Slightly Suspicious (0), ECG: Normal (0), Age: > 45 and < 65 years (1), Risk Factors: > or = 3 Risk factors for atherosclerotic disease (2), [Hypercholesterolemia] [+ Family HX] [Obesity] Troponin: < or = 1 x Normal Limit (0). The patient was not given aspirin in the Emergency Department. DUANE Risk Score: 1 - Three or more CAD risk factors, [Family Hx], [HTN], [DM]. Data reviewed: vital signs, nurses notes, lab test result(s), EKG, radiologic studies, CT scan, plain films, ultrasound. Consideration of Admission/Observation Escalation of care including admission/observation considered. I considered the following discharge prescriptions or medication management in the emergency department Medications were administered in the Emergency Department. See MAR. Independent interpretation of the following test(s) in the Emergency Department EKG: See my EKG interpretation above. Test considered but Not performed: MRI: NO MRCP. Historians other than the Patient: PT WELL INFORMED. Care significantly affected by the following chronic conditions: Diabetes, Hypertension, Obesity. Counseling: I had a detailed discussion with the patient and/or guardian regarding the historical points, exam findings, and any diagnostic results supporting the discharge/admit diagnosis, lab results, radiology results. 02/05 12:36 Order name: Basic Metabolic Panel; Complete Time: 15:04 [facility] 02/05 12:36 Order name: CBC with Diff; Complete Time: 15:04 [facility] 02/05 12:36 Order name: LFT's; Complete Time: 15:04 [facility] 02/05 12:36 Order name: Magnesium; Complete Time: 15:04 [facility] 02/05 12:36 Order name: NT PRO-BNP; Complete Time: 15:04 [facility] 02/05 12:36 Order name: PT-INR; Complete Time: 15:04 [facility] 02/05 12:36 Order name: Troponin HS; Complete Time: 15:04 [facility] 02/05 12:36 Order name: Lipase; Complete Time: 15:04 [facility] 02/05 12:36 Order name: Urinalysis w/ reflexes [facility] 02/05 16:51 Order name: Lactate w/ 2H reflex if indic. la1 02/05 17:05 Order name: CBC with Automated Diff EDMS 02/05 17:05 Order name: CBC with Automated Diff EDMS 02/05 17:05 Order name: CBC with Automated Diff EDMS 02/05 17:05 Order name: CBC with Automated Diff EDMS 02/05 17:05 Order name: CBC with Automated Diff EDMS 02/05 17:05 Order name: Comprehensive Metabolic Panel EDMS 02/05 17:05 Order name: Comprehensive Metabolic Panel EDMS 02/05 17:05 Order name: Comprehensive Metabolic Panel EDMS 02/05 17:05 Order name: Comprehensive Metabolic Panel EDMS 02/05 17:05 Order name: Comprehensive Metabolic Panel EDMS 02/05 12:36 Order name: XRAY Chest (1 view); Complete Time: 15:04 [facility] 02/05 12:48 Order name: US Abdomen Limited; Complete Time: 15:04 [facility] 02/05 15:05 Order name: CT Abd/Pelvis - IV Contrast Only; Complete Time: 16:17 [facility] 02/05 15:08 Order name: CT Chest For PE Angio; Complete Time: 16:17 [facility] 02/05 16:21 Order name: Abdomen 1 View (KUB) XRAY [facility] 02/05 17:05 Order name: Abdomen 1 View (KUB) [facility] 02/05 17:05 Order name: Abdomen 1 View (KUB) [facility] 02/05 12:36 Order name: EKG; Complete Time: 12:36 [facility] 02/05 12:36 Order name: Cardiac monitoring; Complete Time: 13:58 [facility] 02/05 12:36 Order name: EKG - Nurse/Tech; Complete Time: 13:58 [facility] 02/05 12:36 Order name: IV Saline Lock; Complete Time: 13:55 [facility] 02/05 12:36 Order name: Labs collected and sent; Complete Time: 13:55 [facility] 02/05 12:36 Order name: O2 Per Protocol; Complete Time: 13:55 [facility] 02/05 12:36 Order name: O2 Sat Monitoring; Complete Time: 13:55 [facility] EC:10 Rate is 79 beats/min. Rhythm is regular. QRS [place] is Normal. CT interval is normal. QRS bre interval is normal. QT interval is normal. No Q waves. T waves are Normal. No ST changes noted. Clinical impression: Normal ECG and No evidence of ischemia. Interpreted by me. Reviewed by me. Administered Medications: 14:08 Drug: morphine IVP or IV 2 mg IVP once over 4 mins Route: IVP; Infused Over: 4 mins; ld1 Site: right antecubital; 16:38 Follow up: Response: No adverse reaction ld1 14:08 Drug: Ondansetron IVP 4 mg IVP once; over 2 minutes Route: IVP; Site: right antecubital;ld1 16:38 Follow up: Response: No adverse reaction ld1 14:09 Drug: NS 0.9% IV 1000 ml IV at 1000 ml once; to be given as a bolus over 60 minutes ld1 Route: IV; Rate: 1000 ml; Site: right antecubital; 16:39 Follow up: Response: No adverse reaction; IV Status: Completed infusion; IV Intake: ld1 1000ml 14:09 Drug: Famotidine IVP 20 mg IVP once; dilute with 10 mL 0.9% NaCl; give over 2 minutes ld1 Route: IVP; Site: right antecubital; 16:39 Follow up: Response: No adverse reaction ld1 16:40 Drug: morphine IVP or IV 2 mg IVP once over 4 mins Route: IVP; Infused Over: 4 mins; ld1 Site: right antecubital; 16:51 Drug: morphine IVP or IV 2 mg IVP once over 4 mins Route: IVP; Infused Over: 4 mins; ld1 Site: right antecubital; 16:51 Drug: NS 0.9% IV 1000 ml IV at 1000 ml once; to be given as a bolus over 60 minutes ld1 Route: IV; Rate: 1000 ml; Site: right antecubital; 16:52 Drug: Ciprofloxacin IVPB 400 mg 200 ml IVPB once over 60 mins Volume: 200 ml; Route: ld1 IVPB; Infused Over: 60 mins; Site: right antecubital; 16:52 Drug: metroNIDAZOLE IVPB 500 mg 100 ml IVPB at 200 ml/hr once over 30 mins Volume: 100 ld1 ml; Route: IVPB; Rate: 200 ml/hr; Infused Over: 30 mins; Site: right antecubital; 17:05 Drug: Banana Bag - (Multivitamin IV 1 amp, NS 0.9% IV 1000 ml, Thiamine IV 100 mg, ld1 foLIC Acid IVPB 1 mg) IV at 125 ml/hr once Route: IV; Rate: 125 ml/hr; Site: left forearm; Disposition Summary: 02/05/25 16:20 Hospitalization Ordered Notes: Hospitalization Status: Inpatient Admission bre Provider: Poncho Monge cha [facility] Condition: Fair bre Problem: new bre Symptoms: have improved bre Bed/Room Type: Standard bre Room Assignment: 221(02/05/25 17:40) iw Diagnosis - Abdominal pain, Generalized bre - Other intestinal obstruction - partial mechanical SBO bre Forms: - Medication Reconciliation Form bre - SBAR form bre - Leadership Thank You Letter bre Signatures: Dispatcher [employer] Ceasar Ferrell MD MD cha Williams, Irene, RN RN iw Sims, Lauren, RN RN ld1 Libia Bourgeois RN RN cm10 Corrections: (The following items were deleted from the chart) 16:21 16:21 Abdomen 1 View (KUB)+[email or web address] ordered. EDMS EDMS 16:52 16:21 NG Tube ordered. bre ld1 17:40 16:20 bre iw
--- NOTE | 2025-02-05 16:21 | ER ---
Nurse's Notes [facility] Name: Nolberto Pérez Age: 64 yrs Sex: Female : 1960 Arrival Date: 02/05/2025 Time: 12:28 Bed 19 Private MD: Diagnosis: Abdominal pain, Generalized;Other intestinal obstruction-partial mechanical SBO Presentation: 02/05 12:39 Chief complaint: Patient states: RUQ abdominal pain that radiates to back onset 4 days cm10 ago. pt states that the pain is worse when eating and when taking a deep breath. Coronavirus screen: Client denies travel out of the [place] in the last 14 days. Ebola Screen: Patient denies travel to an Ebola-affected area in the 21 days before illness onset. Initial Sepsis Screen: Does the patient meet any 2 criteria? No. Patient's initial sepsis screen is negative. Does the patient have a suspected source of infection? No. Patient's initial sepsis screen is negative. Risk Assessment: Do you want to hurt yourself or someone else? Patient reports no desire to harm self or others. Onset of symptoms was February 01, 2025. 12:39 Method Of Arrival: Ambulatory cm10 12:39 Acuity: TIFFANIE 3 cm10 Triage Assessment: 12:41 General: Appears uncomfortable, Behavior is cooperative, crying. Pain: Complains of cm10 pain in right upper quadrant Pain radiates to back Pain currently is 7 out of 10 on a pain scale. Quality of pain is described as sharp, Pain began 4 days ago. Neuro: No deficits noted. Level of Consciousness is awake, alert, obeys commands, Oriented to person, place, time, situation, Appropriate for age. Respiratory: No deficits noted. Airway is patent Respiratory effort is even, unlabored, Respiratory pattern is regular, symmetrical. Historical: - Allergies: 12:41 No Known Allergies; cm10 - PMHx: 12:41 Anxiety; COPD; Diabetes - NIDDM; Hyperlipidemia; cm10 - PSHx: 12:41 Appendectomy; cm10 - Immunization history:: Adult Immunizations up to date. - Infectious Disease History:: Denies. - Social history:: Smoking status: Patient/guardian denies using tobacco, the patient reports quitting approximately 5 years ago. - Hospitalizations: : No recent hospitalization is reported. Screenin:20 [facility] ED Fall Risk Assessment (Adult) History of falling in the last 3 months, ld1 including since admission No falls in past 3 months (0 pts) Confusion or Disorientation No (0 pts) Intoxicated or Sedated No (0 pts) Impaired Gait No (0 pts) Mobility Assist Device Used No (0 pt) Altered Elimination No (0 pt) Score/Fall Risk Level 0 - 2 = Low Risk Oriented to surroundings, Hourly rounding (assess needs \T\ fall precautionary measures) done. Abuse screen: Denies threats or abuse. Denies injuries from another. Nutritional screening: No deficits noted. Tuberculosis screening: No symptoms or risk factors identified. Assessment: 14:27 General: Appears in no apparent distress. uncomfortable, Behavior is calm, cooperative, ld1 appropriate for age. Pain: Complains of pain in abdomen Pain does not radiate. Pain currently is 8 out of 10 on a pain scale. Quality of pain is described as throbbing, Pain began suddenly, Is continuous. Neuro: Level of Consciousness is awake, alert, obeys commands, Oriented to person, place, time, situation. Cardiovascular: Capillary refill < 3 seconds Patient's skin is warm and dry. Respiratory: Airway is patent Respiratory effort is even, unlabored. GI: Abdomen is round non-distended, Bowel sounds present X 4 quads. Abd is soft Abdomen is tender to palpation X 4 quads. Reports lower abdominal pain, upper abdominal pain. : No signs and/or symptoms were reported regarding the genitourinary system. EENT: No signs and/or symptoms were reported regarding the EENT system. Derm: No signs and/or symptoms reported regarding the dermatologic system. Musculoskeletal: No signs and/or symptoms reported regarding the musculoskeletal system. 16:39 Reassessment: Patient appears in no apparent distress at this time. No changes from ld1 previously documented assessment. C/O pain to upper abdomen. Hospitalist at bedside discussing admission with patient. Patient states symptoms have not improved. Vital Signs: 12:39 BP 138 / 65; Pulse 84; Resp 17; Temp 98.4; Pulse Ox 94% on R/A; Weight 90.72 kg; Height cm10 5 ft. 6 in. ; Pain 7/10; 14:20 BP 105 / 63; Pulse 72; Resp 18; Pulse Ox 100% on R/A; Pain 8/10; ld1 15:00 BP 119 / 65; Pulse 75; Resp 17; Pulse Ox 96% on R/A; ld1 16:43 BP 132 / 77; Pulse 85; Resp 18; Pulse Ox 99% ; ld1 12:39 Body Mass Index 32.28 (90.72 kg, 167.64 cm) cm10 12:39 Pain Scale: Adult cm10 14:20 Pain Scale: Adult ld1 ED Course: 12:31 Patient arrived in ED. gl 12:34 Ceasar Yarbrough MD is Attending Physician. bre 12:41 Triage completed. cm10 12:41 Arm band placed on right wrist. Patient placed in waiting room. cm10 13:13 US Abdomen Limited In Process Unspecified. EDMS 13:33 XRAY Chest (1 view) In Process Unspecified. EDMS 13:55 Bibi Olguin, LURDES is Primary Nurse. ld1 14:20 Patient has correct armband on for positive identification. Bed in low position. Call ld1 light in reach. Side rails up X2. Pulse ox on. NIBP on. Door closed. Noise minimized. Warm blanket given. 14:20 No provider procedures requiring assistance completed. Inserted saline lock: 20 gauge ld1 in right antecubital area, using aseptic technique. Blood collected. Flushed with 10 mL NS. 15:29 CT Abd/Pelvis - IV Contrast Only In Process Unspecified. EDMS 15:29 CT Chest For PE Angio In Process Unspecified. EDMS 16:19 Poncho Monge MD is Hospitalizing Provider. bre 16:39 Urinalysis w/ reflexes Sent. ld1 16:46 Abdomen 1 View (KUB) XRAY In Process Unspecified. EDMS 17:05 Lactate w/ 2H reflex if indic. Sent. ld1 17:05 Inserted saline lock: 20 gauge in left forearm, using aseptic technique. Blood ld1 collected. Flushed with 10 mL NS. Administered Medications: 14:08 Drug: morphine IVP or IV 2 mg IVP once over 4 mins Route: IVP; Infused Over: 4 mins; ld1 Site: right antecubital; 16:38 Follow up: Response: No adverse reaction ld1 14:08 Drug: Ondansetron IVP 4 mg IVP once; over 2 minutes Route: IVP; Site: right antecubital;ld1 16:38 Follow up: Response: No adverse reaction ld1 14:09 Drug: NS 0.9% IV 1000 ml IV at 1000 ml once; to be given as a bolus over 60 minutes ld1 Route: IV; Rate: 1000 ml; Site: right antecubital; 16:39 Follow up: Response: No adverse reaction; IV Status: Completed infusion; IV Intake: ld1 1000ml 14:09 Drug: Famotidine IVP 20 mg IVP once; dilute with 10 mL 0.9% NaCl; give over 2 minutes ld1 Route: IVP; Site: right antecubital; 16:39 Follow up: Response: No adverse reaction ld1 16:40 Drug: morphine IVP or IV 2 mg IVP once over 4 mins Route: IVP; Infused Over: 4 mins; ld1 Site: right antecubital; 16:51 Drug: morphine IVP or IV 2 mg IVP once over 4 mins Route: IVP; Infused Over: 4 mins; ld1 Site: right antecubital; 16:51 Drug: NS 0.9% IV 1000 ml IV at 1000 ml once; to be given as a bolus over 60 minutes ld1 Route: IV; Rate: 1000 ml; Site: right antecubital; 16:52 Drug: Ciprofloxacin IVPB 400 mg 200 ml IVPB once over 60 mins Volume: 200 ml; Route: ld1 IVPB; Infused Over: 60 mins; Site: right antecubital; 16:52 Drug: metroNIDAZOLE IVPB 500 mg 100 ml IVPB at 200 ml/hr once over 30 mins Volume: 100 ld1 ml; Route: IVPB; Rate: 200 ml/hr; Infused Over: 30 mins; Site: right antecubital; 17:05 Drug: Banana Bag - (Multivitamin IV 1 amp, NS 0.9% IV 1000 ml, Thiamine IV 100 mg, ld1 foLIC Acid IVPB 1 mg) IV at 125 ml/hr once Route: IV; Rate: 125 ml/hr; Site: left forearm; Medication: 14:20 VIS not applicable for this client. ld1 Intake: 16:39 IV: 1000ml; Total: 1000ml. ld1 Outcome: 16:20 Decision to Hospitalize by Provider. ber 18:13 Patient left the ED. iw Signatures: Dispatcher [employer] Ceasar Ferrell MD MD cha Williams, Irene, RN RN Bibi Olguin RN RN 1 Libia Bourgeois, RN RN cm10 Monique Simon, Reg Reg gl
[2025-02-05] MEDS ORDERED: CIPROFLOXACIN 400mg IV 400 MG/200 ML BAG IV ONE (16:29)
[2025-02-05] MEDS ORDERED: METRONIDAZOLE 500mg IVPB 500 MG/100 ML BAG IV ONE (16:29)
[2025-02-05 16:41] LABS: Specific Gravity 1.006 (1.005-1.030); Urine Bilirubin NEGATIVE (Negative); Urine Blood Negative (Negative); Urine Clarity Clear (Clear); Urine Color Colorless (Yellow); Urine Glucose NEGATIVE (Negative); Urine Ketones NEGATIVE (Negative); Urine Microscopic Reflex YN NO UMIC; Urine Nitrite NEGATIVE (Negative); Urine Protein NEGATIVE (Negative); Urine Urobilinogen Normal (Normal)
--- NOTE | 2025-02-05 16:56 | RAD REPORT ---
EXAM: XR of the abdomen HISTORY: Abdominal pain ABD PAIN COMPARISON: None FINDINGS: Contrast is present in the system. High density crescentic material is seen along both hemidiaphra gms of unclear etiology. This could be contrast material which is in the peritoneal cavity, unclear source. No abnormality was seen in this region on recent CT study. Repeat noncontrast CT through the abdomen and pelvis could be obtained to clarify this finding.
[2025-02-05] MEDS: D5 0.45 NS 1,000 ML IV SCH (17:00)
[2025-02-05] MEDS: METRONIDAZOLE 500mg IVPB 500 MG/100 ML BAG IV SCH (17:00)
--- NOTE | 2025-02-05 17:13 | P.HP ---
Certification for Inpatient Patient admitted to: Inpatient With expected LOS: >2 Midnights Patient will require the following post-hospital care: None Practitioner: I am a practitioner with admitting privileges, knowledge of patient current condition, hospital course, and medical plan of care. Services: Services provided to patient in accordance with Admission requirements found in Title 42 Section 412.3 of the Code of Federal Regulations Patient History Date of Service: 02/05/25 Reason for admission: SBO History of Present Illness: 64-year-old female with history of COPD, diet-controlled diabetes, hyperlipidemia presents to the emergency department 3 days of abdominal pain and diarrhea. She denies nausea or vomiting. Patient was evaluated in the emergency department and her CT showed significant dilated small bowel loop in the central abdomen measuring up to 4.3 cm in dimension compatible with partial mechanical obstruction, internal hernia or closed-loop bowel obstruction is a possibility. Patient started on IV antibiotics, general surgery was consulted, lactate was added. Patient be admitted for further management of suspected partial small bowel obstruction. Allergies No Known Drug Allergies Allergy (Verified 04/13/16 06:51) none Home Medications: Albuterol Neb [Proventil 0.083% Neb Soln] 1 amp NEB Q6H PRN 12/10/21 Aripiprazole [Abilify] 1 tab PO DAILY 12/10/21 Atorvastatin Calcium 1 tab PO DAILY 12/10/21 Cetirizine HCl [Zyrtec] 10 mg PO BEDTIME 12/10/21 Metformin HCl 1 tab PO DAILY 12/10/21 Oxybutynin Chloride [Oxybutynin Chloride ER] 1 tab PO DAILY 12/10/21 PARoxetine HCL [Paxil] 1 tab PO DAILY 12/10/21 Fluconazole [Diflucan] 200 mg PO DAILY #7 tablet 12/12/21 - Past Medical/Surgical History Diabetic: Yes -: Diabetes mellitus type 2 [id number] -: Depression -: COPD -: Tobacco abuse -: Restless leg syndrome -: Hyperlipidemia -: Urinary incontinence -: Tubal ligation -: Appendectomy -: scar tissue removed abdomen -: voice box biopsy Psychosocial/ Personal History: Patient is - Family History Father -: Cancer Notes: lung cancer Mother -: Hypertension, Diabetes Brother -: Heart disease, Cancer Notes: lung cancer - Social History Smoking Status: Former smoker Alcohol use: No CD- Drugs: No Caffeine use: Yes Place of Residence: Home Review of Systems 10-point ROS is otherwise unremarkable Gastrointestinal: Abdominal Pain, Diarrhea Physical Examination - Physical Exam General: Alert, In no apparent distress, Oriented x3 HEENT: Atraumatic Neck: Supple Respiratory: Clear to auscultation bilaterally, Normal air movement Cardiovascular: Regular rate/rhythm, Normal S1 S2 Gastrointestinal: Tenderness Musculoskeletal: No tenderness Neurological: Normal speech, Normal affect - Studies Laboratory Data (last 24 hrs) 02/05/25 02/05/25 02/05/25 13:52 13:52 13:52 WBC 8.80 Hgb 13.6 Hct 40.4 Plt Count 288 PT 10.9 INR 0.95 Sodium 138 Potassium 3.8 BUN 8 Creatinine 0.60 Glucose 115 H Magnesium 2.2 Total Bilirubin 0.3 AST 13 L ALT 19 Alkaline Phosphatase 76 Lipase 77 H Assessment and Plan - Plan Assessment: Small bowel obstruction COPD Diet controlled diabetes Hyperlipidemia Plan: Small bowel obstruction NPO, IVF PRN pain medications and anti emetics No nausea or vomiting, will hold off on NGT obtain lactate Case discussed with general surgery COPD Resume breztri when available PRN nebs Diet controlled diabetes When tolerating PO will utilize carb consistent diet Hyperlipidemia resume statin when appropriate DVT PPX: SCD Code status:Full code Discharge Plan: Home Plan to discharge in: 72 Hours - Advance Directives Does patient have a Living Will: No Does patient have a Durable POA for Healthcare: No - Code Status/Comfort Care Code Status Assessed: Yes (Full code) Critical Care: No Time Spent Managing Pts Care (In Minutes): 68
[2025-02-05 18:32] VITALS: O2SAT 99
[2025-02-05] MEDS: CIPROFLOXACIN 400mg IV 400 MG/200 ML BAG IV SCH (21:00)
[2025-02-05 21:32] VITALS: BMI 32.3
[2025-02-05] MEDS: FOLIC ACID 1 MG, MULTIVITAMINS INJ 10 ML, THIAMINE HCL 100 MG in NA CHLORIDE 0.9% 1,000 ML IV ONE (21:36)
[2025-02-05] MEDS: ONDANSETRON 4 MG/2 ML VIAL IV PRN (21:41)
[2025-02-05] MEDS: HYDROMORPHONE HCL 0.5 MG/0.5 ML INJ IV PRN (21:41)
[2025-02-05] MEDS ORDERED: MORPHINE 2 MG/ML SYR IV PRN (22:55)
[2025-02-06 04:55] LABS: Absolute Basophils 0.1 K/uL (0-0.5); Absolute Eosinophils 0.1 K/uL (0-0.5); Absolute Lymphocytes (CBC) 1.4 K/uL (0.7-4.9); Absolute Monocytes 0.4 K/uL (0.1-1.3); Absolute Neutrophil 4.9 K/uL (1.8-8.0); Eosinophils % 1.9 % (0-4.4); Hematocrit 34.7 % (36.0-45.0); Hemoglobin 11.9 g/dL (12.0-15.0); Lymphocytes % 19.7 % (15.3-44.8); MCH 30.5 pg (27.0-35.0); MCHC 34.2 g/dL (32.0-36.0); MCV 89.3 fL (80-100); Monocytes % 6.2 % (3.3-12.3); Neutrophils % 71.2 % (41.7-73.7); Nucleated Red Blood Cells % 0.1 % (0-0); Platelets 229 thou/uL (152-406); RBC Red Blood Cell Count 3.89 M/uL (3.86-4.86)
[2025-02-06 05:00] LABS: ALT/SGPT < 14 U/L (13-56); AST/SGOT < 10 U/L (15-37); Albumin 2.9 g/dL (3.4-5.0); Albumin/Globulin Ratio 1.1 (1.1-1.8); Alkaline Phosphatase 58 U/L (45-117); Anion Gap 6.8 mEq/L (5.0-15.0); BUN Blood Urea Nitrogen 6 mg/dL (7-18); Bicarbonate 27 mEq/L (21-32); Bilirubin Total 0.2 mg/dL (0.2-1.0); Globulin 2.7 g/dL (2.3-3.5); Glomerular Filtration Rate 104 ml/min (=/>90); Glucose Level 120 mg/dL (74-106); Potassium 3.8 mEq/L (3.5-5.1); Protein, Total 5.6 g/dL (6.4-8.2); Sodium Level 144 mEq/L (136-145)
--- NOTE | 2025-02-06 08:41 | RAD REPORT ---
EXAM: XR Abdomen 1 View (KUB) HISTORY: HS MAIN eval bowel gas COMPARISON: 02/05/2025 FINDINGS: Single view of the abdomen shows a nonspecific, nonobstructive bowel gas pattern. No suspi cious calcifications are seen. The bones are unremarkable. IMPRESSION: Nonobstructive bowel gas pattern on this radiograph.
--- NOTE | 2025-02-06 09:19 | P.PN ---
Date of Service: 02/06/25 Subjective: Some improvement in abdominal pain overnight Did have 2 episodes of vomiting bile No bowel movement ROS: 10 point ROS as noted above, otherwise negative Physical exam GEN: Alert, oriented, NAD HEENT: Normal conjunctiva, sclera anicteric CV: Regular rate and rhythm, no edema Pulm: Nonlabored respirations on room air ABD: Soft, mild generalized abdominal tenderness, nondistended MSK: No joint tenderness Integumentary: No rashes Neuro: Normal speech, normal affect Vitals reviewed Assessment: Small bowel obstruction COPD Diet controlled diabetes Hyperlipidemia Plan: Small bowel obstruction NPO, IVF PRN pain medications and anti emetics 2 episodes of vomiting overnight but feeling much better now Lactate was normal Case discussed with general surgery-will see patient KUB this morning with nonobstructive pattern Overall improved from yesterday COPD Resume breztri when available PRN nebs Diet controlled diabetes When tolerating PO will utilize carb consistent diet Hyperlipidemia resume statin when appropriate DVT PPX: SCD Code status:Full code Discharge Plan: Home Plan to discharge in: 24 to 48 hours Time Spent Managing Pts Care (In Minutes): 35
--- NOTE | 2025-02-06 12:37 | EKG ---
Test Date: 2025-02-05 Test Time: 13:59:41 Veneer Patcher: ARTHUR MEASUREMENT RESULTS: Intervals: Rate: 79 MS: 158 QRSD: 82 QT: 392 QTc: 449 [place]: P: 73 MS: 158 QRS: 83 T: 83 INTERPRETIVE STATEMENTS: Normal sinus rhythm Normal ECG Compared to ECG 05/04/2022 22:01:44 No significant changes Electronically Signed On 02-06-25 12:36:05 CDT by Estrada Coughlin
[2025-02-06] MEDS ORDERED: HYDROCODONE/APAP 5/325 MG TAB PO PRN (14:28)
[2025-02-06] MEDS: ACETAMINOPHEN 325 MG TABLET PO PRN (15:07)
[2025-02-06] MEDS ORDERED: ALBUTEROL 2.5 MG/3 ML NEB SOL NEB PRN (15:13)
[2025-02-06] MEDS: ROSUVASTATIN 10 MG TAB PO SCH (20:26)
[2025-02-06] MEDS: LORATADINE 10 MG TAB PO SCH (20:26)
[2025-02-06] MEDS: HOME MED 1 EA UNK (Aripiprazole [Abilify] 2 MG Tablet) PO SCH (20:27)
[2025-02-06] MEDS: PARoxetine HCL 10 MG TAB PO SCH (20:27)
[2025-02-06] MEDS ORDERED: HOME MED 1 EA UNK (Rosuvastatin Calcium [Crestor] 20 MG Tablet) PO SCH (21:00)
[2025-02-07 07:41] LABS: Absolute Eosinophils 0.2 K/uL (0-0.5); Absolute Lymphocytes (CBC) 1.4 K/uL (0.7-4.9); Absolute Monocytes 0.4 K/uL (0.1-1.3); Absolute Neutrophil 3.7 K/uL (1.8-8.0); Basophils % 0.8 % (0-1.3); Eosinophils % 3.1 % (0-4.4); Hematocrit 37.2 % (36.0-45.0); Hemoglobin 12.7 g/dL (12.0-15.0); Lymphocytes % 24.2 % (15.3-44.8); MCH 29.8 pg (27.0-35.0); MCHC 34.1 g/dL (32.0-36.0); MCV 87.4 fL (80-100); MPV 7.4 fL (7.6-11.3); Monocytes % 6.9 % (3.3-12.3); Platelets 261 thou/uL (152-406); RBC Red Blood Cell Count 4.26 M/uL (3.86-4.86); Red Cell Distribution Width 13.9 % (12.1-15.2)
[2025-02-07 08:02] LABS: ALT/SGPT < 14 U/L (13-56); AST/SGOT 11 U/L (15-37); Alkaline Phosphatase 60 U/L (45-117); Anion Gap 5.6 mEq/L (5.0-15.0); BUN Blood Urea Nitrogen 3 mg/dL (7-18); Bicarbonate 29 mEq/L (21-32); Bilirubin Total 0.3 mg/dL (0.2-1.0); Globulin 2.9 g/dL (2.3-3.5); Glomerular Filtration Rate 104 ml/min (=/>90); Glucose Level 135 mg/dL (74-106); Potassium 3.6 mEq/L (3.5-5.1); Protein, Total 5.9 g/dL (6.4-8.2); Sodium Level 143 mEq/L (136-145)
[2025-02-07] MEDS ORDERED: HOME MED 1 EA UNK (Bupropion Hcl [Wellbutrin Xl] 300 MG Tab.Er.24h) PO SCH (09:00)
[2025-02-07] MEDS: BUPROPION HCL XL 150 MG TAB PO SCH (09:41)
[2025-02-07 16:33] VITALS: BP 129/60; TEMP 97.8
--- NOTE | 2025-02-07 17:08 | P.DS ---
Admission Date: 02/05/25 Discharge Date: 02/07/25 Disposition: ROUTINE DISCHARGE Discharge Condition: GOOD Reason for Admission: SBO Brief History of Present Illness: Diagnosis Small bowel obstruction COPD Diet controlled diabetes Hyperlipidemia HPI 02/05/2025 64-year-old female with history of COPD, diet-controlled diabetes, hyperlipidemia presents to the emergency department 3 days of abdominal pain and diarrhea. She denies nausea or vomiting. Patient was evaluated in the emergency department and her CT showed significant dilated small bowel loop in the central abdomen measuring up to 4.3 cm in d imension compatible with partial mechanical obstruction, internal hernia or closed-loop bowel obstruction is a possibility. Patient started on IV antibiotics, general surgery was consulted, lactate was added. Patient be admitted for further management of suspected partial small bowel obstruction. Hospital Course: Nolberto was admitted and treated for abdominal pain and diarrhea x 3 days. She was found to have a small bowel obstruction. She has tolerated resting her digestive system with slow diet advancement and has had a normal BM yesterday and today. She has tolerated full liquid diet without stomach upset, nausea, diarrhea, and abdominal pain. Dr. Rollins has evaluated and cleared her for discharge. Follow-up with Dr. Rollins and PCP outpatient. Continue antibiotic course with ciprofloxacin and Flagyl. Physical exam GEN: Alert and oriented x4, NAD, afebrile HEENT: Normal conjunctiva, sclera anicteric CV: RRR, S1 S2 present Pulm: Nonlabored respirations, Clear BBS, on room air ABD: Soft, mild generalized abdominal tenderness, nondistended MSK: No joint tenderness Integumentary: No rashes Neuro: Normal speech, normal affect Vital Signs/Physical Exam: Temp Pulse Resp BP Pulse Ox 97.8 F 82 18 129/60 94 02/07/25 16:00 02/07/25 16:00 02/07/25 16:00 02/07/25 16:00 02/07/25 16:00 Laboratory Data at Discharge: WBC 5.70 thou/uL (4.3-10.9) 02/07/25 07:23 Hgb 12.7 g/dL (12.0-15.0) 02/07/25 07:23 Hct 37.2 % (36.0-45.0) 02/07/25 07:23 Plt Count 261 thou/uL (152-406) 02/07/25 07:23 PT 10.9 SECONDS (10-13.0) 02/05/25 13:52 INR 0.95 02/05/25 13:52 Sodium 143 mEq/L (136-145) 02/07/25 07:23 Potassium 3.6 mEq/L (3.5-5.1) 02/07/25 07:23 BUN 3 mg/dL (7-18) L 02/07/25 07:23 Creatinine 0.52 mg/dL (0.55-1.02) L 02/07/25 07:23 Glucose 135 mg/dL (74-106) H 02/07/25 07:23 Magnesium 2.2 mg/dL (1.6-2.4) 02/05/25 13:52 Total Bilirubin 0.3 mg/dL (0.2-1.0) 02/07/25 07:23 AST 11 U/L (15-37) L 02/07/25 07:23 ALT < 14 U/L (13-56) 02/07/25 07:23 Alkaline Phosphatase 60 U/L (45-117) 02/07/25 07:23 Lipase 77 U/L (13-75) H 02/05/25 13:52 Home Medications: Aripiprazole [Abilify] 2 mg PO BEDTIME 02/05/25 Loratadine [Claritin*] 10 mg PO BEDTIME 02/05/25 PARoxetine HCL [Paxil] 30 mg PO BEDTIME 02/05/25 Rosuvastatin Calcium [Crestor] 20 mg PO BEDTIME 02/05/25 buPROPion HCL [Wellbutrin Xl] 300 mg PO DAILY 02/05/25 Ciprofloxacin HCl [Cipro 500 MG Tablet] 500 mg PO BID 5 Days #10 tab 02/07/25 metroNIDAZOLE [Flagyl] 500 mg PO Q8H 5 Days #15 tab 02/07/25 New Medications: Ciprofloxacin HCl [Cipro 500 MG Tablet] 500 mg PO BID 5 Days #10 tab metroNIDAZOLE [Flagyl] 500 mg PO Q8H 5 Days #15 tab Physician Discharge Instructions: 1. Please call and schedule a follow-up appointment with your PCP in 3-5 days - Please follow-up with your PCP for medication refills/adjustments 2. Please call and schedule a follow-up appointment with Dr. Rollins in one to two weeks, if symptoms continue 3. Continue GI soft diet 4. No activity restrictions 5. Return to the ED if symptoms worsen New medications Ciprofloxacin 500 mg twice daily x 5 days Flagyl 500 mg 3 times daily x 5 days Diet: GI soft Followup: BONI PLATA [Primary Care Provider] -
== END 2025-02-07 17:49 | disposition home or self-care (01) | DRG 390 ==
LOC: ER 12:28 → ERHOLD 16:59 → 2ND 17:49
PROVIDERS: ADMIT Hospitalist; ATTEND Hospitalist
DX: K56.600 Partial intestinal obstruction, unspecified as to cause (principal); J44.9 Chronic obstructive pulmonary disease, unspecified; E78.5 Hyperlipidemia, unspecified; G25.81 Restless legs syndrome; E11.9 Type 2 diabetes mellitus without complications; Z90.49 Acquired absence of other specified parts of digestive tract; Z87.891 Personal history of nicotine dependence; Z79.899 Other long term (current) drug therapy
CPT/HCPCS: 36415; 71045; 71275; 74018; 74177; 76705; 80048; 80053; 80076; 81003; 82947; 83605; 83690; 83735; 83880; 84484; 85025; 85610; 93005; 99284; J0744; J1171; J2405; J3411; J7030; J7613; J7799; Q9967